=== PATIENT | female | born 1945 | race Caucasian/White ===

== ENCOUNTER → 2019-12-26 08:27 | Outpatient (BNVA) | payer MEDICARE, MEDICAID, SELFPAY | PROVIDERS: PCP Internal Medicine; Visit Provider Internal Medicine | DX: I48.20 Chronic atrial fibrillation, unspecified (principal); Z51.81 Encounter for therapeutic drug level monitoring; Z79.01 Long term (current) use of anticoagulants | CPT/HCPCS: 85610; 99211 ==

== ENCOUNTER → 2020-01-30 09:22 | Outpatient (BNVA) | payer MEDICARE, OTHER, SELFPAY | PROVIDERS: PCP Internal Medicine; Referring Provider Internal Medicine; Visit Provider Internal Medicine | DX: I48.20 Chronic atrial fibrillation, unspecified (principal); Z51.81 Encounter for therapeutic drug level monitoring; Z79.01 Long term (current) use of anticoagulants | CPT/HCPCS: 85610; 99211 ==

== ENCOUNTER → 2020-02-27 08:19 | Outpatient (BNVA) | payer MEDICARE, OTHER, SELFPAY | PROVIDERS: PCP Internal Medicine; Visit Provider Internal Medicine | DX: I48.20 Chronic atrial fibrillation, unspecified (principal); Z51.81 Encounter for therapeutic drug level monitoring; Z79.01 Long term (current) use of anticoagulants | CPT/HCPCS: 85610; 99211 ==

== ENCOUNTER → 2020-03-26 08:56 | Outpatient (BNVA) | payer MEDICARE, OTHER, SELFPAY | PROVIDERS: PCP Internal Medicine; Visit Provider Internal Medicine | DX: I48.20 Chronic atrial fibrillation, unspecified (principal); Z51.81 Encounter for therapeutic drug level monitoring; Z79.01 Long term (current) use of anticoagulants | CPT/HCPCS: 85610; 99211 ==

== ENCOUNTER → 2020-04-09 08:23 | Outpatient (BNVA) | payer MEDICARE, MEDICAID, OTHER, SELFPAY | PROVIDERS: PCP Internal Medicine; Visit Provider Internal Medicine | DX: I48.20 Chronic atrial fibrillation, unspecified (principal); Z51.81 Encounter for therapeutic drug level monitoring; Z79.01 Long term (current) use of anticoagulants | CPT/HCPCS: 85610; 99211 ==

== ENCOUNTER 2020-05-07 08:21 | Outpatient (REF) | payer MEDICARE, MEDICAID, SELFPAY ==
--- NOTE | ~2020-05-07 | XR_ITS ---
EXAMINATION: XR FOOT, RIGHT CLINICAL INFORMATION: Pain COMPARISON: None TECHNIQUE: AP, lateral, and oblique views of the right foot. FINDINGS: Bone alignment is normal. No fracture or dislocation is seen. The bones are osteopenic. There are contractures of the toes. Joint spaces are otherwise normal. There is soft tissue arterial calcification. XR/XR foot RT min 3V IMPRESSION: Osteopenia and soft tissue arterial calcification.
[2020-05-07 13:54] LABS: MANUAL DIFF FLAG NO
[2020-05-07 14:02] LABS: Basophils Percent Auto 0.3 % (0-2); Eosinophils Absolute Auto 0.5 X10*3/uL (0.0-0.4); Eosinophils Percent Auto 5.2 % (0-4); Hematocrit 37.3 % (37-47); Imm Gran Abs Auto 0.03 X10*3/uL (0.00-0.03); Imm Gran Pct Auto 0.3 % (0.0-0.4); Lymphocytes Absolute Auto 2.1 X10*3/uL (1.2-4.9); Lymphocytes Percent Auto 23.5 % (20-40); Mean Corpuscular HGB Conc 32.2 g/dl (31.0-35.0); Mean Corpuscular Hemoglobin 30.5 pg (27.0-33.0); Mean Corpuscular Volume 94.7 fL (80-98); Mean Platelet Volume 10.1 fL (9.4-12.3); Monocytes Absolute Auto 0.8 X10*3/uL (0.1-1.2); Neutrophils Absolute Auto 5.6 X10*3/uL (2.0-8.3); Neutrophils Percent Auto 61.7 % (45-73); Platelet Count 310 X10*3/uL (160-400); Red Blood Count 3.94 X10*6/uL (4.20-5.50); Red Cell Distribution Width 13.6 % (11.0-16.0)
[2020-05-07 14:28] LABS: Alanine Aminotransferase 9 U/L (0-31); Alkaline Phosphatase 96 U/L (39-117); Anion Gap 11 (12-20); Aspartate Amino Transferase 12 U/L (5-31); Bilirubin Total 0.6 mg/dL (0.0-1.0); Blood Urea Nitrogen 16 mg/dL (9-16); Calcium 9.2 mg/dL (8.4-10.2); Carbon Dioxide 29 mmol/L (22-29); Chloride 102 mmol/L (96-108); Cholesterol 144 mg/dL; Estimated Glomerular Filt Rate > 60; Glucose Random 89 mg/dL (60-115); HDL Cholesterol 55 mg/dL; LDL Cholesterol Calculated 71 mg/dl; Potassium 4.2 mmol/L (3.3-5.1); Sodium 138 mmol/L (135-145); Total Protein 6.5 g/dL (6.5-8.0); Triglycerides 93 mg/dL
[2020-05-07 14:53] LABS: Thyroid Stimulating Hormone 1.57 uIU/mL (0.32-4.0); Vitamin D 25-OH Total 8.8 ng/mL (>30)
== END 2020-05-07 08:22 | disposition home or self-care (01) ==
LOC: HO.LAB 08:21
PROVIDERS: Absent Provider Internal Medicine; PCP Internal Medicine; Visit Provider Internal Medicine
DX: E78.00 Pure hypercholesterolemia, unspecified (principal); I43 Cardiomyopathy in diseases classified elsewhere; J43.9 Emphysema, unspecified; I48.20 Chronic atrial fibrillation, unspecified; Z51.81 Encounter for therapeutic drug level monitoring; Z79.01 Long term (current) use of anticoagulants
CPT/HCPCS: 36415; 73630; 80053; 80061; 82306; 84443; 85025; 85610; 99211

== ENCOUNTER → 2020-05-19 08:23 | Outpatient (BNVA) | payer MEDICARE, MEDICAID, SELFPAY | PROVIDERS: PCP Internal Medicine; Visit Provider Internal Medicine | DX: I48.20 Chronic atrial fibrillation, unspecified (principal); Z51.81 Encounter for therapeutic drug level monitoring; Z79.01 Long term (current) use of anticoagulants | CPT/HCPCS: 85610; 99211 ==

== ENCOUNTER → 2020-06-11 08:28 | Outpatient (BNVA) | payer MEDICARE, MEDICAID, SELFPAY | PROVIDERS: PCP Internal Medicine; Visit Provider Internal Medicine | DX: I48.20 Chronic atrial fibrillation, unspecified (principal); Z51.81 Encounter for therapeutic drug level monitoring; Z79.01 Long term (current) use of anticoagulants | CPT/HCPCS: 85610; 99211 ==

== ENCOUNTER → 2020-07-16 08:22 | Outpatient (BNVA) | payer MEDICARE, OTHER, SELFPAY | PROVIDERS: PCP Internal Medicine; Visit Provider Internal Medicine | DX: I48.20 Chronic atrial fibrillation, unspecified (principal); Z51.81 Encounter for therapeutic drug level monitoring; Z79.01 Long term (current) use of anticoagulants | CPT/HCPCS: 85610; 99211 ==

== ENCOUNTER → 2020-08-13 08:11 | Outpatient (BNVA) | payer MEDICARE, OTHER, SELFPAY | PROVIDERS: PCP Internal Medicine; Visit Provider Internal Medicine | DX: I48.20 Chronic atrial fibrillation, unspecified (principal); Z51.81 Encounter for therapeutic drug level monitoring; Z79.01 Long term (current) use of anticoagulants | CPT/HCPCS: 85610; 99211 ==

== ENCOUNTER → 2020-09-10 08:23 | Outpatient (BNVA) | payer MEDICARE, OTHER, SELFPAY | PROVIDERS: PCP Internal Medicine; Visit Provider Internal Medicine | DX: I48.20 Chronic atrial fibrillation, unspecified (principal); Z51.81 Encounter for therapeutic drug level monitoring; Z79.01 Long term (current) use of anticoagulants | CPT/HCPCS: 85610; 99211 ==

== ENCOUNTER → 2020-10-08 08:21 | Outpatient (BNVA) | payer MEDICARE, OTHER, SELFPAY | PROVIDERS: PCP Internal Medicine; Visit Provider Internal Medicine | DX: I48.20 Chronic atrial fibrillation, unspecified (principal); Z51.81 Encounter for therapeutic drug level monitoring; Z79.01 Long term (current) use of anticoagulants | CPT/HCPCS: 85610; 99211 ==

== ENCOUNTER → 2020-10-10 08:28 | Outpatient (BNVA) | payer MEDICARE, OTHER, SELFPAY | PROVIDERS: PCP Internal Medicine; Visit Provider Internal Medicine | DX: I48.20 Chronic atrial fibrillation, unspecified (principal); Z51.81 Encounter for therapeutic drug level monitoring; Z79.01 Long term (current) use of anticoagulants | CPT/HCPCS: 85610; 99211 ==

== ENCOUNTER → 2020-10-22 08:42 | Outpatient (BNVA) | payer MEDICARE, OTHER, SELFPAY | PROVIDERS: PCP Internal Medicine; Visit Provider Internal Medicine | DX: I48.20 Chronic atrial fibrillation, unspecified (principal); Z51.81 Encounter for therapeutic drug level monitoring; Z79.01 Long term (current) use of anticoagulants | CPT/HCPCS: 85610; 99211 ==

== ENCOUNTER → 2020-11-05 08:55 | Outpatient (BNVA) | payer MEDICARE, OTHER, SELFPAY | PROVIDERS: PCP Internal Medicine; Visit Provider Internal Medicine | DX: I48.20 Chronic atrial fibrillation, unspecified (principal); Z51.81 Encounter for therapeutic drug level monitoring; Z79.01 Long term (current) use of anticoagulants | CPT/HCPCS: 85610; 99211 ==

== ENCOUNTER → 2020-11-19 08:28 | Outpatient (BNVA) | payer MEDICARE, OTHER, SELFPAY | PROVIDERS: PCP Internal Medicine; Visit Provider Internal Medicine | DX: I48.20 Chronic atrial fibrillation, unspecified (principal); Z51.81 Encounter for therapeutic drug level monitoring; Z79.01 Long term (current) use of anticoagulants | CPT/HCPCS: 85610; 99211 ==

== ENCOUNTER → 2020-12-03 08:36 | Outpatient (BNVA) | payer MEDICARE, OTHER, SELFPAY | PROVIDERS: PCP Internal Medicine; Visit Provider Internal Medicine | DX: I48.20 Chronic atrial fibrillation, unspecified (principal); Z51.81 Encounter for therapeutic drug level monitoring; Z79.01 Long term (current) use of anticoagulants | CPT/HCPCS: 85610; 99211 ==

== ENCOUNTER → 2020-12-24 08:40 | Outpatient (BNVA) | payer MEDICARE, OTHER, SELFPAY | PROVIDERS: PCP Internal Medicine; Visit Provider Internal Medicine | DX: I48.20 Chronic atrial fibrillation, unspecified (principal); Z51.81 Encounter for therapeutic drug level monitoring; Z79.01 Long term (current) use of anticoagulants | CPT/HCPCS: 85610; 99211 ==

== ENCOUNTER 2021-01-14 08:29 | Outpatient (REF) | payer MEDICARE, OTHER, SELFPAY ==
[2021-01-14 09:20] LABS: MANUAL DIFF FLAG NO
[2021-01-14 09:36] LABS: Basophils Percent Auto 0.2 % (0-2); Eosinophils Absolute Auto 0.1 X10*3/uL (0.0-0.4); Eosinophils Percent Auto 1.1 % (0-4); Hematocrit 36.7 % (37.0-47.0); Hemoglobin 11.7 g/dl (12.0-16.0); Imm Gran Abs Auto 0.02 X10*3/uL (0.00-0.03); Imm Gran Pct Auto 0.3 % (0.0-0.4); Lymphocytes Absolute Auto 1.8 X10*3/uL (1.2-4.9); Lymphocytes Percent Auto 29.1 % (20-40); Mean Corpuscular HGB Conc 31.9 g/dl (31.0-35.0); Mean Corpuscular Hemoglobin 30.2 pg (27.0-33.0); Mean Corpuscular Volume 94.8 fL (80.0-98.0); Mean Platelet Volume 9.6 fL (9.4-12.3); Monocytes Absolute Auto 0.5 X10*3/uL (0.1-1.2); Monocytes Percent Auto 7.1 % (2-11); Neutrophils Absolute Auto 3.9 x10*3/uL (2.0-8.3); Neutrophils Percent Auto 62.2 % (45-73); Platelet Count 321 X10*3/uL (160-400); Red Blood Count 3.87 X10*6/uL (4.20-5.50); Red Cell Distribution Width 13.5 % (11.0-16.0); White Blood Count 6.3 X10*3/uL (4.8-10.8)
[2021-01-14 10:00] LABS: Alanine Aminotransferase 9 U/L (0-31); Alkaline Phosphatase 88 U/L (39-117); Anion Gap 12 (12-20); Aspartate Amino Transferase 12 U/L (5-31); Bilirubin Total 0.5 mg/dL (0.0-1.0); Blood Urea Nitrogen 19 mg/dL (9-16); Calcium 9.3 mg/dL (8.4-10.2); Carbon Dioxide 28 mmol/L (22-29); Chloride 103 mmol/L (96-108); Estimated Glomerular Filt Rate > 60; Glucose Random 104 mg/dL (60-115); Potassium 3.7 mmol/L (3.3-5.1); Sodium 139 mmol/L (135-145); Total Protein 6.7 g/dL (6.5-8.0)
== END 2021-01-14 08:30 | disposition home or self-care (01) ==
LOC: HO.LAB 08:29
PROVIDERS: Visit Provider Internal Medicine
DX: I12.9 Hypertensive chronic kidney disease with stage 1 through stage 4 chronic kidney disease, or unspecified chronic kidney disease (principal); N18.9 Chronic kidney disease, unspecified; I48.20 Chronic atrial fibrillation, unspecified; Z51.81 Encounter for therapeutic drug level monitoring; Z79.01 Long term (current) use of anticoagulants
CPT/HCPCS: 36415; 80053; 85025; 85610; 99211

== ENCOUNTER → 2021-02-19 11:07 | Outpatient (BNVA) | payer MEDICARE, OTHER, SELFPAY | PROVIDERS: PCP Internal Medicine; Visit Provider Internal Medicine | DX: I48.20 Chronic atrial fibrillation, unspecified (principal); Z51.81 Encounter for therapeutic drug level monitoring; Z79.01 Long term (current) use of anticoagulants | CPT/HCPCS: 85610; 99211 ==

== ENCOUNTER → 2021-03-19 13:37 | Outpatient (BNVA) | payer MEDICARE, OTHER, SELFPAY | PROVIDERS: PCP Internal Medicine; Visit Provider Internal Medicine | DX: I48.20 Chronic atrial fibrillation, unspecified (principal); Z51.81 Encounter for therapeutic drug level monitoring; Z79.01 Long term (current) use of anticoagulants | CPT/HCPCS: 85610; 99211 ==

== ENCOUNTER → 2021-04-17 08:39 | Outpatient (BNVA) | payer MEDICARE, OTHER, SELFPAY | PROVIDERS: PCP Internal Medicine; Visit Provider Internal Medicine | DX: I48.20 Chronic atrial fibrillation, unspecified (principal); Z51.81 Encounter for therapeutic drug level monitoring; Z79.01 Long term (current) use of anticoagulants | CPT/HCPCS: 85610; 99211 ==

== ENCOUNTER → 2021-05-20 08:37 | Outpatient (BNVA) | payer MEDICARE, OTHER, SELFPAY | PROVIDERS: PCP Internal Medicine; Visit Provider Internal Medicine | DX: I48.20 Chronic atrial fibrillation, unspecified (principal); Z79.01 Long term (current) use of anticoagulants; Z51.81 Encounter for therapeutic drug level monitoring | CPT/HCPCS: 85610; 99211 ==

== ENCOUNTER → 2021-06-24 08:24 | Outpatient (BNVA) | payer MEDICARE, OTHER, SELFPAY | PROVIDERS: PCP Internal Medicine; Visit Provider Internal Medicine | DX: I48.20 Chronic atrial fibrillation, unspecified (principal); Z79.01 Long term (current) use of anticoagulants; Z51.81 Encounter for therapeutic drug level monitoring | CPT/HCPCS: 85610; 99211 ==

== ENCOUNTER → 2021-07-08 08:26 | Outpatient (BNVA) | payer MEDICARE, OTHER, SELFPAY | PROVIDERS: PCP Internal Medicine; Visit Provider Internal Medicine | DX: I48.20 Chronic atrial fibrillation, unspecified (principal); Z79.01 Long term (current) use of anticoagulants; Z51.81 Encounter for therapeutic drug level monitoring | CPT/HCPCS: 85610; 99211 ==

== ENCOUNTER → 2021-08-12 08:17 | Outpatient (BNVA) | payer MEDICARE, OTHER, SELFPAY | PROVIDERS: PCP Internal Medicine; Visit Provider Internal Medicine | DX: I48.20 Chronic atrial fibrillation, unspecified (principal); Z79.01 Long term (current) use of anticoagulants; Z51.81 Encounter for therapeutic drug level monitoring | CPT/HCPCS: 85610; 99211 ==

== ENCOUNTER → 2021-09-16 13:48 | Outpatient (BNVA) | payer MEDICARE, OTHER, SELFPAY | PROVIDERS: PCP Internal Medicine; Visit Provider Internal Medicine | DX: I48.20 Chronic atrial fibrillation, unspecified (principal); Z79.01 Long term (current) use of anticoagulants; Z51.81 Encounter for therapeutic drug level monitoring | CPT/HCPCS: 85610; 99211 ==

== ENCOUNTER → 2021-10-21 11:22 | Outpatient (BNVA) | payer MEDICARE, OTHER, SELFPAY | PROVIDERS: PCP Internal Medicine; Visit Provider Internal Medicine | DX: I48.20 Chronic atrial fibrillation, unspecified (principal); Z79.01 Long term (current) use of anticoagulants; Z51.81 Encounter for therapeutic drug level monitoring | CPT/HCPCS: 85610; 99211 ==

== ENCOUNTER → 2021-10-26 10:33 | Outpatient (BNVA) | payer MEDICARE, OTHER, SELFPAY | PROVIDERS: PCP Internal Medicine; Visit Provider Internal Medicine | DX: I48.20 Chronic atrial fibrillation, unspecified (principal); Z51.81 Encounter for therapeutic drug level monitoring; Z79.01 Long term (current) use of anticoagulants | CPT/HCPCS: 85610; 99211 ==

== ENCOUNTER → 2021-11-11 10:29 | Outpatient (BNVA) | payer MEDICARE, OTHER, SELFPAY | PROVIDERS: PCP Internal Medicine; Visit Provider Internal Medicine | DX: I48.20 Chronic atrial fibrillation, unspecified (principal); Z79.01 Long term (current) use of anticoagulants; Z51.81 Encounter for therapeutic drug level monitoring | CPT/HCPCS: 85610; 99211 ==

== ENCOUNTER → 2021-11-25 10:45 | Outpatient (BNVA) | payer MEDICARE, MEDICAID, OTHER, SELFPAY | PROVIDERS: PCP Internal Medicine; Visit Provider Internal Medicine | DX: I48.20 Chronic atrial fibrillation, unspecified (principal); Z79.01 Long term (current) use of anticoagulants; Z51.81 Encounter for therapeutic drug level monitoring | CPT/HCPCS: 85610; 99211 ==

== ENCOUNTER → 2021-12-09 10:07 | Outpatient (BNVA) | payer MEDICARE, OTHER, SELFPAY | PROVIDERS: PCP Internal Medicine; Visit Provider Internal Medicine | DX: I48.20 Chronic atrial fibrillation, unspecified (principal); Z79.01 Long term (current) use of anticoagulants; Z51.81 Encounter for therapeutic drug level monitoring | CPT/HCPCS: 85610; 99211 ==

== ENCOUNTER → 2022-01-11 10:16 | Outpatient (BNVA) | payer MEDICARE, OTHER, SELFPAY | PROVIDERS: PCP Internal Medicine; Visit Provider Internal Medicine | DX: I48.20 Chronic atrial fibrillation, unspecified (principal); Z79.01 Long term (current) use of anticoagulants; Z51.81 Encounter for therapeutic drug level monitoring | CPT/HCPCS: 85610; 99211 ==

== ENCOUNTER → 2022-02-17 13:58 | Outpatient (BNVA) | payer MEDICARE, OTHER, SELFPAY | PROVIDERS: PCP Internal Medicine; Visit Provider Internal Medicine | DX: I48.20 Chronic atrial fibrillation, unspecified (principal); Z79.01 Long term (current) use of anticoagulants; Z51.81 Encounter for therapeutic drug level monitoring | CPT/HCPCS: 85610; 99211 ==

== ENCOUNTER → 2022-03-17 10:15 | Outpatient (BNVA) | payer MEDICARE, OTHER, SELFPAY | PROVIDERS: PCP Internal Medicine; Visit Provider Internal Medicine | DX: I48.20 Chronic atrial fibrillation, unspecified (principal); Z79.01 Long term (current) use of anticoagulants; Z51.81 Encounter for therapeutic drug level monitoring | CPT/HCPCS: 85610; 99211 ==

== ENCOUNTER → 2022-03-31 10:26 | Outpatient (BNVA) | payer MEDICARE, OTHER, SELFPAY | PROVIDERS: PCP Internal Medicine; Visit Provider Internal Medicine | DX: I48.20 Chronic atrial fibrillation, unspecified (principal); Z79.01 Long term (current) use of anticoagulants; Z51.81 Encounter for therapeutic drug level monitoring | CPT/HCPCS: 85610; 99211 ==

== ENCOUNTER → 2022-04-14 10:15 | Outpatient (BNVA) | payer MEDICARE, OTHER, SELFPAY | PROVIDERS: PCP Internal Medicine; Visit Provider Internal Medicine | DX: I48.20 Chronic atrial fibrillation, unspecified (principal); Z79.01 Long term (current) use of anticoagulants; Z51.81 Encounter for therapeutic drug level monitoring | CPT/HCPCS: 85610; 99211 ==

== ENCOUNTER → 2022-04-28 10:08 | Outpatient (BNVA) | payer MEDICARE, OTHER, SELFPAY | PROVIDERS: PCP Internal Medicine; Visit Provider Internal Medicine | DX: I48.20 Chronic atrial fibrillation, unspecified (principal); Z79.01 Long term (current) use of anticoagulants; Z51.81 Encounter for therapeutic drug level monitoring | CPT/HCPCS: 85610; 99211 ==

== ENCOUNTER → 2022-05-25 10:55 | Outpatient (BNVA) | payer MEDICARE, OTHER, SELFPAY | PROVIDERS: PCP Internal Medicine; Visit Provider Internal Medicine | DX: I48.20 Chronic atrial fibrillation, unspecified (principal); Z79.01 Long term (current) use of anticoagulants; Z51.81 Encounter for therapeutic drug level monitoring | CPT/HCPCS: 85610; 99211 ==

== ENCOUNTER → 2022-06-22 10:37 | Outpatient (BNVA) | payer MEDICARE, OTHER, SELFPAY | PROVIDERS: PCP Internal Medicine; Visit Provider Internal Medicine | DX: I48.20 Chronic atrial fibrillation, unspecified (principal); Z79.01 Long term (current) use of anticoagulants; Z51.81 Encounter for therapeutic drug level monitoring | CPT/HCPCS: 85610; 99211 ==

== ENCOUNTER → 2022-07-20 10:32 | Outpatient (BNVA) | payer MEDICARE, OTHER, SELFPAY | PROVIDERS: PCP Internal Medicine; Visit Provider Internal Medicine | DX: I48.20 Chronic atrial fibrillation, unspecified (principal); Z79.01 Long term (current) use of anticoagulants; Z51.81 Encounter for therapeutic drug level monitoring | CPT/HCPCS: 85610; 99211 ==

== ENCOUNTER → 2022-08-18 11:19 | Outpatient (BNVA) | payer MEDICARE, OTHER, SELFPAY | PROVIDERS: PCP Internal Medicine; Visit Provider Internal Medicine ==

== ENCOUNTER → 2022-08-26 09:28 | Outpatient (BNVA) | payer MEDICARE, OTHER, SELFPAY | PROVIDERS: PCP Internal Medicine; Visit Provider Internal Medicine | DX: I48.20 Chronic atrial fibrillation, unspecified (principal); Z79.01 Long term (current) use of anticoagulants; Z51.81 Encounter for therapeutic drug level monitoring | CPT/HCPCS: 85610; 99211 ==

== ENCOUNTER → 2022-09-06 09:57 | Outpatient (BNVA) | payer MEDICARE, OTHER, SELFPAY | PROVIDERS: PCP Internal Medicine; Visit Provider Internal Medicine | DX: I48.0 Paroxysmal atrial fibrillation (principal); Z51.81 Encounter for therapeutic drug level monitoring; Z79.01 Long term (current) use of anticoagulants | CPT/HCPCS: 85610; 99211 ==

== ENCOUNTER 2022-09-14 10:09 | Outpatient (AMB) | payer MEDICARE, OTHER, SELFPAY ==
--- NOTE | 2022-09-14 10:17 | MHC.OFFVISCO ---
Intake Intake Visit Reasons: Anticoagulation Allergies lisinopril Adverse Reaction (Intermediate, Verified 09/14/22 10:13) [facility] Medication List - Last Reconciled 09/14/22 by Sejal Nelson RN acetaminophen 500 mg PO Q6H amiodarone 100 mg PO DAILY atorvastatin 20 mg PO DAILY carvedilol 25 mg PO BID sacubitril-valsartan 49-51 mg (Entresto) 0.5 tabs PO BID warfarin 2.5 mg See Protocol PO DAILY Nursing Note INR 3.2?? out of therapeutic range Medications and supplements reviewed Patient status: pt with increased stress Medications or supplements: no changes Diet: appetite same Denies any signs and symptoms of bleeding or clotting or unusual bruising Bleeding, bruising, clotting discussed Nutritional guidance given: eat greens today Dose: 1.25mg x 3,, 2.5mg x 4 F/U INR Date : 2 weeks? Patient verbalizing understanding of instructions given. 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
[2022-09-14 15:40] LABS: Prothrombin Time Whole Bld POC 38.3 sec (11.1-13.5); ~PT, ~INR - Anti Coag Clinic 3.2 (0.9-1.1)
== END 2022-09-14 10:28 | disposition home or self-care (01) ==
LOC: HO.ACS 10:09
PROVIDERS: PCP Internal Medicine; Visit Provider Internal Medicine
DX: Z79.01 Long term (current) use of anticoagulants (principal)

== ENCOUNTER → 2022-09-14 10:09 | Outpatient (BNVA) | payer MEDICARE, OTHER, SELFPAY | PROVIDERS: PCP Internal Medicine; Visit Provider Internal Medicine | DX: I48.20 Chronic atrial fibrillation, unspecified (principal); Z79.01 Long term (current) use of anticoagulants; Z51.81 Encounter for therapeutic drug level monitoring | CPT/HCPCS: 85610; 99211 ==

== ENCOUNTER 2022-09-28 10:27 | Outpatient (AMB) | payer MEDICARE, OTHER, SELFPAY ==
--- NOTE | 2022-09-28 10:35 | MHC.OFFVISCO ---
Intake Intake Visit Reasons: Anticoagulation Allergies lisinopril Adverse Reaction (Intermediate, Verified 09/28/22 10:31) [facility] Medication List - Last Reconciled 09/28/22 by Sejal Nelson RN acetaminophen 500 mg PO Q6H amiodarone 100 mg PO DAILY atorvastatin 20 mg PO DAILY carvedilol 25 mg PO BID sacubitril-valsartan 49-51 mg (Entresto) 0.5 tabs PO BID warfarin 2.5 mg See Protocol PO DAILY Nursing Note INR 3.8-?? out of therapeutic range Medications and supplements reviewed Patient status: pt with increased stress Medications or supplements: no changes Diet: appetite is good Denies any signs and symptoms of bleeding or clotting or unusual bruising Bleeding, bruising, clotting discussed - aware at risk for bleeding/bruising Nutritional guidance given: eat greens for 2 days, no reds for 2 days Dose: hold dose today, reduce weekly dosing 1.25mg x 4, 2.5mg x 3 F/U INR Date : 2 weeks? Patient verbalizing understanding of instructions given. Coding Level of Care Code Est Patient Level 1 Diagnoses Current use of anticoagulant therapy Z79.01 Assessment & Plan Assessment & Plan (1) Current use of anticoagulant therapy: Code(s): Z79.01 - [facility] (current) use of anticoagulants Category: Medical
[2022-09-28 10:36] LABS: Prothrombin Time Whole Bld POC 45.7 sec (11.1-13.5); ~PT, ~INR - Anti Coag Clinic 3.8 (0.9-1.1)
== END 2022-09-28 10:44 | disposition home or self-care (01) ==
LOC: HO.ACS 10:27
PROVIDERS: PCP Internal Medicine; Visit Provider Internal Medicine
DX: Z79.01 Long term (current) use of anticoagulants (principal)

== ENCOUNTER → 2022-09-28 10:27 | Outpatient (BNVA) | payer MEDICARE, OTHER, SELFPAY | PROVIDERS: PCP Internal Medicine; Visit Provider Internal Medicine | DX: I48.20 Chronic atrial fibrillation, unspecified (principal); Z51.81 Encounter for therapeutic drug level monitoring; Z79.01 Long term (current) use of anticoagulants | CPT/HCPCS: 85610; 99211 ==

== ENCOUNTER 2022-10-12 09:53 | Outpatient (AMB) | payer MEDICARE, OTHER, SELFPAY ==
[2022-10-12 10:05] LABS: Prothrombin Time Whole Bld POC 35.8 sec (11.1-13.5)
--- NOTE | 2022-10-12 10:05 | MHC.OFFVISCO ---
Intake Intake Visit Reasons: Anticoagulation Allergies lisinopril Adverse Reaction (Intermediate, Verified 10/12/22 09:59) [facility] Medication List - Last Reconciled 10/12/22 by Sejal Nelson RN acetaminophen 500 mg PO Q6H amiodarone 100 mg PO DAILY atorvastatin 20 mg PO DAILY carvedilol 25 mg PO BID sacubitril-valsartan 49-51 mg (Entresto) 0.5 tabs PO BID warfarin 2.5 mg See Protocol PO DAILY Nursing Note INR: 3.0- in therapeutic range Medications and supplements reviewed- no changes No changes in health, diet, medications, or supplements, Denies any signs and symptoms of bleeding or bruising or clotting. Bleeding, bruising, clotting discussed Nutritional guidance given - eat greens 3 times a week Dose: 2.5mg x 3, 1.25mg x 4 F/U INR: pt req 3 weeks Patient verbalizes understanding of instructions given Coding Level of Care Code Est Patient Level 1 Diagnoses Current use of anticoagulant therapy Z79.01 Assessment & Plan Assessment & Plan (1) Current use of anticoagulant therapy: Code(s): Z79.01 - alf (current) use of anticoagulants Category: Medical
== END 2022-10-12 10:10 | disposition home or self-care (01) ==
LOC: HO.ACS 09:53
PROVIDERS: PCP Internal Medicine; Visit Provider Internal Medicine
DX: Z79.01 Long term (current) use of anticoagulants (principal)

== ENCOUNTER → 2022-10-12 09:53 | Outpatient (BNVA) | payer MEDICARE, OTHER, SELFPAY | PROVIDERS: PCP Internal Medicine; Visit Provider Internal Medicine | DX: I48.20 Chronic atrial fibrillation, unspecified (principal); Z79.01 Long term (current) use of anticoagulants; Z51.81 Encounter for therapeutic drug level monitoring | CPT/HCPCS: 85610; 99211 ==

== ENCOUNTER → 2022-10-29 11:37 | Outpatient (BNVA) | payer MEDICARE, OTHER, SELFPAY | PROVIDERS: PCP Internal Medicine; Visit Provider Internal Medicine ==

== ENCOUNTER 2022-11-02 09:46 | Outpatient (AMB) | payer MEDICARE, OTHER, SELFPAY ==
--- NOTE | 2022-11-02 09:59 | MHC.OFFVISCO ---
Intake Intake Visit Reasons: Anticoagulation Allergies lisinopril Adverse Reaction (Intermediate, Verified 11/02/22 09:55) [facility] Medication List - Last Reconciled 11/02/22 by Sejal Nelson RN acetaminophen 500 mg PO Q6H amiodarone 100 mg PO DAILY atorvastatin 20 mg PO DAILY benzonatate 100 mg PO TID carvedilol 25 mg PO BID sacubitril-valsartan 49-51 mg (Entresto) 0.5 tabs PO BID warfarin 2.5 mg See Protocol PO DAILY Nursing Note INR 3.1-? out of therapeutic range Medications and supplements reviewed Patient status: pt with productive cough- she states clear sputum, she states improved she states neg for covid x 2 Medications or supplements: benzonatate for cough tid Diet: decreased Denies any signs and symptoms of bleeding or clotting or unusual bruising Bleeding, bruising, clotting discussed Nutritional guidance given: eat greens today and 3 times a week, no reds for 2 days Dose: 2.5mg x 3,1.25mg x 4 F/U INR Date : pt req 3 weeks?? Patient verbalizing understanding of instructions given. 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
[2022-11-02 10:01] LABS: Prothrombin Time Whole Bld POC 37.4 sec (11.1-13.5); ~PT, ~INR - Anti Coag Clinic 3.1 (0.9-1.1)
== END 2022-11-02 10:05 | disposition home or self-care (01) ==
LOC: HO.ACS 09:46
PROVIDERS: PCP Internal Medicine; Visit Provider Internal Medicine
DX: Z79.01 Long term (current) use of anticoagulants (principal)

== ENCOUNTER → 2022-11-02 09:46 | Outpatient (BNVA) | payer MEDICARE, OTHER, SELFPAY | PROVIDERS: PCP Internal Medicine; Visit Provider Internal Medicine | DX: I48.20 Chronic atrial fibrillation, unspecified (principal); Z79.01 Long term (current) use of anticoagulants; Z51.81 Encounter for therapeutic drug level monitoring | CPT/HCPCS: 85610; 99211 ==

== ENCOUNTER 2022-11-23 09:52 | Outpatient (AMB) | payer MEDICARE, OTHER, SELFPAY ==
--- NOTE | 2022-11-23 10:34 | MHC.OFFVISCO ---
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 Bleeding, bruising, clotting discussed Nutritional guidance given - no greens for 2 days, will have a red today pt taking boost/protein shakes occ, enc to be consistent greens 2 times a week Dose: 2.5mg x 3, 1.25mg x 4 F/U INR: pt req 4 weeks Patient verbalizes understanding of instructions given pt sister passed recently Coding Level of Care Code Est Patient Level 1 Diagnoses Current use of anticoagulant therapy Z79.01 Results AMB INR Fingerstick AMB INR Fingerstick 2.0 Last Edit by Sejal Nelson RN on 11/23/22 10:36 Assessment & Plan Assessment & Plan (1) Current use of anticoagulant therapy: Code(s): Z79.01 - [facility] (current) use of anticoagulants Category: Medical
[2022-11-24 08:06] LABS: Prothrombin Time Whole Bld POC 24.1 sec (11.1-13.5)
== END 2022-11-23 10:41 | disposition home or self-care (01) ==
LOC: HO.ACS 09:52
PROVIDERS: PCP Internal Medicine; Visit Provider Internal Medicine
DX: Z79.01 Long term (current) use of anticoagulants (principal)

== ENCOUNTER → 2022-11-23 09:52 | Outpatient (BNVA) | payer MEDICARE, OTHER, SELFPAY | PROVIDERS: PCP Internal Medicine; Visit Provider Internal Medicine | DX: I48.20 Chronic atrial fibrillation, unspecified (principal); Z79.01 Long term (current) use of anticoagulants; Z51.81 Encounter for therapeutic drug level monitoring | CPT/HCPCS: 85610; 99211 ==

== ENCOUNTER 2022-12-21 09:22 | Outpatient (AMB) | payer MEDICARE, OTHER, SELFPAY ==
--- NOTE | 2022-12-21 09:35 | MHC.OFFVISCO ---
Intake Intake Visit Reasons: Anticoagulation Allergies lisinopril Adverse Reaction (Intermediate, Verified 12/21/22 09:31) [facility] Medication List - Last Reconciled 12/21/22 by Sejal Nelson RN acetaminophen 500 mg PO Q6H amiodarone 100 mg PO DAILY atorvastatin 20 mg PO DAILY carvedilol 25 mg PO BID sacubitril-valsartan 49-51 mg (Entresto) 1 tab PO BID warfarin 2.5 mg See Protocol PO DAILY Nursing Note INR: 2.7- in therapeutic range Medications and supplements reviewed- no changes No changes in health, diet, medications, or supplements, Denies any signs and symptoms of bleeding or bruising or clotting. Bleeding, bruising, clotting discussed Nutritional guidance given Dose: 2.5mg x 3, 1.25mg x 4 F/U INR: 4 weeks Patient verbalizes understanding of instructions given Coding Level of Care Code Est Patient Level 1 Diagnoses Current use of anticoagulant therapy Z79.01 Results AMB INR Fingerstick AMB INR Fingerstick 2.7 Last Edit by Sejal Nelson RN on 12/21/22 09:36 Assessment & Plan Assessment & Plan (1) Current use of anticoagulant therapy: Code(s): Z79.01 - senior care (current) use of anticoagulants Category: Medical
[2022-12-21 09:36] LABS: Prothrombin Time Whole Bld POC 32.4 sec (11.1-13.5); ~PT, ~INR - Anti Coag Clinic 2.7 (0.9-1.1)
== END 2022-12-21 09:39 | disposition home or self-care (01) ==
LOC: HO.ACS 09:22
PROVIDERS: PCP Internal Medicine; Visit Provider Internal Medicine
DX: Z79.01 Long term (current) use of anticoagulants (principal)

== ENCOUNTER → 2022-12-21 09:22 | Outpatient (BNVA) | payer MEDICARE, OTHER, SELFPAY | PROVIDERS: PCP Internal Medicine; Visit Provider Internal Medicine | DX: I48.20 Chronic atrial fibrillation, unspecified (principal); Z79.01 Long term (current) use of anticoagulants; Z51.81 Encounter for therapeutic drug level monitoring | CPT/HCPCS: 85610; 99211 ==

== ENCOUNTER 2023-01-17 09:28 | Outpatient (AMB) | payer MEDICARE, OTHER, SELFPAY ==
--- NOTE | 2023-01-17 09:40 | MHC.OFFVISCO ---
Intake Intake Visit Reasons: Anticoagulation Allergies lisinopril Adverse Reaction (Intermediate, Verified 01/17/23 09:35) [facility] Medication List - Last Reconciled 01/17/23 by Sejal Nelson RN acetaminophen 500 mg PO Q6H amiodarone 100 mg PO DAILY atorvastatin 20 mg PO DAILY carvedilol 25 mg PO BID sacubitril-valsartan 49-51 mg (Entresto) 1 tab PO BID warfarin 2.5 mg See Protocol PO DAILY Nursing Note INR: 2.0- in therapeutic range of 2-3 Medications and supplements reviewed- no changes No changes in health, diet, medications, or supplements, Denies any signs and symptoms of bleeding or bruising or clotting. Bleeding, bruising, clotting discussed Nutritional guidance given - no greens for 2 days, will eat a red today pt states had more spinach Dose: 2.5mg x 3, 1.25mg x 4 F/U INR: 4 weeks Patient verbalizes understanding of instructions given Coding Level of Care Code Est Patient Level 1 Diagnoses Current use of anticoagulant therapy Z79.01 Assessment & Plan Assessment & Plan (1) Current use of anticoagulant therapy: Code(s): Z79.01 - senior care (current) use of anticoagulants Category: Medical
[2023-01-17 09:41] LABS: Prothrombin Time Whole Bld POC 23.9 sec (11.1-13.5)
== END 2023-01-17 09:46 | disposition home or self-care (01) ==
LOC: HO.ACS 09:28
PROVIDERS: PCP Internal Medicine; Visit Provider Internal Medicine
DX: Z79.01 Long term (current) use of anticoagulants (principal)

== ENCOUNTER → 2023-01-17 09:28 | Outpatient (BNVA) | payer MEDICARE, OTHER, SELFPAY | PROVIDERS: PCP Internal Medicine; Visit Provider Internal Medicine | DX: I48.20 Chronic atrial fibrillation, unspecified (principal); Z79.01 Long term (current) use of anticoagulants; Z51.81 Encounter for therapeutic drug level monitoring | CPT/HCPCS: 85610; 99211 ==

== ENCOUNTER 2023-02-09 08:37 | Outpatient (AMB) | payer MEDICARE, OTHER, SELFPAY ==
[2023-02-09 08:54] LABS: Prothrombin Time Whole Bld POC 29.9 sec (11.1-13.5); ~PT, ~INR - Anti Coag Clinic 2.5 (0.9-1.1)
--- NOTE | 2023-02-09 09:00 | MHC.OFFVISCO ---
Intake Intake Visit Reasons: Anticoagulation Allergies lisinopril Adverse Reaction (Intermediate, Verified 02/09/23 08:48) [facility] Medication List - Last Reconciled 02/09/23 by Delia Honeycutt RN acetaminophen 500 mg PO Q6H amiodarone 100 mg PO DAILY atorvastatin 20 mg PO DAILY carvedilol 25 mg PO BID sacubitril-valsartan 49-51 mg (Entresto) 1 tab PO BID warfarin 2.5 mg See Protocol PO DAILY Nursing Note NO CP,SOB,DIET/MED CHANGES,FALLS OR SX OF BLEEDING. CONTINUE PRESENT DOSE AND FOLOW-UP IN 4 WEEKS. GOOD UNDERSTANDING OF DOSING INSTR. 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
== END 2023-02-09 09:03 | disposition home or self-care (01) ==
LOC: HO.ACS 08:37
PROVIDERS: PCP Internal Medicine; Visit Provider Internal Medicine
DX: Z79.01 Long term (current) use of anticoagulants (principal)

== ENCOUNTER → 2023-02-09 08:37 | Outpatient (BNVA) | payer MEDICARE, OTHER, SELFPAY | PROVIDERS: PCP Internal Medicine; Visit Provider Internal Medicine | DX: I48.20 Chronic atrial fibrillation, unspecified (principal); Z79.01 Long term (current) use of anticoagulants; Z51.81 Encounter for therapeutic drug level monitoring | CPT/HCPCS: 85610; 99211 ==

== ENCOUNTER 2023-03-15 08:53 | Outpatient (AMB) | payer MEDICARE, OTHER, SELFPAY ==
[2023-03-15 09:00] LABS: Prothrombin Time Whole Bld POC 21.3 sec (11.1-13.5); ~PT, ~INR - Anti Coag Clinic 1.8 (0.9-1.1)
--- NOTE | 2023-03-15 09:00 | MHC.OFFVISCO ---
Intake Intake Visit Reasons: Anticoagulation Allergies lisinopril Adverse Reaction (Intermediate, Verified 03/15/23 08:58) [facility] Medication List - Last Reconciled 03/15/23 by Sejal Nelson RN acetaminophen 500 mg PO Q6H amiodarone 100 mg PO DAILY atorvastatin 20 mg PO DAILY carvedilol 25 mg PO BID sacubitril-valsartan 49-51 mg (Entresto) 1 tab PO BID warfarin 2.5 mg See Protocol PO DAILY Nursing Note INR 1.9-? out of therapeutic range of 2-3 denies missed dose Medications and supplements reviewed Patient status: pt with resp congestion- has not seen md Medications or supplements: no changes, taking robitussin dm prn Diet: same Denies any signs and symptoms of bleeding or clotting or unusual bruising Bleeding, bruising, clotting discussed Nutritional guidance given: no greens for 2 days, eat a resd today Dose: 2.5mg today, 1.25mg x 4, 2.5mg x 3 F/U INR Date : 2 weeks? Patient verbalizing understanding of instructions given. Coding Level of Care Code Est Patient Level 1 Diagnoses Current use of anticoagulant therapy Z79.01 Assessment & Plan Assessment & Plan (1) Current use of anticoagulant therapy: Code(s): Z79.01 - nursing home (current) use of anticoagulants Category: Medical
== END 2023-03-15 09:10 | disposition home or self-care (01) ==
LOC: HO.ACS 08:53
PROVIDERS: PCP Internal Medicine; Visit Provider Internal Medicine
DX: Z79.01 Long term (current) use of anticoagulants (principal)

== ENCOUNTER → 2023-03-15 08:53 | Outpatient (BNVA) | payer MEDICARE, OTHER, SELFPAY | PROVIDERS: PCP Internal Medicine; Visit Provider Internal Medicine | DX: I48.20 Chronic atrial fibrillation, unspecified (principal); Z79.01 Long term (current) use of anticoagulants; Z51.81 Encounter for therapeutic drug level monitoring | CPT/HCPCS: 85610; 99211 ==

== ENCOUNTER 2023-04-06 10:28 | Outpatient (REF) | payer MEDICARE, OTHER, SELFPAY ==
[2023-04-06 11:17] LABS: MANUAL DIFF FLAG NO
[2023-04-06 12:02] LABS: Basophils Percent Auto 0.3 % (0-2); Eosinophils Absolute Auto 0.1 X10*3/uL (0.0-0.4); Eosinophils Percent Auto 1.8 % (0-4); Hematocrit 38.7 % (37.0-47.0); Hemoglobin 12.8 g/dl (12.0-16.0); Imm Gran Abs Auto 0.01 X10*3/uL (0.00-0.03); Imm Gran Pct Auto 0.2 % (0.0-0.4); Lymphocytes Absolute Auto 2.5 X10*3/uL (1.2-4.9); Mean Corpuscular HGB Conc 33.1 g/dl (31.0-35.0); Mean Corpuscular Hemoglobin 30.5 pg (27.0-33.0); Mean Corpuscular Volume 92.4 fL (80.0-98.0); Mean Platelet Volume 10.8 fL (9.4-12.3); Monocytes Absolute Auto 0.5 X10*3/uL (0.1-1.2); Monocytes Percent Auto 7.5 % (2-11); Neutrophils Absolute Auto 2.9 x10*3/uL (2.0-8.3); Neutrophils Percent Auto 48.2 % (45-73); Platelet Count 240 X10*3/uL (160-400); Red Blood Count 4.19 X10*6/uL (4.20-5.50); Red Cell Distribution Width 14.3 % (11.0-16.0)
[2023-04-06 12:29] LABS: Alanine Aminotransferase 12 U/L (0-31); Albumin Level 3.9 g/dL (3.5-5.0); Alkaline Phosphatase 88 U/L (39-117); Anion Gap 14 (12-20); Aspartate Amino Transferase 14 U/L (5-31); Bilirubin Total 0.7 mg/dL (0.0-1.0); Blood Urea Nitrogen 17 mg/dL (9-16); Calcium 9.3 mg/dL (8.4-10.2); Carbon Dioxide 25 mmol/L (22-29); Chloride 106 mmol/L (96-108); Cholesterol 139 mg/dL (<200); Estimated Glomerular Filt Rate > 60; Glucose Random 91 mg/dL (60-115); HDL Cholesterol 60 mg/dL (>40); LDL Cholesterol Calculated 66 mg/dL (<100); Sodium 141 mmol/L (135-145); Total Protein 6.8 g/dL (6.5-8.0); Triglycerides 69 mg/dL (<150)
[2023-04-06 12:35] LABS: Thyroid Stimulating Hormone 1.43 uIU/mL (0.32-4.0)
== END 2023-04-06 10:29 | disposition home or self-care (01) ==
LOC: HO.LAB 10:28
PROVIDERS: PCP Internal Medicine; Visit Provider Internal Medicine
DX: E78.00 Pure hypercholesterolemia, unspecified (principal); I43 Cardiomyopathy in diseases classified elsewhere; I48.91 Unspecified atrial fibrillation; I11.0 Hypertensive heart disease with heart failure; I50.9 Heart failure, unspecified; R63.4 Abnormal weight loss
CPT/HCPCS: 36415; 80053; 80061; 84443; 85025; 85610; 99211

== ENCOUNTER 2023-04-06 10:28 | Outpatient (AMB) | payer MEDICARE, OTHER, SELFPAY ==
--- NOTE | 2023-04-06 10:46 | MHC.OFFVISCO ---
Intake Intake Visit Reasons: Anticoagulation Allergies lisinopril Adverse Reaction (Intermediate, Verified 04/06/23 10:42) [facility] Medication List - Last Reconciled 04/06/23 by Sejal Nelson RN acetaminophen 500 mg PO Q6H amiodarone 100 mg PO DAILY atorvastatin 20 mg PO DAILY carvedilol 25 mg PO BID sacubitril-valsartan 49-51 mg (Entresto) 1 tab PO BID warfarin 2.5 mg See Protocol PO DAILY Nursing Note INR: 2.0- in therapeutic range of 2-3 Medications and supplements reviewed- no changes No changes in health, diet, medications, or supplements, Denies any signs and symptoms of bleeding or bruising or clotting. Bleeding, bruising, clotting discussed Nutritional guidance given - no greens today, eat more reds Dose: 2.5mg x 3, 1.25mg x 4 F/U INR: 3 weeks Patient verbalizes understanding of instructions given Coding Level of Care Code Est Patient Level 1 Diagnoses Current use of anticoagulant therapy Z79.01 Assessment & Plan Assessment & Plan (1) Current use of anticoagulant therapy: Code(s): Z79.01 - longterm (current) use of anticoagulants Category: Medical
[2023-04-06 10:48] LABS: Prothrombin Time Whole Bld POC 24.1 sec (11.1-13.5)
== END 2023-04-06 10:52 | disposition home or self-care (01) ==
LOC: HO.ACS 10:28
PROVIDERS: PCP Internal Medicine; Visit Provider Internal Medicine
DX: Z79.01 Long term (current) use of anticoagulants (principal)

== ENCOUNTER 2023-04-27 10:30 | Outpatient (AMB) | payer MEDICARE, OTHER, SELFPAY ==
[2023-04-27 10:48] LABS: Prothrombin Time Whole Bld POC 23.3 sec (11.1-13.5); ~PT, ~INR - Anti Coag Clinic 1.9 (0.9-1.1)
--- NOTE | 2023-04-27 11:00 | MHC.OFFVISCO ---
Intake Intake Visit Reasons: Anticoagulation Allergies lisinopril Adverse Reaction (Intermediate, Verified 04/27/23 10:43) [facility] Medication List - Last Reconciled 04/27/23 by Delia Honeycutt RN acetaminophen 500 mg PO Q6H amiodarone 100 mg PO DAILY atorvastatin 20 mg PO DAILY carvedilol 25 mg PO BID sacubitril-valsartan 49-51 mg (Entresto) 1 tab PO BID warfarin 2.5 mg See Protocol PO DAILY Nursing Note NO MISSED DOSES,CP,SOB,DIET/MED CHANGES,FALLS OR SX OF BLEEDING. INCREASE WEEKLY DOSE SLIGHTLY AND FOLLOW-UP IN 2 WEEKS. GOOD UNDERSTANDING OF DOSING INSTR. 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
== END 2023-04-27 11:01 | disposition home or self-care (01) ==
LOC: HO.ACS 10:30
PROVIDERS: PCP Internal Medicine; Visit Provider Internal Medicine
DX: Z79.01 Long term (current) use of anticoagulants (principal)

== ENCOUNTER → 2023-04-27 10:30 | Outpatient (BNVA) | payer MEDICARE, OTHER, SELFPAY | PROVIDERS: PCP Internal Medicine; Visit Provider Internal Medicine | DX: I48.20 Chronic atrial fibrillation, unspecified (principal); Z79.01 Long term (current) use of anticoagulants; Z51.81 Encounter for therapeutic drug level monitoring | CPT/HCPCS: 85610; 99211 ==

== ENCOUNTER 2023-05-11 10:49 | Outpatient (AMB) | payer MEDICARE, OTHER, SELFPAY ==
--- NOTE | 2023-05-11 11:15 | MHC.OFFVISCO ---
Intake Intake Visit Reasons: Anticoagulation Allergies lisinopril Adverse Reaction (Intermediate, Verified 05/11/23 11:12) [facility] Medication List - Last Reconciled 05/11/23 by Sejal Nelson RN acetaminophen 500 mg PO Q6H amiodarone 100 mg PO DAILY atorvastatin 20 mg PO DAILY carvedilol 25 mg PO BID sacubitril-valsartan 49-51 mg (Entresto) 1 tab PO BID warfarin 2.5 mg See Protocol PO DAILY Nursing Note INR: 2.5- in therapeutic range of 2-3 Medications and supplements reviewed- no changes No changes in health, diet, medications, or supplements, Denies any signs and symptoms of bleeding or bruising or clotting. Bleeding, bruising, clotting discussed Nutritional guidance given Dose: 2.5mg x 4, 1.25mg x 3 F/U INR: 3 weeks Patient verbalizes understanding of instructions given Coding Level of Care Code Est Patient Level 1 Diagnoses Current use of anticoagulant therapy Z79.01 Results AMB INR Fingerstick AMB INR Fingerstick 2.5 Last Edit by Sejal Nelson RN on 05/11/23 11:16 Assessment & Plan Assessment & Plan (1) Current use of anticoagulant therapy: Code(s): Z79.01 - shelter (current) use of anticoagulants Category: Medical
[2023-05-11 11:17] LABS: Prothrombin Time Whole Bld POC 29.9 sec (11.1-13.5); ~PT, ~INR - Anti Coag Clinic 2.5 (0.9-1.1)
== END 2023-05-11 11:22 | disposition home or self-care (01) ==
LOC: HO.ACS 10:49
PROVIDERS: PCP Internal Medicine; Visit Provider Internal Medicine
DX: Z79.01 Long term (current) use of anticoagulants (principal)

== ENCOUNTER → 2023-05-11 10:49 | Outpatient (BNVA) | payer MEDICARE, OTHER, SELFPAY | PROVIDERS: PCP Internal Medicine; Visit Provider Internal Medicine | DX: I48.20 Chronic atrial fibrillation, unspecified (principal); Z79.01 Long term (current) use of anticoagulants; Z51.81 Encounter for therapeutic drug level monitoring | CPT/HCPCS: 85610; 99211 ==

== ENCOUNTER 2023-06-01 10:17 | Outpatient (AMB) | payer MEDICARE, OTHER, SELFPAY ==
[2023-06-01 10:32] LABS: ~PT, ~INR - Anti Coag Clinic 2.4 (0.9-1.1)
--- NOTE | 2023-06-01 10:35 | MHC.OFFVISCO ---
Intake Intake Visit Reasons: Anticoagulation Allergies lisinopril Adverse Reaction (Intermediate, Verified 06/01/23 10:27) [facility] Medication List - Last Reconciled 06/01/23 by Delia Honeycutt RN acetaminophen 500 mg PO Q6H amiodarone 100 mg PO DAILY atorvastatin 20 mg PO DAILY carvedilol 25 mg PO BID sacubitril-valsartan 49-51 mg (Entresto) 1 tab PO BID warfarin 2.5 mg See Protocol PO DAILY Nursing Note NO CP,SOB,DIET/MED CHANGES,FALLS OR SX OF BLEEDING. CONTINUE PRESENT DOSE AND FOLLOW-UP IN 4 WEEKS GOOD UNDERSTANDING OF DOSING INSTR. 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
== END 2023-06-01 10:38 | disposition home or self-care (01) ==
LOC: HO.ACS 10:17
PROVIDERS: PCP Internal Medicine; Visit Provider Internal Medicine
DX: Z79.01 Long term (current) use of anticoagulants (principal)

== ENCOUNTER → 2023-06-01 10:17 | Outpatient (BNVA) | payer MEDICARE, OTHER, SELFPAY | PROVIDERS: PCP Internal Medicine; Visit Provider Internal Medicine | DX: I48.20 Chronic atrial fibrillation, unspecified (principal); Z79.01 Long term (current) use of anticoagulants; Z51.81 Encounter for therapeutic drug level monitoring | CPT/HCPCS: 85610; 99211 ==

== ENCOUNTER 2023-06-29 10:20 | Outpatient (AMB) | payer MEDICARE, OTHER, SELFPAY ==
--- NOTE | 2023-06-29 10:49 | MHC.OFFVISCO ---
Intake Intake Visit Reasons: Anticoagulation Allergies lisinopril Adverse Reaction (Intermediate, Verified 06/29/23 10:39) [facility] Medication List - Last Reconciled 06/29/23 by Delia Honeycutt RN acetaminophen 500 mg PO Q6H amiodarone 100 mg PO DAILY atorvastatin 20 mg PO DAILY carvedilol 25 mg PO BID sacubitril-valsartan 49-51 mg (Entresto) 1 tab PO BID warfarin 2.5 mg See Protocol PO DAILY Nursing Note NO CP,SOB,DIET/MED CHANGES,FALLS OR SX OF BLEEDING. HOLD WARFARIN TODAY THEN RESUME USUAL DOSE AND FOLLOW-UP IN 2 WEEKS. GOOD UNDSERSTANDING OF DOSING INSTR. 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
[2023-06-29 13:19] LABS: Prothrombin Time Whole Bld POC 42.8 sec (11.1-13.5); ~PT, ~INR - Anti Coag Clinic 3.6 (0.9-1.1)
== END 2023-06-29 10:55 | disposition home or self-care (01) ==
LOC: HO.ACS 10:20
PROVIDERS: PCP Internal Medicine; Visit Provider Internal Medicine
DX: Z79.01 Long term (current) use of anticoagulants (principal)

== ENCOUNTER → 2023-06-29 10:20 | Outpatient (BNVA) | payer MEDICARE, OTHER, SELFPAY | PROVIDERS: PCP Internal Medicine; Visit Provider Internal Medicine | DX: I48.20 Chronic atrial fibrillation, unspecified (principal); Z51.81 Encounter for therapeutic drug level monitoring; Z79.01 Long term (current) use of anticoagulants | CPT/HCPCS: 85610; 99211 ==

== ENCOUNTER 2023-07-13 09:33 | Outpatient (AMB) | payer MEDICARE, SELFPAY ==
--- NOTE | 2023-07-13 09:43 | MHC.OFFVISCO ---
Intake Intake Visit Reasons: Anticoagulation Allergies lisinopril Adverse Reaction (Intermediate, Verified 07/13/23 09:36) [facility] Medication List - Last Reconciled 07/13/23 by Sejal Nelson RN acetaminophen 500 mg PO Q6H amiodarone 100 mg PO DAILY atorvastatin 20 mg PO DAILY carvedilol 25 mg PO BID warfarin 2.5 mg See Protocol PO DAILY Nursing Note INR 3.8-?? out of therapeutic range- 2-3 Medications and supplements reviewed Patient status: recent hosp visit [facility] for tachycardia- pt states received digoxin IV, entresto d/c- no interaction per micromedex pt states INR yesterday prior to d/c at [facility] was 4.0- pt held warfarin yesterday per d/c instructions, pt states no edema Medications or supplements: entresto d/c Diet: appetite less in hosp Denies any signs and symptoms of bleeding or clotting or unusual bruising Bleeding, bruising, clotting discussed Nutritional guidance given: eat greens to lower, no reds for 2-3 days Dose: hold today dose of 1.25mg then 2.5mg x 4, 1.25mg x 3 F/U INR Date : 1 week?? Patient verbalizing understanding of instructions given. 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
[2023-07-14 09:06] LABS: Prothrombin Time Whole Bld POC 46.1 sec (11.1-13.5); ~PT, ~INR - Anti Coag Clinic 3.8 (0.9-1.1)
== END 2023-07-13 10:10 | disposition home or self-care (01) ==
PROVIDERS: PCP Internal Medicine; Visit Provider Internal Medicine
DX: Z79.01 Long term (current) use of anticoagulants (principal)

== ENCOUNTER → 2023-07-13 09:33 | Outpatient (BNVA) | payer MEDICARE, OTHER, SELFPAY | PROVIDERS: PCP Internal Medicine; Visit Provider Internal Medicine | DX: I48.20 Chronic atrial fibrillation, unspecified (principal); Z51.81 Encounter for therapeutic drug level monitoring; Z79.01 Long term (current) use of anticoagulants | CPT/HCPCS: 85610; 99211 ==

== ENCOUNTER 2023-07-20 08:47 | Outpatient (AMB) | payer MEDICARE, MEDICAID, SELFPAY ==
[2023-07-20 08:53] LABS: Prothrombin Time Whole Bld POC 43.2 sec (11.1-13.5); ~PT, ~INR - Anti Coag Clinic 3.6 (0.9-1.1)
--- NOTE | 2023-07-20 09:03 | MHC.OFFVISCO ---
Intake Intake Visit Reasons: Anticoagulation Allergies lisinopril Adverse Reaction (Intermediate, Verified 07/20/23 08:49) [facility] Medication List - Last Reconciled 07/20/23 by Delia Honeycutt RN acetaminophen 500 mg PO Q6H PRN amiodarone 100 mg PO DAILY atorvastatin 20 mg PO DAILY carvedilol 25 mg PO BID warfarin 2.5 mg See Protocol PO DAILY Nursing Note PT.DENIES ANY CP,SOB OR FURTHER TACHYCARDIA. NO DIET/MED CHANGES,FALLS OR SX OF BLEEDING,. HOLD WARFARIN TODAY THEN REDUCE WEEKLY DOSE SLIGHTLY AND FOLLOW-UP IN 2 WEEKS. GOOD UNDERSTANDING OF DOSING INSTR. Coding Level of Care Code Est Patient Level 1 Diagnoses Current use of anticoagulant therapy Z79.01 Assessment & Plan Assessment & Plan (1) Current use of anticoagulant therapy: Code(s): Z79.01 - penitentiary (current) use of anticoagulants Category: Medical
== END 2023-07-20 09:05 | disposition home or self-care (01) ==
LOC: HO.ACS 08:47
PROVIDERS: PCP Internal Medicine; Visit Provider Internal Medicine
DX: Z79.01 Long term (current) use of anticoagulants (principal)

== ENCOUNTER → 2023-07-20 08:47 | Outpatient (BNVA) | payer MEDICARE, SELFPAY | PROVIDERS: PCP Internal Medicine; Visit Provider Internal Medicine | DX: I48.20 Chronic atrial fibrillation, unspecified (principal); Z51.81 Encounter for therapeutic drug level monitoring; Z79.01 Long term (current) use of anticoagulants | CPT/HCPCS: 85610; 99211 ==

== ENCOUNTER 2023-08-03 08:41 | Outpatient (AMB) | payer MEDICARE, MEDICAID, SELFPAY ==
[2023-08-03 09:04] LABS: Prothrombin Time Whole Bld POC 28.7 sec (11.1-13.5); ~PT, ~INR - Anti Coag Clinic 2.4 (0.9-1.1)
--- NOTE | 2023-08-03 09:11 | MHC.OFFVISCO ---
Intake Intake Visit Reasons: Anticoagulation Allergies lisinopril Adverse Reaction (Intermediate, Verified 08/03/23 08:55) [facility] Medication List - Last Reconciled 08/03/23 by Katie Patiño RN acetaminophen 500 mg PO Q6H PRN amiodarone 100 mg PO DAILY atorvastatin 20 mg PO DAILY carvedilol 25 mg PO BID furosemide 20 mg PO DAILY sacubitril-valsartan 24-26 mg (Entresto) 1 tab PO BID warfarin 2.5 mg See Protocol PO DAILY Nursing Note INR: 2.4 in therapeutic range- S/P DOSE DECREASE 2 WEEKS AGO Medications and supplements reviewed No changes in health, diet, medications, or supplements, Denies any signs and symptoms of bleeding or bruising or clotting. 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
== END 2023-08-03 09:13 | disposition home or self-care (01) ==
LOC: HO.ACS 08:41
PROVIDERS: PCP Internal Medicine; Visit Provider Internal Medicine
DX: Z79.01 Long term (current) use of anticoagulants (principal)

== ENCOUNTER → 2023-08-03 08:41 | Outpatient (BNVA) | payer MEDICARE, MEDICAID, SELFPAY | PROVIDERS: PCP Internal Medicine; Visit Provider Internal Medicine | DX: I48.20 Chronic atrial fibrillation, unspecified (principal); Z79.01 Long term (current) use of anticoagulants; Z51.81 Encounter for therapeutic drug level monitoring | CPT/HCPCS: 85610; 99211 ==

== ENCOUNTER 2023-08-22 09:21 | Outpatient (AMB) | payer MEDICARE, MEDICAID, SELFPAY ==
[2023-08-22 09:34] LABS: Prothrombin Time Whole Bld POC 44.5 sec (11.1-13.5); ~PT, ~INR - Anti Coag Clinic 3.7 (0.9-1.1)
--- NOTE | 2023-08-22 09:44 | MHC.OFFVISCO ---
Intake Intake Visit Reasons: Anticoagulation Allergies lisinopril Adverse Reaction (Intermediate, Verified 08/22/23 09:27) [facility] Medication List - Last Reconciled 08/22/23 by Lela Strickland, CIRA acetaminophen 500 mg PO Q6H PRN amiodarone 100 mg PO DAILY atorvastatin 20 mg PO DAILY carvedilol 25 mg PO BID furosemide 20 mg PO DAILY sacubitril-valsartan 24-26 mg (Entresto) 1 tab PO BID warfarin 2.5 mg See Protocol PO DAILY Nursing Note INR 3.7?out of therapeutic range of 2-3 Medications and supplements reviewed Patient status: feels ok . No changes after bout of CHF in July. Had been admitted to [facility] for CHF at that time. States takes lasix 20 mg prn but has not needed it since hospitalization. Medications or supplements: no changes Diet: usual for pt Denies any signs and symptoms of bleeding or clotting or unusual bruising Bleeding, bruising, clotting discussed Nutritional guidance given: to have greens today. Dose: hold today's dose of 2.5mg, then 1.25mg X 4 days and 2.5mg X 2 days Decrease next weeks dose to 2.5mg X 2 days and 1.25mg X 5 days since INR has been consistently over 3. F/U INR Date : 10 days?? Patient verbalizing understanding of instructions given. Coding Level of Care Code Est Patient Level 1 Diagnoses Current use of anticoagulant therapy Z79.01 Assessment & Plan Assessment & Plan (1) Current use of anticoagulant therapy: Code(s): Z79.01 - [facility] (current) use of anticoagulants Category: Medical
== END 2023-08-22 13:43 | disposition home or self-care (01) ==
LOC: HO.ACS 09:21
PROVIDERS: PCP Internal Medicine; Visit Provider Internal Medicine
DX: Z79.01 Long term (current) use of anticoagulants (principal)

== ENCOUNTER → 2023-08-22 09:21 | Outpatient (BNVA) | payer MEDICARE, MEDICAID, SELFPAY | PROVIDERS: PCP Internal Medicine; Visit Provider Internal Medicine | DX: I48.20 Chronic atrial fibrillation, unspecified (principal); Z79.01 Long term (current) use of anticoagulants; Z51.81 Encounter for therapeutic drug level monitoring | CPT/HCPCS: 85610; 99211 ==

== ENCOUNTER 2023-08-31 09:29 | Outpatient (AMB) | payer MEDICARE, MEDICAID, SELFPAY ==
--- NOTE | 2023-08-31 09:38 | MHC.OFFVISCO ---
Intake Intake Visit Reasons: Anticoagulation Allergies lisinopril Adverse Reaction (Intermediate, Verified 08/31/23 09:34) [facility] Medication List - Last Reconciled 08/31/23 by Sejal Nelson RN acetaminophen 500 mg PO Q6H PRN amiodarone 100 mg PO DAILY atorvastatin 20 mg PO DAILY carvedilol 25 mg PO BID furosemide 20 mg PO DAILY sacubitril-valsartan 24-26 mg (Entresto) 1 tab PO BID warfarin 2.5 mg See Protocol PO DAILY Nursing Note INR 3.4-? out of therapeutic range of 2-3 Medications and supplements reviewed Patient status: no c.o, pt with some stress Medications or supplements: no changes Diet: same, states eating greens Denies any signs and symptoms of bleeding or clotting or unusual bruising Bleeding, bruising, clotting discussed Nutritional guidance given: eat greens to lower Dose: hold dose of 1.25mg today then cont lower dosing 2.5mg x 2, 1.25mg x 5 F/U INR Date : 2 weeks?? Patient verbalizing understanding of instructions given. Coding Level of Care Code Est Patient Level 1 Diagnoses Current use of anticoagulant therapy Z79.01 Assessment & Plan Assessment & Plan (1) Current use of anticoagulant therapy: Code(s): Z79.01 - sn[facility] (current) use of anticoagulants Category: Medical
[2023-08-31 09:39] LABS: Prothrombin Time Whole Bld POC 41.4 sec (11.1-13.5); ~PT, ~INR - Anti Coag Clinic 3.4 (0.9-1.1)
== END 2023-08-31 09:51 | disposition home or self-care (01) ==
LOC: HO.ACS 09:29
PROVIDERS: PCP Internal Medicine; Visit Provider Internal Medicine
DX: Z79.01 Long term (current) use of anticoagulants (principal)

== ENCOUNTER → 2023-08-31 09:29 | Outpatient (BNVA) | payer MEDICARE, MEDICAID, SELFPAY | PROVIDERS: PCP Internal Medicine; Visit Provider Internal Medicine | DX: I48.20 Chronic atrial fibrillation, unspecified (principal); Z79.01 Long term (current) use of anticoagulants; Z51.81 Encounter for therapeutic drug level monitoring | CPT/HCPCS: 85610; 99211 ==

== ENCOUNTER 2023-09-14 09:11 | Outpatient (AMB) | payer MEDICARE, MEDICAID, SELFPAY ==
[2023-09-14 09:26] LABS: Prothrombin Time Whole Bld POC 30.1 sec (11.1-13.5); ~PT, ~INR - Anti Coag Clinic 2.5 (0.9-1.1)
--- NOTE | 2023-09-14 09:34 | MHC.OFFVISCO ---
Intake Intake Visit Reasons: Anticoagulation Allergies lisinopril Adverse Reaction (Intermediate, Verified 09/14/23 09:21) [facility] Medication List - Last Reconciled 09/14/23 by Delia Honeycutt RN acetaminophen 500 mg PO Q6H PRN amiodarone 100 mg PO DAILY atorvastatin 20 mg PO DAILY carvedilol 25 mg PO BID furosemide 20 mg PO DAILY sacubitril-valsartan 24-26 mg (Entresto) 1 tab PO BID warfarin 2.5 mg See Protocol PO DAILY Nursing Note NO CP,SOB,DIET/MED CHANGES,FALLS OR SX OF BLEEDING. CONTINUE PRESENT DOSE ANDF FOLLOW-UP IN 3 WEEKS. GOOD UNDERSTANDING OF DOSING INSTR. 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
== END 2023-09-14 09:35 | disposition home or self-care (01) ==
LOC: HO.ACS 09:11
PROVIDERS: PCP Internal Medicine; Visit Provider Internal Medicine
DX: Z79.01 Long term (current) use of anticoagulants (principal)

== ENCOUNTER → 2023-09-14 09:11 | Outpatient (BNVA) | payer MEDICARE, MEDICAID, SELFPAY | PROVIDERS: PCP Internal Medicine; Visit Provider Internal Medicine | DX: I48.20 Chronic atrial fibrillation, unspecified (principal); Z79.01 Long term (current) use of anticoagulants; Z51.81 Encounter for therapeutic drug level monitoring | CPT/HCPCS: 85610; 99211 ==

== ENCOUNTER 2023-10-05 09:12 | Outpatient (AMB) | payer MEDICARE, MEDICAID, SELFPAY ==
[2023-10-05 09:30] LABS: Prothrombin Time Whole Bld POC 30.4 sec (11.1-13.5); ~PT, ~INR - Anti Coag Clinic 2.5 (0.9-1.1)
--- NOTE | 2023-10-05 09:31 | MHC.OFFVISCO ---
Intake Intake Visit Reasons: Anticoagulation Allergies lisinopril Adverse Reaction (Intermediate, Verified 10/05/23 09:25) [facility] Medication List - Last Reconciled 10/05/23 by Katie Patiño RN acetaminophen 500 mg PO Q6H PRN amiodarone 100 mg PO DAILY atorvastatin 20 mg PO DAILY carvedilol 25 mg PO BID furosemide 20 mg PO DAILY sacubitril-valsartan 24-26 mg (Entresto) 1 tab PO BID warfarin 2.5 mg See Protocol PO DAILY Nursing Note INR: 2.5 in therapeutic range Medications and supplements reviewed No changes in health, diet, medications, or supplements, Denies any signs and symptoms of bleeding or bruising or clotting. Bleeding, bruising, clotting discussed Nutritional guidance given Dose: keep same dose 2.5mg x 2 days/ 1.25mg x 5 days F/U INR: 1 month Patient verbalizes understanding of instructions given Questionnaires HAS-BLED Does the patient had uncontrolled Hypertension?: No Does the patient have renal disease?: No Does the patient have liver disease?: No Does the patient have a history of stroke?: No Has the patient had major bleeding or predisposition to bleeding?: Yes Does the patient have labile INRs?: No Is the patient over 65 years of age?: Yes Is the patient on medications that gives them a predisposition to bleeding?: Yes Does the patient use alcohol?: No HAS-BLED Score: 3 CHADSVASC Age: 75 or over Gender: Female Does the patient have a history of CHF?: Yes Does the patient have a history of Hypertension?: Yes Does the patient have a history of Stroke/TIA/Thromboembolism?: Yes ([place] 2007) Does the patient have a history of Vascular Disease (prior AR, PAD or aortic plaque)?: Yes Does the patient have a history of Diabetes?: No CHADS VACS Score: 8 Jennifer Prediction Score Rsk VTE Active Cancer: No Previous VTE, excluding superficial vein thrombosis: No Reduced mobility: No Already known Thrombophilic Condition: No With-in last month Trauma and/or Surgery: No Elderly 70 year or older: Yes Heart and/or Respiratory Failure: Yes Acute Myocardial infarction and/or Ischemic Stroke: Yes Acute Infection and/or Rheumatologic Disorder: No Obesity (BMI 30 or greater): No Ongoing Hormonal Treatment: No Score: 3 Jennifer Score less than 4; Low Risk of VTE Jennifer Score 4 or greater; High Risk of VTE Coding Level of Care Code Est Patient Level 1 Diagnoses Current use of anticoagulant therapy Z79.01 Assessment & Plan Assessment & Plan (1) Current use of anticoagulant therapy: 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
== END 2023-10-05 09:42 | disposition home or self-care (01) ==
LOC: HO.ACS 09:12
PROVIDERS: PCP Internal Medicine; Visit Provider Internal Medicine
DX: Z79.01 Long term (current) use of anticoagulants (principal)

== ENCOUNTER → 2023-10-05 09:12 | Outpatient (BNVA) | payer MEDICARE, MEDICAID, SELFPAY | PROVIDERS: PCP Internal Medicine; Visit Provider Internal Medicine | DX: I48.20 Chronic atrial fibrillation, unspecified (principal); Z79.01 Long term (current) use of anticoagulants; Z51.81 Encounter for therapeutic drug level monitoring | CPT/HCPCS: 85610; 99211 ==

== ENCOUNTER 2023-10-18 09:05 | Outpatient (REF) | payer MEDICARE, OTHER, SELFPAY ==
[2023-10-18 09:24] LABS: MANUAL DIFF FLAG NO
[2023-10-18 10:50] LABS: Basophils Percent Auto 0.3 % (0-2); Eosinophils Absolute Auto 0.1 X10*3/uL (0.0-0.4); Eosinophils Percent Auto 1.4 % (0-4); Hematocrit 39.7 % (37.0-47.0); Imm Gran Abs Auto 0.02 X10*3/uL (0.00-0.03); Imm Gran Pct Auto 0.3 % (0.0-0.4); Lymphocytes Absolute Auto 2.1 X10*3/uL (1.2-4.9); Lymphocytes Percent Auto 29.3 % (20-40); Mean Corpuscular HGB Conc 32.7 g/dl (31.0-35.0); Mean Corpuscular Hemoglobin 30.7 pg (27.0-33.0); Mean Corpuscular Volume 93.6 fL (80.0-98.0); Mean Platelet Volume 10.3 fL (9.4-12.3); Monocytes Absolute Auto 0.5 X10*3/uL (0.1-1.2); Monocytes Percent Auto 7.4 % (2-11); Neutrophils Absolute Auto 4.5 x10*3/uL (2.0-8.3); Neutrophils Percent Auto 61.3 % (45-73); Platelet Count 261 X10*3/uL (160-400); Red Blood Count 4.24 X10*6/uL (4.20-5.50); Red Cell Distribution Width 15.4 % (11.0-16.0); White Blood Count 7.3 X10*3/uL (4.8-10.8)
[2023-10-18 11:17] LABS: Alanine Aminotransferase 11 U/L (0-31); Albumin Level 3.8 g/dL (3.5-5.0); Alkaline Phosphatase 80 U/L (39-117); Anion Gap 10 (12-20); Aspartate Amino Transferase 16 U/L (5-31); Bilirubin Total 0.7 mg/dL (0.0-1.0); Blood Urea Nitrogen 16 mg/dL (9-16); Calcium 8.9 mg/dL (8.4-10.2); Carbon Dioxide 27 mmol/L (22-29); Chloride 107 mmol/L (96-108); Estimated Glomerular Filt Rate > 60; Glucose Random 91 mg/dL (60-115); Potassium 4.1 mmol/L (3.3-5.1); Sodium 140 mmol/L (135-145); Total Protein 6.6 g/dL (6.5-8.0)
== END 2023-10-18 09:06 | disposition home or self-care (01) ==
LOC: HO.LAB 09:05
PROVIDERS: PCP Internal Medicine; Visit Provider Internal Medicine
DX: I25.5 Ischemic cardiomyopathy (principal); I48.91 Unspecified atrial fibrillation; Z79.01 Long term (current) use of anticoagulants; E78.00 Pure hypercholesterolemia, unspecified
CPT/HCPCS: 36415; 80053; 85025

== ENCOUNTER 2023-11-03 09:55 | Outpatient (AMB) | payer MEDICARE, OTHER, SELFPAY ==
[2023-11-03 10:06] LABS: Prothrombin Time Whole Bld POC 29.6 sec (11.1-13.5); ~PT, ~INR - Anti Coag Clinic 2.5 (0.9-1.1)
--- NOTE | 2023-11-03 10:09 | MHC.OFFVISCO ---
Intake Intake Visit Reasons: Anticoagulation Allergies lisinopril Adverse Reaction (Intermediate, Verified 11/03/23 10:01) [facility] Medication List - Last Reconciled 11/03/23 by Lela Strickland, RN acetaminophen 500 mg PO Q6H PRN amiodarone 100 mg PO DAILY atorvastatin 20 mg PO DAILY carvedilol 25 mg PO BID furosemide 20 mg PO DAILY sacubitril-valsartan 24-26 mg (Entresto) 1 tab PO BID warfarin 2.5 mg See Protocol PO DAILY Nursing Note INR: 2.5 in therapeutic range of 2-3 Medications and supplements reviewed No changes in health, diet, medications, or supplements, Denies any signs and symptoms of bleeding or bruising or clotting. 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
== END 2023-11-03 10:12 | disposition home or self-care (01) ==
LOC: HO.ACS 09:55
PROVIDERS: PCP Internal Medicine; Visit Provider Internal Medicine
DX: Z79.01 Long term (current) use of anticoagulants (principal)

== ENCOUNTER → 2023-11-03 09:55 | Outpatient (BNVA) | payer MEDICARE, OTHER, SELFPAY | PROVIDERS: PCP Internal Medicine; Visit Provider Internal Medicine | DX: I48.20 Chronic atrial fibrillation, unspecified (principal); Z79.01 Long term (current) use of anticoagulants; Z51.81 Encounter for therapeutic drug level monitoring | CPT/HCPCS: 85610; 99211 ==

== ENCOUNTER 2023-11-30 09:46 | Outpatient (AMB) | payer MEDICARE, OTHER, SELFPAY ==
--- NOTE | 2023-11-30 10:00 | MHC.OFFVISCO ---
Intake Intake Visit Reasons: Anticoagulation Allergies lisinopril Adverse Reaction (Intermediate, Verified 11/30/23 09:55) [facility] Medication List - Last Reconciled 11/30/23 by Sejal Nelson RN acetaminophen 500 mg PO Q6H PRN amiodarone 100 mg PO DAILY atorvastatin 20 mg PO DAILY carvedilol 25 mg PO BID furosemide 20 mg PO DAILY sacubitril-valsartan 24-26 mg (Entresto) 1 tab PO BID warfarin 2.5 mg See Protocol PO DAILY Nursing Note INR 3.1-?? out of therapeutic range of 2-3 Medications and supplements reviewed Patient status: no c.o, states may have had less greens Medications or supplements: no changes Diet: same Denies any signs and symptoms of bleeding or clotting or unusual bruising Bleeding, bruising, clotting discussed Nutritional guidance given: eat greens today Dose: cont same dosing 2.5mg x 2, 1.25mg x 5 F/U INR Date : 3 weeks?? Patient verbalizing understanding of instructions given. Coding Level of Care Code Est Patient Level 1 Diagnoses Current use of anticoagulant therapy Z79.01 Assessment & Plan Assessment & Plan (1) Current use of anticoagulant therapy: Code(s): Z79.01 - penitentiary (current) use of anticoagulants Category: Medical
[2023-11-30 10:02] LABS: Prothrombin Time Whole Bld POC 37.7 sec (11.1-13.5); ~PT, ~INR - Anti Coag Clinic 3.1 (0.9-1.1)
== END 2023-11-30 10:09 | disposition home or self-care (01) ==
LOC: HO.ACS 09:46
PROVIDERS: PCP Internal Medicine; Visit Provider Internal Medicine
DX: Z79.01 Long term (current) use of anticoagulants (principal)

== ENCOUNTER → 2023-11-30 09:46 | Outpatient (BNVA) | payer MEDICARE, OTHER, SELFPAY | PROVIDERS: PCP Internal Medicine; Visit Provider Internal Medicine | DX: I48.20 Chronic atrial fibrillation, unspecified (principal); Z79.01 Long term (current) use of anticoagulants; Z51.81 Encounter for therapeutic drug level monitoring | CPT/HCPCS: 85610; 99211 ==

== ENCOUNTER 2023-12-21 09:33 | Outpatient (AMB) | payer MEDICARE, OTHER, SELFPAY ==
[2023-12-21 09:38] LABS: Prothrombin Time Whole Bld POC 29.1 sec (11.1-13.5); ~PT, ~INR - Anti Coag Clinic 2.4 (0.9-1.1)
--- NOTE | 2023-12-21 09:41 | MHC.OFFVISCO ---
Intake Intake Visit Reasons: Anticoagulation Allergies lisinopril Adverse Reaction (Intermediate, Verified 12/21/23 09:33) [facility] Medication List - Last Reconciled 12/21/23 by Delia Honeycutt RN acetaminophen 500 mg PO Q6H PRN amiodarone 100 mg PO DAILY atorvastatin 20 mg PO DAILY carvedilol 25 mg PO BID furosemide 20 mg PO DAILY sacubitril-valsartan 24-26 mg (Entresto) 1 tab PO BID warfarin 2.5 mg See Protocol PO DAILY Nursing Note NO CP,SOB,DIET/MED CHANGES,FALLS OPR SX OF BLEEDING. CONTINUE PRESENT DOSING AND [id number] IN 4 WEEKS. GOOD UNDERSTANDING OF DOSING INSTR. Coding Level of Care Code Est Patient Level 1 Diagnoses Current use of anticoagulant therapy Z79.01 Assessment & Plan Assessment & Plan (1) Current use of anticoagulant therapy: Code(s): Z79.01 - jail (current) use of anticoagulants Category: Medical
== END 2023-12-21 09:42 | disposition home or self-care (01) ==
LOC: HO.ACS 09:33
PROVIDERS: PCP Internal Medicine; Visit Provider Internal Medicine
DX: Z79.01 Long term (current) use of anticoagulants (principal)

== ENCOUNTER → 2023-12-21 09:33 | Outpatient (BNVA) | payer MEDICARE, OTHER, SELFPAY | PROVIDERS: PCP Internal Medicine; Visit Provider Internal Medicine | DX: I48.20 Chronic atrial fibrillation, unspecified (principal); Z79.01 Long term (current) use of anticoagulants; Z51.81 Encounter for therapeutic drug level monitoring | CPT/HCPCS: 85610; 99211 ==

== ENCOUNTER 2024-01-18 08:59 | Outpatient (AMB) | payer MEDICARE, OTHER, SELFPAY ==
[2024-01-18 09:15] LABS: Prothrombin Time Whole Bld POC 33.4 sec (11.1-13.5); ~PT, ~INR - Anti Coag Clinic 2.8 (0.9-1.1)
--- NOTE | 2024-01-18 09:18 | MHC.OFFVISCO ---
Intake Intake Visit Reasons: Anticoagulation Allergies lisinopril Adverse Reaction (Intermediate, Verified 01/18/24 09:10) [facility] Medication List - Last Reconciled 01/18/24 by Delia Honeycutt RN acetaminophen 500 mg PO Q6H PRN amiodarone 100 mg PO DAILY atorvastatin 20 mg PO DAILY carvedilol 25 mg PO BID furosemide 20 mg PO DAILY sacubitril-valsartan 24-26 mg (Entresto) 1 tab PO BID warfarin 2.5 mg See Protocol PO DAILY Nursing Note NO CP,SOB,DIET/MED CHANGES,FALLS OR SX OF BLEEDING. CONTINUE PRESENT DOSE AND FOLLOW-UP IN 4 WEEKS,. GOOD UNDERSTANDING OF DOSING INSTR. 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
== END 2024-01-18 09:24 | disposition home or self-care (01) ==
LOC: HO.ACS 08:59
PROVIDERS: PCP Internal Medicine; Visit Provider Internal Medicine
DX: Z79.01 Long term (current) use of anticoagulants (principal)

== ENCOUNTER → 2024-01-18 08:59 | Outpatient (BNVA) | payer MEDICARE, OTHER, SELFPAY | PROVIDERS: PCP Internal Medicine; Visit Provider Internal Medicine | DX: I48.20 Chronic atrial fibrillation, unspecified (principal); Z79.01 Long term (current) use of anticoagulants; Z51.81 Encounter for therapeutic drug level monitoring | CPT/HCPCS: 85610; 99211 ==

== ENCOUNTER 2024-02-22 10:52 | Outpatient (AMB) | payer MEDICARE, OTHER, SELFPAY ==
--- NOTE | 2024-02-22 11:12 | MHC.OFFVISCO ---
Intake Intake Visit Reasons: Anticoagulation Allergies lisinopril Adverse Reaction (Intermediate, Verified 02/22/24 11:07) [facility] Medication List - Last Reconciled 02/22/24 by Sejal Nelson RN acetaminophen 500 mg PO Q6H PRN amiodarone 100 mg PO DAILY atorvastatin 20 mg PO DAILY carvedilol 25 mg PO BID furosemide 20 mg PO DAILY sacubitril-valsartan 24-26 mg (Entresto) 1 tab PO BID warfarin 2.5 mg See Protocol PO DAILY Nursing Note INR: 2.8- in therapeutic range 2-3 Medications and supplements reviewed- no changes No changes in health, diet, medications, or supplements, Denies any signs and symptoms of bleeding or bruising or clotting. Bleeding, bruising, clotting discussed Nutritional guidance given Dose: 2.5mg x 2, 1.25mg x 5 F/U INR: 4 weeks Patient verbalizes understanding of instructions given pt states getting over cold symptoms- not taking anything for it Coding Level of Care Code Est Patient Level 1 Diagnoses Current use of anticoagulant therapy Z79.01 Assessment & Plan Assessment & Plan (1) Current use of anticoagulant therapy: Code(s): Z79.01 - [facility] (current) use of anticoagulants Category: Medical
[2024-02-22 11:13] LABS: Prothrombin Time Whole Bld POC 33.2 sec (11.1-13.5); ~PT, ~INR - Anti Coag Clinic 2.8 (0.9-1.1)
== END 2024-02-22 11:24 | disposition home or self-care (01) ==
LOC: HO.ACS 10:52
PROVIDERS: PCP Internal Medicine; Visit Provider Internal Medicine
DX: Z79.01 Long term (current) use of anticoagulants (principal)

== ENCOUNTER → 2024-02-22 10:52 | Outpatient (BNVA) | payer MEDICARE, OTHER, SELFPAY | PROVIDERS: PCP Internal Medicine; Visit Provider Internal Medicine | DX: I48.20 Chronic atrial fibrillation, unspecified (principal); Z79.01 Long term (current) use of anticoagulants; Z51.81 Encounter for therapeutic drug level monitoring | CPT/HCPCS: 85610; 99211 ==

== ENCOUNTER 2024-03-28 10:33 | Outpatient (AMB) | payer MEDICARE, OTHER, SELFPAY ==
[2024-03-28 10:44] LABS: Prothrombin Time Whole Bld POC 28.7 sec (11.1-13.5); ~PT, ~INR - Anti Coag Clinic 2.4 (0.9-1.1)
--- NOTE | 2024-03-28 10:51 | MHC.OFFVISCO ---
Intake Intake Visit Reasons: Anticoagulation Allergies lisinopril Adverse Reaction (Intermediate, Verified 03/28/24 10:39) [facility] Medication List - Last Reconciled 03/28/24 by Delia Honeycutt RN acetaminophen 500 mg PO Q6H PRN amiodarone 100 mg PO DAILY atorvastatin 20 mg PO DAILY carvedilol 25 mg PO BID furosemide 20 mg PO DAILY sacubitril-valsartan 24-26 mg (Entresto) 1 tab PO BID warfarin 2.5 mg See Protocol PO DAILY Nursing Note NO CP,SOB,DIET/MED CHANGES,FALLS OR SX OF BLEEDING. CONTINUE PRESENT DOSING AND FOLLOW-UP IN 4 WEEKS. GOOD UNDERSTANDING OF DOSING INSTR. Coding Level of Care Code Est Patient Level 1 Diagnoses Current use of anticoagulant therapy Z79.01 Assessment & Plan Assessment & Plan (1) Current use of anticoagulant therapy: Code(s): Z79.01 - halfway (current) use of anticoagulants Category: Medical
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
== END 2024-03-28 10:53 | disposition home or self-care (01) ==
LOC: HO.ACS 10:33
PROVIDERS: PCP Internal Medicine; Visit Provider Internal Medicine
DX: Z79.01 Long term (current) use of anticoagulants (principal)

== ENCOUNTER → 2024-03-28 10:33 | Outpatient (BNVA) | payer MEDICARE, OTHER, SELFPAY | PROVIDERS: PCP Internal Medicine; Visit Provider Internal Medicine | DX: I48.20 Chronic atrial fibrillation, unspecified (principal); Z79.01 Long term (current) use of anticoagulants; Z51.81 Encounter for therapeutic drug level monitoring | CPT/HCPCS: 85610; 99211 ==

== ENCOUNTER 2024-04-11 08:45 | Outpatient (REF) | payer MEDICARE, OTHER, SELFPAY ==
[2024-04-11 09:17] LABS: MANUAL DIFF FLAG NO
[2024-04-11 09:30] LABS: Basophils Percent Auto 0.2 % (0-2); Eosinophils Absolute Auto 0.1 X10*3/uL (0.0-0.4); Eosinophils Percent Auto 1.6 % (0-4); Hematocrit 37.7 % (37.0-47.0); Hemoglobin 12.3 g/dl (12.0-16.0); Imm Gran Abs Auto 0.02 X10*3/uL (0.00-0.03); Imm Gran Pct Auto 0.3 % (0.0-0.4); Lymphocytes Absolute Auto 2.4 X10*3/uL (1.2-4.9); Lymphocytes Percent Auto 38.1 % (20-40); Mean Corpuscular HGB Conc 32.6 g/dl (31.0-35.0); Mean Corpuscular Hemoglobin 30.8 pg (27.0-33.0); Mean Corpuscular Volume 94.3 fL (80.0-98.0); Monocytes Absolute Auto 0.5 X10*3/uL (0.1-1.2); Monocytes Percent Auto 8.2 % (2-11); Neutrophils Absolute Auto 3.3 x10*3/uL (2.0-8.3); Neutrophils Percent Auto 51.6 % (45-73); Platelet Count 254 X10*3/uL (160-400); Red Cell Distribution Width 14.5 % (11.0-16.0); White Blood Count 6.3 X10*3/uL (4.8-10.8)
[2024-04-11 10:00] LABS: Alanine Aminotransferase 10 U/L (0-31); Albumin Level 3.8 g/dL (3.5-5.0); Alkaline Phosphatase 95 U/L (39-117); Anion Gap 13 (12-20); Aspartate Amino Transferase 25 U/L (5-31); Bilirubin Total 0.7 mg/dL (0.0-1.0); Blood Urea Nitrogen 17 mg/dL (9-16); Calcium 9.1 mg/dL (8.4-10.2); Carbon Dioxide 24 mmol/L (22-29); Chloride 107 mmol/L (96-108); Cholesterol 152 mg/dL (<200); Estimated Glomerular Filt Rate > 60; Glucose Random 91 mg/dL (60-115); HDL Cholesterol 59 mg/dL (>40); LDL Cholesterol Calculated 79 mg/dL (<100); Potassium 4.6 mmol/L (3.3-5.1); Sodium 139 mmol/L (135-145); Total Protein 6.9 g/dL (6.5-8.0); Triglycerides 72 mg/dL (<150)
== END 2024-04-11 08:46 | disposition home or self-care (01) ==
LOC: HO.LAB 08:45
PROVIDERS: PCP Internal Medicine; Visit Provider Internal Medicine
DX: E78.00 Pure hypercholesterolemia, unspecified (principal); I25.5 Ischemic cardiomyopathy; I48.0 Paroxysmal atrial fibrillation; Z79.01 Long term (current) use of anticoagulants
CPT/HCPCS: 36415; 80053; 80061; 85025

== ENCOUNTER 2024-04-20 08:04 | Inpatient (IN) | payer MEDICARE, OTHER, SELFPAY ==
[2024-04-20] VITALS (13 sets, daily range): BP systolic 93–116; BP diastolic 45–62; PULSE 58–75; RESP 17–25; TEMP 36.4–36.7; O2SAT 90–96; BMI 15.0
--- NOTE | ~2024-04-20 | CT_ITS ---
EXAMINATION: CT HEAD WITHOUT IV CONTRAST HISTORY: fall on coumadin. TECHNIQUE: Unenhanced helical CT of the head was performed per standard departmental protocol. Coronal and sagittal reformats of the head were also evaluated. One or more of the following techniques was used for dose reduction: Automated exposure control, adjustment of the mA and/or kV according to patient size, use of iterative reconstruction technique. DLP: 577.88 mGy-cm COMPARISON: There are no prior studies for comparison. FINDINGS: BRAIN: There is mild prominence of the ventricular system and cortical sulci, consistent with atrophy. Scattered periventricular and subcortical white matter hypodensities are noted which are nonspecific, but often seen in the setting of small vessel ischemic disease. There is no mass effect or midline shift. No intra- or extra-axial fluid collections are identified. SINUSES: The visualized paranasal sinuses are clear. The mastoid air cells and middle ear cavities are well pneumatized. ORBITS: The visualized orbits are unremarkable. BONES/SOFT TISSUES: The extracranial soft tissues are unremarkable. The calvarium is intact. No suspicious lytic or sclerotic lesions. CT/CT head/brain wo IV con IMPRESSION: No acute intracranial abnormality. No evidence of intracranial hemorrhage. Electronically signed by: Tae Tavarez MD 04/20/2024 10:12 AM [facility]
--- NOTE | ~2024-04-20 | XR_ITS ---
EXAMINATION: XR CHEST 1 VIEW HISTORY: cough, fever COMPARISON: There are no prior studies for comparison. FINDINGS: A single AP portable view of the chest performed at 9:24 AM is submitted. A left sided AICD is seen in place. The lungs are hyperinflated, consistent with COPD. There is minimal subsegmental atelectasis versus scarring at the right lung base. The lungs are otherwise clear. There is no pleural effusion, pneumothorax, or pulmonary vascular congestion. The heart is enlarged. There is mild degenerative disc disease of the spine. XR/XR chest 1V IMPRESSION: Cardiomegaly. COPD. Right basilar subsegmental atelectasis versus scarring. Electronically signed by: Tae Tavarez MD 04/20/2024 09:33 AM [facility]
--- NOTE | ~2024-04-20 | CT_ITS ---
EXAMINATION: CT CERVICAL SPINE WITHOUT IV CONTRAST HISTORY: fall. TECHNIQUE: Helical CT of the cervical spine was performed per standard departmental protocol. Coronal and sagittal reformatted images were also evaluated. One or more of the following techniques was used for dose reduction: Automated exposure control, adjustment of the mA and/or kV according to patient size, use of iterative reconstruction technique. DLP: 179.15 mGy-cm COMPARISON: There are no prior studies for comparison. FINDINGS: CERVICAL SPINE: The bones are osteopenic. The vertebral bodies maintain normal height and alignment without evidence of fracture or subluxation. There is diffuse mild to moderate degenerative disc disease with disc space narrowing and osteophyte formation. There is diffuse facet osteoarthritis and uncovertebral joint hypertrophy. Evaluation for disc pathology is limited by lack of intrathecal contrast material. BRAIN: The visualized portion of the brain is unremarkable. SINUSES: The visualized paranasal sinuses, mastoid air cells and middle ear cavities are unremarkable. LUNG APICES: There are emphysematous changes at the lung apices. SOFT TISSUES: There is nodularity of the thyroid gland. There is calcification of the internal carotid arteries. CT/CT cervical spine wo IV con IMPRESSION: No evidence of fracture or malalignment of the cervical spine. Degenerative changes as described. Electronically signed by: Tae Tavarez MD 04/20/2024 10:16 AM [facility]
--- NOTE | ~2024-04-20 | CT_ITS ---
CLINICAL HISTORY: hypoxia, r o PE + pna CTA angiography chest using bolus contrast injection. 3-D postprocessing Comparison: None Findings: Normal thoracic aorta and branch vessels Heart size is enlarged. No pericardial effusion . RV/LV ratio normal. ICD electrode is present in the right ventricle. The trachea and esophagus are normal. No large airway obstruction. There are posterior bilateral lower lobe consolidations. Emphysematous changes are present mostly in the upper lobes Below the diaphragm No acute fractures Impression: Normal CTA angiography of the aorta. Negative for pulmonary embolus. Posterior bilateral lower lobe pneumonia. Emphysema This document has been electronically signed by: Gelacio Paul MD on 04/21/2024 13:05:58
--- NOTE | 2024-04-20 08:20 | ECG_ITS ---
Test Reason : weakness Blood Pressure : */* mmHG Vent. Rate : 60 BPM Atrial Rate : 60 BPM P-R Int : 172 ms QRS Dur : 184 ms QT Int : 534 ms P-R-T Axes : 69 -2 16 degrees QTcB Int : 534 ms Normal sinus rhythm Non-specific intra-ventricular conduction block Minimal voltage criteria for LVH, may be normal variant ( Dingle product ) Abnormal ECG When compared with ECG of 13-Jul-2007 15:34, Vent. rate has decreased by 55 bpm QRS duration has increased Nonspecific T wave abnormality now evident in Inferior leads T wave amplitude has decreased in Anterior leads T wave inversion no longer evident in Lateral leads Referred By: Sumaya Best Electronically Signed By: MARIO PICKARD MD
--- NOTE | 2024-04-20 08:27 | ED_ITS ---
HPI - SOB/Dyspnea General Chief Complaint: Dyspnea Stated Complaint: SOB, nausea, diarrhea, feeling sick per EMS Time Seen by Provider: 04/20/24 08:05 Source: patient, EMS and old records reviewed Mode of arrival: EMS Limitations: no limitations History of Present Illness ED Provider: JILL AYOUB Narrative: 79 yo female with PMH of HTN, HLD, Afib on coumadin/amiodarone, GA in 2007 states she had PPM placed then, denies any hx of COPD/asthma and her PCP monitors her regularly has never use inhaler. She notes for the past week she has increased shortness of breath, sputum, subjective fevers and chills taking tylenol and delsym without relief. She denies travel or sick contacts. She states she also has loose stools. She did fall on tuesday after diarrhea did not hit her head but hit L upper chest. She denies any other trauma. She couldn't take it today and called 911 due to her breathing. EMS found her 90% on RA she doesn't normally use O2. She is not eating or drinking and feels very weak MD elicited complaint: shortness of breath and cough Pertinent past history: congestive heart failure Onset (ago): week(s) (1) Context: recent illness Timing: progressively worsening Severity: moderate Exacerbating factors: exertion, movement and coughing Relieving factors: oxygen and rest Associated symptoms: cough, sputum production, nausea/vomiting and other (weakness, diarrhea) Treatment prior to arrival: oxygen Related Data Home Medications ?Medication ?Instructions ?Recorded ?Confirmed warfarin 2.5 mg tablet 2.5 mg PO DAILY 04/09/20 03/28/24 carvedilol 25 mg tablet 25 mg PO BID 05/07/20 11/03/23 amiodarone 200 mg tablet 100 mg PO DAILY 07/08/21 11/03/23 acetaminophen 500 mg tablet 500 mg PO Q6H PRN 07/13/23 11/03/23 furosemide 20 mg tablet 20 mg PO DAILY 08/03/23 11/03/23 sacubitril 24 mg-valsartan 26 mg 1 tab PO BID 08/03/23 11/03/23 tablet (Entresto) atorvastatin 20 mg tablet 20 mg PO DAILY 10/05/23 11/03/23 Allergies Allergy/AdvReac Type Severity Reaction Status Date / Time lisinopril AdvReac Intermediate COUHG Verified 04/20/24 08:21 Review of Systems 2 Review of Systems: Constitutional : pos Fever, pos Chills ENT/Mouth : No Hoarseness, No sore throat, pos Rhinorrhea Eyes: No Redness, No Discharge, No Vision Changes Cardiovascular : No Chest Pain, positive SOB, positive Dyspnea on Exertion, No Edema Respiratory : positive Cough, pos Sputum, positive Wheezing, Gastrointestinal : No Nausea, No Vomiting, pos Diarrhea, No abdominal Pain Genitourinary : No Dysuria, No Hematuria Musculoskeletal : No joint pain, No Myalgias Skin : No rash Neuro : pos Weakness, No Numbness, No Headache All other systems reviewed and are negative [facility] Past Medical History Attestation statement: The following information was validated with the patient. Source: old records reviewed Medical History CAD (coronary artery disease) Hyperlipidemia Afib HTN (hypertension) Social History Social History (Updated 04/20/24 @ 08:30 by Sumaya Best DO) Household Members: None Alcohol intake: never Patient Tobacco Use Status: Never used Tobacco Smoked in Last 30 Days: No Use of substances other than those prescribed or required for medical reasons: No Advance Directives: No Advance Directives Information Provided: Yes Physical Exam 2 Vital Signs: Vital Signs: Last Vital Signs Temp 98.1 F 04/20/24 12:02 Pulse 61 04/20/24 12:02 Resp 18 04/20/24 12:02 BP 105/54 L 04/20/24 12:02 Pulse Ox 95 04/20/24 12:02 O2 Del Method Nasal Cannula 04/20/24 12:02 O2 Flow Rate 2 04/20/24 12:02 Oxygen Flow Rate 2 04/20/24 08:18 BMI result Body Mass Index 15.0 Appearance: Alert. Oriented X3. Mild acute distress. Eyes: Pupils equal, round and reactive to light. ENT: Pharynx normal. Neck: Normal inspection. Neck supple. CVS: Normal heart rate and rhythm. Pulses normal. Respiratory: Mild respiratory distress - tachypnea and short phrases. Breath sounds very diminished R >> L in bases Abdomen: Soft and nontender. Skin: Skin warm and dry. pale skin color. Normal skin turgor. Extremities: No lower extremity edema. No calf ttp Neuro: Oriented X 3. No motor deficit. No sensory deficit. CN2-12 intact Course Course Course Narrative: BP soft - gentle fluids/albumin and hold IV lasix Medications Administered Discontinued Medications Generic Name Dose Route Start Last Admin Trade Name Luiz PRN Reason Stop Dose Admin Albuterol/Ipratropium 3 ml 04/20/24 08:55 04/20/24 09:00 Albuterol/Iprat 2.5/0.5mg 3 Ml Ampul.Neb INHALE 04/20/24 08:56 3 ml ONCE ONE Administration Ceftriaxone Sodium 1 gm 04/20/24 08:21 04/20/24 09:08 Ceftriaxone Sodium 1 Gm Vial IVPUSH 04/20/24 08:22 1 gm ONCE ONE Administration Furosemide 20 mg 04/20/24 09:43 04/20/24 10:05 Furosemide 20 Mg/2 Ml Vial IVPUSH 04/20/24 09:44 Not Given ONCE ONE Protocol Sodium Chloride 250 mls @ 250 mls/hr 04/20/24 09:55 04/20/24 11:21 Ns IV 04/20/24 10:54 Infused .Q1H ONE Infusion Albumin Human 100 mls @ 133.333 mls/hr 04/20/24 10:00 04/20/24 12:05 Kedbumin 25 % IV 04/20/24 11:44 Infused Q1H RENETTA Infusion Methylprednisolone Sodium Succinate 60 mg 04/20/24 09:40 04/20/24 09:53 Methylprednisolone Sod Succ 125 Mg/2 Ml Vial IVPUSH 04/20/24 09:41 60 mg ONCE ONE Administration Medical Decision Making Medical Decision Making [facility] Narrative: 79 yo female with PMH of HTN, HLD, Afib on coumadin, GA in 2007 states she had PPM placed then she comes in with 1 week of URI symptoms and associated nausea poor PO intake and diarrhea - no recent travel/sick contacts/abx use. At this time given her complaint will obtain labs, CXR, UA, CT head/cspine for fall and on coumadin. Will start on ceftriaxone given fevers. She has no abdominal ttp on exam. She is newly requiring O2. Given her possible CHF history - will be judicious with fluids and she likely will need lasix. I will order solumedrol low dose as I do suspect a component of reactive airway disease - neb ordered. Differential Diagnosis Differential Diagnoses: The differential diagnosis associated with the presentation includes viral syndrome, pneumonia, bronchitis, CHF, COPD Admission/Observation Consideration of admission/observation: Escalation of care including admission/observation considered given O2 demands and BNP will admit for further workup and management Consult Healthcare Provider Management of the patient was discussed with: Hospitalist (will admit) Lab Data MDM Lab Attestation statement: I reviewed the patient's lab results. will trend troponin IV lasix given her BNP and cardiomegaly on CXR 04/20/24 09:03 04/20/24 09:03 Labs: Lab Results 04/20/24 04/20/24 04/20/24 Range/Units 08:55 09:03 09:14 WBC 4.6 L (4.8-10.8) X10*3/uL RBC 3.77 L (4.20-5.50) X10*6/uL Hgb 11.6 L (12.0-16.0) g/dl Hct 34.9 L (37.0-47.0) % MCV 92.6 (80.0-98.0) fL MCH 30.8 (27.0-33.0) pg MCHC 33.2 (31.0-35.0) g/dl RDW 14.6 (11.0-16.0) % Plt Count 158 L D (160-400) X10*3/uL MPV 10.2 (9.4-12.3) fL Immature Gran % (Auto) 0.2 (0.0-0.4) % Neut % (Auto) 78.6 H (45-73) % Lymph % (Auto) 12.7 L (20-40) % Whiteside % (Auto) 8.1 (2-11) % Eos % (Auto) 0.2 (0-4) % Baso % (Auto) 0.2 (0-2) % Lymph # (Auto) 0.6 L (1.2-4.9) X10*3/uL Whiteside # (Auto) 0.4 (0.1-1.2) X10*3/uL Eos # (Auto) 0.0 (0.0-0.4) X10*3/uL Baso # (Auto) 0.0 (0.0-0.2) X10*3/uL Abs Immat Gran (auto) 0.01 (0.00-0.03) X10*3/uL Absolute Neuts (auto) 3.6 (2.0-8.3) x10*3/uL Absolute Nucleated RBC 0.000 (0.0-0.012) X10*3/uL Nucleated RBC % (auto) 0.0 (0.0-0.2) /100WBC PT 21.2 H (10.9-12.4) SEC INR 1.8 H (0.9-1.1) VBG pH 7.38 (7.32-7.43) VBG pCO2 41 mmHg VBG pO2 62 mmHg VBG HCO3 24 (22-26) mmol/L VBG O2 Saturation 90.0 % VBG Base Excess -0.2 mmol/L Sodium 138 (135-145) mmol/L Potassium 3.7 (3.3-5.1) mmol/L Chloride 108 (96-108) mmol/L Carbon Dioxide 22 (22-29) mmol/L Anion Gap 12 (12-20) BUN 25 H (9-16) mg/dL Creatinine 0.72 (0.5-1.4) mg/dL Estim Creat Clear Calc 38.3 Estimated GFR > 60 Random Glucose 95 (60-115) mg/dL Lactic Acid 1.2 (0.5-2.0) mmol/L Calcium 8.4 D (8.4-10.2) mg/dL Magnesium 1.9 (1.6-2.6) mg/dL Total Bilirubin 0.4 (0.0-1.0) mg/dL Direct Bilirubin 0.2 (0.0-0.5) mg/dL AST 38 H (5-31) U/L ALT 22 (0-31) U/L Alkaline Phosphatase 81 (39-117) U/L Troponin I High Sens 175.7 H* (<3.5-17.0) ng/L C-Reactive Protein 5.83 H (< or = 0.50) mg/dL B-Natriuretic Peptide 1775 H (<100) pg/mL Total Protein 6.4 L (6.5-8.0) g/dL Albumin 3.5 (3.5-5.0) g/dL Lipase 16 (8-78) U/L Procalcitonin 0.08 ng/mL Influenza Type A (PCR) POSITIVE A (Negative) Influenza Type B (PCR) NEGATIVE (Negative) RSV RNA Qual (PCR) NEGATIVE (Negative) SARS-CoV-2 RNA (RT-PCR) NEGATIVE (Negative) 04/20/24 Range/Units 11:42 WBC (4.8-10.8) X10*3/uL RBC (4.20-5.50) X10*6/uL Hgb (12.0-16.0) g/dl Hct (37.0-47.0) % MCV (80.0-98.0) fL MCH (27.0-33.0) pg MCHC (31.0-35.0) g/dl RDW (11.0-16.0) % Plt Count (160-400) X10*3/uL MPV (9.4-12.3) fL Immature Gran % (Auto) (0.0-0.4) % Neut % (Auto) (45-73) % Lymph % (Auto) (20-40) % Whiteside % (Auto) (2-11) % Eos % (Auto) (0-4) % Baso % (Auto) (0-2) % Lymph # (Auto) (1.2-4.9) X10*3/uL Whiteside # (Auto) (0.1-1.2) X10*3/uL Eos # (Auto) (0.0-0.4) X10*3/uL Baso # (Auto) (0.0-0.2) X10*3/uL Abs Immat Gran (auto) (0.00-0.03) X10*3/uL Absolute Neuts (auto) (2.0-8.3) x10*3/uL Absolute Nucleated RBC (0.0-0.012) X10*3/uL Nucleated RBC % (auto) (0.0-0.2) /100WBC PT (10.9-12.4) SEC INR (0.9-1.1) VBG pH (7.32-7.43) VBG pCO2 mmHg VBG pO2 mmHg VBG HCO3 (22-26) mmol/L VBG O2 Saturation % VBG Base Excess mmol/L Sodium (135-145) mmol/L Potassium (3.3-5.1) mmol/L Chloride (96-108) mmol/L Carbon Dioxide (22-29) mmol/L Anion Gap (12-20) BUN (9-16) mg/dL Creatinine (0.5-1.4) mg/dL Estim Creat Clear Calc Estimated GFR Random Glucose (60-115) mg/dL Lactic Acid (0.5-2.0) mmol/L Calcium (8.4-10.2) mg/dL Magnesium (1.6-2.6) mg/dL Total Bilirubin (0.0-1.0) mg/dL Direct Bilirubin (0.0-0.5) mg/dL AST (5-31) U/L ALT (0-31) U/L Alkaline Phosphatase (39-117) U/L Troponin I High Sens 151.5 H* (<3.5-17.0) ng/L C-Reactive Protein (< or = 0.50) mg/dL B-Natriuretic Peptide (<100) pg/mL Total Protein (6.5-8.0) g/dL Albumin (3.5-5.0) g/dL Lipase (8-78) U/L Procalcitonin ng/mL Influenza Type A (PCR) (Negative) Influenza Type B (PCR) (Negative) RSV RNA Qual (PCR) (Negative) SARS-CoV-2 RNA (RT-PCR) (Negative) Independent Interpretation I performed an independent interpretation of an: EKG, Plain X-Ray (no pneumonia) and CT Scan (no trauma) Interpretation: Rate: 60 Rhythm: NSR Redfield: normal Normal P waves. Normal SONU. RBBB ST T wave : no TIM, flat t waves inf and lateral leads qTC:534 prior studies: no recent last EKG sinus tach in 2007 The study has been interpreted contemporaneously by me. . Radiology Impression Discussion of test interpretation with radiology: I have reviewed the radiologist's reading. Independent Historian Clinical information obtained from an independent historian. History obtained from or confirmed by: EMS External Record Review External record reviewed: Outpatient record Discharge Plan Discharge Clinical Impression: Hypoxia, Elevated troponin, Influenza A Patient Disposition: Admitted As Inpatient Prescriptions: No Action warfarin 2.5 mg tablet 2.5 mg PO DAILY Protocol: Dose Management Condition: Tuesday (Week One) Dose/Route: 1.25 mg Instruction: 0.5 x 2.5 mg tablets Condition: Tuesday Dose/Route: 1.25 mg Instruction: 0.5 x 2.5 mg tablets Condition: Tuesday Dose/Route: 2.5 mg Instruction: 1 x 2.5 mg tablet Condition: Tuesday Dose/Route: 1.25 mg Instruction: 0.5 x 2.5 mg tablets Condition: Dose/Route: 1.25 mg Instruction: 0.5 x 2.5 mg tablets Condition: Tuesday Dose/Route: 2.5 mg Instruction: 1 x 2.5 mg tablet Condition: Tuesday Dose/Route: 1.25 mg Instruction: 0.5 x 2.5 mg tablets Condition: Tuesday (Week Two) Dose/Route: 1.25 mg Instruction: 0.5 x 2.5 mg tablets Condition: Tuesday Dose/Route: 1.25 mg Instruction: 0.5 x 2.5 mg tablets Condition: Tuesday Dose/Route: 2.5 mg Instruction: 1 x 2.5 mg tablet Condition: Tuesday Dose/Route: 1.25 mg Instruction: 0.5 x 2.5 mg tablets Condition: Dose/Route: 1.25 mg Instruction: 0.5 x 2.5 mg tablets Condition: Tuesday Dose/Route: 2.5 mg Instruction: 1 x 2.5 mg tablet Condition: Tuesday Dose/Route: 1.25 mg Instruction: 0.5 x 2.5 mg tablets Protocol Text: Adjustment Start Date: Tuesday03/28/24 INR Value: 2.4 INR Date: 03/28/24 Recheck Date: 04/25/24 Rx Instructions: 1.25MG X 3 DAYS/ 2.5MG X4DAYS carvedilol 25 mg tablet 25 mg PO BID amiodarone 200 mg tablet 100 mg PO DAILY acetaminophen 500 mg tablet 500 mg PO Q6H PRN Entresto 24-26 mg tablet 1 tab PO BID furosemide 20 mg tablet 20 mg PO DAILY Patient Comments: PT STATES SHE IS TO TAKE IT SHE GAINS 2 LBS OR MORE OVER NIGHT PER MD ORDERS atorvastatin 20 mg tablet 20 mg PO DAILY Print Language: Japanese Sepsis Bolus Exclusion Sepsis Bolus Exclusion CHF/Renal Failure This patient met severe sepsis criteria due to the following condition(s):: H ypotension In my clinical judgement the administration of 30 ml/kg of crystalloid would be detrimental to this patient due to the patient's following conditions:: NYHA class III or IV Heart Failure(symptoms with low exertion or rest) and Concern for fluid overload Replace the 30 mls/kg with (Zero amount not acceptable and all fluids for severe sepsis must be given at GREATER than 125 mls/hr) Crystalloids amount given in mls: (rate must be at least 150cc/hr): 250 Colloids amount given in mls:: 133
--- OUTSIDE RECORDS SUMMARY | 2024-04-20 08:45 | XMS_ITS | Data Portability ---
Author Organization [place] - [facility] Address [address] [place] [id number] Care Team Providers Care Dog Trainer Name Role Phone SONAL ABREU Primary Care Provider [phone] Assessment Encounter Date Assessment Date Assessment LastModified [...] Pt thanks us for our visit today. [email or web address] Not available 10/11/2021 17:26:07 Plan of Treatment Reminders Order Date Submit Date Provider Last Modified By Organization Details Last Modified Time Details Appointments None recorded. Lab None recorded. Referral None recorded. Procedures None recorded. Surgeries None recorded. Imaging unlisted imaging order - hip uni W or w/o pelvis 2-3 [facility]lt [facility] ([facility] [address] [place], [address], 13:06:50 unlisted imaging order - hip uni W or w/o pelvis 2-3 V-RT 2021 [facility] Corporate Office ([facility]), [address] [facility], [place], [address], 13:06:50 Medication Orders None recorded. Patient TargetsNo [...] JOHNSON M.D. 10/14/19 12:58: 02 PM EDT. [email or web address] [address] [place] [address] [address], [place], [address], 10/13/2021 17:01:04 10/14/19 22 10/13/2021 hip uni [...] JOHNSON M.D. 10/14/19 12:58: 02 PM EDT. [email or web address] [facility] [address] [facility] [address], [place], [address], 10/13/2021 17:01:09 Result Notes None recorded. Procedures Surgical History Date Name Laterality Status Provider Name and Address Organization Details Recorded Time cardiac pacemaker procedure completed PAULO Gonzalez [address], [place], [address], [place] [facility] 10/11/2021 15:05:34 Appendectomy completed PAULO Gonzalez [address], [place], [address], [place] [facility] 10/11/2021 15:05:42 Imaging Results Imaging Date Name Status LastModified by Organiz ation Details LastModified Time 10/13/2021 hip uni W or w/o pelvis 2-3 V completed [employer] [facility] [address] [facility] [address], [place], [address], 10/13/2021 17:01:04 10/13/2021 hip uni W or w/o pelvis 2-3 V completed [employer] [facility] [address] [facility] [address], [place], [address], 10/13/2021 17:01:09 Procedure Notes None recorded. Medical Equipment None Reported. Allergies Allergen ID Allergen Name Allergen Category Reaction Reaction Severity Criticality Documentation Date Start Date Code Code System Note Provider Name and Address Organization Details Recorded Time [id number] lisinopri l medicatio n Not available Not available Not available 10/11/2021 51417 RxNorm PAULO Myers [address], [place], [address], [place] [facility] 15:01:18 Medications Name Sig Start [...] [degF] 114 mm[Hg] 54 mm[Hg] Not Available [facility] 14:40:45 Social History Question Answer Notes LastModified by Organizat ion Details LastModified Time Tobacco Smoking Status Never Smoker PAULO Gonzalez [facility] [address] [place], [address], [place] [facility] 10/11/2021 15:02:27 What Is [...] CHF Y Parkinson's Disease N Cancer N Dementia N Stroke N Asthma N COPD N Depression N Hypothyroidism N High Cholesterol Y Rheumatoid Arthritis N Pulmonary Embolism N Hypertension N Osteoporosis N A-fib Y Kidney Disease N Gynecological HistoryNo gynecological history recorded. Obstetrics History GPAL:G 0 P 0 0 0 0 Past Encounters Encounter ID Performer Location Encounter Start Date Encounter Closed Date Diagnosis/Indication Diagnosis SNOMED-CT Code Diagnosis ICD10 Code Diagnosis Note [id number] PAULO Smith [facility] [address] [place] [address] 10/11/2021 14:02:15 10/12/2021 07:14:08 Hip pain 48213041 M25.559 Fall on sa me level from slipping, tripping or stumbling 166894680 W01.0XXA Health Concerns Section Related Observation LastModified by Organization Detai ls LastModified Time None Recorded Concern Status LastModified by Organization Details LastModified Time None Recorded Advance Directives Directive None Recorded Payers Encounter Date Sequence Insurance Name Policy Number Policy Hirsch Covered Member ID Hirsch Member ID Guarantor Name 10/11/2021 1 MEDICARE B-[place]: [employer] Lala Bateman Arsen [id number] Lala Leger Notes Date Note Type [...] lightheadedness, further falls. PAULO Gonzalez [address] [place], [address], [place] [facility] 10/11/2021 17:26:17 OBGyn Episode No OBEpisode recorded.
[2024-04-20] MEDS: Albuterol/Iprat 2.5/0.5MG 3 ML AMPUL.NEB INHALE ×3 (09:00→19:22)
[2024-04-20] MEDS: cefTRIAXone sodium 1 GM VIAL IVPUSH (09:08)
--- NOTE | 2024-04-20 09:08 | PC.NURSE ---
Per provider d/t patient weight only x 1 set of blood cultures needed
[2024-04-20 09:14] LABS: MANUAL DIFF FLAG NO
[2024-04-20 09:15] LABS: Basophils Percent Auto 0.2 % (0-2); Eosinophils Percent Auto 0.2 % (0-4); Hematocrit 34.9 % (37.0-47.0); Hemoglobin 11.6 g/dl (12.0-16.0); Imm Gran Abs Auto 0.01 X10*3/uL (0.00-0.03); Imm Gran Pct Auto 0.2 % (0.0-0.4); Lymphocytes Absolute Auto 0.6 X10*3/uL (1.2-4.9); Lymphocytes Percent Auto 12.7 % (20-40); Mean Corpuscular HGB Conc 33.2 g/dl (31.0-35.0); Mean Corpuscular Hemoglobin 30.8 pg (27.0-33.0); Mean Corpuscular Volume 92.6 fL (80.0-98.0); Mean Platelet Volume 10.2 fL (9.4-12.3); Monocytes Absolute Auto 0.4 X10*3/uL (0.1-1.2); Monocytes Percent Auto 8.1 % (2-11); Neutrophils Absolute Auto 3.6 x10*3/uL (2.0-8.3); Neutrophils Percent Auto 78.6 % (45-73); Platelet Count 158 X10*3/uL (160-400); Red Blood Count 3.77 X10*6/uL (4.20-5.50); Red Cell Distribution Width 14.6 % (11.0-16.0); White Blood Count 4.6 X10*3/uL (4.8-10.8)
[2024-04-20 09:19] LABS: INTERNATIONAL NORM RATIO 1.8 (0.9-1.1); Prothrombin Time 21.2 SEC (10.9-12.4)
[2024-04-20 09:19] LABS: VBG Base Excess -0.2 mmol/L; VBG HCO3 24 mmol/L (22-26); VBG pCO2 41 mmHg; VBG pH 7.38 (7.32-7.43); VBG pO2 62 mmHg
[2024-04-20 09:20] LABS: Venous Blood Gas Refer to POC result
[2024-04-20 09:29] LABS: Lactic Acid 1.2 mmol/L (0.5-2.0)
[2024-04-20 09:40] LABS: B Type Natriuretic Peptide 1775 pg/mL (<100)
[2024-04-20 09:41] LABS: Alanine Aminotransferase 22 U/L (0-31); Albumin Level 3.5 g/dL (3.5-5.0); Alkaline Phosphatase 81 U/L (39-117); Anion Gap 12 (12-20); Aspartate Amino Transferase 38 U/L (5-31); Bilirubin Direct 0.2 mg/dL (0.0-0.5); Bilirubin Total 0.4 mg/dL (0.0-1.0); Blood Urea Nitrogen 25 mg/dL (9-16); C Reactive Protein 5.83 mg/dL (< or = 0.50); Calcium 8.4 mg/dL (8.4-10.2); Carbon Dioxide 22 mmol/L (22-29); Chloride 108 mmol/L (96-108); Creatinine Clr Calc Pharmacy 38.3; Estimated Glomerular Filt Rate > 60; Glucose Random 95 mg/dL (60-115); Lipase 16 U/L (8-78); Magnesium 1.9 mg/dL (1.6-2.6); Potassium 3.7 mmol/L (3.3-5.1); Sodium 138 mmol/L (135-145); Total Protein 6.4 g/dL (6.5-8.0)
[2024-04-20 09:43] LABS: Troponin-I High Sensitivity 175.7 ng/L (<3.5-17.0)
[2024-04-20] MEDS: methylPREDNISolone Sod Succ 125 MG/2 ML VIAL 60 MG IVPUSH (09:53)
[2024-04-20 09:55] LABS: Procalcitonin 0.08 ng/mL
[2024-04-20] MEDS: Albumin Human 25 % 100 ML 133.33 ML IV ×2 (10:02→11:05)
[2024-04-20] MEDS: 0.9 % Sodium Chloride 250 ML IV (10:02)
--- NOTE | 2024-04-20 10:04 | PC.NURSE ---
Provider aware of BP- hold lasiks at this time
[2024-04-20 10:05] LABS: Influenza A PCR POSITIVE (Negative); Influenza B PCR NEGATIVE (Negative); Resp Syncy Virus RNA Qual PCR NEGATIVE (Negative); SARS COV2 PCR INHOUSE NEGATIVE (Negative)
[2024-04-20 12:10] LABS: Troponin-I High Sensitivity 151.5 ng/L (<3.5-17.0)
[2024-04-20] MEDS: Oseltamivir Phosphate 75 MG CAPSULE PO (13:00)
--- NOTE | 2024-04-20 13:07 | PM.IMHP ---
History of Present Illness Date of Service: 04/20/24 Attending physician on admission: Leslie Patiño Chief Complaint: SOB, weakness Pt is a 79-year-old female with a PMH significant for?paroxysmal AFib on warfarin, [place] in 2007 s/p pacemaker in place, TIA in 2009, HTN, and HLD who presents to the ED with?cough, weakness, and SOB x3 days. Reports symptoms again Tuesday morning when she developed a ?heavy? cough occasionally productive of whitish sputum. On Tuesday when pt attempted to go to the bathroom felt lightheaded and dizzy and fell, striking the left side of her chest on the floor. Denies head strike. Was able to get up on her own and had no significant pain or difficulty ambulating. Has not fallen since. Pt has also experienced generalized weakness, reduced p.o. intake, subjective fever and chills, as well as SOB and MCGRATH. Some nausea, vomiting, and diarrhea on Tuesday and Tuesday, though since resolved. Denies chest pain or pressure. No myalgias. Pt presents to the ED today his symptoms have persisted and she felt weaker and could not stop coughing this morning. In the ED pt was tachypneic up to 22, soft BP as low as 93/45, and desatting as low as 89% on RA. Labs were significant for testing positive for flu, thrombocytopenia of 158, initial troponin 175.7 with repeat flat at 01:50 1.5, CRP 5.83, and BNP 1775. No leukocytosis. Stable H&H of 11.6/34.9. No significant electrolyte abnormalities. Renal and hepatic function WNL. CXR showed cardiomegaly, COPD, and right basilar subsegmental atelectasis vs scarring. CT?of head and cervical spine negative for acute abnormality. EKG demonstrated normal sinus rhythm with nonspecific intraventricular conduction blockc and prolonged QTc of 534. Pt was treated with DuoNeb, Solu-Medrol, IVF, albumin, ceftriaxone, and Tamiflu. Pt will be admitted to the hospital treatment and further evaluation of acute hypoxic respiratory failure in the setting of influenza infection. Review of Systems Review of Systems: Negative except for that which is stated in the [facility] Medical History CAD (coronary artery disease) Hyperlipidemia Afib HTN (hypertension) Social History (Updated 04/20/24 @ 08:30 by Sumaya Best DO) Household Members: None Alcohol intake: never Patient Tobacco Use Status: Never used Tobacco Smoked in Last 30 Days: No Use of substances other than those prescribed or required for medical reasons: No Advance Directives: No Advance Directives Information Provided: Yes Meds Allergies Allergy/AdvReac Type Severity Reaction Status Date / Time lisinopril AdvReac Intermediate COUHG Verified 04/20/24 08:21 Home Medications ?Medication ?Instructions ?Recorded ?Confirmed ?Last Taken ?Type carvedilol 25 mg tablet 25 mg PO BID 05/07/20 04/20/24 04/19/24 History amiodarone 200 mg tablet 100 mg PO DAILY 07/08/21 04/20/24 04/19/24 History acetaminophen 500 mg tablet 500 mg PO Q6H PRN Pain 07/13/23 04/20/24 Unknown History sacubitril 24 mg-valsartan 26 mg 1 tab PO BID 08/03/23 04/20/24 04/19/24 History tablet (Entresto) atorvastatin 20 mg tablet 20 mg PO DAILY 10/05/23 04/20/24 04/19/24 History warfarin 2.5 mg tablet 1.25 mg PO SUMOWETHSA@1800 04/20/24 04/20/24 04/19/24 History warfarin 2.5 mg tablet 2.5 mg PO TUFR@1800 04/20/24 04/20/24 04/17/24 History Physical Exam Vital Signs and Narrative: Vital Signs: Last Vital Signs Temp 98.1 F 04/20/24 12:02 Pulse 72 04/20/24 13:01 Resp 18 04/20/24 13:01 BP 104/60 04/20/24 13:01 Pulse Ox 95 04/20/24 12:02 O2 Del Method Nasal Cannula 04/20/24 12:02 O2 Flow Rate 2 04/20/24 12:02 Oxygen Flow Rate 2 04/20/24 08:18 BMI result Body Mass Index 15.0 General: AOx3, no acute distress Resp: Diminished with coarse inspiratory breath sounds. Pt with wet-sounding cough during exam. CVS: S1, S2, RRR GI: +BS, NT, no distention Skin: Warm, dry Neuro: Cranial nerves II-XII grossly intact bilaterally. Motor grossly intact bilaterally Extremities: No edema Psych: Appropriate affect Results Labs 04/20/24 09:03 04/20/24 09:03 Labs: Laboratory Results - last 24 hr 04/20/24 04/20/24 04/20/24 08:55 09:03 09:14 MCV 92.6 MCH 30.8 MCHC 33.2 RDW 14.6 Plt Count 158 L D MPV 10.2 Immature Gran % (Auto) 0.2 Neut % (Auto) 78.6 H Lymph % (Auto) 12.7 L Stanton % (Auto) 8.1 Eos % (Auto) 0.2 Baso % (Auto) 0.2 Lymph # (Auto) 0.6 L Stanton # (Auto) 0.4 Eos # (Auto) 0.0 Baso # (Auto) 0.0 Abs Immat Gran (auto) 0.01 Absolute Neuts (auto) 3.6 Absolute Nucleated RBC 0.000 Nucleated RBC % (auto) 0.0 PT 21.2 H INR 1.8 H VBG pH 7.38 VBG pCO2 41 VBG pO2 62 VBG HCO3 24 VBG O2 Saturation 90.0 VBG Base Excess -0.2 Anion Gap 12 Estim Creat Clear Calc 38.3 Estimated GFR > 60 Random Glucose 95 Lactic Acid 1.2 Calcium 8.4 D Magnesium 1.9 Total Bilirubin 0.4 Direct Bilirubin 0.2 AST 38 H ALT 22 Alkaline Phosphatase 81 C-Reactive Protein 5.83 H B-Natriuretic Peptide 1775 H Total Protein 6.4 L Albumin 3.5 Lipase 16 Procalcitonin 0.08 Influenza Type A (PCR) POSITIVE A Influenza Type B (PCR) NEGATIVE RSV RNA Qual (PCR) NEGATIVE SARS-CoV-2 RNA (RT-PCR) NEGATIVE Imaging Radiologist's Impressions: Impressions Chest X-Ray 04/20/24 08:21 IMPRESSION: Cardiomegaly. COPD. Right basilar subsegmental atelectasis versus scarring. Electronically signed by: Tae Tavarez MD 04/20/2024 09:33 AM EST RP Head CT 04/20/24 08:32 IMPRESSION: No acute intracranial abnormality. No evidence of intracranial hemorrhage. Electronically signed by: Tae Tavarez MD 04/20/2024 10:12 AM EST RP Cervical Spine CT 04/20/24 09:19 IMPRESSION: No evidence of fracture or malalignment of the cervical spine. Degenerative changes as described. Electronically signed by: Tae Tavarez MD 04/20/2024 10:16 AM [facility] Assessment and Plan (1) Influenza A: Status: Acute (2) Hypoxia: Status: Acute Plan Pt is a 79-year-old female with a PMH significant for?paroxysmal AFib on warfarin, [place] in 2007 s/p pacemaker in place, TIA in 2009, HTN, and HLD who presents to the ED with?cough, weakness, and SOB x3 days. Pt will be admitted to the hospital treatment and further evaluation of acute hypoxic respiratory failure in the setting of influenza infection. Acute hypoxic respiratory failure in the setting of influenza type a infection Pt hypoxic into 80s on RA, not on home O2 or home inhalers Will treat with DuoNebs, Solu-Medrol, Tamiflu Titrate supplemental O2>92, wean as tolerated Monitor respiratory status PT consult for generalized weakness and fall at home Prolonged QTc EKG with QTC of 534, similar to prior EKG showing nonspecific intraventricular conduction block We will give potassium 20 mEq p.o. Repeat EKG morning Monitor on telemetry Elevated troponins Initial troponin 175.7 with repeat flat at 151.5 Pt asymptomatic, EKG without significant ischemic changes from prior Likely type 2 in the setting of increased demand Monitor on telemetry Elevated BNP BP 1775, baseline unknown Pt appears euvolemic, denies orthopnea, no pulmonary edema or pleural effusions on CXR Only previous BNP on file 3449 on 07/12 2007; EF 10-15% at that time Pt no longer on home Lasix Monitor volume status Paroxysmal AFib INR subtherapeutic at 1.8 Continue warfarin, amiodarone Monitor INR Hold carvedilol for now due to soft BP HTN Hold sacubitril-valsartan and carvedilol due to soft BP Resume as warranted Hx of TIA/HLD Continue statin Full Code Attending:?Dr. Patiño DVT Prophylaxis: OnwWarfarin Pt will require a hospitalization of at least two nights for treatment of?acute hypoxic respiratory failure in the setting of acute influenza a infection that requires administration of IV steroids, breathing treatments, and supplemental oxygen, as well as close respiratory status. Quality Stroke Does the patient have a stroke diagnosis?: No VTE Prior VTE?: No VTE Risk Level:: Medical - moderate - high VTE Device Contraindication: Treatment Not Indicated VTE Drug Contraindication: N/A - Med Ordered
[2024-04-20 13:30] LABS: Appearance Urine Cloudy; Color Urine Yellow; Glucose Urine UA Negative (Negative); Leukocyte Esterase Urine Moderate (2+) (Negative); Nitrite Urine Negative (Negative); Specific Gravity - Urine 1.015 (1.005-1.025); UMIC TRIGGER UACC YES; Urine Blood Small (1+) (Negative); Urine Ketones Trace mg/dL (Negative); Urine Protein 300 (3+) mg/dL (Neg-Trace)
[2024-04-20 13:41] LABS: Bacteria Urine 4+ (None Seen); Hyaline Casts Urine 0-2 /LPF (0-2); Other Crystals Urine Present; RBC Urine >20 /HPF (0-2); Squamous Epithelial Cell Urine >20 /HPF (0-2); UACC Culture Trigger YES; WBC Urine 21-50 /HPF (0-5)
--- NOTE | 2024-04-20 14:23 | PHA.MEDREC ---
Addendum entered by Audrey Marrero RPh 04/20/24 14:40: Med rec was reviewed by [facility]. Original Note: Pharmacy Consult ? Medication Reconciliation Pharmacy has completed the medication reconciliation. Spoke to patient to confirm med list. Patient states she is no longer taking Furosemide 20 mg. Patient confirmed she takes Warfarin 2.5 mg (1 tablet) Tuesday and Fridays and Warfarin 1.25 ( 1/2 tablet) all other days, claims states 1 tablet 5 days a week and 1/2 tablet 2 days a week. Went to speak to patient a second time just to confirm dose. Patient insists she takes 1 tablet 2 days and 1/2 tablet all other days.
[2024-04-20] MEDS: Potassium Chloride Packet 20 MEQ PACKET PO (14:38)
[2024-04-20] MEDS: 0.9 % Sodium Chloride Flush 3 ML SYRINGE IVFLUSH (14:38)
--- NOTE | 2024-04-20 19:15 | PC.NURSE ---
This RN assumed pt care @ 1900. Pt a&ox4, no signs of distress. Pt requesting and given bed das, clean gown, and sheets. Plan of care ongoing.
--- NOTE | 2024-04-20 19:22 | PC.NURSE ---
Pts B/P Dr. Rico notified and aware. Plan of care ongoing.
[2024-04-20] MEDS: Albumin Human 25 % 100 ML IV (19:33)
--- NOTE | 2024-04-20 19:37 | PC.NURSE ---
Pt talking on cell phone Pt medicated per may RT in wt pt. Plan of care ongoing.
--- NOTE | 2024-04-20 19:42 | PC.NURSE ---
Pt taken off the bed das Plan of care ongoing.
[2024-04-20] MEDS: Oseltamivir Phosphate 30 MG CAPSULE PO (20:20)
[2024-04-20] MEDS: methylPREDNISolone Sod Succ 40 MG/ML VIAL IVPUSH (20:21)
--- NOTE | 2024-04-20 20:30 | PC.NURSE ---
Pt medicated per may. Plan of care ongoing.
[2024-04-21] VITALS (23 sets, daily range): BP systolic 94–125; BP diastolic 59–69; PULSE 59–99; RESP 16–26; TEMP 36.2–37.3; O2SAT 83–98; BMI 15.0
[2024-04-21] MEDS: 0.9 % Sodium Chloride Flush 3 ML SYRINGE IVFLUSH ×3 (00:01→15:47)
[2024-04-21] MEDS: guaiFEN/Codeine SF 200/20/10ML 10 ML LIQUID 5 ML PO ×2 (00:56→07:28)
[2024-04-21] MEDS: Albumin Human 25 % 100 ML IV (03:17)
[2024-04-21] MEDS: methylPREDNISolone Sod Succ 40 MG/ML VIAL IVPUSH (07:20)
[2024-04-21] MEDS: Albuterol/Iprat 2.5/0.5MG 3 ML AMPUL.NEB INHALE ×4 (07:24→20:24)
[2024-04-21] MEDS: Oseltamivir Phosphate 30 MG CAPSULE PO ×2 (07:28→20:38)
[2024-04-21] MEDS: Atorvastatin Calcium 20 MG TABLET PO (08:09)
[2024-04-21] MEDS: Amiodarone HCL 200 MG TABLET 100 MG PO (08:09)
[2024-04-21] MEDS: carvediloL 25 MG TABLET PO (08:09)
[2024-04-21 08:34] LABS: Hematocrit 34.4 % (37.0-47.0); Hemoglobin 11.2 g/dl (12.0-16.0); Mean Corpuscular HGB Conc 32.6 g/dl (31.0-35.0); Mean Corpuscular Hemoglobin 30.9 pg (27.0-33.0); Mean Platelet Volume 10.8 fL (9.4-12.3); Platelet Count 186 X10*3/uL (160-400); Red Blood Count 3.62 X10*6/uL (4.20-5.50); Red Cell Distribution Width 14.6 % (11.0-16.0); White Blood Count 6.2 X10*3/uL (4.8-10.8)
[2024-04-21 08:39] LABS: INTERNATIONAL NORM RATIO 2.1 (0.9-1.1)
[2024-04-21 08:53] LABS: B Type Natriuretic Peptide 4384 pg/mL (<100)
[2024-04-21 09:01] LABS: Anion Gap 15 (12-20); Blood Urea Nitrogen 32 mg/dL (9-16); Calcium 9.3 mg/dL (8.4-10.2); Carbon Dioxide 22 mmol/L (22-29); Chloride 111 mmol/L (96-108); Estimated Glomerular Filt Rate > 60; Glucose Random 182 mg/dL (60-115); Potassium 4.2 mmol/L (3.3-5.1); Sodium 144 mmol/L (135-145)
[2024-04-21 09:11] LABS: Procalcitonin 0.07 ng/mL
[2024-04-21] MEDS: Furosemide 20 MG/2 ML VIAL IVPUSH (09:22)
--- NOTE | 2024-04-21 10:01 | MHC.CLN ---
NUTRITION DIET=REGULAR. PATIENT IS UNDERWEIGHT WITH BMI=15. ADDING ENSURE TID TO PROVIDE 1050 KCALS, 60 G PROTEIN. ALEKSANDAR=19 WITH NO NOTED SKIN ISSUES. FOLLOW FOR PO INTAKE AND WEIGHT. COMPLETE NUTRITION ASSESSMENT TO FOLLOW.
[2024-04-21] MEDS: iohexoL 350 MG/ML 100 ML INFUS..BTL IV ×2 (10:55→11:23)
--- NOTE | 2024-04-21 11:49 | PC.RT ---
Pt placed on HFNC by RT. Pt has had increased O2 requirements this am. SATs 86% on 6L NC. Pt on 50L/100% HFNC SATs increased to 93%. Will continue to monitor and wean as tolerated.
[2024-04-21] MEDS: Furosemide 40 MG/4 ML VIAL IVPUSH (12:41)
[2024-04-21] MEDS: Linezolid/D5W 600 MG/300 ML PIGGYBACK 300 MG IV (12:41)
[2024-04-21] MEDS: Piperacillin Sodium/Tazobactam 3.375 GM in 0.9 % Sodium Chloride 50 ML IV ×3 (12:41→23:59)
--- NOTE | 2024-04-21 13:23 | P.PNIM_ITS ---
Subjective Subjective Date of Service: 04/21/24 Interval History: more dyspneic + hypoxic, now on HFNC no chest pain no leg edema Review of Systems Review of Systems: Yes all other systems are reviewed and are negative Physical Exam 2 Vital Signs: Vital Signs: Last Vital Signs Temp 97.1 F 04/21/24 11:15 Pulse 73 04/21/24 11:20 Resp 16 04/21/24 11:47 BP 114/59 L 04/21/24 11:15 Pulse Ox 86 L 04/21/24 11:15 O2 Del Method Nasal Cannula 04/21/24 11:15 O2 Flow Rate 6 04/21/24 11:15 Oxygen Flow Rate 2 04/20/24 08:18 BMI result Body Mass Index 15.0 Gen: tachypneic, malnourished HEENT: sclera anicteric, moist mucus membranes Neck: supple Lungs: bilateral inspiratory crackles Heart: regular rate and rhythm, no murmurs Abd: soft, non-tender, non-distended Ext: no edema Skin: warm/well-perfused Neuro: alert and oriented x3, no focal findings Psych: appropriate affect Objective Data Active Medications Acetaminophen (Acetaminophen 325 Mg Tablet) 650 mg PO Q6H PRN PRN Reason: Pain, Mild 1-3,fever,headache Albuterol/Ipratropium (Albuterol/Iprat 2.5/0.5mg 3 Ml Ampul.Neb) 3 ml INHALE RQ4H WHILE AWAKE [facility] Last Admin: 04/21/24 11:19 Dose: 3 ml Documented By: SHOAIB Amiodarone HCl (Amiodarone Hcl 200 Mg Tablet) 100 mg PO DAILY [facility] Last Admin: 04/21/24 08:09 Dose: 100 mg Documented By: REINA Atorvastatin Calcium (Atorvastatin Calcium 20 Mg Tablet) 20 mg PO DAILY [facility] Last Admin: 04/21/24 08:09 Dose: 20 mg Documented By: REINA Calcium Carbonate (Calcium Carbonate 750 Mg Tab.Chew) 750 mg PO Q4H PRN PRN Reason: Heartburn Carvedilol (Carvedilol 25 Mg Tablet) 25 mg PO BID [facility]; Protocol Last Admin: 04/21/24 08:09 Dose: 25 mg Documented By: REINA Guaifenesin/Codeine Phosphate (Guaifen/Codeine Sf 200/20/10ml 10 Ml Liquid) 5 ml PO Q6H PRN PRN Reason: Cough Last Admin: 04/21/24 07:28 Dose: 5 ml Documented By: REINA Piperacillin Sod/Tazobactam (Sod 3.375 gm/ Sodium Chloride) 50 mls @ 100 mls/hr IV Q6H [facility] Last Admin: 04/21/24 12:41 Dose: 100 mls/hr Documented By: REINA Linezolid (Zyvox/D5w) 600 mg in 300 mls @ 300 mls/hr IV Q12H [facility] Last Admin: 04/21/24 12:41 Dose: 300 mls/hr Documented By: REINA Magnesium Hydroxide (Milk Of Magnesia 30 Ml Oral.Susp) 30 ml PO DAILY PRN PRN Reason: Constipation Melatonin (Melatonin 3 Mg Tablet) 6 mg PO BEDTIME PRN PRN Reason: Insomnia Methylprednisolone Sodium Succinate (Methylprednisolone Sod Succ 40 Mg/Ml Vial) 60 mg IVPUSH Q8H [facility] Oseltamivir Phosphate (Oseltamivir Phosphate 30 Mg Capsule) 30 mg PO Q12H [facility] Stop: 04/24/24 21:01 Last Admin: 04/21/24 07:28 Dose: 30 mg Documented By: REINA Sodium Chloride (0.9 % Sodium Chloride Flush 3 Ml Syringe) 3 ml IVFLUSH QSHIFT [facility] Last Admin: 04/21/24 07:21 Dose: 3 ml Documented By: REINA Warfarin Sodium (Warfarin Sodium 2.5 Mg Tablet) 2.5 mg PO TUFR@1800 [facility] Warfarin Sodium (Warfarin Sodium 1.25 Mg Halftab) 1.25 mg PO SUMOWETHSA@1800 [facility] Labs 04/21/24 07:52 04/21/24 07:52 Labs: Laboratory Results - last 24 hr 04/20/24 04/21/24 13:22 07:52 MCV 95.0 MCH 30.9 MCHC 32.6 RDW 14.6 Plt Count 186 MPV 10.8 Absolute Nucleated RBC 0.000 Nucleated RBC % (auto) 0.0 PT 25.0 H INR 2.1 H Anion Gap 15 Estim Creat Clear Calc 34.0 Estimated GFR > 60 Random Glucose 182 H Calcium 9.3 D Total Creatine Kinase 72 B-Natriuretic Peptide 4384 H Procalcitonin 0.07 Urine Color Yellow Urine Appearance Cloudy Urine pH 7.0 Ur Specific [place] 1.015 Urine Protein 300 (3+) H Urine Glucose (UA) Negative Urine Ketones Trace Urine Blood Small (1+) H Urine Nitrite Negative Ur Leukocyte Esterase Moderate (2+) H Urine RBC >20 H Urine WBC 21-50 H Ur Squamous Epith Cells >20 Other Crystals Present Urine Bacteria 4+ Hyaline Casts 0-2 Microbiology Microbiology Results: Microbiology 04/20/24 09:03 Blood Culture - Preliminary Blood - Venous No growth after 24 hours. 04/20/24 Unknown Urine Culture - Final Urine clean catch - Clean Catch Midstream Strep agalactiae (Grp B) 04/20/24 08:43 Blood Culture - Final Blood - Venous Assessment and Plan (1) Influenza A: Status: Acute Plan d2 for 79yo F with paroxysmal AF on warfarin, [place] in 2007, PPM, hx TIA in 2009, HTN, and HLD presenting with cough, weakness, and dyspnea for 3 days; became lightheaded and fell and struck her chest on the floor; no LOC. Found to have influenza, admitted for hypoxia. acute hypoxic respiratory failure to influenza A and post-influenza pneumonia with new COPD - start linezolid and piperacillin-tazobactam, follow BCx, check MRSA swab, check urinary antigens for Legionella and pneumococcus, trend PCT; oselamivir 04/20-04/25 - increase methylprednisolone to 60 mg IV q8h and give nebs; consult Pulm; ?amiodarone-induced lung injury - on HFNC, wean as tolerated CH exacerbation - will give furosemide 40 mg IV daily, check TTE, monitor BNP/lytes/I+O - prior LVEF 10-15% in 2007 troponin elevation - flat; likely demand from hypoxia/pneumonia prolongted QTc - corrects to normal by Bazette formula when accounting for LBBB pAF - continue warfarin, INR 2.1 today - hold amiodarone given question of lung injury - continue carvedilol HTN - continue carvedilol; held Entresto due to soft BP hx TIA - continue statin VTE ppx - on warfarin dispo - TBD In my clinical judgment, the patient requires continued inpatient hospitalization for the following reasons: hypoxia Total time managing care of this patient today: 55 minutes. Quality Stroke Does the patient have a stroke diagnosis?: No VTE Prior VTE?: No VTE Risk Level:: Medical - moderate - high VTE Device Contraindication: Treatment Not Indicated VTE Drug Contraindication: N/A - Med Ordered
[2024-04-21] MEDS: methylPREDNISolone Sod Succ 40 MG/ML VIAL 60 MG IVPUSH ×2 (15:46→23:58)
--- NOTE | 2024-04-21 16:20 | MHC.CM.PN ---
PT REPORTS SHE LIVES ALONE AND IS INDEPENDENT WITH CARE SHE HAS NO DME AND NO SERVICES SHE REPORTS HER DAUGHTER IS HER HCP, COPY REQUESTED PCP: SONAL ABREU IMM DELIVERED DCP: HOME ? [facility]SP[facility]
[2024-04-21] MEDS: Warfarin Sodium 1.25 MG HALFTAB PO (18:14)
[2024-04-22] VITALS (13 sets, daily range): BP systolic 90–108; BP diastolic 50–61; PULSE 54–66; RESP 16–20; TEMP 36.3–37.1; O2SAT 94–100
[2024-04-22] MEDS: 0.9 % Sodium Chloride Flush 3 ML SYRINGE IVFLUSH ×3 (00:02→14:56)
[2024-04-22] MEDS: Linezolid/D5W 600 MG/300 ML PIGGYBACK 300 MG IV ×2 (01:07→12:20)
[2024-04-22] MEDS: Piperacillin Sodium/Tazobactam 3.375 GM in 0.9 % Sodium Chloride 50 ML IV ×3 (06:21→17:01)
[2024-04-22] MEDS: methylPREDNISolone Sod Succ 40 MG/ML VIAL 60 MG IVPUSH ×2 (06:21→14:56)
[2024-04-22 06:32] LABS: INTERNATIONAL NORM RATIO 2.9 (0.9-1.1); Prothrombin Time 34.4 SEC (10.9-12.4)
[2024-04-22] MEDS: Albuterol/Iprat 2.5/0.5MG 3 ML AMPUL.NEB INHALE ×3 (07:45→15:17)
[2024-04-22] MEDS: guaiFEN/Codeine SF 200/20/10ML 10 ML LIQUID 5 ML PO ×2 (08:42→17:01)
[2024-04-22] MEDS: Oseltamivir Phosphate 30 MG CAPSULE PO ×2 (08:42→20:31)
[2024-04-22] MEDS: Furosemide 40 MG/4 ML VIAL IVPUSH (08:42)
[2024-04-22] MEDS: Atorvastatin Calcium 20 MG TABLET PO (08:42)
--- NOTE | 2024-04-22 15:05 | P.PNIM_ITS ---
Subjective Subjective Date of Service: 04/22/24 Interval History: Being followed for multifocal pneumonia/CHF/flu Feeling significantly better currently on high-flow 35%, oxygenation stable 97% Complaining of dry cough, no fevers, no chills, no chest pain tolerating diet with no nausea, no vomiting or abdominal pain. No acute events overnight. Review of Systems All other system reviewed and are negative. Physical Exam 2 Vital Signs: Vital Signs: Last Vital Signs Temp 98.0 F 04/22/24 11:27 Pulse 66 04/22/24 11:29 Resp 16 04/22/24 13:42 BP 99/55 L 04/22/24 11:27 Pulse Ox 96 04/22/24 11:27 O2 Del Method High Flow Nasal C annula 04/22/24 11:27 O2 Flow Rate 35 04/22/24 11:27 FiO2 57 04/22/24 11:27 Oxygen Flow Rate 37 04/21/24 15:59 BMI result Body Mass Index 15.0 Const: Other: Gen: Awake alert in no acute distress, malnourished HEENT: sclera anicteric, moist mucus membranes Neck: supple, no JVD Lungs: bilateral basilar inspiratory crackles Heart: regular rate and rhythm, no murmurs Abd: soft, non-tender, non-distended, bowel sounds audible Ext: no edema Skin: warm/well-perfused Neuro: no focal findings Psych: appropriate affect Objective Data Active Medications Acetaminophen (Acetaminophen 325 Mg Tablet) 650 mg PO Q6H PRN PRN Reason: Pain, Mild 1-3,fever,headache Albuterol/Ipratropium (Albuterol/Iprat 2.5/0.5mg 3 Ml Ampul.Neb) 3 ml INHALE RQ4H WHILE AWAKE [facility] Last Admin: 04/22/24 11:29 Dose: 3 ml Documented By: SHOAIB Amiodarone HCl (Amiodarone Hcl 200 Mg Tablet) 100 mg PO DAILY [facility] Last Admin: 04/21/24 08:09 Dose: 100 mg Documented By: REINA Atorvastatin Calcium (Atorvastatin Calcium 20 Mg Tablet) 20 mg PO DAILY [facility] Last Admin: 04/22/24 08:42 Dose: 20 mg Documented By: REINA Calcium Carbonate (Calcium Carbonate 750 Mg Tab.Chew) 750 mg PO Q4H PRN PRN Reason: Heartburn Carvedilol (Carvedilol 25 Mg Tablet) 25 mg PO BID [facility]; Protocol Last Admin: 04/22/24 08:42 Dose: Not Given Documented By: REINA Non-Admin Reason: Decreased Heart Rate Furosemide (Furosemide 40 Mg/4 Ml Vial) 40 mg IVPUSH DAILY [facility]; Protocol Last Admin: 04/22/24 08:42 Dose: 40 mg Documented By: REINA Guaifenesin/Codeine Phosphate (Guaifen/Codeine Sf 200/20/10ml 10 Ml Liquid) 5 ml PO Q6H PRN PRN Reason: Cough Last Admin: 04/22/24 08:42 Dose: 5 ml Documented By: REINA Piperacillin Sod/Tazobactam (Sod 3.375 gm/ Sodium Chloride) 50 mls @ 100 mls/hr IV Q6H [facility] Last Infusion: 04/22/24 11:42 Dose: Infused Documented By: REINA Linezolid (Zyvox/D5w) 600 mg in 300 mls @ 300 mls/hr IV Q12H [facility] Last Infusion: 04/22/24 13:20 Dose: Infused Documented By: REINA Magnesium Hydroxide (Milk Of Magnesia 30 Ml Oral.Susp) 30 ml PO DAILY PRN PRN Reason: Constipation Melatonin (Melatonin 3 Mg Tablet) 6 mg PO BEDTIME PRN PRN Reason: Insomnia Methylprednisolone Sodium Succinate (Methylprednisolone Sod Succ 40 Mg/Ml Vial) 60 mg IVPUSH Q8H [facility] Last Admin: 04/22/24 14:56 Dose: 60 mg Documented By: REINA Oseltamivir Phosphate (Oseltamivir Phosphate 30 Mg Capsule) 30 mg PO Q12H [facility] Stop: 04/24/24 21:01 Last Admin: 04/22/24 08:42 Dose: 30 mg Documented By: REINA Sodium Chloride (0.9 % Sodium Chloride Flush 3 Ml Syringe) 3 ml IVFLUSH QSHIFT [facility] Last Admin: 04/22/24 14:56 Dose: 3 ml Documented By: REINA Warfarin Sodium (Warfarin Sodium 2.5 Mg Tablet) 2.5 mg PO TUFR@1800 [facility] Warfarin Sodium (Warfarin Sodium 1.25 Mg Halftab) 1.25 mg PO SUMOWETHSA@1800 [facility] Last Admin: 04/21/24 18:14 Dose: 1.25 mg Documented By: REINA Labs 04/21/24 07:52 04/21/24 07:52 Labs: Laboratory Results - last 24 hr 04/22/24 05:57 Hold Purple Top SEE NOTE PT 34.4 H D INR 2.9 H Microbiology Microbiology Results: Microbiology 04/20/24 09:03 Blood Culture - Preliminary Blood - Venous No growth after 48 hours. 04/20/24 Unknown Urine Culture - Final Urine clean catch - Clean Catch Midstream Strep agalactiae (Grp B) Assessment and Plan (1) Influenza A: Status: Acute (2) Elevated troponin: Status: Acute (3) Hypoxia: Status: Acute (4) Current use of anticoagulant therapy: Status: Acute Plan 79yo F with paroxysmal AF on warfarin, [place] in 2007, PPM, hx TIA in 2009, HTN, and HLD presenting with cough, weakness, and dyspnea for 3 days; became lightheaded and fell and struck her chest on the floor; no LOC. Found to have influenza, admitted for hypoxia. acute hypoxic respiratory failure due to influenza A and post-influenza pneumonia with new COPD -improving, with less high-flow requirement - on iv linezolid and piperacillin-tazobactam, follow BCx, MRSA swab un collected, PCT 0.07, oselamivir 04/20-04/25 - on methylprednisolone 60 mg IV q8h will wean to 40 mg q.8 hours, change duonebs to q6hWA, Pulm consult pending, ?amiodarone-induced lung injury - on HFNC, wean as tolerated Acute CHF exacerbation - on furosemide 40 mg IV daily, TTE pend, positive fluid balance, continue current dose of IV Lasix due to soft BP. BNP bumped from 1775 to 4384 , stable potassium and renal function monitor BNP/lytes/I+O - prior LVEF 10-15% in 2007 troponin elevation - flat; likely demand from hypoxia/pneumonia prolongted QTc - corrects to normal by Bazette formula when accounting for LBBB pAF - continue warfarin, INR 2.9 today,monitor inr daily,hold coumadin today - hold amiodarone given question of lung injury - continue carvedilol decrease dose of 12.5 b.i.d. HTN - continue carvedilol; BP remains soft continue to hold Entresto hx TIA - continue statin VTE ppx - on warfarin dispo - TBD In my clinical judgment, the patient requires continued inpatient hospitalization for the following reasons: hypoxia Quality Stroke Does the patient have a stroke diagnosis?: No VTE Prior VTE?: No VTE Risk Level:: Medical - moderate - high VTE Device Contraindication: Treatment Not Indicated VTE Drug Contraindication: N/A - Med Ordered
--- NOTE | 2024-04-22 17:11 | P.CONPL_ITS ---
History of Present Illness History of Present Illness Consult date: 04/22/24 Chief complaint: Hypoxia, flu + Narrative: This is an inpatient pulmonary consultation. The patient is a 79-year-old female with a PMH significant for?paroxysmal AFib on warfarin, [place] in 2007 s/p pacemaker in place, TIA in 2009, HTN, and HLD who presents to the ED with?cough, weakness, and SOB and dizziness. The patient fell, striking the left side of her chest on the floor. Denies head strike. Was able to get up on her own and had no significant pain or difficulty ambulating. In the ED pt was tachypneic up to 22, soft BP as low as 93/45, and desatting as low as 89% on RA. Labs were significant for testing positive for flu, thrombocytopenia of 158, initial troponin 175.7 with repeat flat at 01:50 1.5, CRP 5.83, and BNP 1775. No leukocytosis. Stable H&H of 11.6/34.9. No significant electrolyte abnormalities. Renal and hepatic function WNL. CXR showed cardiomegaly, COPD, and right basilar subsegmental atelectasis vs scarring. EKG demonstrated normal sinus rhythm with nonspecific intraventricular conduction blockc and prolonged QTc of 534. Pt was treated with DuoNeb, Solu-Medrol, IVF, albumin, ceftriaxone, and Tamiflu. Pt will be admitted to the hospital treatment and further evaluation of acute hypoxic respiratory failure in the setting of influenza infection. In the meantime the patient did have a CT scan of the chest PE protocol. I did personally review. Appears to have bilateral consolidation at the bases as well as extensive emphysema. The findings are consistent with a postviral bacterial process. Review of Systems 2 Review of Systems: Constitutional : pos Fever, pos Chills ENT/Mouth : No Hoarseness, No sore throat, pos Rhinorrhea Eyes: No Redness, No Discharge, No Vision Changes Cardiovascular : No Chest Pain, positive SOB, positive Dyspnea on Exertion, No Edema Respiratory : positive Cough, pos Sputum, positive Wheezing, Gastrointestinal : No Nausea, No Vomiting, pos Diarrhea, No abdominal Pain Genitourinary : No Dysuria, No Hematuria Musculoskeletal : No joint pain, No Myalgias Skin : No rash Neuro : pos Weakness, No Numbness, No Headache All other systems reviewed and are negative [facility] Past Medical History Medical History CAD (coronary artery disease) Hyperlipidemia Afib HTN (hypertension) Social History Social History (Updated 04/20/24 @ 08:30 by Sumaya Best DO) Household Members: Family [facility]: [facility] Do you presently have visiting nurse or other home services: No Alcohol intake: never Patient Tobacco Use Status: Never used Tobacco Smoked in Last 30 Days: No Use of substances other than those prescribed or required for medical reasons: No Currently Displaying Signs/Symptoms of Drug Intoxication Withdrawal: No Advance Directives: No Advance Directives Information Provided: Yes Recently lost weight without trying: No Patient : No service: No Meds Allergies Allergy/AdvReac Type Severity Reaction Status Date / Time lisinopril AdvReac Intermediate COUHG Verified 04/20/24 08:21 Active Medications: Current Medications Acetaminophen (Acetaminophen 325 Mg Tablet) 650 mg PO Q6H PRN PRN Reason: Pain, Mild 1-3,fever,headache Albuterol/Ipratropium (Albuterol/Iprat 2.5/0.5mg 3 Ml Ampul.Neb) 3 ml INHALE RQ6H WHILE AWAKE [facility] Amiodarone HCl (Amiodarone Hcl 200 Mg Tablet) 100 mg PO DAILY [facility] Last Admin: 04/21/24 08:09 Dose: 100 mg Atorvastatin Calcium (Atorvastatin Calcium 20 Mg Tablet) 20 mg PO DAILY [facility] Last Admin: 04/22/24 08:42 Dose: 20 mg Calcium Carbonate (Calcium Carbonate 750 Mg Tab.Chew) 750 mg PO Q4H PRN PRN Reason: Heartburn Carvedilol (Carvedilol 12.5 Mg Tablet) 12.5 mg PO BID [facility]; Protocol Furosemide (Furosemide 40 Mg/4 Ml Vial) 40 mg IVPUSH DAILY [facility]; Protocol Last Admin: 04/22/24 08:42 Dose: 40 mg Guaifenesin/Codeine Phosphate (Guaifen/Codeine Sf 200/20/10ml 10 Ml Liquid) 5 ml PO Q6H PRN PRN Reason: Cough Last Admin: 04/22/24 17:01 Dose: 5 ml Piperacillin Sod/Tazobactam (Sod 3.375 gm/ Sodium Chloride) 50 mls @ 100 mls/hr IV Q6H [facility] Last Admin: 04/22/24 17:01 Dose: 100 mls/hr Linezolid (Zyvox/D5w) 600 mg in 300 mls @ 300 mls/hr IV Q12H [facility] Last Infusion: 04/22/24 13:20 Dose: Infused Magnesium Hydroxide (Milk Of Magnesia 30 Ml Oral.Susp) 30 ml PO DAILY PRN PRN Reason: Constipation Melatonin (Melatonin 3 Mg Tablet) 6 mg PO BEDTIME PRN PRN Reason: Insomnia Methylprednisolone Sodium Succinate (Methylprednisolone Sod Succ 40 Mg/Ml Vial) 40 mg IVPUSH Q8H [facility] Oseltamivir Phosphate (Oseltamivir Phosphate 30 Mg Capsule) 30 mg PO Q12H [facility] Stop: 04/24/24 21:01 Last Admin: 04/22/24 08:42 Dose: 30 mg Sodium Chloride (0.9 % Sodium Chloride Flush 3 Ml Syringe) 3 ml IVFLUSH QSHIFT [facility] Last Admin: 04/22/24 14:56 Dose: 3 ml Warfarin Sodium (Warfarin Sodium 2.5 Mg Tablet) 2.5 mg PO TUFR@1800 [facility] Warfarin Sodium (Warfarin Sodium 1.25 Mg Halftab) 1.25 mg PO SUMOWETHSA@1800 [facility] Last Admin: 04/21/24 18:14 Dose: 1.25 mg Home Medications ?Medication ?Instructions ?Recorded ?Confirmed ?Last Taken ?Type carvedilol 25 mg tablet 25 mg PO BID 05/07/20 04/20/24 04/19/24 History amiodarone 200 mg tablet 100 mg PO DAILY 07/08/21 04/20/24 04/19/24 History acetaminophen 500 mg tablet 500 mg PO Q6H PRN Pain 07/13/23 04/20/24 Unknown History sacubitril 24 mg-valsartan 26 mg 1 tab PO BID 08/03/23 04/20/24 04/19/24 History tablet (Entresto) atorvastatin 20 mg tablet 20 mg PO DAILY 10/05/23 04/20/24 04/19/24 History warfarin 2.5 mg tablet 1.25 mg PO SUMOWETHSA@1800 04/20/24 04/20/24 04/19/24 History warfarin 2.5 mg tablet 2.5 mg PO TUFR@1800 04/20/24 04/20/24 04/17/24 History Physical Exam 2 Vital Signs: Vital Signs: Last Vital Signs Temp 97.9 F 04/22/24 15:35 Pulse 60 04/22/24 15:35 Resp 20 04/22/24 15:35 BP 90/54 L 04/22/24 15:35 Pulse Ox 96 04/22/24 15:35 O2 Del Method Nasal Cannula 04/22/24 15:35 O2 Flow Rate 4 04/22/24 15:35 FiO2 57 04/22/24 11:27 Oxygen Flow Rate 37 04/21/24 15:59 BMI result Body Mass Index 15.0 Const: Other: Gen: Awake alert in no acute distress, malnourished HEENT: sclera anicteric, moist mucus membranes Neck: supple, no JVD Lungs: bilateral basilar inspiratory crackles Heart: regular rate and rhythm, no murmurs Abd: soft, non-tender, non-distended, bowel sounds audible Ext: no edema Skin: warm/well-perfused Neuro: no focal findings Psych: appropriate affect Results Laboratory Findings 04/21/24 07:52 04/21/24 07:52 ABG, PT/INR, D-dimer: PT/INR, D-dimer PT 34.4 SEC (10.9-12.4) H D 04/22/24 05:57 INR 2.9 (0.9-1.1) H 04/22/24 05:57 Abnormal lab findings: Abnormal Labs 04/20/24 04/20/24 04/20/24 08:55 09:03 11:42 WBC 4.6 L RBC 3.77 L Hgb 11.6 L Hct 34.9 L Plt Count 158 L D Neut % (Auto) 78.6 H Lymph % (Auto) 12.7 L Lymph # (Auto) 0.6 L PT 21.2 H INR 1.8 H Chloride BUN 25 H Random Glucose AST 38 H Troponin I High Sens 175.7 H* 151.5 H* C-Reactive Protein 5.83 H B-Natriuretic Peptide 1775 H Total Protein 6.4 L Urine Protein Urine Blood Ur Leukocyte Esterase Urine RBC Urine WBC Influenza Type A (PCR) POSITIVE A 04/20/24 04/21/24 04/22/24 13:22 07:52 05:57 WBC RBC 3.62 L Hgb 11.2 L Hct 34.4 L Plt Count Neut % (Auto) Lymph % (Auto) Lymph # (Auto) PT 25.0 H 34.4 H D INR 2.1 H 2.9 H Chloride 111 H BUN 32 H Random Glucose 182 H AST Troponin I High Sens C-Reactive Protein B-Natriuretic Peptide 4384 H Total Protein Urine Protein 300 (3+) H Urine Blood Small (1+) H Ur Leukocyte Esterase Moderate (2+) H Urine RBC >20 H Urine WBC 21-50 H Influenza Type A (PCR) Microbiology: Microbiology 04/20/24 09:03 Blood - Venous Blood Culture - Preliminary No growth after 48 hours. 04/20/24 Unknown Urine clean catch - Clean Catch Midstream Urine Culture - Final Strep agalactiae (Grp B) 04/20/24 08:43 Blood - Venous Blood Culture - Final Assessment and Plan (1) Acute hypoxic respiratory failure: Status: Acute (2) Influenza A: Status: Acute (3) Pneumonia: Qualifiers: Laterality: bilateral Lung location: lower lobe of lung Pneumonia type: due to unspecified organism Qualified Code(s): J18.9 - Pneumonia, unspecified organism Status: Acute Plan continue current abx regimen I do not suspect Amiodarone imvolvement. Is taking a very small dose and there is a clear explination for the current presentation continue with solumedrol Sputum cx if able continue Tamiflu Procedures Date of Service Date of Service: 04/22/24
[2024-04-22] MEDS: methylPREDNISolone Sod Succ 40 MG/ML VIAL IVPUSH (22:18)
[2024-04-23] VITALS (8 sets, daily range): BP systolic 101–111; BP diastolic 57–61; PULSE 55–60; RESP 16–20; TEMP 36.4–37.1; O2SAT 92–99
[2024-04-23] MEDS: Piperacillin Sodium/Tazobactam 3.375 GM in 0.9 % Sodium Chloride 50 ML IV ×3 (00:52→11:40)
[2024-04-23] MEDS: Linezolid/D5W 600 MG/300 ML PIGGYBACK 300 MG IV ×2 (01:55→11:43)
[2024-04-23] MEDS: methylPREDNISolone Sod Succ 40 MG/ML VIAL IVPUSH (06:41)
[2024-04-23] MEDS: 0.9 % Sodium Chloride Flush 3 ML SYRINGE IVFLUSH ×4 (06:48→20:48)
--- NOTE | 2024-04-23 07:00 | CA_ITS ---
Transthoracic Echocardiogram Patient (Last, First, Middle): Lala Leger, Gender: Female Date of : 1945 Age: 79 Procedure Date: 04/23/2024 Procedure Type: Transthoracic [place] [facility] [place]: 157.48 cm Weight: 36.74 kg BSA: 1.30 m2 Heart Rate: bpm BP: 105 / 58 mmHg Low Vision Therapist: TO Referring MD: Leslie Patiño MD Symptoms: HFRef Study Quality: Adequate ECG Rhythm: Sinus Conclusions: - The left ventricular systolic function is severely decreased. The visually estimated ejection fraction is between 10-15%. - The basal inferior and mid inferior segments are dyskinetic. 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 - No obvious valvular pathology seen on this study. Findings Left Ventricle Severely increased left ventricular cavity size. The left ventricular systolic function is severely decreased. The visually estimated ejection fraction is between 10-15%. There is evidence of regional wall motion abnormalities. Evidence suggests grade I (mild) diastolic dysfunction. Wall Motion Rest Echo Findings The basal inferior and mid inferior segments are dyskinetic. 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 Right Ventricle Normal right ventricular cavity size. There is mildly decreased right ventricular systolic function. Atria The left atrium is severely dilated. The right atrium is normal in size. Aortic Valve There is a normal trileaflet aortic valve. There is no aortic valve stenosis. There is no aortic valve regurgitation. Mitral Valve The posterior mitral leaflet has restricted mobility. There is mild mitral valve regurgitation. There is no mitral valve stenosis. Pulmonic Valve The pulmonic valve is likely normal. Tricuspid Valve There is trace tricuspid valve regurgitation. There is no evidence of pulmonary hypertension. Great Vessels The asc aorta is normal in size. Venous The inferior vena cava is normal in size and collapses greater than 50% with inspiration. Pericardium/Pleural There is no evidence of pericardial effusion. Prior Study Comparison No significant change compared to prior study dated: 07/13/2007. (study similar to more recent echo from [facility], 2022). Recommendations, Care & Conclusions No obvious valvular pathology seen on this study. Measurements 2D Linear Measurements IVSd: 0.70 0.6-0.9/0.6-1.0 cm LVIDd: 7.40 3.9-5.3/4.2-5.9 cm LVIDd Index: 5.69 2.4-3.2/2.2-3.1 cm/m2 LVIDs: 6.81 2.0-3.6 cm LVPWd: 0.94 0.7-1.1 cm LA Diam: 3.10 2.7-3.8/3.0-4.0 cm LAIDs Index: 2.38 1.5-2.3 cm/m2 LV Mass: 346.37 67-162/88-224 g LV Mass Index: 266.44 43-95/49-115 g/m2 LVOT Diam: 2.00 3.0+(-)1.3 cm 2D Systolic Function EF 4C: 20.10 >55% EF 2C: 17.80 >55% EF BiP: 17.80 >55% Mitral Valve MV Pk E: 0.60 MV PK A: 1.34 MV Decel Time: 309.00 E/A: 0.40 E'Lateral: 2.83 E'Medial: 2.61 E/E' Med: 23.10 E/E' Lat: 21.30 PHT: 91.00 MVA PHT: 2.42 Decel [place]: 2.15 Aortic Valve AoV Pk [place]: 1.59 AoV Mn [place]: 1.00 AoV VTI: 0.27 AoV Pk Grad: 10.00 Aov Mn Grad: 5.00 DIEGO Cont.VTI: 1.11 LVOT LVOT Pk [place]: 0.58 LVOT Mn [place]: 0.37 LVOT VTI: 0.10 LVOT Pk Grad: 1.00 LVOT Mn Grad: 1.00 LVOT Diam: 2.00 LVOT Area: 3.14 Diastolic Function MV Pk E: 0.60 MV Pk A: 1.34 E/A: 0.40 E'Medial: 2.61 E/E' Med: 23.10 E' Laterial: 2.83 E/E' Lat: 21.30 Right Ventricle TAPSE (mm): 16.10 TVS' [place]: 9.14 Tricuspid Valve TR Pk [place]: 2.42 TR Pk Grad: 23.00 RA Press: 3.00 RVSP: 26.00 Great Vessels Aorta Sinus of Valsalva: 3.44 2.0-3.5 cm Ao Asc: 3.10 2.1-3.4 cm Updated in Other Vendor System with Status of Final Iban Cole MD electronically signed on 04/24/2024 10:23:32 AM with status of Final
[2024-04-23] MEDS: Albuterol/Iprat 2.5/0.5MG 3 ML AMPUL.NEB INHALE (07:33)
[2024-04-23 07:44] LABS: INTERNATIONAL NORM RATIO 3.5 (0.9-1.1); Prothrombin Time 40.4 SEC (10.9-12.4)
[2024-04-23 07:59] LABS: B Type Natriuretic Peptide 3685 pg/mL (<100)
[2024-04-23 08:02] LABS: Blood Urea Nitrogen 44 mg/dL (9-16); Calcium 8.8 mg/dL (8.4-10.2); Creatinine Clr Calc Pharmacy 31.3; Estimated Glomerular Filt Rate > 60; Glucose Random 116 mg/dL (60-115)
[2024-04-23 08:09] LABS: Anion Gap 16 (12-20); Carbon Dioxide 27 mmol/L (22-29); Chloride 103 mmol/L (96-108); Potassium 3.3 mmol/L (3.3-5.1); Sodium 143 mmol/L (135-145)
[2024-04-23] MEDS: Furosemide 40 MG/4 ML VIAL IVPUSH (09:20)
[2024-04-23] MEDS: carvediloL 12.5 MG TABLET PO ×2 (09:20→20:46)
[2024-04-23] MEDS: Oseltamivir Phosphate 30 MG CAPSULE PO ×2 (09:20→20:46)
[2024-04-23] MEDS: Atorvastatin Calcium 20 MG TABLET PO (09:20)
--- NOTE | 2024-04-23 09:52 | P.CONCA_ITS ---
History of Present Illness History of Present Illness Date of Service: 04/23/24 Chief complaint: Hypoxia, flu + Narrative: This is a cardiology consultation regarding question of congestive heart failure. Patient has history of paroxysmal atrial fibrillation, coronary disease, pacemaker, presenting for cough, weakness, shortness of breath. In this context, she is treated for acute hypoxic respiratory failure from influenza/pneumonia. There is also question of heart failure exacerbation. Patient states that she is being seen by Dr. Vieira at [facility] for congestive heart failure. Unknown LVEF. Today, she states she feels fine. Shortness of breath is at baseline. No other clear-cut cardiac complaints. Review of Systems 2 Review of Systems: Yes all other systems are reviewed and are negative Constitutional: Constitutional: Reports as per HPI and Reports no additional constitutional complaints Eyes: Eyes: Reports as per HPI and Denies no additional eye complaints ENT: Denies system reviewed and no additional complaints, except as documented and Reports as per HPI Cardiovascular: Cardiovascular: Reports as per HPI, Reports no additional cardiovascular complaints, Denies acrocyanosis, Denies cool extremities, Denies chest pain, Denies leg edema, Denies lightheadedness, Denies palpitations and Denies dyspnea Respiratory: Respiratory: Reports as per HPI, Denies no additional respiratory complaints and Denies dyspnea Gastrointestinal: Gastrointestinal: Reports as per HPI and Denies no additional gastrointestinal complaints Genitourinary: Genitourinary: Reports as per HPI Musculoskeletal: Musculoskeletal: Reports no additional musculoskeletal complaints and Reports as per HPI Integumentary/Breasts: Skin/Breast: Reports system reviewed and no additional complaints, except as docu Neurologic: Reports system reviewed and no additional complaints, except as documented and Reports as per HPI Psychiatric: Psychiatric: Reports no additional psychiatric complaints and Reports as per HPI Endocrine: Endocrine: Reports no additional endocrine complaints, Reports as per HPI and Denies palpitations Hematologic/Lymphatic: Hematologic/Lymphatic: Reports no additional hematologic/lymphatic complaints and Reports as per HPI Allergic/Immunologic: Allergic/Immunologic: Reports no additional allergic/immunologic complaints and Reports as per HPI [facility] Past Medical History Medical History CAD (coronary artery disease) Hyperlipidemia Afib HTN (hypertension) Family History Pertinent family history: No pertinent family history Social History Social History (Updated 04/20/24 @ 08:30 by Sumaya Holland, DO) Household Members: Family Housing: Condominium Do you presently have visiting nurse or other home services: No Alcohol intake: never Patient Tobacco Use Status: Never used Tobacco service: No Meds Allergies Allergy/AdvReac Type Severity Reaction Status Date / Time lisinopril AdvReac Intermediate COUHG Verified 04/20/24 08:21 Active Medications: Current Medications Acetaminophen (Acetaminophen 325 Mg Tablet) 650 mg PO Q6H PRN PRN Reason: Pain, Mild 1-3,fever,headache Albuterol/Ipratropium (Albuterol/Iprat 2.5/0.5mg 3 Ml Ampul.Neb) 3 ml INHALE RQ6H WHILE AWAKE [facility] Last Admin: 04/23/24 07:33 Dose: 3 ml Amiodarone HCl (Amiodarone Hcl 200 Mg Tablet) 100 mg PO DAILY [facility] Last Admin: 04/21/24 08:09 Dose: 100 mg Atorvastatin Calcium (Atorvastatin Calcium 20 Mg Tablet) 20 mg PO DAILY [facility] Last Admin: 04/23/24 09:20 Dose: 20 mg Calcium Carbonate (Calcium Carbonate 750 Mg Tab.Chew) 750 mg PO Q4H PRN PRN Reason: Heartburn Carvedilol (Carvedilol 12.5 Mg Tablet) 12.5 mg PO BID [facility]; Protocol Last Admin: 04/23/24 09:20 Dose: 12.5 mg Furosemide (Furosemide 40 Mg/4 Ml Vial) 40 mg IVPUSH DAILY [facility]; Protocol Last Admin: 04/23/24 09:20 Dose: 40 mg Guaifenesin/Codeine Phosphate (Guaifen/Codeine Sf 200/20/10ml 10 Ml Liquid) 5 ml PO Q6H PRN PRN Reason: Cough Last Admin: 04/22/24 17:01 Dose: 5 ml Piperacillin Sod/Tazobactam (Sod 3.375 gm/ Sodium Chloride) 50 mls @ 100 mls/hr IV Q6H [facility] Last Infusion: 04/23/24 09:16 Dose: Infused Linezolid (Zyvox/D5w) 600 mg in 300 mls @ 300 mls/hr IV Q12H [facility] Last Infusion: 04/23/24 02:51 Dose: Infused Magnesium Hydroxide (Milk Of Magnesia 30 Ml Oral.Susp) 30 ml PO DAILY PRN PRN Reason: Constipation Melatonin (Melatonin 3 Mg Tablet) 6 mg PO BEDTIME PRN PRN Reason: Insomnia Methylprednisolone Sodium Succinate (Methylprednisolone Sod Succ 40 Mg/Ml Vial) 40 mg IVPUSH Q8H [facility] Last Admin: 04/23/24 06:41 Dose: 40 mg Oseltamivir Phosphate (Oseltamivir Phosphate 30 Mg Capsule) 30 mg PO Q12H [facility] Stop: 04/24/24 21:01 Last Admin: 04/23/24 09:20 Dose: 30 mg Sodium Chloride (0.9 % Sodium Chloride Flush 3 Ml Syringe) 3 ml IVFLUSH QSHIFT [facility] Last Admin: 04/23/24 09:21 Dose: 3 ml Warfarin Sodium (Warfarin Sodium 2.5 Mg Tablet) 2.5 mg PO TUFR@1800 [facility] Warfarin Sodium (Warfarin Sodium 1.25 Mg Halftab) 1.25 mg PO SUMOWETHSA@1800 [facility] Last Admin: 04/21/24 18:14 Dose: 1.25 mg Home Medications ?Medication ?Instructions ?Recorded ?Confirmed ?Last Taken ?Type carvedilol 25 mg tablet 25 mg PO BID 05/07/20 04/20/24 04/19/24 History amiodarone 200 mg tablet 100 mg PO DAILY 07/08/21 04/20/24 04/19/24 History acetaminophen 500 mg tablet 500 mg PO Q6H PRN Pain 07/13/23 04/20/24 Unknown History sacubitril 24 mg-valsartan 26 mg 1 tab PO BID 08/03/23 04/20/24 04/19/24 History tablet (Entresto) atorvastatin 20 mg tablet 20 mg PO DAILY 10/05/23 04/20/24 04/19/24 History warfarin 2.5 mg tablet 1.25 mg PO SUMOWETHSA@1800 04/20/24 04/20/24 04/19/24 History warfarin 2.5 mg tablet 2.5 mg PO TUFR@1800 04/20/24 04/20/24 04/17/24 History Physical Exam 2 Vital Signs: Vital Signs: Last Vital Signs Temp 98.8 F 04/23/24 07:59 Pulse 55 04/23/24 09:20 Resp 20 04/23/24 07:59 BP 111/60 04/23/24 09:20 Pulse Ox 99 04/23/24 07:59 O2 Del Method Nasal Cannula 04/23/24 07:59 O2 Flow Rate 4 04/23/24 07:59 FiO2 57 04/22/24 11:27 Oxygen Flow Rate 37 04/21/24 15:59 BMI result Body Mass Index 15.0 Const: General: comfortable and no acute distress O rientation/consciousness: patient oriented x3 HEENT: Other: Unremarkable Head: Yes normal to inspection Neck: Neck: Yes normal visual inspection Chest: Chest palpation & inspection: normal inspection of the chest Resp: Auscultation: diminished lung sounds Cardio: Palpation: normal PMI Heart sounds: S1 normal heart sound present, S2 normal heart sound present, no gallops, no murmurs and no rubs GI: Palpation (GI): Soft to palpation Back/Spine/Pelvis: Other: unremarkable Skin: General skin exam: no rashes or lesions noted Neuro: General: patient oriented x3 Extrem: General: Yes normal to inspection Psych: Mental Status: mental status grossly normal Objective Labs and Meds 04/21/24 07:52 04/23/24 07:21 Lab results: Laboratory Results - last 24 hr 04/23/24 07:21 PT 40.4 H INR 3.5 H Sodium 143 Potassium 3.3 D Chloride 103 Carbon Dioxide 27 Anion Gap 16 BUN 44 H Creatinine 0.88 Estim Creat Clear Calc 31.3 Estimated GFR > 60 Random Glucose 116 H Calcium 8.8 B-Natriuretic Peptide 3685 H ECG Interpretation: EKG with sinus rhythm; either ventricular pacing versus left bundle-branch block; rates 60/Min. Assessment and Plan (1) Acute hypoxic respiratory failure: Status: Acute Plan Cardiac BNP levels are 1775, 4384 and 3685. High sensitivity troponins are 175 and 151. CRP is elevated at 5.8. CTA chest reported to have bilateral lower lobe pneumonia and emphysema. Influenza A positive. Clinically, no overt volume overload. Suspect symptoms and radiology findings are mostly related to influenza. Cardiac BNP is elevated but that could be related to her underlying cardiomyopathy and possible components of right heart strain. Less likely acute on chronic left heart failure. With regard to medications, she is on carvedilol, Entresto at home and she can continue that. No need for aggressive diuretics. Discussed with . Procedures Date of Service Date of Service: 04/23/24
--- NOTE | 2024-04-23 13:56 | HO.PM.IMPN ---
Subjective Subjective Date of Service: 04/23/24 Interval History: Feels better denies shortness of breath, coughing up clear phlegm currently on nasal cannula 3 L with finger oximetry 99%, BNP trending down, no acute events overnight. Review of Systems All other system reviewed and are negative. Physical Exam Vital Signs: Vital Signs: Last Vital Signs Temp 98 F 04/23/24 11:04 Pulse 59 04/23/24 11:04 Resp 16 04/23/24 11:04 BP 111/58 L 04/23/24 11:04 Pulse Ox 92 04/23/24 11:04 O2 Del Method Nasal Cannula 04/23/24 11:04 O2 Flow Rate 3 04/23/24 11:04 FiO2 57 04/22/24 11:27 Oxygen Flow Rate 37 04/21/24 15:59 BMI result Body Mass Index 15.0 Const: Other: Gen: Awake alert in no acute distress, malnourished HEENT: sclera anicteric, moist mucus membranes Neck: supple, no JVD Lungs: Clear to auscultation Heart: regular rate and rhythm, no murmurs Abd: soft, non-tender, non-distended, bowel sounds audible Ext: no edema Skin: warm/well-perfused Neuro: no focal findings Psych: appropriate affect Objective Data Active Medications Acetaminophen (Acetaminophen 325 Mg Tablet) 650 mg PO Q6H PRN PRN Reason: Pain, Mild 1-3,fever,headache Albuterol/Ipratropium (Albuterol/Iprat 2.5/0.5mg 3 Ml Ampul.Neb) 3 ml INHALE RQ6H WHILE AWAKE [facility] Last Admin: 04/23/24 13:49 Dose: Not Given Documented By: SHOAIB Non-Admin Reason: pt having procedure Amiodarone HCl (Amiodarone Hcl 200 Mg Tablet) 100 mg PO DAILY [facility] Last Admin: 04/21/24 08:09 Dose: 100 mg Documented By: REINA Atorvastatin Calcium (Atorvastatin Calcium 20 Mg Tablet) 20 mg PO DAILY [facility] Last Admin: 04/23/24 09:20 Dose: 20 mg Documented By: JACLYN Calcium Carbonate (Calcium Carbonate 750 Mg Tab.Chew) 750 mg PO Q4H PRN PRN Reason: Heartburn Carvedilol (Carvedilol 12.5 Mg Tablet) 12.5 mg PO BID [facility]; Protocol Last Admin: 04/23/24 09:20 Dose: 12.5 mg Documented By: JACLYN Furosemide (Furosemide 40 Mg/4 Ml Vial) 40 mg IVPUSH DAILY [facility]; Protocol Last Admin: 04/23/24 09:20 Dose: 40 mg Documented By: JACLYN Guaifenesin/Codeine Phosphate (Guaifen/Codeine Sf 200/20/10ml 10 Ml Liquid) 5 ml PO Q6H PRN PRN Reason: Cough Last Admin: 04/22/24 17:01 Dose: 5 ml Documented By: REINA Piperacillin Sod/Tazobactam (Sod 3.375 gm/ Sodium Chloride) 50 mls @ 100 mls/hr IV Q6H [facility] Last Infusion: 04/23/24 12:15 Dose: Infused Documented By: JACLYN Linezolid (Zyvox/D5w) 600 mg in 300 mls @ 300 mls/hr IV Q12H [facility] Last Infusion: 04/23/24 12:16 Dose: 300 mls/hr Documented By: JACLYN Magnesium Hydroxide (Milk Of Magnesia 30 Ml Oral.Susp) 30 ml PO DAILY PRN PRN Reason: Constipation Melatonin (Melatonin 3 Mg Tablet) 6 mg PO BEDTIME PRN PRN Reason: Insomnia Methylprednisolone Sodium Succinate (Methylprednisolone Sod Succ 40 Mg/Ml Vial) 40 mg IVPUSH Q8H [facility] Last Admin: 04/23/24 06:41 Dose: 40 mg Documented By: JOSE Oseltamivir Phosphate (Oseltamivir Phosphate 30 Mg Capsule) 30 mg PO Q12H [facility] Stop: 04/24/24 21:01 Last Admin: 04/23/24 09:20 Dose: 30 mg Documented By: JACLYN Sodium Chloride (0.9 % Sodium Chloride Flush 3 Ml Syringe) 3 ml IVFLUSH QSHIFT [facility] Last Admin: 04/23/24 09:21 Dose: 3 ml Documented By: JACLYN Warfarin Sodium (Warfarin Sodium 2.5 Mg Tablet) 2.5 mg PO TUFR@1800 [facility] Warfarin Sodium (Warfarin Sodium 1.25 Mg Halftab) 1.25 mg PO SUMOWETHSA@1800 [facility] Last Admin: 04/21/24 18:14 Dose: 1.25 mg Documented By: REINA Labs 04/21/24 07:52 04/23/24 07:21 Labs: Laboratory Results - last 24 hr 04/23/24 07:21 PT 40.4 H INR 3.5 H Anion Gap 16 Estim Creat Clear Calc 31.3 Estimated GFR > 60 Random Glucose 116 H Calcium 8.8 B-Natriuretic Peptide 3685 H Microbiology Microbiology Results: Microbiology 04/20/24 09:03 Blood Culture - Preliminary Blood - Venous No growth after 48 hours. Assessment and Plan (1) Acute hypoxic respiratory failure: Status: Acute (2) Pneumonia: Status: Acute (3) Influenza A: Status: Acute (4) Elevated troponin: Status: Acute (5) Current use of anticoagulant therapy: Status: Acute (6) Hypoxia: Status: Acute Plan 79yo F with paroxysmal AF on warfarin, [place] in 2007, PPM, hx TIA in 2009, HTN, and HLD presenting with cough, weakness, and dyspnea for 3 days; became lightheaded and fell and struck her chest on the floor; no LOC. Found to have influenza, admitted for hypoxia. acute hypoxic respiratory failure due to influenza A and post-influenza pneumonia with new COPD - improving, high-flow oxygen discontinued currently on 3 L of nasal cannula - on iv linezolid and piperacillin-tazobactam, blood cultures negative, MRSA swab un collected, PCT 0.07, oselamivir 04/20-04/25, urine culture grew strep agalactiae, patient asymptomatic - on methylprednisolone 40 mg q.8 hours, will transition to by mouth prednisone, continue duonebs q6hWA, seen by pulmonology less likely amiodarone toxicity Acute CHF exacerbation - appears euvolemic will DC IV Lasix, TTE pend, -400 mL BNP trending down but remains elevated likely due to chronic cardiomyopathy and right heart strain . - prior LVEF 10-15% in 2007 - seen by cardiology they recommend to avoid excessive diuretics. -follow echo troponin elevation - flat; likely demand from hypoxia/pneumonia prolongted QTc - corrects to normal by Bazette formula when accounting for LBBB pAF - continue warfarin, INR bumped from 2.9 to 3.5 today,monitor inr daily,hold coumadin today - continue carvedilol decrease dose of 12.5 b.i.d due to soft BP., resume amiodarone HTN - continue carvedilol low-dose; BP trending up will resume Entresto hx TIA - continue statin VTE ppx - on warfarin, elevated INR In my clinical judgment, the patient requires continued inpatient hospitalization for the following reasons: hypoxia Quality Stroke Does the patient have a stroke diagnosis?: No VTE Prior VTE?: No VTE Risk Level:: Medical - moderate - high VTE Device Contraindication: Treatment Not Indicated VTE Drug Contraindication: N/A - Med Ordered
--- NOTE | 2024-04-23 15:14 | MHC.CLN ---
F/U DIET=REGULAR. ENSURE TID PROVIDES 1050 KCALS, 60 G PROTEIN. PATIENT IS UNDERWEIGHT. INTAKE MOST MEALS 50%. FOLLOW FOR PO INTAKE AND WEIGHT.
[2024-04-23] MEDS: Potassium Chloride ER 20 MEQ TAB.ER.PRT PO (15:18)
[2024-04-23] MEDS: Loperamide HCl 2 MG CAPSULE PO (20:46)
[2024-04-23] MEDS: Sacubitril/Valsartan 24/26 1 TAB TABLET PO (20:46)
[2024-04-24] VITALS (10 sets, daily range): BP systolic 96–117; BP diastolic 55–63; PULSE 55–79; RESP 16–20; TEMP 36.3–37.1; O2SAT 92–95
[2024-04-24] MEDS: Linezolid 600 MG TABLET PO ×2 (00:22→11:52)
[2024-04-24 07:57] LABS: INTERNATIONAL NORM RATIO 2.8 (0.9-1.1); Prothrombin Time 32.4 SEC (10.9-12.4)
[2024-04-24 08:11] LABS: Anion Gap 16 (12-20); Blood Urea Nitrogen 47 mg/dL (9-16); Calcium 8.7 mg/dL (8.4-10.2); Carbon Dioxide 28 mmol/L (22-29); Chloride 101 mmol/L (96-108); Creatinine Clr Calc Pharmacy 37.7; Estimated Glomerular Filt Rate > 60; Glucose Random 102 mg/dL (60-115); Potassium 3.1 mmol/L (3.3-5.1); Sodium 142 mmol/L (135-145)
[2024-04-24] MEDS: Oseltamivir Phosphate 30 MG CAPSULE PO ×2 (09:09→20:46)
[2024-04-24] MEDS: Sacubitril/Valsartan 24/26 1 TAB TABLET PO ×2 (09:09→20:46)
[2024-04-24] MEDS: Amiodarone HCL 200 MG TABLET 100 MG PO (09:09)
[2024-04-24] MEDS: Atorvastatin Calcium 20 MG TABLET PO (09:10)
[2024-04-24] MEDS: carvediloL 12.5 MG TABLET PO ×2 (09:10→20:46)
[2024-04-24] MEDS: predniSONE 20 MG TABLET PO (09:10)
[2024-04-24] MEDS: 0.9 % Sodium Chloride Flush 3 ML SYRINGE IVFLUSH ×3 (09:10→20:46)
--- NOTE | 2024-04-24 10:11 | PM.PNCARD ---
Subjective Subjective Date of Service: 04/24/24 Interval history: She states that she feels fine. Denies any cardiac symptoms. Review of Systems Review of Systems Yes all other systems are reviewed and are negative Constitutional: Reports as per HPI and Reports no additional constitutional complaints Eyes: Reports as per HPI and Denies no additional eye complaints Denies system reviewed and no additional complaints, except as documented and Reports as per HPI Cardiovascular: Reports as per HPI, Reports no additional cardiovascular complaints, Denies acrocyanosis, Denies cool extremities, Denies chest pain, Denies leg edema, Denies lightheadedness, Denies palpitations and Denies dyspnea Respiratory: Reports as per HPI, Denies no additional respiratory complaints and Denies dyspnea Gastrointestinal: Reports as per HPI and Denies no additional gastrointestinal complaints Genitourinary: Reports as per HPI Musculoskeletal: Reports no additional musculoskeletal complaints and Reports as per HPI Skin/Breast: Reports system reviewed and no additional complaints, except as docu Reports system reviewed and no additional complaints, except as documented and Reports as per HPI Psychiatric: Reports no additional psychiatric complaints and Reports as per HPI Endocrine: Reports no additional endocrine complaints, Reports as per HPI and Denies palpitations Hematologic/Lymphatic: Reports no additional hematologic/lymphatic complaints and Reports as per HPI Allergic/Immunologic: Reports no additional allergic/immunologic complaints and Reports as per HPI Physical Exam Vital Signs: Last Vital Signs Temp 98.0 F 04/24/24 07:43 Pulse 57 04/24/24 07:43 Resp 20 04/24/24 07:43 BP 109/63 04/24/24 09:09 Pulse Ox 92 04/24/24 07:43 O2 Del Method Nasal Cannula 04/24/24 07:43 O2 Flow Rate 1 04/24/24 07:43 FiO2 57 04/22/24 11:27 Oxygen Flow Rate 37 04/21/24 15:59 BMI result Body Mass Index 15.0 Const General: comfortable and no acute distress Orientation/consciousness: patient oriented x3 HEENT Other: Unremarkable Head: Yes normal to inspection Neck Neck: Yes normal visual inspection Chest Chest palpation & inspection: normal inspection of the chest Resp Auscultation: clear to auscultation bilaterally Cardio Palpation: normal PMI Heart sounds: S1 normal heart sound present, S2 normal heart sound present, no gallops, no murmurs and no rubs GI Palpation (GI): Soft to palpation Back/Spine/Pelvis Other: unremarkable Skin General skin exam: no rashes or lesions noted Neuro General: patient oriented x3 Extrem General: Yes normal to inspection Psych Mental Status: mental status grossly normal Objective Labs and Meds 04/21/24 07:52 04/24/24 07:30 Lab results: Laboratory Results - last 24 hr 04/24/24 07:30 PT 32.4 H INR 2.8 H Sodium 142 Potassium 3.1 L Chloride 101 Carbon Dioxide 28 Anion Gap 16 BUN 47 H Creatinine 0.73 Estim Creat Clear Calc 37.7 Estimated GFR > 60 Random Glucose 102 Calcium 8.7 Progress Note: A&P Assessment and plan (1) Acute hypoxic respiratory failure: Status: Acute (2) Cardiomyopathy: Status: Acute Plan Cardiac BNP levels are 1775, 4384 and 3685. High sensitivity troponins are 175 and 151. CRP is elevated at 5.8. CTA chest reported to have bilateral lower lobe pneumonia and emphysema. Influenza A positive. Echocardiogram from yesterday reviewed. Also reviewed prior echocardiogram from [facility]. Additionally, also reviewed an older study from 2007. Essentially, she has had longstanding cardiomyopathy with ejection fraction of 10-15% with aneurysmal anteroseptal wall. She has an ICD in place per last [facility] cardiology note. Per last notes, diagnosed to have dilated nonischemic cardiomyopathy, NYHA class 2 and elevated BNP levels for many years. Overall, symptoms are more likely from respiratory infection less likely from cardiac etiology. Continue current regimen. Diuretics as required, prn. She states that she just takes some as needed at home and do the same. Discussed with . 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 Time Spent With Patient Time: Total time managing care of this patient today ____ minutes. Progress Note: Quality Stroke Does the patient have a stroke diagnosis?: No Procedures Date of Service Date of Service: 04/24/24
--- NOTE | 2024-04-24 12:21 | HO.PM.IMPN ---
Subjective Subjective Date of Service: 04/24/24 Interval History: Being followed for flu and hypoxia Feeling better this morning down to 2 L of oxygen complaining of weakness, denies shortness of breath, no chest pain, no fever no chills. Tolerating diet no nausea no vomiting or abdominal pain. Review of Systems All other system reviewed and are negative Physical Exam Vital Signs: Vital Signs: Last Vital Signs Temp 98.8 F 04/24/24 10:53 Pulse 55 04/24/24 10:58 Resp 18 04/24/24 10:53 BP 96/59 L 04/24/24 10:58 Pulse Ox 95 04/24/24 10:58 O2 Del Method Room Air 04/24/24 10:53 O2 Flow Rate 1 04/24/24 07:43 FiO2 57 04/22/24 11:27 Oxygen Flow Rate 37 04/21/24 15:59 BMI result Body Mass Index 15.0 Const: Other: Gen: Awake alert in no acute distress, malnourished HEENT: sclera anicteric, moist mucus membranes Neck: supple, no JVD Lungs: Clear to auscultation, no crackles Heart: regular rate and rhythm, no murmurs Abd: soft, non-tender, non-distended, bowel sounds audible Ext: no edema Skin: warm/well-perfused Neuro: no focal findings Psych: appropriate affect Objective Data Active Medications Acetaminophen (Acetaminophen 325 Mg Tablet) 650 mg PO Q6H PRN PRN Reason: Pain, Mild 1-3,fever,headache Albuterol/Ipratropium (Albuterol/Iprat 2.5/0.5mg 3 Ml Ampul.Neb) 3 ml INHALE RQ6H WHILE AWAKE [facility] Last Admin: 04/24/24 09:26 Dose: Not Given Documented By: GARTH Non-Admin Reason: Patient Refused Amiodarone HCl (Amiodarone Hcl 200 Mg Tablet) 100 mg PO DAILY [facility] Last Admin: 04/24/24 09:09 Dose: 100 mg Documented By: JOE Atorvastatin Calcium (Atorvastatin Calcium 20 Mg Tablet) 20 mg PO DAILY [facility] Last Admin: 04/24/24 09:10 Dose: 20 mg Documented By: JOE Calcium Carbonate (Calcium Carbonate 750 Mg Tab.Chew) 750 mg PO Q4H PRN PRN Reason: Heartburn Carvedilol (Carvedilol 12.5 Mg Tablet) 12.5 mg PO BID [facility]; Protocol Last Admin: 04/24/24 09:10 Dose: 12.5 mg Documented By: JOE Guaifenesin/Codeine Phosphate (Guaifen/Codeine Sf 200/20/10ml 10 Ml Liquid) 5 ml PO Q6H PRN PRN Reason: Cough Last Admin: 04/22/24 17:01 Dose: 5 ml Documented By: REINA Linezolid (Linezolid 600 Mg Tablet) 600 mg PO Q12H [facility] Last Admin: 04/24/24 11:52 Dose: 600 mg Documented By: JOE Magnesium Hydroxide (Milk Of Magnesia 30 Ml Oral.Susp) 30 ml PO DAILY PRN PRN Reason: Constipation Melatonin (Melatonin 3 Mg Tablet) 6 mg PO BEDTIME PRN PRN Reason: Insomnia Oseltamivir Phosphate (Oseltamivir Phosphate 30 Mg Capsule) 30 mg PO Q12H [facility] Stop: 04/24/24 21:01 Last Admin: 04/24/24 09:09 Dose: 30 mg Documented By: JOE Prednisone (Prednisone 20 Mg Tablet) 20 mg PO DAILY [facility] Last Admin: 04/24/24 09:10 Dose: 20 mg Documented By: JOE Sacubitril/Valsartan (Sacubitril/Valsartan 1 Tab Tablet) 1 tab PO BID [facility]; Protocol Last Admin: 04/24/24 09:09 Dose: 1 tab Documented By: JOE Sodium Chloride (0.9 % Sodium Chloride Flush 3 Ml Syringe) 3 ml IVFLUSH QSHIFT [facility] Last Admin: 04/24/24 09:10 Dose: 3 ml Documented By: JOE Warfarin Sodium (Warfarin Sodium 2.5 Mg Tablet) 2.5 mg PO TUFR@1800 [facility] Warfarin Sodium (Warfarin Sodium 1.25 Mg Halftab) 1.25 mg PO SUMOWETHSA@1800 [facility] Last Admin: 04/21/24 18:14 Dose: 1.25 mg Documented By: REINA Labs 04/21/24 07:52 04/24/24 07:30 Labs: Laboratory Results - last 24 hr 04/24/24 07:30 PT 32.4 H INR 2.8 H Anion Gap 16 Estim Creat Clear Calc 37.7 Estimated GFR > 60 Random Glucose 102 Calcium 8.7 Assessment and Plan (1) Cardiomyopathy: Status: Acute (2) Acute hypoxic respiratory failure: Status: Acute (3) Pneumonia: Status: Acute (4) Influenza A: Status: Acute (5) Elevated troponin: Status: Acute (6) Hypoxia: Status: Acute (7) Current use of anticoagulant therapy: Status: Acute Plan 79yo F with paroxysmal AF on warfarin, [place] in 2007, PPM, hx TIA in 2009, HTN, and HLD presenting with cough, weakness, and dyspnea for 3 days; became lightheaded and fell and struck her chest on the floor; no LOC. Found to have influenza, admitted for hypoxia. acute hypoxic respiratory failure due to influenza A and post-influenza pneumonia with new COPD - improving, high-flow oxygen discontinued currently on 3 L of nasal cannula - s/p iv linezolid and piperacillin-tazobactam, blood cultures negative, MRSA swab un collected, PCT 0.07, oselamivir 04/20-04/25, urine culture grew strep agalactiae, patient asymptomatic - s/p methylprednisolone 40 mg q.8 hours, on by mouth prednisone, continue duonebs q6hWA, seen by pulmonology less likely amiodarone toxicity - on by mouth linezolid, wean O2 not on home oxygen Acute CHF exacerbation with reduced EF, with previous diagnosis of dilated nonischemic cardiomyopathy NYHA class 2 - appears euvolemic Lasix discontinued. TTE pend BNP trending down but remains elevated likely due to chronic cardiomyopathy and right heart strain . - prior LVEF 10-15% in 2007, repeat echo showed EF remained stent to 15%, noted to have basal inferior and mid inferior segment dyskinesia, inferior septal wall is aneurysmal no obvious valvular pathology noted, there was evidence of grade 1 mild diastolic dysfunction - at home on diuretics as needed - case discussed with Cardiology they recommend to continue diuretics as previously planned. troponin elevation - flat; likely demand from hypoxia/pneumonia prolongted QTc - corrects to normal by Bazette formula when accounting for LBBB pAF - continue warfarin, INR bumped from 2.9 to 3.5 to 2.8 today - continue carvedilol decrease dose of 12.5 b.i.d due to soft BP., cont. amiodarone HTN - continue carvedilol low-dose and Entresto hx TIA - continue statin VTE ppx - on warfarin, PT recommend home physical therapy. In my clinical judgment, the patient requires continued inpatient hospitalization for the following reasons: hypoxia Quality Stroke Does the patient have a stroke diagnosis?: No VTE Prior VTE?: No VTE Risk Level:: Medical - moderate - high VTE Device Contraindication: Treatment Not Indicated VTE Drug Contraindication: N/A - Med Ordered
--- NOTE | 2024-04-24 12:24 | P.CDIM_ITS ---
PROVIDER RESPONSE TEXT: To clarify, the appropriate diagnosis supported by the clinical indicators: Underweight QUERY TEXT: PHYSICIAN'S DOCUMENTATION REQUEST Date of Query: 04/24/2024 09:13 AM EST Patient Name: Lala Leger Admit Date: 04/20/2024 Dear Krishna Norris MD, A review of the medical record indicates additional documentation may be needed. Please review below and update the documentation accordingly. Clinical Indicators: Height: 5ft 2in Weight: 37.1 kg BMI: 15.0 Other Clinical Notes Supporting Significance of the BMI: Clinical nutrition notes 04/21 - Patient is U nderweight with BMI 15.0 Adding Ensure TID Progress note dated 04/21 - Gen: Tachypneic, malnourished. If possible, please provide an associated diagnosis related to the abnormal BMI, such as: Underweight Malnutrition mild, moderate, severe Cachexia Anorexia BMI is not significant Other (explain) Clinically unable to determine (explain) Thank you, Breanna Hu, CCS, CDIS Use of terms such as suspected, likely, concern for, or probable (associated with a specific diagnosi s that is being evaluated, monitored, or treated as if it exists) are acceptable and can be coded in the inpatient se tting, when documented at the time of discharge. Please use your independent medical judgment in providing your response. THIS QUERY IS PART OF THE PERMANENT MEDICAL RECORD
--- NOTE | 2024-04-24 13:15 | MHC.CLN ---
F/U DIET=REGULAR. ENSURE TID PROVIDES 1050 KCALS, 60 G PROTEIN. LIKES SUPPLEMENT. INTAKE MOST MEALS 50% AND STATES THAT EATING WELL. REPORTS THAT USUAL WEIGHT IS BETWEEN 85-90#. CURRENT WEIGHT 81.6#. PATIENT ASSESSED UNDERWEIGHT BUT NOT MALNOURISHED. FOLLOW FOR PO INTAKE AND WEIGHT.
--- NOTE | 2024-04-24 16:22 | MHC.CM.PN ---
Per rounds and EMR review, pt is not ready for DC. DCP: home with services, ref in to [facility]. CM to follow for DC needs.
[2024-04-24] MEDS: Albuterol/Iprat 2.5/0.5MG 3 ML AMPUL.NEB INHALE ×2 (16:27→20:14)
[2024-04-24] MEDS: Warfarin Sodium 2 MG TABLET PO (18:23)
[2024-04-25] VITALS (9 sets, daily range): BP systolic 95–126; BP diastolic 56–68; PULSE 61–85; RESP 14–20; TEMP 36.4–37; O2SAT 91–95
[2024-04-25] MEDS: Linezolid 600 MG TABLET PO ×2 (00:15→13:00)
[2024-04-25] MEDS: Amiodarone HCL 200 MG TABLET 100 MG PO (08:23)
[2024-04-25] MEDS: carvediloL 12.5 MG TABLET PO ×2 (08:23→19:49)
[2024-04-25] MEDS: Sacubitril/Valsartan 24/26 1 TAB TABLET PO ×2 (08:23→19:49)
[2024-04-25] MEDS: predniSONE 20 MG TABLET PO (08:23)
[2024-04-25] MEDS: Atorvastatin Calcium 20 MG TABLET PO (08:23)
[2024-04-25] MEDS: 0.9 % Sodium Chloride Flush 3 ML SYRINGE IVFLUSH ×2 (08:26→18:19)
[2024-04-25] MEDS: Albuterol/Iprat 2.5/0.5MG 3 ML AMPUL.NEB INHALE ×2 (08:33→15:43)
[2024-04-25 08:39] LABS: INTERNATIONAL NORM RATIO 2.7 (0.9-1.1); Prothrombin Time 31.6 SEC (10.9-12.4)
--- NOTE | 2024-04-25 15:20 | P.PNIM_ITS ---
Subjective Subjective Date of Service: 04/25/24 Interval History: Feeling better, no acute events overnight. Review of Systems All other system reviewed and are negative. Physical Exam 2 Vital Signs: Vital Signs: Last Vital Signs Temp 98.0 F 04/25/24 12:00 Pulse 67 04/25/24 12:00 Resp 14 04/25/24 12:00 BP 95/56 L 04/25/24 12:00 Pulse Ox 92 04/25/24 12:00 O2 Del Method Room Air 04/25/24 12:00 O2 Flow Rate 2 04/25/24 07:44 FiO2 57 04/22/24 11:27 Oxygen Flow Rate 37 04/21/24 15:59 BMI result Body Mass Index 15.0 Const: Other: Gen: Awake alert in no acute distress, malnourished HEENT: sclera anicteric, moist mucus membranes Neck: supple, no JVD Lungs: Clear to auscultation, no crackles Heart: regular rate and rhythm, no murmurs Abd: soft, non-tender, non-distended, bowel sounds audible Ext: no edema Skin: warm/well-perfused Neuro: no focal findings Psych: appropriate affect Objective Data Active Medications Acetaminophen (Acetaminophen 325 Mg Tablet) 650 mg PO Q6H PRN PRN Reason: Pain, Mild 1-3,fever,headache Albuterol/Ipratropium (Albuterol/Iprat 2.5/0.5mg 3 Ml Ampul.Neb) 3 ml INHALE RQ6H WHILE AWAKE [facility] Last Admin: 04/25/24 08:33 Dose: 3 ml Documented By: EV Amiodarone HCl (Amiodarone Hcl 200 Mg Tablet) 100 mg PO DAILY [facility] Last Admin: 04/25/24 08:23 Dose: 100 mg Documented By: DANIELLE Atorvastatin Calcium (Atorvastatin Calcium 20 Mg Tablet) 20 mg PO DAILY [facility] Last Admin: 04/25/24 08:23 Dose: 20 mg Documented By: DANIELLE Calcium Carbonate (Calcium Carbonate 750 Mg Tab.Chew) 750 mg PO Q4H PRN PRN Reason: Heartburn Carvedilol (Carvedilol 12.5 Mg Tablet) 12.5 mg PO BID [facility]; Protocol Last Admin: 04/25/24 08:23 Dose: 12.5 mg Documented By: DANIELLE Guaifenesin/Codeine Phosphate (Guaifen/Codeine Sf 200/20/10ml 10 Ml Liquid) 5 ml PO Q6H PRN PRN Reason: Cough Last Admin: 04/22/24 17:01 Dose: 5 ml Documented By: REINA Linezolid (Linezolid 600 Mg Tablet) 600 mg PO Q12H [facility] Last Admin: 04/25/24 13:00 Dose: 600 mg Documented By: DANIELLE Magnesium Hydroxide (Milk Of Magnesia 30 Ml Oral.Susp) 30 ml PO DAILY PRN PRN Reason: Constipation Melatonin (Melatonin 3 Mg Tablet) 6 mg PO BEDTIME PRN PRN Reason: Insomnia Prednisone (Prednisone 20 Mg Tablet) 20 mg PO DAILY [facility] Last Admin: 04/25/24 08:23 Dose: 20 mg Documented By: DANIELLE Sacubitril/Valsartan (Sacubitril/Valsartan 1 Tab Tablet) 1 tab PO BID [facility]; Protocol Last Admin: 04/25/24 08:23 Dose: 1 tab Documented By: DANIELLE Sodium Chloride (0.9 % Sodium Chloride Flush 3 Ml Syringe) 3 ml IVFLUSH QSHIFT [facility] Last Admin: 04/25/24 08:26 Dose: 3 ml Documented By: DANIELLE Warfarin Sodium (Warfarin Sodium 1.25 Mg Halftab) 1.25 mg PO SUMOWETHSA@1800 [facility] Last Admin: 04/21/24 18:14 Dose: 1.25 mg Documented By: REINA Labs 04/21/24 07:52 04/24/24 07:30 Labs: Laboratory Results - last 24 hr 04/25/24 07:51 PT 31.6 H INR 2.7 H Microbiology Microbiology Results: Microbiology 04/20/24 09:03 Blood Culture - Final Blood - Venous No growth after 5 days. Assessment and Plan (1) Cardiomyopathy: Status: Acute (2) Acute hypoxic respiratory failure: Status: Acute (3) Pneumonia: Status: Acute Plan 79yo F with paroxysmal AF on warfarin, [place] in 2007, PPM, hx TIA in 2009, HTN, and HLD presenting with cough, weakness, and dyspnea for 3 days; became lightheaded and fell and struck her chest on the floor; no LOC. Found to have influenza, admitted for hypoxia. acute hypoxic respiratory failure due to influenza A and post-influenza pneumonia with new COPD - improving, high-flow oxygen discontinued currently on 2 L of nasal cannula - s/p iv linezolid and piperacillin-tazobactam,started on 04/21, blood cultures negative, MRSA swab un collected, PCT 0.07, oselamivir 04/20-04/25, urine culture grew strep agalactiae, patient asymptomatic - s/p methylprednisolone 40 mg q.8 hours, on by mouth prednisone, continue duonebs q6hWA, seen by pulmonology less likely amiodarone toxicity - on by mouth linezolid end date 04/26, wean O2 not on home oxygen. -obtain home O2 eval Acute CHF exacerbation with reduced EF, with previous diagnosis of dilated nonischemic cardiomyopathy NYHA class 2 - appears euvolemic Lasix discontinued. TTE pend BNP trending down but remains elevated likely due to chronic cardiomyopathy and right heart strain . - prior LVEF 10-15% in 2007, repeat echo showed EF remained stent to 15%, noted to have basal inferior and mid inferior segment dyskinesia, inferior septal wall is aneurysmal no obvious valvular pathology noted, there was evidence of grade 1 mild diastolic dysfunction - at home on diuretics as needed - case discussed with Cardiology they recommend to continue diuretics as previously planned. troponin elevation - flat; likely demand from hypoxia/pneumonia prolongted QTc - corrects to normal by Bazette formula when accounting for LBBB pAF - continue warfarin, INR bumped from 2.9 to 3.5 to 2.8 to 2.7 today - continue carvedilol decrease dose of 12.5 b.i.d due to soft BP., cont. amiodarone HTN - continue carvedilol low-dose and Entresto hx TIA - continue statin VTE ppx - on warfarin, PT recommend home physical therapy. In my clinical judgment, the patient requires continued inpatient hospitalization for the following reasons: hypoxia Quality Stroke Does the patient have a stroke diagnosis?: No VTE Prior VTE?: No VTE Risk Level:: Medical - moderate - high VTE Device Contraindication: Treatment Not Indicated VTE Drug Contraindication: N/A - Med Ordered
[2024-04-25] MEDS: Warfarin Sodium 1.25 MG HALFTAB PO (18:18)
[2024-04-26] MEDS: Linezolid 600 MG TABLET PO ×2 (00:14→11:34)
[2024-04-26 03:38] VITALS: BP 102/62; PULSE 68; RESP 16; TEMP 36.7; O2SAT 93
[2024-04-26 07:05] LABS: INTERNATIONAL NORM RATIO 3.5 (0.9-1.1); Prothrombin Time 41.3 SEC (10.9-12.4)
[2024-04-26 07:51] VITALS: BP 111/66; PULSE 78; RESP 20; TEMP 37; O2SAT 92
[2024-04-26 08:14] VITALS: BP 111/66; PULSE 78; O2SAT 92
[2024-04-26] MEDS: carvediloL 12.5 MG TABLET PO (08:25)
[2024-04-26] MEDS: Sacubitril/Valsartan 24/26 1 TAB TABLET PO (08:25)
[2024-04-26] MEDS: Atorvastatin Calcium 20 MG TABLET PO (08:25)
[2024-04-26] MEDS: predniSONE 20 MG TABLET PO (08:25)
[2024-04-26] MEDS: Amiodarone HCL 200 MG TABLET 100 MG PO (08:25)
[2024-04-26] MEDS: 0.9 % Sodium Chloride Flush 3 ML SYRINGE IVFLUSH (08:26)
--- NOTE | 2024-04-26 09:49 | P.DS_ITS ---
DS: Providers Provider Date of Service: 04/26/24 Date of admission: 04/20/24 14:23 Date of discharge: 04/26/24 Primary care physician: Dorothy Salas MD Consults: 04/21/24 13:22 Consult to Pulmonology Routine Consulting Provider: [facility] [place] Pul[facility]ology Services Reason for consultation: new-COPD ?amio lung injury 04/23/24 08:31 Consult to Cardiology Routine Consulting Provider: [facility] [place] [facility] Reason for consultation: chf Has provider been notified: No DS: Diagnosis Discharge Diagnosis (1) Cardiomyopathy: Status: Acute (2) Acute hypoxic respiratory failure: Status: Acute (3) Pneumonia: Status: Acute DS: Summary Hospital Course Hospital Course: History of presenting illness: Date of Service: 04/20/24 Attending physician on admission: Leslie Patiño Chief Complaint: SOB, weakness Pt is a 79-year-old female with a PMH significant for?paroxysmal AFib on warfarin, [place] in 2007 s/p pacemaker in place, TIA in 2009, HTN, and HLD who presents to the ED with?cough, weakness, and SOB x3 days. Reports symptoms again Tuesday morning when she developed a ?heavy? cough occasionally productive of whitish sputum. On Tuesday when pt attempted to go to the bathroom felt lightheaded and dizzy and fell, striking the left side of her chest on the floor. Denies head strike. Was able to get up on her own and had no significant pain or difficulty ambulating. Has not fallen since. Pt has also experienced generalized weakness, reduced p.o. intake, subjective fever and chil ls, as well as SOB and MCGRATH. Some nausea, vomiting, and diarrhea on Tuesday and Tuesday, though since resolved. Denies chest pain or pressure. No myalgias. Pt presents to the ED today his symptoms have persisted and she felt weaker and could not stop coughing this morning. In the ED pt was tachypneic up to 22, soft BP as low as 93/45, and desatting as low as 89% on RA. Labs were significant for testing positive for flu, thrombocytopenia of 158, initial troponin 175.7 with repeat flat at 01:50 1.5, CRP 5.83, and BNP 1775. No leukocytosis. Stable H&H of 11.6/34.9. No significant electrolyte abnormalities. Renal and hepatic function WNL. CXR showed cardiomegaly, COPD, and right basilar subsegmental atelectasis vs scarring. CT?of head and cervical spine negative for acute abnormality. EKG demonstrated normal sinus rhythm with nonspecific intraventricular conduction blockc and prolonged QTc of 534. Pt was treated with DuoNeb, Solu-Medrol, IVF, albumin, ceftriaxone, and Tamiflu. Pt will be admitted to the hospital treatment and further evaluation of acute hypoxic respiratory failure in the setting of influenza infection. Hospital course: 79yo F with paroxysmal AF on warfarin, [place] in 2007, PPM, hx TIA in 2009, HTN, and HLD presented with cough, weakness, and dyspnea for 3 days; became lightheaded and fell and struck her chest on the floor; no LOC. Found to have influenza A, admitted for hypoxia. acute hypoxic respiratory failure due to influenza A and post-influenza pneumonia with new COPD, admitted to telemetry unit treated with high-flow o xygen, Tamiflu, IV linezolid and IV Zosyn, and IV Solu Medrol, blood cultures returned negative, PCT 0.07, patient responded well to above treatment, subsequently antibiotics were transitioned to by mouth linezolid patient finished course of Tamiflu and antibiotics, oxygenation improved to 92% on room air patient is hemodynamically stable therefore being discharged home with recommendation to rest, and continue symptomatic care with cough medications and Tylenol. 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 amiodarone HTN - continue carvedilol low-dose and Entresto hx TIA - continue statin Underweight recommend ensure t.i.d. Time Attestation Discharge Coordination Time (in mins): 40 Quality: Safe Use of Opioids Does Pt have an Active Cancer Diagnosis on the Problem List?: No Quality: Stroke Does the patient have a stroke diagnosis?: No Physical Exam Vital Signs: Vital Signs: Last Vital Signs Temp 98.6 F 04/26/24 07:51 Pulse 78 04/26/24 08:14 Resp 20 04/26/24 07:51 BP 111/66 04/26/24 08:14 Pulse Ox 92 04/26/24 08:14 O2 Del Method Room Air 04/26/24 07:51 O2 Flow Rate 2 04/25/24 07:44 FiO2 57 04/22/24 11:27 Oxygen Flow Rate 37 04/21/24 15:59 BMI result Body Mass Index 15.0 Const: Other: Gen: Awake alert in no acute distress, malnourished HEENT: sclera anicteric, moist mucus membranes Neck: supple, no JVD Lungs: Clear to auscultation, no crackles Heart: regular, rate and rhythm, no murmurs Abd: soft, non-tender, non-distended, bowel sounds audible Ext: no edema Skin: warm/well-perfused Neuro: no focal findings Psych: appropriate affect DS: Data Data Completed and Pending Labs on day of discharge: Laboratory Results - last 24 hr 04/26/24 06:18 Hold Purple Top SEE NOTE PT 41.3 H D INR 3.5 H Discharge Plan Discharge Anticipated Discharge Date/Time: 04/26/24 09:45 Patient Disposition: Home Health Service Discharge Diagnosis: Acute hypoxic respiratory failure due to influenza A and post influenza pneumonia Acute CHF exacerbation with reduced EF Paroxysmal atrial fibrillation Referrals: Dorothy Salas MD [Primary Care Provider] - 1 Week Discharge Medications: Continued warfarin 2.5 mg tablet 2.5 mg PO TUFR@1800 warfarin 2.5 mg tablet 1.25 mg PO SUMOWETHSA@1800 amiodarone 200 mg tablet 100 mg PO DAILY acetaminophen 500 mg tablet 500 mg PO Q6H PRN (Reason: Pain) Entresto 24-26 mg tablet 1 tab PO BID atorvastatin 20 mg tablet 20 mg PO DAILY Changed carvedilol 25 mg tablet 12.5 mg PO BID Qty: 30 0RF Discharge Orders: Discharge Order (Routine); Ordered 04/26/24 Ordered By: Krishna Norris Diet: Low fat, low cholesterol Activity on Discharge: As tolerated Stand Alone Forms: Patient Portal Discharge page Print Language: [place]i Care Plan Goals: Influenza a finished course of Tamiflu Post influenza pneumonia finished course of antibiotic Acute CHF resolved follow diuretic instructions as per Cardiology from before Underweight take ensure 240 t.i.d. Decrease dose of Coreg to 12.5 b.i.d. due to soft blood pressure monitor BP at home and follow-up with Cardiology Health Concerns: Continue all home medications Plan of Treatment: Outpatient follow-up with primary care physician Outpatient follow-up with Cardiology as previously planned Assessment: As above
--- NOTE | 2024-04-26 13:10 | W.MHC.F2F ---
Service Date Service Date: 04/26/24 Encounter Date of encounter: 04/26/24 Reasons for Services Signs and symptoms assessed: Hypoxia/weakness/cardiomyopathy Reason for assisted: CV/CP assess and/or care Reason for physical therapy: home safety and mobility Homebound: Leaving the home is medically contraindicated at this time without the asist of a device and/or another person due th the listed conditions above and below. Reason homebound: weakness related to hospital stay Certification: Based on the above findings, I certify that this patient is confined to the home and needs intermittent assisted care, physical therapy and/or speech therapy, or continues to need occupational therapy. The patient is under my care, and I have initiated the establishment of the plan of care. The patient will be followed by a physician who will periodically review the plan of care. Time Spent With Patient Time: Total time managing care of this patient today ____ minutes.
== END 2024-04-26 12:51 | disposition home health service (06) | DRG 193 ==
LOC: HO.ED 12:16 → HO.EDOVER 14:24 → HO.IMC 23:14
PROVIDERS: Family Medicine; Admitting Provider Student in an Organized Health Care Education/Training Program; Emergency Provider Emergency Medicine; PCP Internal Medicine; Visit Provider Hospitalist
DX: J10.00 Influenza due to other identified influenza virus with unspecified type of pneumonia (principal); I50.23 Acute on chronic systolic (congestive) heart failure; J96.01 Acute respiratory failure with hypoxia; J98.11 Atelectasis; Z68.1 Body mass index [BMI] 19.9 or less, adult; I42.0 Dilated cardiomyopathy; I25.10 Atherosclerotic heart disease of native coronary artery without angina pectoris; I48.0 Paroxysmal atrial fibrillation; D69.6 Thrombocytopenia, unspecified; R63.6 Underweight; R94.31 Abnormal electrocardiogram [ECG] [EKG]; R79.1 Abnormal coagulation profile; Z86.73 Personal history of transient ischemic attack (TIA), and cerebral infarction without residual deficits; I11.0 Hypertensive heart disease with heart failure; Z95.0 Presence of cardiac pacemaker; J43.9 Emphysema, unspecified; Z79.01 Long term (current) use of anticoagulants; Z79.899 Other long term (current) drug therapy
CPT/HCPCS: 0241U; 36415; 70450; 71045; 71275; 72125; 80048; 80076; 81001; 82550; 82803; 83605; 83690; 83735; 83880; 84145; 84484; 85025; 85027; 85610; 86140; 87040; 87086; 87147; 93005; 93306; 94640; 97116; 97161; 99285; J0696; J1940; J2020; J2543; J2919; P9047; Q9957; Q9967

== ENCOUNTER → 2024-04-20 08:20 | Outpatient (BNV) | payer MEDICARE, MEDICAID, SELFPAY | PROVIDERS: Emergency Provider Emergency Medicine; PCP Internal Medicine; Visit Provider Internal Medicine Cardiovascular Disease | DX: I45.9 Conduction disorder, unspecified (principal) | CPT/HCPCS: 93010 ==

== ENCOUNTER → 2024-04-20 08:21 | Outpatient (BNV) | payer MEDICARE, MEDICAID, SELFPAY | PROVIDERS: Emergency Provider Emergency Medicine; PCP Internal Medicine; Visit Provider Radiology Diagnostic Radiology | DX: R05.9 Cough, unspecified (principal); R06.02 Shortness of breath; W19.XXXA Unspecified fall, initial encounter; R11.2 Nausea with vomiting, unspecified | CPT/HCPCS: 70450; 71045; 72125 ==

== ENCOUNTER 2024-04-20 14:23 | Outpatient (BNV) | payer MEDICARE, MEDICAID, SELFPAY | END 2024-04-21 10:45 | PROVIDERS: Admitting Provider Student in an Organized Health Care Education/Training Program; Emergency Provider Emergency Medicine; PCP Internal Medicine; Visit Provider Radiology Diagnostic Radiology | DX: R09.02 Hypoxemia (principal) | CPT/HCPCS: 71275 ==

== ENCOUNTER 2024-04-20 14:23 | Outpatient (BNV) | payer MEDICARE, MEDICAID, SELFPAY | END 2024-04-23 07:00 | PROVIDERS: Admitting Provider Student in an Organized Health Care Education/Training Program; Emergency Provider Emergency Medicine; PCP Internal Medicine; Visit Provider Internal Medicine | DX: R94.31 Abnormal electrocardiogram [ECG] [EKG] (principal) | CPT/HCPCS: 93306 ==

== ENCOUNTER → 2024-04-20 14:23 | Outpatient (BNV) | payer MEDICARE, MEDICAID, SELFPAY | PROVIDERS: Admitting Provider Student in an Organized Health Care Education/Training Program; Emergency Provider Emergency Medicine; PCP Internal Medicine; Visit Provider Internal Medicine | DX: J96.01 Acute respiratory failure with hypoxia (principal) | CPT/HCPCS: 99223 ==

== ENCOUNTER → 2024-04-20 14:23 | Outpatient (BNV) | payer MEDICARE, MEDICAID, SELFPAY | PROVIDERS: Admitting Provider Student in an Organized Health Care Education/Training Program; Emergency Provider Emergency Medicine; PCP Internal Medicine; Visit Provider Student in an Organized Health Care Education/Training Program | DX: J10.1 Influenza due to other identified influenza virus with other respiratory manifestations (principal); R79.89 Other specified abnormal findings of blood chemistry; R09.02 Hypoxemia; I48.0 Paroxysmal atrial fibrillation | CPT/HCPCS: 99223; 99232; 99233; 99239; G0180 ==

== ENCOUNTER → 2024-04-20 14:23 | Outpatient (BNV) | payer MEDICARE, MEDICAID, SELFPAY | PROVIDERS: Admitting Provider Student in an Organized Health Care Education/Training Program; Emergency Provider Emergency Medicine; PCP Internal Medicine; Visit Provider Hospitalist | DX: J96.01 Acute respiratory failure with hypoxia (principal); J10.1 Influenza due to other identified influenza virus with other respiratory manifestations; J18.9 Pneumonia, unspecified organism | CPT/HCPCS: 99223 ==

== ENCOUNTER 2024-05-01 10:48 | Outpatient (AMB) | payer MEDICARE, MEDICAID, SELFPAY ==
--- NOTE | 2024-05-01 10:50 | MHC.OFFVISCO ---
Intake Intake Visit Reasons: Anticoagulation Allergies lisinopril Adverse Reaction (Intermediate, Verified 05/01/24 10:49) [facility] Medication List - Last Reconciled 05/01/24 by Katie Patiño RN acetaminophen 500 mg PO Q6H PRN amiodarone 100 mg PO DAILY atorvastatin 20 mg PO DAILY carvedilol 12.5 mg (1/2 x 25 mg) PO BID sacubitril-valsartan 24-26 mg (Entresto) 1 tab PO BID warfarin 2.5mg x 2 days/ 1.25mg x 5 day orally every tuesday, tuesday, tuesday, and tuesday at 6:00 pm; Nursing Note INR received from [facility] nurse AMRIT, INR today is 3.1 RANGE 2.0-3.0, T/c to nurse STATES NO NEW MEDS, PT IS IMRPOVING T/c to patient States she was d/c to home last week recovering from flu A - has decreased appetite Patient status: improving has PT /OT Denies any signs and symptoms of any unusual bruising, bleeding or clotting Medication or supplements: no changes Diet: not good today - she states she will have an ensure - it was explained that would count as a high green and will help lower the INR Activity: as tolerated Dose: keep same dose for now 2.5mg tue and fridau/ 1.25mg x 5 days Dosing and diet instructions given with next retest date of 1 week 05/08/2024 , Nurse and patient verbalizes understanding of instructions given with accurate read back Anti-Coag Initial Assessment Social Hx Patient Tobacco Use Status: Never used Tobacco alcohol intake: never Coding Level of Care Code Est Patient Level 1 Diagnoses Current use of anticoagulant therapy Z79.01 Results AMB INR Fingerstick AMB INR Fingerstick 3.1 Last Edit by Katie Patiño RN on 05/01/24 11:00 VNA Assessment & Plan Assessment & Plan (1) Current use of anticoagulant therapy: Code(s): Z79.01 - [facility] (current) use of anticoagulants Category: Medical Medications: Changed From warfarin 2.5mg x 2 days/ 1.25mg x 5 day orally every tuesday, tuesday, tuesday, and tuesday at 6:00 pm; To warfarin See Protocol 2.5mg x 2 days/ 1.25mg x 5 day orally;
== END 2024-05-01 11:09 | disposition home or self-care (01) ==
LOC: HO.ACS 10:48
PROVIDERS: PCP Internal Medicine; Visit Provider Internal Medicine
DX: Z79.01 Long term (current) use of anticoagulants (principal)

== ENCOUNTER → 2024-05-01 10:48 | Outpatient (BNVA) | payer MEDICARE, MEDICAID, SELFPAY | PROVIDERS: PCP Internal Medicine; Visit Provider Internal Medicine | DX: I48.20 Chronic atrial fibrillation, unspecified (principal); Z79.01 Long term (current) use of anticoagulants; Z51.81 Encounter for therapeutic drug level monitoring | CPT/HCPCS: 99211 ==

== ENCOUNTER 2024-05-15 16:23 | Outpatient (AMB) | payer MEDICARE, MEDICAID, SELFPAY ==
--- NOTE | 2024-05-15 16:19 | MHC.OFFVISCO ---
Intake Intake Visit Reasons: Anticoagulation Allergies lisinopril Adverse Reaction (Intermediate, Verified 05/15/24 16:16) [facility] Medication List - Last Reconciled 05/15/24 by Lela Alfaro, RN acetaminophen 500 mg PO Q6H PRN amiodarone 100 mg PO DAILY atorvastatin 20 mg PO DAILY carvedilol 12.5 mg (1/2 x 25 mg) PO BID furosemide 20 mg PO DAILY PRN sacubitril-valsartan 24-26 mg (Entresto) 1 tab PO BID warfarin See Protocol 2.5mg x 2 days/ 1.25mg x 5 day orally; Nursing Note INR received from Fritz Khan, INR today is 2.1 now in therapeutic range after elevations, T/c to nurse Khan Patient status: improving, completed antibiotics and feeling well, having greens Denies any signs and symptoms of any unusual bruising, bleeding or clotting Medication or supplements: no changes TC to pt sts she is feeling better and I will stop the greens for today and tomorrow has been eating spinach and brocolli Dose :usual dosing 2.5mg x 2 days and 1.25mg x 5 days Dosing and diet instructions given with next retest date of Tuesday 05/23 (1 week), Nurse and patient verbalizes understanding of instructions given with accurate read back Anti-Coag Initial Assessment Social Hx Patient Tobacco Use Status: Never used Tobacco alcohol intake: never Coding Level of Care Code Est Patient Level 1 Diagnoses Current use of anticoagulant therapy Z79.01 Time Spent (min) 15 Assessment & Plan Assessment & Plan (1) Current use of anticoagulant therapy: Code(s): Z79.01 - [facility] care (current) use of anticoagulants Category: Medical
--- OUTSIDE RECORDS SUMMARY | 2024-05-15 19:24 | XMS_ITS | Data Portability ---
Author Organization [place] - [facility] Address [address] [place] [phone] Care Team Providers Care Rail Filler Name Role Phone SONAL ABREU Primary Care Provider Assessment Encounter Date Assessment Date Assessment LastModified [...] W or w/o pelvis 2-3 V-lt [facility] ([facility] [address] [place], [address], 13:06:50 unlisted imaging order - hip uni W or w/o pelvis 2-3 V-RT 2021 Replaced by [facility] Corporate Office ([facility]), [address] [facility], [place], [address], 13:06:50 Medication Orders None recorded. Patient TargetsNo [...] JOHNSON M.D. 10/14/19 12:58: 02 PM EDT. [id number] [place] [address] [place] [address] 4, [place], [address], 10/13/2021 17:01:04 10/14/19 22 10/13/2021 hip uni [...] JOHNSON M.D. 10/14/19 12:58: [id number] [facility] [address] [facility] 4, [place], [address], 10/13/2021 17:01:09 Result Notes None recorded. Procedures Surgical History Date Name Laterality Status Provider Name and Address Organization Details Recorded Time cardiac pacemaker procedure completed PAULO Gonzalez [address], [place], [address], [place] [facility] 10/11/2021 15:05:34 Appendectomy completed PAULO Gonzalez [address], [place], [address], [place] [facility] 10/11/2021 15:05:42 Imaging Results Imaging Date Name Status LastModified by Organiz ation Details LastModified Time 10/13/2021 hip uni W or w/o pelvis 2-3 V completed [employer] [facility] [address] [facility] [address], [place], [address], 10/13/2021 17:01:04 10/13/2021 hip uni W or w/o pelvis 2-3 V completed [employer] [facility] [address] [facility] [address], [place], [address], 10/13/2021 17:01:09 Procedure Notes None recorded. Medical Equipment None Reported. Allergies Allergen ID Allergen Name Allergen Category Reaction Reaction Severity Criticality Documentation Date Start Date Code Code System Note Provider Name and Address Organization Details Recorded Time 856414 lisinopri l medicatio n Not available Not available Not available 10/11/2021 37861 RxNorm PAULO Myers [address], [place], [address], [place] [facility] 15:01:18 Medications Name Sig Start [...] [degF] 114 mm[Hg] 54 mm[Hg] Not Available [facility] 2 14:40:45 Social History Question Answer Notes LastModified by Organizat ion Details LastModified Time Tobacco Smoking Status Never Smoker PAULO Gonzalez [facility] [address], [place], [address], [place] [facility] 10/11/2021 15:02:27 What Is [...] N Cancer N Dementia N Stroke N COPD N Depression N Hypothyroidism N Asthma N High Cholesterol Y Rheumatoid Arthritis N Pulmonary Embolism N Hypertension N A-fib Y Osteoporosis N Kidney Disease N Gynecological HistoryNo gynecological history recorded. Obstetrics History GPAL:G 0 P 0 0 0 0 Past Encounters Encounter ID Performer Location Encounter Start Date Encounter Closed Date Diagnosis/Indication Diagnosis SNOMED-CT Code Diagnosis ICD10 Code Diagnosis Note [id number] PAULO Smith [facility] [address] [place] [address] 10/11/2021 14:02:15 10/12/2021 07:14:08 Hip pain 62840867 M25.559 Fall on sa me level from slipping, tripping or stumbling 629662731 W01.0XXA Health Concerns Section Related Observation LastModified by Organization Detai ls LastModified Time None Recorded Concern Status LastModified by Organization Details LastModified Time None Recorded Advance Directives Directive None Recorded Payers Encounter Date Sequence Insurance Name Policy Number Policy Hirsch Covered Member ID Hirsch Member ID Guarantor Name 10/11/2021 1 MEDICARE [place]: [employer] Lala Bateman Arsen [id number] Lala Leger Notes Date Note Type [...] further falls. PAULO Gonzalez [address] [place], [address], [place] [facility] 10/11/2021 17:26:17 OBGyn Episode No OBEpisode recorded.
== END 2024-05-15 16:26 | disposition home or self-care (01) ==
LOC: HO.ACS 16:23
PROVIDERS: PCP Internal Medicine; Visit Provider Internal Medicine
DX: Z79.01 Long term (current) use of anticoagulants (principal)

== ENCOUNTER → 2024-05-15 16:23 | Outpatient (BNVA) | payer MEDICARE, MEDICAID, SELFPAY | PROVIDERS: PCP Internal Medicine; Visit Provider Internal Medicine | DX: I48.20 Chronic atrial fibrillation, unspecified (principal); Z79.01 Long term (current) use of anticoagulants; Z51.81 Encounter for therapeutic drug level monitoring | CPT/HCPCS: 99211 ==

== ENCOUNTER → 2024-05-29 13:49 | Outpatient (BNVA) | payer MEDICARE, MEDICAID, SELFPAY | PROVIDERS: PCP Internal Medicine; Visit Provider Internal Medicine Medical Oncology ==

== ENCOUNTER → 2024-06-13 14:31 | Outpatient (BNVA) | payer MEDICARE, MEDICAID, SELFPAY | PROVIDERS: PCP Internal Medicine; Visit Provider Internal Medicine Medical Oncology | DX: Z13.89 Encounter for screening for other disorder (principal) ==

== ENCOUNTER 2024-06-19 15:59 | Outpatient (AMB) | payer MEDICARE, MEDICAID, SELFPAY ==
--- NOTE | 2024-06-19 16:15 | MHC.OFFVISCO ---
Intake Intake Visit Reasons: Anticoagulation Allergies lisinopril Adverse Reaction (Intermediate, Verified 06/13/24 14:35) [facility] Medication List - Last Reconciled 06/19/24 by Katie Patiño RN acetaminophen 500 mg PO Q6H PRN amiodarone 100 mg PO DAILY atorvastatin 20 mg PO DAILY carvedilol 12.5 mg (1/2 x 25 mg) PO BID furosemide 20 mg PO DAILY PRN sacubitril-valsartan 24-26 mg (Entresto) 1 tab PO BID warfarin See Protocol 2.5mg x 2 days/ 1.25mg x 5 day orally; Nursing Note INR: 2.8 in therapeutic range Medications and supplements reviewed No changes in health, diet, medications, or supplements, Denies any signs and symptoms of bleeding or bruising or clotting. Bleeding, bruising, clotting discussed Nutritional guidance given - make sure to eat weekly greens Dose: keep same dose 2.5mg x 2 days/ 1.25mg x 5 days F/U INR: 2 weeks Patient verbalizes understanding of instructions given Anti-Coag Initial Assessment Social Hx Patient Tobacco Use Status: Never used Tobacco alcohol intake: never Coding Level of Care Code Est Patient Level 1 Diagnoses Current use of anticoagulant therapy Z79.01 Results AMB INR Fingerstick AMB INR Fingerstick 2.8 Last Edit by Katie Patiño RN on 06/19/24 16:10 manual entry Assessment & Plan Assessment & Plan (1) Current use of anticoagulant therapy: Code(s): Z79.01 - [facility] (current) use of anticoagulants Category: Medical
== END 2024-06-19 16:17 | disposition home or self-care (01) ==
LOC: HO.ACS 15:59
PROVIDERS: PCP Internal Medicine; Visit Provider Internal Medicine Medical Oncology
DX: Z79.01 Long term (current) use of anticoagulants (principal)

== ENCOUNTER → 2024-06-19 15:59 | Outpatient (BNVA) | payer MEDICARE, MEDICAID, SELFPAY | PROVIDERS: PCP Internal Medicine; Visit Provider Internal Medicine Medical Oncology | DX: I48.20 Chronic atrial fibrillation, unspecified (principal); Z79.01 Long term (current) use of anticoagulants; Z51.81 Encounter for therapeutic drug level monitoring | CPT/HCPCS: 99211 ==

== ENCOUNTER 2024-07-03 10:03 | Outpatient (AMB) | payer MEDICARE, MEDICAID, SELFPAY ==
[2024-07-03 10:09] LABS: Prothrombin Time Whole Bld POC 29.7 sec (11.1-13.5); ~PT, ~INR - Anti Coag Clinic 2.5 (0.9-1.1)
--- NOTE | 2024-07-03 10:12 | MHC.OFFVISCO ---
Intake Intake Visit Reasons: Anticoagulation Allergies lisinopril Adverse Reaction (Intermediate, Verified 07/03/24 10:04) [facility] Medication List - Last Reconciled 07/03/24 by Lela Strickland RN acetaminophen 500 mg PO Q6H PRN amiodarone 100 mg PO DAILY atorvastatin 20 mg PO DAILY carvedilol 12.5 mg (1/2 x 25 mg) PO BID furosemide 20 mg PO DAILY PRN sacubitril-valsartan 24-26 mg (Entresto) 1 tab PO BID warfarin See Protocol 2.5mg x 2 days/ 1.25mg x 5 day orally; Nursing Note INR: 2.5 in therapeutic range of 2-3 Medications and supplements reviewed No changes in health, diet, medications, or supplements, Denies any signs and symptoms of bleeding or bruising or clotting. Bleeding, bruising, clotting discussed Nutritional guidance given Dose: 1.25mg X5 days and 2.5mg X2 days F/U INR: 3 weeks Patient verbalizes understanding of instructions given Anti-Coag Initial Assessment Social Hx Patient Tobacco Use Status: Never used Tobacco alcohol intake: never Coding Level of Care Code Est Patient Level 1 Diagnoses Current use of anticoagulant therapy Z79.01 Results AMB INR Fingerstick AMB INR Fingerstick 2.5 Last Edit by Lela Strickland RN on 07/03/24 10:09 interface delay Assessment & Plan Assessment & Plan (1) Current use of anticoagulant therapy: Code(s): Z79.01 - assisted (current) use of anticoagulants Category: Medical
--- OUTSIDE RECORDS SUMMARY | 2024-07-03 11:23 | XMS_ITS | Data Portability ---
Author Organization [place] - [facility] Address [address] [place] [phone] Care Team Providers Care Hand Almond Blancher Name Role Phone SONAL ABREU Primary Care [...] W or w/o pelvis 2-3 V-lt 2021 [facility] Corporate Office ([facility] [address] [place], [address], 13:06:50 unlisted imaging order - hip uni W or w/o pelvis 2-3 V-RT [facility] [email or web address]), [address] [facility], [place], [address], 13:06:50 Medication Orders None recorded. Patient TargetsNo [...] JOHNSON M.D. 10/14/19 12:58: 02 PM EDT. [email or web address] [employer] [address] [facility] 4, [place], [address], 10/13/2021 17:01:04 10/14/19 22 10/13/2021 hip uni [...] JOHNSON M.D. 10/14/19 12:58: 02 PM EDT. [id number] [facility] [address] [facility] 4, [place], [address], 10/13/2021 17:01:09 Result Notes None recorded. Procedures Surgical History Date Name Laterality Status Provider Name and Address Organization Details Recorded Time cardiac pacemaker procedure completed PAULO Gonzalez [address] [place], [address], [place] [facility] 10/11/2021 15:05:34 Appendectomy completed PAULO Gonzalez [address], [place], [address], [place] [facility] 10/11/2021 15:05:42 Imaging Results Imaging Date Name Status LastModified by Organiz ation Details LastModified Time 10/13/2021 hip uni W or w/o pelvis 2-3 V completed [employer] [address], [place], [address], 10/13/2021 17:01:04 10/13/2021 hip uni W or w/o pelvis 2-3 V completed [employer] [facility] [address] [facility] [address], [place], [address], 10/13/2021 17:01:09 Procedure Notes None recorded. Medical Equipment None Reported. Allergies Allergen ID Allergen Name Allergen Category Reaction Reaction Severity Criticality Documentation Date Start Date Code Code System Note Provider Name and Address Organization Details Recorded Time 232628 lisinopri l medicatio n Not available Not available Not available 10/11/2021 70074 RxNorm PAULO Myers [address] [place], [address], [place] [facility] 15:01:18 Medications Name Sig [...] [degF] 114 mm[Hg] 54 mm[Hg] Not Available [facility] 2 14:40:45 Social History Question Answer Notes LastModified by Organizat ion Details LastModified Time Tobacco Smoking Status Never Smoker PAULO Gonzalez [address] [place] [address], [address], [place] [facility] 10/11/2021 15:02:27 What Is [...] N Cancer N Dementia N Stroke N Depression N Asthma N COPD N Hypothyroidism N High Cholesterol Y Rheumatoid Arthritis N Pulmonary Embolism N Hypertension N A-fib Y Osteoporosis N Kidney Disease N Gynecological HistoryNo gynecological history recorded. Obstetrics History GPAL:G 0 P 0 0 0 0 Past Encounters Encounter ID Performer Location Encounter Start Date Encounter Closed Date Diagnosis/Indication Diagnosis SNOMED-CT Code Diagnosis ICD10 Code Diagnosis Note [id number] PAULO Smith [facility] [address] [place] [address] 10/11/2021 14:02:15 10/12/2021 07:14:08 Pain of hip region [id number] M25.559 Fall on sa me level from slipping, tripping or stumbling 483804453 W01.0XXA Health Concerns Section Related Observation LastModified by Organization Detai ls LastModified Time None Recorded Concern Status LastModified by Organization Details LastModified Time None Recorded Advance Directives Directive None Recorded Payers Encounter Date Sequence Insurance Name Policy Number Policy Hirsch Covered Member ID Hirsch Member ID Guarantor Name 10/11/2021 1 [place]ICARE B-[place]: [employer] Lala Bateman Arsen [id number] Lala Leger Notes Date Note Type [...] further falls. PAULO Gonzalez [address], [place], [address], [place] [facility] 10/11/2021 17:26:17 OBGyn Episode No OBEpisode recorded.
== END 2024-07-03 10:19 | disposition home or self-care (01) ==
LOC: HO.ACS 10:03
PROVIDERS: PCP Internal Medicine; Visit Provider Internal Medicine Medical Oncology
DX: Z79.01 Long term (current) use of anticoagulants (principal)

== ENCOUNTER → 2024-07-03 10:03 | Outpatient (BNVA) | payer MEDICARE, MEDICAID, SELFPAY | PROVIDERS: PCP Internal Medicine; Visit Provider Internal Medicine Medical Oncology | DX: I48.20 Chronic atrial fibrillation, unspecified (principal); Z79.01 Long term (current) use of anticoagulants; Z51.81 Encounter for therapeutic drug level monitoring | CPT/HCPCS: 85610; 99211 ==

== ENCOUNTER 2024-07-24 10:25 | Outpatient (AMB) | payer MEDICARE, MEDICAID, SELFPAY ==
[2024-07-24 10:36] LABS: Prothrombin Time Whole Bld POC 37.9 sec (11.1-13.5); ~PT, ~INR - Anti Coag Clinic 3.2 (0.9-1.1)
--- NOTE | 2024-07-24 10:42 | MHC.OFFVISCO ---
Intake Intake Visit Reasons: Anticoagulation Allergies lisinopril Adverse Reaction (Intermediate, Verified 07/24/24 10:29) [facility] Medication List - Last Reconciled 07/24/24 by Katie Patiño RN acetaminophen 500 mg PO Q6H PRN amiodarone 100 mg PO DAILY atorvastatin 20 mg PO DAILY carvedilol 12.5 mg (1/2 x 25 mg) PO BID furosemide 20 mg PO DAILY PRN sacubitril-valsartan 24-26 mg (Entresto) 1 tab PO BID warfarin See Protocol 2.5mg x 2 days/ 1.25mg x 5 day orally; Nursing Note INR: 3.2 almost therapeutic range Medications and supplements reviewed No changes in health, diet, medications, or supplements, Denies any signs and symptoms of bleeding or bruising or clotting. Bleeding, bruising, clotting discussed Nutritional guidance given Dose: 2.5mg x 2 days/ 1.25mg x 5 days F/U INR: 3 weeks Patient verbalizes understanding of instructions given Anti-Coag Initial Assessment Social Hx Patient Tobacco Use Status: Never used Tobacco alcohol intake: never Coding Level of Care Code Est Patient Level 1 Diagnoses Current use of anticoagulant therapy Z79.01 Assessment & Plan Assessment & Plan (1) Current use of anticoagulant therapy: Code(s): Z79.01 - [facility] (current) use of anticoagulants Category: Medical
--- OUTSIDE RECORDS SUMMARY | 2024-07-24 11:36 | XMS_ITS | Data Portability ---
Author Organization [place] - [facility] Address [address] [place] [phone] Care Team Providers Care Panel Fitter Name Role Phone SONAL ABREU Primary Care [...] W or w/o pelvis 2-3 V-lt 2021 [facility] Corporate Office ([facility] [address] [place], [address], 13:06:50 unlisted imaging order - hip uni W or w/o pelvis 2-3 V-RT [facility] [employer] [address] [facility], [place], [address], 13:06:50 Medication Orders None recorded. Patient TargetsNo [...] JOHNSON M.D. 10/14/19 12:58: 02 PM EDT. [employer] [address] [facility] [place] [facility] 4, [place], [address], 10/13/2021 17:01:04 10/14/19 22 10/13/2021 hip uni [...] JOHNSON M.D. 10/14/19 12:58: [address] [facility] [address] [facility] [place] [facility] [address], [place], [address], 10/13/2021 17:01:09 Result Notes None recorded. Procedures Surgical History Date Name Laterality Status Provider Name and Address Organization Details Recorded Time cardiac pacemaker procedure completed PAULO Gonzalez [address] [place], [address], [place] [facility] 10/11/2021 15:05:34 Appendectomy completed PAULO Gonzalez [address], [place], [address], [place] [facility] 10/11/2021 15:05:42 Imaging Results Imaging Date Name Status LastModified by Organiz ation Details LastModified Time 10/13/2021 hip uni W or w/o pelvis 2-3 V completed Last 2 [employer] [address], [place], [address], 10/13/2021 17:01:04 10/13/2021 hip uni W or w/o pelvis 2-3 V completed Last 2 [employer] [address] [facility] [address], [place], [address], 10/13/2021 17:01:09 Procedure Notes None recorded. Medical Equipment None Reported. Allergies Allergen ID Allergen Name Allergen Category Reaction Reaction Severity Criticality Documentation Date Start Date Code Code System Note Provider Name and Address Organization Details Recorded Time 461659 lisinopri l medicatio n Not available Not available Not available 10/11/2021 55697 RxNorm PAULO Myers [address] [place], [address], [place] [facility] 15:01:18 Medications Name Sig Start [...] [degF] 114 mm[Hg] 54 mm[Hg] Not Available [facility] 2 14:40:45 Social History Question Answer Notes LastModified by FTB[employer] Details LastModified Time Tobacco Smoking Status Never Smoker PAULO Gonzalez [facility] [place], [address], [place] [facility] 10/11/2021 15:02:27 Excessive Alcohol Or Drug Use No Information not available 10/11/2021 Does This Patient Have A PCP? Yes Information not available 10/11/2021 Has The Patient Seen Their PCP In The Past 6 Months? Yes Information not available 10/11/2021 Is This Patient In Hospice? No Information not available 10/11/2021 Sex: Unknown Functional Status Question Answer Note LastModified by FTBpro Details LastModified Time Do you use any illicit or recreational drugs? No Information not available 10/11/2021 What is your level of alcohol consumption? None Information not available 10/11/2021 Mental Status None recorded. Family History Relationship Description Onset Age of this Age Resolved Age Notes LastModified by Organization Details LastModified Time Sister Heart disease crumplik Not available 2021 15:04:57 Sister Lupus erythematosu s [employer] Not available 2021 15:05:07 Medical History Condition Response Diabetes N Coronary Artery Disease Y CHF Y Parkinson's Disease N Cancer N Stroke N Dementia N Hypothyroidism N COPD N Asthma N Depression N High Cholesterol Y Rheumatoid Arthritis N Pulmonary Embolism N Hypertension N A-fib Y Osteoporosis N Kidney Disease N Gynecological HistoryNo gynecological history recorded. Obstetrics History GPAL:G 0 P 0 0 0 0 Past Encounters Encounter ID Performer Location Encounter Start Date Encounter Closed Date Diagnosis/Indication Diagnosis SNOMED-CT Code Diagnosis ICD10 Code Diagnosis Note [id number] PAULO Smith [facility] [address] [place] [address] 10/11/2021 14:02:15 10/12/2021 07:14:08 Pain of hip region 38444779 M25.559 Fall on sa me level from slipping, tripping or stumbling [id number] W01.0XXA Health Concerns Section Related Observation LastModified by Organization Detai ls LastModified Time None Recorded Concern Status LastModified by Organization Details LastModified Time None Recorded Advance Directives Directive None Recorded Payers Insurance Date Sequence Insurance Name Policy Number Policy Hirsch Covered Member ID Hirsch Member ID Guarantor Name 10/11/2021 1 [place] [facility] Lala Wilsonzgerald [id number] Lala Leger 10/11/2021 1 *SELF PAY* Lala Arsen [id number] Lala Leger 10/16/2021 1 [place] [facility] Lala Bateman Leger [id number] Lala Wilsonzgerald 10/11/2021 1 [place] [facility] Lala Wilsonzgerald [id number] Lala Barriosgerald 11/05/2021 2 [place] [facility] Lala Wilsonzgerald [id number] Lala Wilsonzgerald 01/21/2022 2 [place] [facility] Lala Wilsonzgerald [id number] Lala Leger Notes Date Note Type Note [...] further falls. PAULO Gonzalez [address], [place], [address], [place] [facility] 10/11/2021 17:26:17 OBGyn Episode No OBEpisode recorded.
--- OUTSIDE RECORDS SUMMARY | 2024-07-24 11:36 | XMS_ITS | Continuity of Care Document ---
Author Organization [facility] Address [address] [place] [address]- Care Team Providers Care Hspt Tutor Name Role Phone Maritza JAMES, Dorothy Montenegro Primary Care Physician [id number] Date(s): 06/18/24 - 07/18/24 [facility] [address] [place] [address]- Encounter Type: Triage Allergies, Adverse Reactions, Alerts Substance Criticality Severity Reaction Reaction Severity Status lisinopril cough Active Immunizations Given and Recorded Vaccine Date Status Refusal Reason influenza virus vaccine, inactivated 12/05/12 Finesse rded FluLaval (oldterm) 1 12/17/09 Given FluLaval (oldterm) 2 12/26/08 Given 1Admin Note: CDC info given to pt 2Admin Note: CDC info given to pt Medications amiodarone 200 mg oral tablet 0.5, tablet, By Mouth, Daily, # 45 tablet, Refills 1, Maintenance, 06/06/24 11:09:00 AM EDT, Route toPharmacy Electronically, [facility], 165, cm, 11/29/23 14:44:00 EDT, Height, 42.5, kg, 07/10/23 5:26:00 EDT, Dry Weight Start Date: 06/06/24 Status: Ordered Quantity: 45.0 Unit: tablet Repeat number: 1 atorvastatin 20 mg oral tablet 1 tablet = 20 mg, By Mouth, Daily, # 90 tablet, 3 Refills, Maintenance, 05/12/22 2:37:00 PM EST, Tablet, [facility], Partial fill upon patient request if the prescription is for a schedule II opioid drug., 162.54, cm, 05/12/22 14:04:00 EST, Height Start Date: 05/12/22 Stop Date: 05/07/23 Status: Ordered Quantity: 90.0 Unit: tablet Repeat number: 4 carvedilol 25 mg oral tablet 12.5 mg, 0.5, tablet, 2 times a day, TAKE ONE TABLET BY MOUTH TWICE DAILY Start Date: 06/21/24 Status: Ordered Repeat number: 1 carvedilol 25 mg oral tablet 1 tablet = 25 mg, By Mouth, 2 times a day, # 60 tablet, 5 Refills, Soft Stop, 07/31/08 12:55:45 PM EDT Start Date: 07/31/08 Stop Date: 08/30/08 Status: Ordered Quantity: 60.0 Unit: tablet Repeat number: 6 Coumadin Tablet = 5 mg, By Mouth, Daily, as instructed; 5 mg t//s/s; 2.5 mg M//, # 30, Maintenance, 07/23/07 11:53:44 AM EDT Start Date: 07/23/07 Status: Ordered Quantity: 30.0 Unit: Repeat number: 1 Entresto 24 mg-26 mg oral tablet 1 tablet, By Mouth, 2 times a day, # 60 tablet, 11 Refills, Maintenance, 07/29/23 9:08:00 AM EDT, Tablet, [facility], Partial fill upon patient request if the prescription is for a schedule II opioid drug., 1 tablet By Mouth 2 times a day, 165, cm, 07/29/23 8:44:00 EDT, Height, 42.5, kg, 07/10/23 5:26:00 EDT, Dry Weight Start Date: 07/29/23 Status: Ordered Quantity: 60.0 Unit: tablet Repeat number: 12 furosemide 20 mg oral tablet See Instructions, 1 tablet By Mouth Daily as needed for weight gain of 2 or more lbs or foot swelling, # 30 tablet, Refills 11, Tot. 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 H/O: TIA Confirmed Active Heart failure with reduced ejection fraction Confirmed Active Implantation of automatic cardioverter/defibril lator, total system (AICD) 1 Confirmed 2008 Active Implantation of automatic cardioverter/defibril lator, total system (AICD) Confirmed Active 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 Paroxysmal atrial fibrillation Confirmed Active PAT (paroxysmal atrial tachycardia) Confirmed Active SVT (supraventricular tachycardia) Confirmed Active Underweight Confirmed Active 1Single chamber AICD for primary prophylaxis Social History Social History Type Response Smoking Status Former smoker; Tobac co user in household: Yes; Other: quit smoking 2007; entered on: 10/19/16 Sex Sex Representation Female (finding) Patient Care team information Care Team Personnel Name: Dorothy Salas MD Position: [facility] Outreach Member Role: PCP Address: [address] [place] [address] [address] Dorothy Salas MD [place], [place] [address] Telecom: Name: Светлана JAMES, Ness Torres Position: [facility] Cardiology Member Role: Lifetime Consulting Physician Name: Yomaira Lange RN Position: [facility] RN Member Role: Primary Care Nurse Care Team Related Persons Name: WYATT GARCES Name: BOZENA CABAN Insurance Providers Guarantor name: TELLY ACOSTA Health Plan Information #: 1 Payer: HELLEN ANDREA Member Number: NA Policy Number: NA Group Number: NA Health Plan Information #: 2 Payer: [place] Member Number: NA Policy Number: NA Group Number: NA
== END 2024-07-24 10:45 | disposition home or self-care (01) ==
LOC: HO.ACS 10:25
PROVIDERS: PCP Internal Medicine; Visit Provider Internal Medicine Medical Oncology
DX: Z79.01 Long term (current) use of anticoagulants (principal)

== ENCOUNTER → 2024-07-24 10:25 | Outpatient (BNVA) | payer MEDICARE, MEDICAID, SELFPAY | PROVIDERS: PCP Internal Medicine; Visit Provider Internal Medicine Medical Oncology | DX: I48.20 Chronic atrial fibrillation, unspecified (principal); Z79.01 Long term (current) use of anticoagulants; Z51.81 Encounter for therapeutic drug level monitoring | CPT/HCPCS: 85610; 99211 ==

== ENCOUNTER 2024-08-14 10:28 | Outpatient (AMB) | payer MEDICARE, MEDICAID, SELFPAY ==
[2024-08-14 10:54] LABS: Prothrombin Time Whole Bld POC 50.1 sec (11.1-13.5); ~PT, ~INR - Anti Coag Clinic 4.2 (0.9-1.1)
--- NOTE | 2024-08-14 11:01 | MHC.OFFVISCO ---
Intake Intake Visit Reasons: Anticoagulation Allergies lisinopril Adverse Reaction (Intermediate, Verified 08/14/24 10:46) [facility] Medication List - Last Reconciled 08/14/24 by Lela Strickland RN acetaminophen 500 mg PO Q6H PRN amiodarone 100 mg PO DAILY atorvastatin 20 mg PO DAILY carvedilol 12.5 mg (1/2 x 25 mg) PO BID furosemide 20 mg PO DAILY PRN sacubitril-valsartan 24-26 mg (Entresto) 1 tab PO BID warfarin See Protocol 2.5mg x 2 days/ 1.25mg x 5 day orally; Nursing Note INR: 4.2?out of therapeutic range of 2-3 Unsure why. Went through all the reasons for a high INR with pt such as too much tylenol, increased stress or ETOH and pt denied all. Medications and supplements reviewed Patient status: feels well Medications or supplements: no changes Diet: no changes Denies any signs and symptoms of bleeding or clotting or unusual bruising Bleeding, bruising, clotting discussed Nutritional guidance given: to have a serving of greens today. Pt states she will have cooked spinach. Dose: hold today's dose and then decrease weekly dose by 1.25mg. Pt will take 1.25mg X 6 days and 2.5mg X 1 day (Tue) F/U INR Date: 1 week?? Patient verbalizing understanding of instructions given. Anti-Coag Initial Assessment Social Hx Patient Tobacco Use Status: Never used Tobacco alcohol intake: never Coding Level of Care Code Est Patient Level 1 Diagnoses Current use of anticoagulant therapy Z79.01 Results AMB INR Fingerstick AMB INR Fingerstick 4.2 Last Edit by Lela Strickland RN on 08/14/24 10:54 interface delay Assessment & Plan Assessment & Plan (1) Current use of anticoagulant therapy: Code(s): Z79.01 - [facility] (current) use of anticoagulants Category: Medical
== END 2024-08-14 11:06 | disposition home or self-care (01) ==
LOC: HO.ACS 10:28
PROVIDERS: PCP Internal Medicine; Visit Provider Internal Medicine Medical Oncology
DX: Z79.01 Long term (current) use of anticoagulants (principal)

== ENCOUNTER → 2024-08-14 10:28 | Outpatient (BNVA) | payer MEDICARE, MEDICAID, SELFPAY | PROVIDERS: PCP Internal Medicine; Visit Provider Internal Medicine Medical Oncology | DX: I48.20 Chronic atrial fibrillation, unspecified (principal); Z79.01 Long term (current) use of anticoagulants; Z51.81 Encounter for therapeutic drug level monitoring | CPT/HCPCS: 85610; 99211 ==

== ENCOUNTER 2024-08-21 11:10 | Outpatient (AMB) | payer MEDICARE, MEDICAID, SELFPAY ==
[2024-08-21 11:30] LABS: Prothrombin Time Whole Bld POC 25.6 sec (11.1-13.5); ~PT, ~INR - Anti Coag Clinic 2.1 (0.9-1.1)
--- NOTE | 2024-08-21 11:36 | MHC.OFFVISCO ---
Intake Intake Visit Reasons: Anticoagulation Allergies lisinopril Adverse Reaction (Intermediate, Verified 08/21/24 11:24) [facility] Medication List - Last Reconciled 08/21/24 by Katie Patiño RN acetaminophen 500 mg PO Q6H PRN amiodarone 100 mg PO DAILY atorvastatin 20 mg PO DAILY carvedilol 12.5 mg (1/2 x 25 mg) PO BID furosemide 20 mg PO DAILY PRN sacubitril-valsartan 24-26 mg (Entresto) 1 tab PO BID warfarin See Protocol 2.5mg x 2 days/ 1.25mg x 5 day orally; Nursing Note INR: 2.1 in therapeutic range Medications and supplements reviewed No changes in health, diet, medications, or supplements, Denies any signs and symptoms of bleeding or bruising or clotting. Bleeding, bruising, clotting discussed Nutritional guidance given Dose: 2.5MG wed/ 1.25mg x 5 days F/U INR: 2 week f/u due to recent dose change Patient verbalizes understanding of instructions given Anti-Coag Initial Assessment Social Hx Patient Tobacco Use Status: Never used Tobacco alcohol intake: never Questionnaires HAS-BLED Does the patient had uncontrolled Hypertension?: No Does the patient have renal disease?: No Does the patient have liver disease?: No Does the patient have a history of stroke?: No Has the patient had major bleeding or predisposition to bleeding?: Yes Does the patient have labile INRs?: No Is the patient over 65 years of age?: Yes Is the patient on medications that gives them a predisposition to bleeding?: Yes Does the patient use alcohol?: No HAS-BLED Score: 3 CHADSVASC Age: 75 or over Gender: Female Does the patient have a history of CHF?: Yes Does the patient have a history of Hypertension?: Yes Does the patient have a history of Stroke/TIA/Thromboembolism?: Yes (PA 2007) Does the patient have a history of Vascular Disease (prior PA, PAD or aortic plaque)?: Yes Does the patient have a history of Diabetes?: No CHADS VACS Score: 8 Jennifer Prediction Score Rsk VTE Active Cancer: No Previous VTE, excluding superficial vein thrombosis: No Reduced mobility: No Already known Thrombophilic Condition: No With-in last month Trauma and/or Surgery: No Elderly 70 year or older: Yes Heart and/or Respiratory Failure: Yes Acute Myocardial infarction and/or Ischemic Stroke: Yes Acute Infection and/or Rheumatologic Disorder: No Obesity (BMI 30 or greater): No Ongoing Hormonal Treatment: No Score: 3 Jennifer Score less than 4; Low Risk of VTE Jennifer Score 4 or greater; High Risk of VTE Coding Level of Care Code Est Patient Level 1 Diagnoses Current use of anticoagulant therapy Z79.01 Results AMB INR Fingerstick AMB INR Fingerstick 2.1 Last Edit by Katie Patiño RN on 08/21/24 11:33 MANUAL ENTRY Assessment & Plan Assessment & Plan (1) Current use of anticoagulant therapy: Code(s): Z79.01 - residential (current) use of anticoagulants Category: Medical
--- OUTSIDE RECORDS SUMMARY | 2024-08-21 12:46 | XMS_ITS | Data Portability ---
Author Organization [place] [facility] Address [address] [place] [phone] Care Team Providers Care Area Coordinator Name Role Phone SONAL ABREU Primary Care [...] W or w/o pelvis 2-3 V-lt [facility] ([facility] [address] [place], [address], 13:06:50 unlisted imaging order - hip uni W or w/o pelvis 2-3 V-RT 2021 [facility] Corporate Office ([facility]), [address] [facility], [place], [address], 13:06:50 Medication Orders None recorded. Patient TargetsNo [...] JOHNSON M.D. 10/14/19 12:58: 02 PM EDT. [id number] [employer] [address] [place] [address] 4, [place], [address], 10/13/2021 17:01:04 10/14/19 22 10/13/2021 hip uni [...] JOHNSON M.D. 10/14/19 12:58: 02 PM EDT. [id number] [facility] [address] [facility] [address], [place], [address], 10/13/2021 17:01:09 Result Notes None recorded. Procedures Surgical History Date Name Laterality Status Provider Name and Address Organization Details Recorded Time cardiac pacemaker procedure completed PAULO Gonzalez [address], [place], [address], [place] [facility] 10/11/2021 15:05:34 Appendectomy completed PAULO Gonzalez [address], [place], [address], [place] [facility] 10/11/2021 15:05:42 Imaging Results None recorded. Procedure Notes None recorded. Medical Equipment None Reported. Allergies Allergen ID Allergen Name Allergen Category Reaction Reaction Severity Criticality Documentation Date Start Date Code Code System Note Provider Name and Address Organization Details Recorded Time 447022 lisinopri l medicatio n Not available Not available Not available 10/11/2021 97496 RxNorm PAULO Myers [address], [place], [address], [place] [facility] 15:01:18 Medications Name Sig Start Date Stop [...] [degF] 114 mm[Hg] 54 mm[Hg] Not Available [facility] 14:40:45 Social History Question Answer Notes LastModified by Organizat ion Details LastModified Time Tobacco Smoking Status Never Smoker PAULO Gonzalez [address] [place], [address], [place] [facility] 10/11/2021 15:02:27 Excessive Alcohol Or Drug Use No Information not available 10/11/2021 Does This Patient Have A PCP? Yes Information not available 10/11/2021 Has The Patient Seen Their PCP In The Past 6 Months? Yes Information not available 10/11/2021 Is This Patient In Hospice? No Information not available 10/11/2021 Sex: Unknown Functional Status Question Answer Note LastModified by Organizat ion Details LastModified Time Do you use any [...] available 2021 15:05:07 Medical History Condition Response Coronary Artery Disease Y COPD N Depression N Hypothyroidism N A-fib Y Cancer N Stroke N High Cholesterol Y Rheumatoid Arthritis N Kidney Disease N Parkinson's Disease N Diabetes N CHF Y Dementia N Asthma N Pulmonary Embolism N Hypertension N Osteoporosis N Gynecological HistoryNo gynecological history recorded. Obstetrics History GPAL:G 0 P 0 0 0 0 Past Encounters Encounter ID Performer Location Encounter Start Date Encounter Closed Date Diagnosis/Indication Diagnosis SNOMED-CT Code Diagnosis ICD10 Code Diagnosis Note [id number] PAULO Smith [facility] [address] [place] [address] 10/11/2021 14:02:15 10/12/2021 07:14:08 Pain of hip region 70909728 M25.559 Fall on sa me level from slipping, tripping or stumbling 066299400 W01.0XXA Health Concerns Section Related Observation LastModified by Organization Detai ls LastModified Time None Recorded Concern Status LastModified by Organization Details LastModified Time None Recorded Advance Directives Directive None Recorded Payers Insurance Date Sequence Insurance Name Policy Number Policy Hirsch Covered Member ID Hirsch Member ID Guarantor Name 10/11/2021 1 [place] B-[place]: [facility] Lala Leger [id number] Lala Leger 10/11/2021 1 *SELF PAY* Lala Leger [id number] Lala Leger 10/16/2021 1 [place] [facility] Lala Leger [id number] Lala Leger 10/11/2021 1 [place] [facility] Lala Leger [id number] Lala Leger 11/05/2021 2 [place] [facility] Lala Leger [id number] Lala Leger 01/21/2022 2 [place] [facility] Lala Leger [id number] Lala Leger Notes Date Note Type Note [...] further falls. PAULO Gonzalez [address], [place], [address], [place] [facility] 10/11/2021 17:26:17 OBGyn Episode No OBEpisode recorded.
== END 2024-08-21 11:41 | disposition home or self-care (01) ==
LOC: HO.ACS 11:10
PROVIDERS: PCP Internal Medicine; Visit Provider Internal Medicine Medical Oncology
DX: Z79.01 Long term (current) use of anticoagulants (principal)

== ENCOUNTER → 2024-08-21 11:10 | Outpatient (BNVA) | payer MEDICARE, MEDICAID, SELFPAY | PROVIDERS: PCP Internal Medicine; Visit Provider Internal Medicine Medical Oncology | DX: I48.20 Chronic atrial fibrillation, unspecified (principal); Z79.01 Long term (current) use of anticoagulants; Z51.81 Encounter for therapeutic drug level monitoring | CPT/HCPCS: 85610; 99211 ==

== ENCOUNTER 2024-09-04 10:00 | Outpatient (AMB) | payer MEDICARE, MEDICAID, SELFPAY ==
--- OUTSIDE RECORDS SUMMARY | 2024-08-30 23:59 | XMS_ITS | Continuity of Care Document ---
Author Organization [facility] Address [address] [place] [address]- Care Team Providers Care Machine Pecan Gatherer Name Role Phone Maritza JAMES, Dorothy Montenegro Primary [id number] Date(s): 07/31/24 - 08/30/24 [facility] [address] [place] [address]- Encounter Type: Triage Allergies, Adverse Reactions, Alerts Substance Criticality Severity Reaction Reaction Severity Status lisinopril cough Active Immunizations Given and Recorded Vaccine Date Status Refusal Reason influenza virus vaccine, inactivated 12/05/12 Finesse rded FluLaval (oldterm) 1 12/17/09 Given FluLaval (oldterm) 2 12/26/08 Given 1Admin Note: [facility] info given to pt 2Admin Note: CDC info given to pt Medications amiodarone 200 mg oral tablet 0.5, tablet, By Mouth, Daily, # 45 tablet, Refills 1, Maintenance, 06/06/24 11:09:00 AM EDT, Route toPharmacy Electronically, [facility], 165, cm, 11/29/23 14:44:00 EDT, Height, 42.5, kg, 07/10/23 5:26:00 EDT, Dry Weight Start Date: 06/06/24 Status: Ordered Quantity: 45.0 Unit: tablet Repeat number: 1 atorvastatin 20 mg oral tablet 1 tablet = 20 mg, By Mouth, Daily, # 90 tablet, 3 Refills, Maintenance, 05/12/22 2:37:00 PM EST, Tablet, [facility], Partial fill upon patient request if [...] as instructed; 5 mg t//s/s; 2.5 mg //, # 30, Maintenance, 07/23/07 11:53:44 AM EDT Start Date: 07/23/07 Status: Ordered Quantity: 30.0 Unit: Repeat number: 1 Entresto 24 mg-26 mg oral tablet 1 tablet, By Mouth, 2 times a day, # 60 tablet, 5 Refills, Maintenance, 07/31/24 8:23:00 AM EDT, [facility], 30, 1 tablet By Mouth 2 times a day, 165, cm, 06/21/24 14:30:00 EDT, Height, 42.5, kg, 07/10/23 5:26:00 EDT, Dry Weight Start Date: 07/31/24 Status: Ordered Quantity: 60.0 Unit: tablet Repeat number: 6 furosemide 20 mg oral tablet See Instructions, 1 tablet By Mouth Daily as needed for weight gain of 2 or more lbs or foot swelling, # 30 tablet, Refills 11, Tot. Refills 11, Maintenance, 07/29/23 9:10:00 AM EDT, Instructions Replace Required Details, Route to Pharmacy Electronically, [facility], Partial fill upon patient request if [...] Team Personnel Name: Dorothy Salas MD Position: [facility] Outreach Member Role: PCP Address: [address] [place] [address] [address] Dorothy Salas MD [address] Telecom: Name: Светлана JAMES, Nses Torres Position: [facility] Cardiology Member Role: Lifetime Consulting Physician Name: Yomaira Lange RN Position: [facility] RN Member Role: Primary Care Nurse Care Team Related Persons Name: WYATT GARCES Name: BOZENA CABAN Insurance Providers Guarantor name: TELLY KEARNSZGERALD [facility] Information #: 1 Payer: HELLEN ANDREA Payer Identifier: NA Member Number: [id number] Group Number: [id number] Subscriber Identifier: [id number] Relationship to Subscriber: self Coverage Type: NA Coverage Verification Date: NA Telecom: NA Address: Health Plan Information #: 2 Payer: [employer] Payer Identifier: NA Member Number: [id number] Group Number: Subscriber Identifier: [id number] Relationship to Subscriber: self Coverage Type: MEDICAID Coverage Verification Date: Telecom: Address:
[2024-09-04 10:22] LABS: Prothrombin Time Whole Bld POC 36.9 sec (11.1-13.5); ~PT, ~INR - Anti Coag Clinic 3.1 (0.9-1.1)
--- NOTE | 2024-09-04 10:29 | MHC.OFFVISCO ---
Intake Intake Visit Reasons: Anticoagulation Allergies lisinopril Adverse Reaction (Intermediate, Verified 09/04/24 10:16) [facility] Medication List - Last Reconciled 09/04/24 by Lela Strickland, CIRA acetaminophen 500 mg PO Q6H PRN amiodarone 100 mg PO DAILY atorvastatin 20 mg PO DAILY carvedilol 12.5 mg (1/2 x 25 mg) PO BID furosemide 20 mg PO DAILY PRN sacubitril-valsartan 24-26 mg (Entresto) 1 tab PO BID warfarin See Protocol 2.5mg x 2 days/ 1.25mg x 5 day orally; Nursing Note INR: 3.1 out of therapeutic range of 2-3 Medications and supplements reviewed No changes in health, diet, medications, or supplements, Denies any signs and symptoms of bleeding or bruising or clotting. Bleeding, bruising, clotting discussed Nutritional guidance given to have a serving of greens today Dose: 1.25mg X 6 days and 2.5mg X 1 day (Tue) F/U INR: 2 weeks Patient verbalizes understanding of instructions given Anti-Coag Initial Assessment Social Hx Patient Tobacco Use Status: Never used Tobacco alcohol intake: never Coding Level of Care Code Est Patient Level 1 Diagnoses Current use of anticoagulant therapy Z79.01 Assessment & Plan Assessment & Plan (1) Current use of anticoagulant therapy: Code(s): Z79.01 - halfway (current) use of anticoagulants Category: Medical
--- OUTSIDE RECORDS SUMMARY | 2024-09-04 11:00 | XMS_ITS | Data Portability ---
Author Organization [place] [facility] Address [address] [place] [phone] Care Team Providers Care Shade Maker Name Role Phone GISELLESONAL DICKINSON Primary Care Provider Assessment Encounter Date Assessment [...] effusions, Neuro: No focal deficits, A&O x4, CN s II-XII grossly normal, gait is not [...] w/o pelvis 2-3 V-lt 2021 [facility] Corporate Office (Counts [facility]), [address] [place], [address], 13:06:50 unlisted imaging order - hip uni W or w/o pelvis 2-3 V-RT [facility]), [address] [facility], [place], [address], 13:06:50 Medication Orders None recorded. Patient TargetsNo [...] JOHNSON M.D. 10/14/19 12:58: 02 PM EDT. [id number] [employer] [address] [place] [address] 4, [place], [address], 10/13/2021 17:01:04 10/14/19 22 10/13/2021 hip uni [...] JOHNSON M.D. 10/14/19 12:58: 02 PM EDT. [id number] [facility] [address] [facility] [address], [place], [address], 10/13/2021 17:01:09 Result Notes None recorded. Procedures Surgical History Date Name Laterality Status Provider Name and Address Organization Details Recorded Time cardiac pacemaker procedure completed PAULO Gonzalez [address], [place], [address], [place] [facility] 10/11/2021 15:05:34 Appendectomy completed PAULO Gonzalez [address], [place], [address], [place] [facility] 10/11/2021 15:05:42 Imaging Results None recorded. Procedure Notes None recorded. Medical Equipment None Reported. Allergies Allergen ID Allergen Name Allergen Category Reaction Reaction Severity Criticality Documentation Date Start Date Code Code System Note Provider Name and Address Organization Details Recorded Time 800583 lisinopri l medicatio n Not available Not available Not available 10/11/2021 23560 RxNorm PAULO Myers [address] [place], [address], [place] [facility] 15:01:18 Medications Name [...] Status Never Smoker PAULO Gonzalez [address] [place], [address], [place] [facility] 10/11/2021 15:02:27 Excessive Alcohol Or Drug Use [...] N Cancer N Stroke N Dementia N Asthma N COPD N Depression N Hypothyroidism N High Cholesterol Y Rheumatoid Arthritis N Pulmonary Embolism N Hypertension N A-fib Y Osteoporosis N Kidney Disease N Gynecological HistoryNo gynecological history recorded. Obstetrics History GPAL:G 0 P 0 0 0 0 Past Encounters Encounter ID Performer Location Encounter Start Date Encounter Closed Date Diagnosis/Indication Diagnosis SNOMED-CT Code Diagnosis ICD10 Code Diagnosis Note [id number] PAULO [facility] [address] [place] [address] 10/11/2021 14:02:15 10/12/2021 07:14:08 Pain of hip region 09304567 M25.559 Fall on sa me level from slipping, tripping or stumbling 990713661 W01.0XXA Health Concerns Section Related Observation LastModified by Organization Detai ls LastModified Time None Recorded Concern Status LastModified by Organization Details LastModified Time None Recorded Advance Directives Directive None Recorded Payers Insurance Date Sequence Insurance Name Policy Number Policy Hirsch Covered Member ID Hirsch Member ID Guarantor Name 10/11/2021 1 [place] [facility] Lala Leger [id number] Lala Leger 10/11/2021 1 *SELF PAY* Lala Leger [id number] Lala Leger 10/16/2021 1 [place] [facility] Lala Leger [id number] Lala Leger 10/11/2021 1 [place] [facility] Lala Leger [id number] Lala Leger 11/05/2021 2 [place] [facility] Lala Leger [id number] Lala Leger 01/21/2022 2 [place] [facility] Lala Leger [id number] Lala Leger Notes Date Note Type Note [...] further falls. PAULO Gonzalez [address], [place], [address], [place] [facility] 10/11/2021 17:26:17 OBGyn Episode No OBEpisode recorded.
--- OUTSIDE RECORDS SUMMARY | 2024-09-04 11:01 | XMS_ITS | Patient Health Record ---
Author Organization [facility] Address [address] [place] [address] Care Team Providers Care Cadastral Engineer Name Role Phone Dorothy Salas Primary Care Provider Unavailab Ryley Carroll Unavailable [phone] Allergies Allergen (clinical drug ingredient) Drug/Non Drug Allergy documented on EMR Reaction Allergy Type Onset Date Status Lisinopril Unknown Drug Allergy Active Reason For Referral No Information Medications Medication SIG (Take, Route, Frequency, Duration) Notes Start Date End Date Status Carvedilol 25 MG 1 tablet with food O rally Twice a day; Duration: 30 day(s) Active Atorvastatin Calcium 20 MG 1 tablet Oral ly Once a day; Duration: 30 day(s) Active Spironolactone-HCTZ 25-25 MG 1 tablet Orally Once a day; Duration: 30 day(s) Active Amiodarone HCl 100 MG 1 tablet Orally On ce a day; Duration: 30 day(s) Active Entresto 49-51 MG 1 tablet Orally Twic e a day; Duration: 30 day(s) Active Warfarin Sodium 2.5 MG 1 tablet Orally O nce a day; Duration: 30 day(s) Active Social History Tobacco Use: Social History Observation Description Date Details (start date - stop date) Current Smoker 02/04/2003 - NA Tobacco Use/Smoking Question Answer Notes Are you a: current smoker When did you start smoking? 02/04/2003 Alcohol Screen Question Answer Notes Did you have a drink containing alcohol in the p ast year? No Points 0 Interpretation Negative Tobacco use other than smoking: Question Answer Notes Are you an other tobacco user? No Problems Problem Type SNOMED Code ICD Code Onset Dates Problem Status W/U Status Risk Notes Problem Plantar wart (B07.0) Active confirmed Plan Of Treatment Pending Test Test Name Order Date [id number] Destruction, 1-14 12/14/2019 Insurance Providers Payer Name Payer Address Payer Phone Subscriber Number Group Number Insured Name Patient Relationship to Insured Coverage Start Date Coverage End Date [employer] [address] [place] [address] [id number] Lala Tucker Self - patient is the insured Medical (General) History Medical History History ICD Code CAD CHF [place] - 2007 Surgical History Surgery Date(Month/Year)
== END 2024-09-04 10:30 | disposition home or self-care (01) ==
LOC: HO.ACS 10:00
PROVIDERS: PCP Internal Medicine; Visit Provider Internal Medicine Medical Oncology
DX: Z79.01 Long term (current) use of anticoagulants (principal)

== ENCOUNTER → 2024-09-04 10:00 | Outpatient (BNVA) | payer MEDICARE, MEDICAID, SELFPAY | PROVIDERS: PCP Internal Medicine; Visit Provider Internal Medicine Medical Oncology | DX: I48.20 Chronic atrial fibrillation, unspecified (principal); Z79.01 Long term (current) use of anticoagulants; Z51.81 Encounter for therapeutic drug level monitoring | CPT/HCPCS: 85610; 99211 ==

== ENCOUNTER 2024-09-08 08:33 | Inpatient (IN) | payer MEDICARE, MEDICAID, SELFPAY ==
[2024-09-08] VITALS (11 sets, daily range): BP systolic 87–118; BP diastolic 58–76; PULSE 65–76; RESP 16–26; TEMP 36.4–37.2; O2SAT 87–97; BMI 16.8
--- NOTE | ~2024-09-08 | XR_ITS ---
CLINICAL HISTORY: SOB 1 view chest x-ray Comparison: CT/SR - CT ANGIO CHEST PE PROTOCOL - 04/21/24 10:45 EST CR/SR - XR CHEST 1V - 04/20/24 09:24 EST Findings: New mdiks-ow-uwghners left effusion with overlying consolidation. Chronic coarse interstitial markings diffusely. Cardiac and mediastinal contours are prominent but stable. No acute fracture. IMPRESSION: [id number] left effusion with overlying consolidation. Possible pneumonia. This document has been electronically signed by: Fernando Rangel MD on 09/08/2024 09:14:38
--- NOTE | ~2024-09-08 | XR_ITS ---
EXAMINATION: XR CHEST 1 VIEW HISTORY: Hypoxia, F U effusion and pulm edema COMPARISON: Comparison is made with the prior examination dated 09/08/2024. FINDINGS: A single AP portable view of the chest performed at 12:50 PM is submitted. Again seen is a small to moderate left pleural effusion and trace right pleural effusion. Underlying atelectasis or pneumonia at the left lung base is not excluded. There is subsegmental atelectasis at the right lung base. There is no pneumothorax or pulmonary vascular congestion. The heart remains enlarged. The aorta is calcified. There is degenerative disc disease of the spine. XR/XR chest 1V IMPRESSION: Cardiomegaly. Small to moderate left pleural effusion. Underlying atelectasis or pneumonia is not excluded. Electronically signed by: Tae Tavarez MD 09/10/2024 01:05 PM EDT
--- NOTE | 2024-09-08 08:51 | ECG_ITS ---
Test Reason : sob Blood Pressure : */* mmHG Vent. Rate : 63 BPM Atrial Rate : 63 BPM P-R Int : 182 ms QRS Dur : 184 ms QT Int : 518 ms P-R-T Axes : 38 -34 48 degrees QTcB Int : 530 ms Normal sinus rhythm Possible Left atrial enlargement Left axis deviation Left bundle branch block Abnormal ECG When compared with ECG of 20-Apr-2024 08:49, Nonspecific T wave abnormality no longer evident in Inferior leads Referred By: Gay Bennett Electronically Signed By: MARIO PICKARD MD
--- NOTE | 2024-09-08 08:55 | ED.SOB ---
HPI - SOB/Dyspnea General Chief Complaint: Dyspnea Stated Complaint: shortness of breath x1 week Time Seen by Provider: 09/08/24 08:41 Source: patient, EMS and old records reviewed Mode of arrival: EMS Limitations: no limitations History of Present Illness ED Provider: DR. Bennett HPI Narrative: 79-year-old female with PMH paroxysmal AFib on warfarin, [place] in 2007, pacemaker, TIA, HTN, HLD, COPD. cardiomyopathy with ejection fraction of 10-15% with aneurysmal anteroseptal wall. Patient presented for evaluation of shortness of breath, persistent cough for the past week and a half. Patient also noticed bilateral ankle swelling, patient's symptoms get worse with exertion. Patient lives home by herself, use no supplemental oxygen at home, Patient is a former smoker quit since 2007. No sick contacts, no recent travel, no recent use of antibiotic, no lower extremity swelling or tenderness. Related Data Home Medications ?Medication ?Instructions ?Recorded ?Confirmed amiodarone 200 mg tablet 100 mg PO DAILY 07/08/21 09/04/24 acetaminophen 500 mg tablet 500 mg PO Q6H PRN Pain 07/13/23 09/04/24 sacubitril 24 mg-valsartan 26 mg 1 tab PO BID 08/03/23 09/04/24 tablet (Entresto) atorvastatin 20 mg tablet 20 mg PO DAILY 10/05/23 09/04/24 warfarin 2.5 mg tablet See Rx Instructions PO .COMPLEX 05/01/24 09/04/24 furosemide 20 mg tablet 20 mg PO DAILY PRN 05/08/24 09/04/24 Previous Rx's ?Medication ?Instructions ?Recorded carvedilol 25 mg tablet 12.5 mg (1/2 x 25 mg) PO BID #30 04/26/24 tabs Allergies Allergy/AdvReac Type Severity Reaction Status Date / Time lisinopril AdvReac Intermediate COUHG Verified 09/08/24 08:46 Review of Systems Review of Systems: All other systems are reviewed and are negative Constitutional: Reports as per HPI and Reports no additional constitutional complaints Eyes: Reports as per HPI and Reports no additional eye complaints Reports system reviewed and no additional complaints, except as documented Cardiovascular: Reports as per HPI and Reports no additional cardiovascular complaints Respiratory: Reports as per HPI and Reports no additional respiratory complaints Gastrointestinal: Reports as per HPI and Reports no additional gastrointestinal complaints Genitourinary: Reports no additional female genitourinary complaints Musculoskeletal: Reports no additional musculoskeletal complaints Skin/Breast: Reports system reviewed and no additional complaints, except as docu Psychiatric: Reports no additional psychiatric complaints Endocrine: Reports no additional endocrine complaints Hematologic/Lymphatic: Reports no additional hematologic/lymphatic complaints Allergic/Immunologic: Reports no additional allergic/immunologic complaints Reports system reviewed and no additional complaints, except as documented and Reports Abnormal speech present [facility] Past Medical History Medical History CAD (coronary artery disease) Hyperlipidemia Afib HTN (hypertension) Social History Social History Household Members: Family [facility]: [facility] Do you presently have visiting nurse or other home services: No Alcohol intake: never Patient Tobacco Use Status: Never used Tobacco Smoked in Last 30 Days: No Use of substances other than those prescribed or required for medical reasons: No Advance Directives: Yes Advance Directives Information Provided: No Advance Directives on File: No service: No Physical Exam Vital Signs: Vital Signs: Last Vital Signs Temp 97.5 F 09/08/24 12:16 Pulse 69 09/08/24 12:16 Resp 20 09/08/24 12:16 BP 108/66 09/08/24 12:16 Pulse Ox 92 09/08/24 12:16 O2 Del Method Nasal Cannula 09/08/24 12:16 O2 Flow Rate 2 09/08/24 12:16 BMI result Body Mass Index 16.8 Vital signs have been reviewed and appear to be correct. Blood pressure elevated. Heart rate normal. Respiratory rate normal. Temperature normal. Oxygen saturation normal. Appearance: Alert. Oriented X3. No acute distress. Head: Normal external exam. Normocephalic. Atraumatic. No Fine signs noted. No raccoon eyes noted Eyes: PERRLA. EOMI. Conjunctiva and sclera normal. Eyelids normal. ENT: TM's Normal. Pharynx normal. Uvula midline. Moist mucous membranes. No trismus noted. No drooling noted. No muffled voice noted. Neck: Normal inspection. Neck supple. FROM. No adenopathy. Thyroid Normal. No meningeal signs. No neck mass noted. CVS: Normal heart rate and rhythm. Heart sound normal. No murmurs noted. Pulses normal throughout. Respiratory: No respiratory distress. Painless inspiration. Breath sounds normal. Bilateral basilar rales, diffuse expiratory wheezing with prolonged expiration. Chest nontender. No accessory muscle usage noted or decreased air movement noted. Abdomen: Soft and nontender. Bowel sounds normal in all 4 quadrants. No distention noted. No organomegaly noted. No visible injury noted. Back: No CVA tenderness. Full range of motion noted. Skin: Skin warm and dry. Normal skin color. Normal skin turgor. No rashes/lesions/lacerations noted. Extremities: No lower extremity edema. Extremities exhibit normal range of motion. Extremities nontender. Neuro: Oriented X 3. Cranial nerve exam: II-XII are grossly intact No motor deficit. No sensory deficit. Reflexes normal. Course Reevaluation(s) Reevaluation #1: shortness of breath is likely multifactorial due to pneumonia, no sepsis patient received ceftriaxone, doxycycline, and 400 cc of normal saline. Patient also with mild CHF and elevated BNP, no camille pulmonary edema on the chest x-ray. Will stop IV fluids and diurese with 20 mg of Lasix. Will admit to medical floor for further cardiac monitoring. Time: 12:28 Medications Administered Generic Name Dose Route Start Last Admin Trade Name Freq PRN Reason Stop Dose Admin Lactated Ringer's 1,000 mls @ 250 mls/hr 09/08/24 09:51 09/08/24 10:26 Lr IVCONT 09/08/24 13:50 250 mls/hr .Q4H ONE Administration Discontinued Medications Generic Name Dose Route Start Last Admin Trade Name Freq PRN Reason Stop Dose Admin Albuterol/Ipratropium 3 ml 09/08/24 09:08 09/08/24 09:13 Albuterol/Iprat 2.5/0.5mg 3 Ml Ampul.Neb INHALE 09/08/24 09:09 3 ml ONCE ONE Administration Ceftriaxone Sodium 1 gm 09/08/24 09:50 09/08/24 10:27 Ceftriaxone Sodium 1 Gm Vial IVPUSH 09/08/24 09:51 1 gm ONCE ONE Administration Furosemide 20 mg 09/08/24 12:08 09/08/24 12:13 Furosemide 20 Mg/2 Ml Vial IVPUSH 09/08/24 12:09 20 mg ONCE ONE Administration Protocol Guaifenesin/Codeine Phosphate 10 ml 09/08/24 08:54 09/08/24 09:19 Guaifen/Codeine Sf 200/20/10ml 10 Ml Liquid PO 09/08/24 08:55 10 ml Q6H ONE Administration Magnesium Sulfate 2 gm in 50 mls @ 25 mls/hr 09/08/24 08:51 09/08/24 11:03 Magnesium Sulfate/H2o IV 09/08/24 10:50 Infused ONCE ONE Infusion Doxycycline Hyclate 100 mg/ 250 mls @ 166.67 mls/hr 09/08/24 09:50 09/08/24 12:04 Sodium Chloride IV 09/08/24 11:19 Infused ONCE ONE Infusion Methylprednisolone Sodium Succinate 125 mg 09/08/24 08:51 09/08/24 09:19 Methylprednisolone Sod Succ 125 Mg/2 Ml Vial IVPUSH 09/08/24 08:52 125 mg ONCE ONE Administration Medical Decision Making Differential Diagnosis Differential Diagnoses: The differential diagnosis associated with the presentation includes ( Pneumonia, pneumothorax, pleural effusion, congestive heart failure, ACS, COPD exacerbation , electrolyte derangement, severe anemia.) Admission/Observation Consideration of admission/observation: Escalation of care including admission/observation considered Consult Healthcare Provider Management of the patient was discussed with: Hospitalist ( Dr. Wilson) Lab Data MDM Lab Attestation statement: I reviewed the patient's lab results. 09/08/24 09:03 09/08/24 09:03 Labs: Lab Results 09/08/24 09/08/24 Range/Units 09:03 10:26 WBC 6.0 (4.8-10.8) X10*3/uL RBC 3.92 L (4.20-5.50) X10*6/uL Hgb 11.7 L (12.0-16.0) g/dl Hct 35.8 L (37.0-47.0) % MCV 91.3 (80.0-98.0) fL MCH 29.8 (27.0-33.0) pg MCHC 32.7 (31.0-35.0) g/dl RDW 14.8 (11.0-16.0) % Plt Count 234 D (160-400) X10*3/uL MPV 10.4 (9.4-12.3) fL Immature Gran % (Auto) 0.3 (0.0-0.4) % Neut % (Auto) 63.4 (45-73) % Lymph % (Auto) 27.6 (20-40) % [place] % (Auto) 8.0 (2-11) % Eos % (Auto) 0.7 (0-4) % Baso % (Auto) 0.0 (0-2) % Lymph # (Auto) 1.7 (1.2-4.9) X10*3/uL [place] # (Auto) 0.5 (0.1-1.2) X10*3/uL Eos # (Auto) 0.0 (0.0-0.4) X10*3/uL Baso # (Auto) 0.0 (0.0-0.2) X10*3/uL Abs Immat Gran (auto) 0.02 (0.00-0.03) X10*3/uL Absolute Neuts (auto) 3.8 (2.0-8.3) x10*3/uL Absolute Nucleated RBC 0.000 (0.0-0.012) X10*3/uL Nucleated RBC % (auto) 0.0 (0.0-0.2) /100WBC Sodium 144 (135-145) mmol/L Potassium 4.8 D (3.3-5.1) mmol/L Chloride 112 H (96-108) mmol/L Carbon Dioxide 23 (22-29) mmol/L Anion Gap 14 (12-20) BUN 22 H (9-16) mg/dL Creatinine 0.90 (0.5-1.4) mg/dL Estim Creat Clear Calc 36.6 Estimated GFR > 60 Random Glucose 118 H (60-115) mg/dL Lactic Acid 1.4 (0.5-2.0) mmol/L Calcium 8.7 (8.4-10.2) mg/dL Total Bilirubin 1.2 H (0.0-1.0) mg/dL AST 25 (5-31) U/L ALT 21 (0-31) U/L Alkaline Phosphatase 132 H (39-117) U/L Troponin I High Sens 27.3 H D (<3.5-17.0) ng/L B-Natriuretic Peptide 64089 H (<100) pg/mL Total Protein 6.2 L (6.5-8.0) g/dL Albumin 3.8 (3.5-5.0) g/dL Independent Interpretation I performed an independent interpretation of an: Plain X-Ray ( chest:Rdfim-[id number]-[id number] left effusion with overlying consolidation. Possible pneumonia.) Radiology Impression Discussion of test interpretation with radiology: I have reviewed the radiologist's reading. External Record Review External record reviewed: Inpatient record Chronic Conditions Patient?s care impacted by: Other ( COPD, CHF.) Critical Care Time Critical Care Time Critical Care Time: Yes Total Critical Care Time: 60 Attestation: The patient was critically ill with a high probability of imminent or life-threatening deterioration. I spent greater than 30 minutes of discontinuous time evaluating the patient, delivering critical care at the bedside, discussing evaluating data with consultants. Critical care time does not include time spent performing separately billable procedures or teaching. Time spent performing critical care was 60 minutes. Discharge Plan Discharge Clinical Impression: Pneumonia, Acute exacerbation of chronic obstructive airways disease, Congestive heart failure, Hypoxia Patient Disposition: Admitted As Inpatient Print Language: Unable To Collect
[2024-09-08 09:07] LABS: MANUAL DIFF FLAG NO
[2024-09-08] MEDS: Albuterol/Iprat 2.5/0.5MG 3 ML AMPUL.NEB INHALE (09:13)
[2024-09-08 09:17] LABS: Hematocrit 35.8 % (37.0-47.0); Hemoglobin 11.7 g/dl (12.0-16.0); Imm Gran Abs Auto 0.02 X10*3/uL (0.00-0.03); Imm Gran Pct Auto 0.3 % (0.0-0.4); Lymphocytes Absolute Auto 1.7 X10*3/uL (1.2-4.9); Mean Corpuscular HGB Conc 32.7 g/dl (31.0-35.0); Mean Corpuscular Hemoglobin 29.8 pg (27.0-33.0); Mean Corpuscular Volume 91.3 fL (80.0-98.0); NRBC Abs Auto 0.000 X10*3/uL (0.0-0.012); NRBC Pct Auto 0.0 /100WBC (0.0-0.2); Platelet Count 234 X10*3/uL (160-400); Red Blood Count 3.92 X10*6/uL (4.20-5.50); White Blood Count 6.0 X10*3/uL (4.8-10.8)
[2024-09-08] MEDS: Magnesium Sulfate/H2O 2 GM/50 ML PIGGYBACK IV (09:19)
[2024-09-08] MEDS: guaiFEN/Codeine SF 200/20/10ML 10 ML LIQUID PO (09:19)
[2024-09-08 09:21] LABS: Alanine Aminotransferase 21 U/L (0-31); Albumin Level 3.8 g/dL (3.5-5.0); Alkaline Phosphatase 132 U/L (39-117); Anion Gap 14 (12-20); Aspartate Amino Transferase 25 U/L (5-31); Blood Urea Nitrogen 22 mg/dL (9-16); Calcium 8.7 mg/dL (8.4-10.2); Carbon Dioxide 23 mmol/L (22-29); Chloride 112 mmol/L (96-108); Creatinine Clr Calc Pharmacy 36.6; Estimated Glomerular Filt Rate > 60; Potassium 4.8 mmol/L (3.3-5.1); Sodium 144 mmol/L (135-145); Total Protein 6.2 g/dL (6.5-8.0)
[2024-09-08 09:28] LABS: Troponin-I High Sensitivity 27.3 ng/L (<3.5-17.0)
[2024-09-08 10:10] LABS: B Type Natriuretic Peptide 10211 pg/mL (<100)
[2024-09-08] MEDS: Lactated Ringers 1,000 ML 250 ML IVCONT (10:26)
--- NOTE | 2024-09-08 10:35 | PC.NURSE ---
patient sat noted to be 87% on room air, placed on 2l NC with good recovery
[2024-09-08] MEDS: Furosemide 20 MG/2 ML VIAL IVPUSH ×2 (12:13→12:33)
--- NOTE | 2024-09-08 12:38 | PC.NURSE ---
500ml of LR infused, IVF stopped per MD Wilson
--- NOTE | 2024-09-08 12:48 | PHA.MEDREC ---
Pharmacy Consult ? Medication Reconciliation Pharmacy has completed the medication reconciliation, spoke to patient at bedside who confirmed all medications.
--- NOTE | 2024-09-08 13:28 | PM.IMHP ---
History of Present Illness Date of Service: 09/08/24 Chief Complaint: Shortness of breath 79-year-old female with a history of paroxysmal atrial fibrillation, CAD with DE 2008 status post pacemaker, TIA, hypertension and hyperlipidemia presents with dry cough and worsening shortness of breath over the last 2 weeks. She states she knew she was in heart failure yet hoped it would resolve. Had similar presentation earlier this year. Last known echo 04/23/2024 demonstrated an LVEF of 10-15%. She states this episode did not accompany chest pain. Otherwise she has no focal complaints Review of Systems Review of Systems: Denies chest pain Admits shortness of breath that has worsened over the last 2 weeks Denies nausea vomiting diarrhea Denies fever chills [facility], [facility] Medical History (Updated 09/08/24 @ 13:34 by Tae Wilson DO) CAD (coronary artery disease) Hyperlipidemia Afib HTN (hypertension) Social History Household Members: Family Housing: [facility] Do you presently have visiting nurse or other home services: No Alcohol intake: never Patient Tobacco Use Status: Never used Tobacco Smoked in Last 30 Days: No Use of substances other than those prescribed or required for medical reasons: No Advance Directives: Yes Advance Directives Information Provided: No Advance Directives on File: No service: No Meds Allergies Allergy/AdvReac Type Severity Reaction Status Date / Time lisinopril AdvReac Intermediate COUHG Verified 09/08/24 08:46 Active Medications: Current Medications Acetaminophen (Acetaminophen 325 Mg Tablet) 650 mg PO Q6H PRN PRN Reason: Pain, Mild 1-3,fever,headache Amiodarone HCl (Amiodarone Hcl 200 Mg Tablet) 100 mg PO DAILY [facility] Atorvastatin Calcium (Atorvastatin Calcium 20 Mg Tablet) 20 mg PO BEDTIME RENETTA Calcium Carbonate (Calcium Carbonate 750 Mg Tab.Chew) 750 mg PO Q4H PRN PRN Reason: Heartburn Carvedilol (Carvedilol 12.5 Mg Tablet) 12.5 mg PO BID RENETTA; Protocol Lactated Ringer's (Lr) 1,000 mls @ 250 mls/hr IVCONT .Q4H ONE Stop: 09/08/24 13:50 Last Infusion: 09/08/24 12:37 Dose: 0 mls/hr Magnesium Hydroxide (Milk Of Magnesia 30 Ml Oral.Susp) 30 ml PO DAILY PRN PRN Reason: Constipation Melatonin (Melatonin 3 Mg Tablet) 6 mg PO BEDTIME PRN PRN Reason: Insomnia Ondansetron HCl (Ondansetron Hcl 4 Mg/2 Ml Vial) 4 mg IVPUSH Q8H PRN PRN Reason: Nausea and Vomiting Sacubitril/Valsartan (Sacubitril/Valsartan 1 Tab Tablet) 1 tab PO BID [facility]; Protocol Sodium Chloride (0.9 % Sodium Chloride Flush 3 Ml Syringe) 3 ml IVFLUSH QSHIFT [facility] Warfarin Sodium (Warfarin Sodium 2.5 Mg Tablet) 2.5 mg PO WE@1800 [facility] Warfarin Sodium (Warfarin Sodium 2.5 Mg Tablet) mg PO SUMOTUTHFRSA@1800 [facility] Home Medications ?Medication ?Instructions ?Recorded ?Confirmed ?Last Taken ?Type amiodarone 200 mg tablet 100 mg PO DAILY 07/08/21 09/08/24 09/07/24 History acetaminophen 500 mg tablet 500 mg PO Q6H PRN Pain 07/13/23 09/08/24 Unknown History sacubitril 24 mg-valsartan 26 mg 1 tab PO BID 08/03/23 09/08/24 09/07/24 History tablet (Entresto) atorvastatin 20 mg tablet 20 mg PO BEDTIME 10/05/23 09/08/24 09/07/24 History warfarin 2.5 mg tablet 2.5 mg PO SUMOTUTHFRSA@1800 05/01/24 09/08/24 09/07/24 History furosemide 20 mg tablet 20 mg PO DAILY PRN Edema 05/08/24 09/08/24 09/07/24 History warfarin 2.5 mg tablet 2.5 mg PO WE@1800 09/08/24 09/08/24 09/05/24 History Physical Exam Vital Signs and Narrative: Vital Signs: Last Vital Signs Temp 97.5 F 09/08/24 12:16 Pulse 69 09/08/24 12:16 Resp 20 09/08/24 12:16 BP 116/76 09/08/24 12:33 Pulse Ox 92 09/08/24 12:16 O2 Del Method Nasal Cannula 09/08/24 12:16 O2 Flow Rate 2 09/08/24 12:16 BMI result Body Mass Index 16.8 Const: Other: Awake alert oriented x3 speaking in short sentences but no respiratory distress Resp: Other: Bilateral crackles from inferior scapular border to bases Cardio: Other: No S4; positive S1-S2; no S3 murmurs rubs or gallops GI: Other: Soft nontender nondistended normoactive bowel sounds Neuro: Other: Cranial nerves 2-12 grossly intact as tested. Motor is 5/5 all extremities. Sensation is intact. Cognition appropriate. Gait not observed Extrem: Other: No edema bilaterally Results Labs 09/08/24 09:03 09/08/24 09:03 Labs: Laboratory Results - last 24 hr 09/08/24 09/08/24 09:03 10:26 MCV 91.3 MCH 29.8 MCHC 32.7 RDW 14.8 Plt Count 234 D MPV 10.4 Immature Gran % (Auto) 0.3 Neut % (Auto) 63.4 Lymph % (Auto) 27.6 [place] % (Auto) 8.0 Eos % (Auto) 0.7 Baso % (Auto) 0.0 Lymph # (Auto) 1.7 [place] # (Auto) 0.5 Eos # (Auto) 0.0 Baso # (Auto) 0.0 Abs Immat Gran (auto) 0.02 Absolute Neuts (auto) 3.8 Absolute Nucleated RBC 0.000 Nucleated RBC % (auto) 0.0 Anion Gap 14 Estim Creat Clear Calc 36.6 Estimated GFR > 60 Random Glucose 118 H Lactic Acid 1.4 Calcium 8.7 Total Bilirubin 1.2 H AST 25 ALT 21 Alkaline Phosphatase 132 H Troponin I High Sens 27.3 H D B-Natriuretic Peptide 39495 H Total Protein 6.2 L Albumin 3.8 Assessment and Plan (1) Congestive heart failure: Qualifiers: Heart failure type: systolic Heart failure chronicity: acute Qualified Code(s): I50.21 - Acute systolic (congestive) heart failure Status: Acute (2) HTN (hypertension): Qualifiers: Hypertension type: primary hypertension Qualified Code(s): I10 - Essential (primary) hypertension Status: Acute (3) Afib: Qualifiers: Atrial fibrillation type: paroxysmal Qualified Code(s): I48.0 - Paroxysmal atrial fibrillation Status: Acute (4) CAD (coronary artery disease): Qualifiers: Coronary Disease-Associated Artery/Lesion type: unspecified vessel or lesion type [place] vs. transplanted heart: [place] heart Associated angina: without angina Qualified Code(s): I25.10 - Atherosclerotic heart disease of [place] coronary artery without angina pectoris Status: Acute Plan 79-year-old female with PMH paroxysmal AFib on warfarin, [place] in 2007, pacemaker, TIA, HTN, HLD, COPD. cardiomyopathy with ejection fraction of 10-15% presents for evaluation of shortness of breath for the past 1-2 weeks. Workup in the emergency room consistent with the acute systolic CHF 1. Acute systolic CHF (04/2024 LVEF 10-15%) -aggressive diuresis with Lasix 40 mg q.12 hours. .. Adjust based on shoulder dose -continue Coreg/Entresto as per outpatient dosing -cardiology consult in a.m. -2D echo (if appropriate after seen by Cardiology) -afterload reduction with goal 100-110 mmHg 2. Hypertension -as above; goal SBP 100-110 -continue Entresto and Coreg -adjust as indicated 3. Paroxysmal atrial fibrillation -examines in NSR today -PT/INR pending -continue Coumadin/amiodarone as per outpatient dosing -adjust as indicated 4. Left lower lobe infiltrate -ceftriaxone/azithromycin (1) -no O2 requirement at this time -likely inciting agent to this exacerbation Full code Warfarin Patient requires at least 2 midnights going forward of inpatient stay to treat acute exacerbation of congestive heart failure. This can not be done in a lesser acute setting Quality Stroke Does the patient have a stroke diagnosis?: No VTE Prior VTE?: No VTE Risk Level:: Medical - moderate - high VTE Device Contraindication: Treatment Not Indicated VTE Drug Contraindication: N/A - Med Ordered
[2024-09-08 14:18] LABS: INTERNATIONAL NORM RATIO 4.2 (0.9-1.1); Prothrombin Time 47.8 SEC (10.9-12.4)
[2024-09-08] MEDS: Sacubitril/Valsartan 24/26 1 TAB TABLET PO (21:42)
[2024-09-08] MEDS: 0.9 % Sodium Chloride Flush 3 ML SYRINGE IVFLUSH (21:42)
[2024-09-09] VITALS (8 sets, daily range): BP systolic 78–96; BP diastolic 55–61; PULSE 59–86; RESP 17–20; TEMP 36.4–36.6; O2SAT 86–94
[2024-09-09 07:21] LABS: MANUAL DIFF FLAG NO
[2024-09-09 07:26] LABS: Hematocrit 36.5 % (37.0-47.0); Hemoglobin 12.0 g/dl (12.0-16.0); Imm Gran Abs Auto 0.02 X10*3/uL (0.00-0.03); Imm Gran Pct Auto 0.3 % (0.0-0.4); Lymphocytes Absolute Auto 0.7 X10*3/uL (1.2-4.9); Mean Corpuscular HGB Conc 32.9 g/dl (31.0-35.0); Mean Corpuscular Hemoglobin 30.2 pg (27.0-33.0); Mean Corpuscular Volume 91.7 fL (80.0-98.0); NRBC Abs Auto 0.000 X10*3/uL (0.0-0.012); NRBC Pct Auto 0.0 /100WBC (0.0-0.2); Platelet Count 214 X10*3/uL (160-400); Red Blood Count 3.98 X10*6/uL (4.20-5.50); White Blood Count 5.8 X10*3/uL (4.8-10.8)
[2024-09-09 07:55] LABS: Prothrombin Time 63.0 SEC (10.9-12.4)
[2024-09-09 08:10] LABS: INTERNATIONAL NORM RATIO 5.5 (0.9-1.1)
[2024-09-09 08:29] LABS: B Type Natriuretic Peptide 8363 pg/mL (<100)
[2024-09-09 09:18] LABS: Alanine Aminotransferase 13 U/L (0-31); Albumin Level 3.5 g/dL (3.5-5.0); Alkaline Phosphatase 114 U/L (39-117); Anion Gap 15 (12-20); Aspartate Amino Transferase 16 U/L (5-31); Blood Urea Nitrogen 25 mg/dL (9-16); Calcium 8.2 mg/dL (8.4-10.2); Carbon Dioxide 22 mmol/L (22-29); Chloride 111 mmol/L (96-108); Creatinine Clr Calc Pharmacy 40.6; Estimated Glomerular Filt Rate > 60; Potassium 3.7 mmol/L (3.3-5.1); Sodium 144 mmol/L (135-145); Total Protein 5.7 g/dL (6.5-8.0)
[2024-09-09] MEDS: 0.9 % Sodium Chloride Flush 3 ML SYRINGE IVFLUSH ×3 (09:25→20:21)
--- NOTE | 2024-09-09 09:44 | P.CONCA_ITS ---
History of Present Illness History of Present Illness Date of Service: 09/09/24 Requesting physician: Tae Wilson Consult reason: congestive heart failure Chief complaint: CHF Pneumonia Narrative: I was consulted to see Lala in cardiology consultation today for acute hypoxemic respiratory failure. She has elderly 79 year female with prior history of severe ischemic cardiomyopathy LVEF of 10-15% with prior myocardial infarction 2007 as per her which did not undergo intervention. Since then she has developed congestive heart failure syndrome. She has a [employer] ICD in place for primary prevention seems like and has undergone 1 discharge probably related to atrial fibrillation. She has history of paroxysmal atrial fibrillation suppressed on amiodarone therapy in his on chronic anticoagulation warfarin. Currently on neurohormonal modulation. Admitted in April with COPD exacerbation pneumonia and congestive heart failure. At which time they echocardiogram was performed. She follows with [facility]F Clinic at [facility]. Patient came to the hospital with 2 weeks symptoms gradually started with productive cough of whitish phlegm which then eventually went on to dry cough. She continued to ignore but she had started noticing increasing exertional shortness of breath doing minimal activity including sometimes at rest just stocking she was getting short of breath. She had she had decided come to the hospital. She says she had not gained any weight or did not notice any abdominal distension or leg swelling that would prompt her to take extra Lasix. When she came to the hospital she was noted to be in hypoxemic respiratory failure with findings consistent with underlying pleural effusion with heart failure with significantly elevated BNP in the 10,000 range with a possible pneumonia. Patient has been admitted for COPD exacerbation CHF exacerbation. Has received IV Lasix. Since yesterday she says she walked to the bathroom today and feels a lot better however shortness of breath has improved and she is not short of breath at rest and talking. A blood pressures on softer side. Her Entresto and carvedilol therapy has been continued. She had also continued on amiodarone therapy. She is currently not having any chest pain. She still has some dry cough. Her BNP is downtrending to 8000 range. Her oxygen saturation still in the upper 80s but she was very comfortable at rest Review of Systems 2 Constitutional: Constitutional: Reports no additional constitutional complaints Eyes: Eyes: Reports no additional eye complaints Cardiovascular: Cardiovascular: Denies chest pain, Denies rapid heart rate, Denies leg edema, Denies lightheadedness, Denies palpitations, Reports dyspnea and Reports dyspnea on exertion Respiratory: Respiratory: Reports cough, Reports dyspnea and Reports dyspnea on exertion Gastrointestinal: Gastrointestinal: Reports no additional gastrointestinal complaints Genitourinary: Genitourinary: Reports no additional female genitourinary complaints Musculoskeletal: Musculoskeletal: Reports no additional musculoskeletal complaints Endocrine: Endocrine: Reports no additional endocrine complaints and Denies palpitations PMFSH Past Medical History Medical History CAD (coronary artery disease) Hyperlipidemia Afib HTN (hypertension) Social History Social History Household Members: None Housing: House Housing Other:: 1st floor of house. nephew lives on 2nd floor Do you presently have visiting nurse or other home services: No Alcohol intake: never Patient Tobacco Use Status: Former Tobacco user Tobacco use type: Cigarette Advance Directives Date on File: 09/08/24 service: No Meds Allergies Allergy/AdvReac Type Severity Reaction Status Date / Time lisinopril AdvReac Intermediate COUHG Verified 09/08/24 08:46 Active Medications: Current Medications Acetaminophen (Acetaminophen 325 Mg Tablet) 650 mg PO Q6H PRN PRN Reason: Pain, Mild 1-3,fever,headache Amiodarone HCl (Amiodarone Hcl 200 Mg Tablet) 100 mg PO DAILY [facility] Last Admin: 09/09/24 09:28 Dose: 100 mg Atorvastatin Calcium (Atorvastatin Calcium 20 Mg Tablet) 20 mg PO BEDTIME [facility] Last Admin: 09/08/24 21:42 Dose: 20 mg Calcium Carbonate (Calcium Carbonate 750 Mg Tab.Chew) 750 mg PO Q4H PRN PRN Reason: Heartburn Carvedilol (Carvedilol 12.5 Mg Tablet) 12.5 mg PO BID [facility]; Protocol Last Admin: 09/08/24 21:40 Dose: 12.5 mg Ceftriaxone Sodium (Ceftriaxone Sodium 1 Gm Vial) 1 gm IVPUSH Q24H [facility] Last Admin: 09/09/24 09:25 Dose: 1 gm Furosemide (Furosemide 40 Mg/4 Ml Vial) 40 mg IVPUSH BID@0900,1800 [facility]; Protocol Azithromycin 500 mg/ Sodium (Chloride) 250 mls @ 125 mls/hr IV Q24H [facility] Last Infusion: 09/08/24 21:43 Dose: Infused Magnesium Hydroxide (Milk Of Magnesia 30 Ml Oral.Susp) 30 ml PO DAILY PRN PRN Reason: Constipation Melatonin (Melatonin 3 Mg Tablet) 6 mg PO BEDTIME PRN PRN Reason: Insomnia Ondansetron HCl (Ondansetron Hcl 4 Mg/2 Ml Vial) 4 mg IVPUSH Q8H PRN PRN Reason: Nausea and Vomiting Sacubitril/Valsartan (Sacubitril/Valsartan 1 Tab Tablet) 1 tab PO BID [facility]; Protocol Last Admin: 09/08/24 21:42 Dose: 1 tab Sodium Chloride (0.9 % Sodium Chloride Flush 3 Ml Syringe) [facility] Last Admin: 09/09/24 09:25 Dose: 3 ml Warfarin Sodium (Warfarin Sodium 2.5 Mg Tablet) 2.5 mg PO WE@1800 [facility] Warfarin Sodium (Warfarin Sodium 2.5 Mg Tablet) 2.5 mg PO SUMOTUTHFRSA@1800 [facility] On Hold: 09/09/24 08:24 Comment: INR 5.5 Last Admin: 09/08/24 17:24 Dose: Not Given Home Medications ?Medication ?Instructions ?Recorded ?Confirmed ?Last Taken ?Type amiodarone 200 mg tablet 100 mg PO DAILY 07/08/2107/2909/07/24 History acetaminophen 500 mg tablet 500 mg PO Q6H PRN Pain 10/2809/08/24 Unknown History sacubitril 24 mg-valsartan 26 mg 1 tab PO BID 08/03/23 09/08/24 09/07/24 History tablet (Entresto) atorvastatin 20 mg tablet 20 mg PO BEDTIME 10/05/2309/07/24 History warfarin 2.5 mg tablet 2.5 mg PO SUMOTUTHFRSA@1800 05/01/24 09/08/24 09/07/24 History furosemide 20 mg tablet 20 mg PO DAILY PRN Edema 06/2909/08/24 09/07/24 History warfarin 2.5 mg tablet 2.5 mg PO WE@1800 09/08/24 0 09/08/24 09/05/24 History Physical Exam 2 Vital Signs: Vital Signs: Last Vital Signs Temp 97.6 F 09/09/24 07:54 Pulse 59 09/09/24 07:54 Resp 20 09/09/24 07:54 BP 96/56 L 09/09/24 07:54 Pulse Ox 88 L 09/09/24 07:54 O2 Del Method Room Air 09/09/24 07:54 O2 Flow Rate 2 09/08/24 14:42 BMI result Body Mass Index 16.8 Const: General: cooperative, comfortable, alert and awake Nutritional Appearance: thin Orientation/consciousness: patient oriented x3 HEENT: Head: Yes normocephalic and Yes atraumatic Neck: Neck: Yes trachea midline, Yes supple and Yes no JVD Resp: Effort & Inspection: normal respiratory effort Auscultation: breath sounds absent on th left (Base) and diminished lung sounds Cardio: Jugular venous distension: no JVD Palpation: abnormal PMI displaced PMI Rate: regular rate Rhythm: regular rhythm Heart sounds: S1 normal heart sound present, S2 normal heart sound present, no click, no gallops and no murmurs GI: Auscultation: normal bowel sounds Skin: General skin exam: no rashes or lesions noted Neuro: General: patient oriented x3 and no focal motor deficits Extrem: General: Yes no clubbing, cyanosis or edema Psych: Appearance: grossly normal Objective Labs and Meds 09/09/24 06:25 09/09/24 08:27 Lab results: Laboratory Results - last 24 hr 09/08/24 09/08/24 09/08/24 09:03 10:26 13:56 WBC RBC Hgb Hct MCV MCH MCHC RDW Plt Count MPV Immature Gran % (Auto) Neut % (Auto) Lymph % (Auto) [place] % (Auto) Eos % (Auto) Baso % (Auto) Lymph # (Auto) [place] # (Auto) Eos # (Auto) Baso # (Auto) Abs Immat Gran (auto) Absolute Neuts (auto) Absolute Nucleated RBC Nucleated RBC % (auto) PT 47.8 H INR 4.2 H Sodium Potassium Chloride Carbon Dioxide Anion Gap BUN Creatinine Estim Creat Clear Calc Estimated GFR Random Glucose Lactic Acid 1.4 Calcium Total Bilirubin AST ALT Alkaline Phosphatase B-Natriuretic Peptide 93042 H Total Protein Albumin 09/09/24 09/09/24 06:25 08:27 WBC 5.8 RBC 3.98 L Hgb 12.0 Hct 36.5 L MCV 91.7 MCH 30.2 MCHC 32.9 RDW 14.6 Plt Count 214 MPV 10.9 Immature Gran % (Auto) 0.3 Neut % (Auto) 85.3 H Lymph % (Auto) 12.0 L [place] % (Auto) 2.2 Eos % (Auto) 0.0 Baso % (Auto) 0.2 Lymph # (Auto) 0.7 L [place] # (Auto) 0.1 Eos # (Auto) 0.0 Baso # (Auto) 0.0 Abs Immat Gran (auto) 0.02 Absolute Neuts (auto) 5.0 Absolute Nucleated RBC 0.000 Nucleated RBC % (auto) 0.0 PT 63.0 H D INR 5.5 H* Sodium 144 Potassium 3.7 D Chloride 111 H Carbon Dioxide 22 Anion Gap 15 BUN 25 H Creatinine 0.81 Estim Creat Clear Calc 40.6 Estimated GFR > 60 Random Glucose 144 H Lactic Acid Calcium 8.2 L Total Bilirubin 0.7 AST 16 ALT 13 Alkaline Phosphatase 114 B-Natriuretic Peptide 8363 H Total Protein 5.7 L Albumin 3.5 Assessment and Plan (1) Acute hypoxic respiratory failure: Status: Acute Acute hypoxemic respiratory failure in this elderly woman with underlying COPD with a new consolidation left lower lobe with pleural effusion with decompensated congestive heart failure with markedly elevated BNP in the setting of known prior severe cardiomyopathy which is ischemic. She seems a lot better as per her in his diuresed well. Clinically does not appear markedly fluid overloaded surprisingly. However remains hypoxemic. I will continue with oral Lasix at this point time. Continue oxygen supplementation as needed. Continue treatment of her COPD exacerbation. Continue her neurohormonal modulation with Entresto and carvedilol. Consider adding Jardiance 10 mg to her regimen. Continue rhythm control approach, currently on amiodarone to maintain rhythm which is working well. She he has not had any further ICD discharge. Continue treatment with the atorvastatin. Currently on full oral anticoagulation with warfarin and will continue the same with target INR between 2 and 3. Will continue to follow with you. Strict intake and output chart needs to be pursued. Thank you for allowing me to partake in her care Procedures Date of Service Date of Service: 09/09/24
--- NOTE | 2024-09-09 09:59 | MHC.CM.PN ---
Addendum entered by Milena Sylvester 09/09/24 10:08: [facility] Authorized [employer] form has been signed and scanned into the PT's EMR. A referral has been sent to [facility]. They are 1st choice if MD orders home services. Original Note: IMM 09/09/24 DX CHF PNA Patient lives by herself. Her nephew lives down stairs and her dtr down the street. DME Cane (uses prn) Walker, Shower bench + grab bars She has had [facility] in the past. If VNA services are ordered, [facility] is her 1st choice. DP home self care. Patients son or dtr will provide transportation home.
[2024-09-09] MEDS: Sacubitril/Valsartan 24/26 1 TAB TABLET PO (11:50)
--- NOTE | 2024-09-09 13:18 | P.PNIM_ITS ---
Subjective Subjective Date of Service: 09/09/24 Interval History: No respiratory distress this a.m. no O2 requirement. No acute issues overnight Review of Systems Denies chest pain Admits shortness of breath that has worsened over the last 2 weeks Denies nausea vomiting diarrhea Denies fever chills Physical Exam 2 Vital Signs: Vital Signs: Last Vital Signs Temp 97.6 F 09/09/24 11:42 Pulse 70 09/09/24 11:42 Resp 18 09/09/24 11:42 BP 96/60 09/09/24 11:42 Pulse Ox 92 09/09/24 11:42 O2 Del Method Room Air 09/09/24 11:42 O2 Flow Rate 2 09/08/24 14:42 BMI result Body Mass Index 16.8 Const: Other: Awake alert oriented x3 speaking in short sentences but no respiratory distress Resp: Other: Bilateral crackles from inferior scapular border to bases Cardio: Other: No S4; positive S1-S2; no S3 murmurs rubs or gallops GI: Other: Soft nontender nondistended normoactive bowel sounds Neuro: Other: Cranial nerves 2-12 grossly intact as tested. Motor is 5/5 all extremities. Sensation is intact. Cognition appropriate. Gait not observed Extrem: Other: No edema bilaterally Objective Data Active Medications Acetaminophen (Acetaminophen 325 Mg Tablet) 650 mg PO Q6H PRN PRN Reason: Pain, Mild 1-3,fever,headache Amiodarone HCl (Amiodarone Hcl 200 Mg Tablet) 100 mg PO DAILY [facility] Last Admin: 09/09/24 09:28 Dose: 100 mg Documented By: VIOLET Atorvastatin Calcium (Atorvastatin Calcium 20 Mg Tablet) 20 mg PO BEDTIME [facility] Last Admin: 09/08/24 21:42 Dose: 20 mg Documented By: LUDA-DESSK Calcium Carbonate (Calcium Carbonate 750 Mg Tab.Chew) 750 mg PO Q4H PRN PRN Reason: Heartburn Carvedilol (Carvedilol 12.5 Mg Tablet) 12.5 mg PO BID [facility]; Protocol Last Admin: 09/09/24 11:50 Dose: 12.5 mg Documented By: VIOLET Ceftriaxone Sodium (Ceftriaxone Sodium 1 Gm Vial) 1 gm IVPUSH Q24H [facility] Last Admin: 09/09/24 09:25 Dose: 1 gm Documented By: HO.RICCIAV Furosemide (Furosemide 20 Mg Tablet) 20 mg PO BID@0900,1800 [facility]; Protocol Azithromycin 500 mg/ Sodium (Chloride) 250 mls @ 125 mls/hr IV Q24H [facility] Last Infusion: 09/08/24 21:43 Dose: Infused Documented By: TONO Magnesium Hydroxide (Milk Of Magnesia 30 Ml Oral.Susp) 30 ml PO DAILY PRN PRN Reason: Constipation Melatonin (Melatonin 3 Mg Tablet) 6 mg PO BEDTIME PRN PRN Reason: Insomnia Ondansetron HCl (Ondansetron Hcl 4 Mg/2 Ml Vial) 4 mg IVPUSH Q8H PRN PRN Reason: Nausea and Vomiting Sacubitril/Valsartan (Sacubitril/Valsartan 1 Tab Tablet) 1 tab PO BID [facility]; Protocol Last Admin: 09/09/24 11:50 Dose: 1 tab Documented By: VIOLET Sodium Chloride (0.9 % Sodium Chloride Flush 3 Ml Syringe) 3 ml IVFLUSH QSHIFT [facility] Last Admin: 09/09/24 09:25 Dose: 3 ml Documented By: VIOLET Warfarin Sodium (Warfarin Sodium 2.5 Mg Tablet) 2.5 mg PO WE@1800 [facility] Warfarin Sodium (Warfarin Sodium 2.5 Mg Tablet) 2.5 mg PO SUMOTUTHFRSA@1800 [facility] On Hold: 09/09/24 08:24 Comment: INR 5.5 Last Admin: 09/08/24 17:24 Dose: Not Given Documented By: VIOLET Non-Admin Reason: hold per MD. high INR Labs 09/09/24 06:25 09/09/24 08:27 Labs: Laboratory Results - last 24 hr 09/08/24 09/09/24 09/09/24 13:56 06:25 08:27 MCV 91.7 MCH 30.2 MCHC 32.9 RDW 14.6 Plt Count 214 MPV 10.9 Immature Gran % (Auto) 0.3 Neut % (Auto) 85.3 H Lymph % (Auto) 12.0 L [place] % (Auto) 2.2 Eos % (Auto) 0.0 Baso % (Auto) 0.2 Lymph # (Auto) 0.7 L [place] # (Auto) 0.1 Eos # (Auto) 0.0 Baso # (Auto) 0.0 Abs Immat Gran (auto) 0.02 Absolute Neuts (auto) 5.0 Absolute Nucleated RBC 0.000 Nucleated RBC % (auto) 0.0 PT 47.8 H 63.0 H D INR 4.2 H 5.5 H* Anion Gap 15 Estim Creat Clear Calc 40.6 Estimated GFR > 60 Random Glucose 144 H Calcium 8.2 L Total Bilirubin 0.7 AST 16 ALT 13 Alkaline Phosphatase 114 B-Natriuretic Peptide 8363 H Total Protein 5.7 L Albumin 3.5 Microbiology Microbiology Results: Microbiology 09/08/24 10:27 Blood Culture - Preliminary Blood - Venous No growth after 24 hours. 09/08/24 10:26 Blood Culture - Preliminary Blood - Venous No growth after 24 hours. Assessment and Plan (1) Congestive heart failure: Status: Acute (2) Afib: Status: Acute Plan 79-year-old female with PMH paroxysmal AFib on warfarin, [place] in 2007, pacemaker, TIA, HTN, HLD, COPD. cardiomyopathy with ejection fraction of 10-15% presents for evaluation of shortness of breath for the past 1-2 weeks. Workup in the emergency room consistent with the acute systolic CHF 1. Acute systolic CHF (04/2024 LVEF 10-15%) -appreciate Cardiology input. We will switch to p.o. Lasix as recommended -continue Coreg/Entresto as per outpatient dosing -adjust as clinically indicated 2. Hypertension -as above; goal SBP 100-110 -continue Entresto and Coreg -adjust as indicated 3. Paroxysmal atrial fibrillation -examines in NSR today -PT/INR elevated. . . Coumadin held -continue amiodarone 4. Left lower lobe infiltrate -ceftriaxone/azithromycin (2) -no O2 requirement at this time -likely inciting agent to this exacerbation Full code Warfarin Patient requires ongoing hospitalization for ongoing specialist consultation and IV antibiotics for pneumonia Quality Stroke Does the patient have a stroke diagnosis?: No VTE Prior VTE?: No VTE Risk Level:: Medical - moderate - high VTE Device Contraindication: Treatment Not Indicated VTE Drug Contraindication: N/A - Med Ordered
--- NOTE | 2024-09-09 19:42 | PC.NURSE ---
Assumed care of patient at 1900. Patient BP noted to be 78/58 (manual). Provider notified. Lasix and BP meds placed on hold.
[2024-09-10] VITALS (11 sets, daily range): BP systolic 95–119; BP diastolic 65–84; PULSE 73–94; RESP 17–23; TEMP 35.2–36.9; O2SAT 88–96; BMI 16.8
[2024-09-10 07:12] LABS: MANUAL DIFF FLAG NO
[2024-09-10 07:18] LABS: Hematocrit 36.3 % (37.0-47.0); Hemoglobin 12.0 g/dl (12.0-16.0); Imm Gran Abs Auto 0.08 X10*3/uL (0.00-0.03); Imm Gran Pct Auto 0.7 % (0.0-0.4); Lymphocytes Absolute Auto 0.7 X10*3/uL (1.2-4.9); Mean Corpuscular HGB Conc 33.1 g/dl (31.0-35.0); Mean Corpuscular Hemoglobin 30.2 pg (27.0-33.0); Mean Corpuscular Volume 91.2 fL (80.0-98.0); NRBC Abs Auto 0.000 X10*3/uL (0.0-0.012); NRBC Pct Auto 0.0 /100WBC (0.0-0.2); Platelet Count 230 X10*3/uL (160-400); Red Blood Count 3.98 X10*6/uL (4.20-5.50); White Blood Count 10.8 X10*3/uL (4.8-10.8)
[2024-09-10 07:34] LABS: Prothrombin Time 96.6 SEC (10.9-12.4)
[2024-09-10 07:40] LABS: Alanine Aminotransferase 26 U/L (0-31); Albumin Level 3.5 g/dL (3.5-5.0); Alkaline Phosphatase 121 U/L (39-117); Anion Gap 14 (12-20); Aspartate Amino Transferase 23 U/L (5-31); Blood Urea Nitrogen 32 mg/dL (9-16); Calcium 8.8 mg/dL (8.4-10.2); Carbon Dioxide 22 mmol/L (22-29); Chloride 110 mmol/L (96-108); Creatinine Clr Calc Pharmacy 33.6; Estimated Glomerular Filt Rate 55; Potassium 3.8 mmol/L (3.3-5.1); Sodium 142 mmol/L (135-145); Total Protein 5.8 g/dL (6.5-8.0)
[2024-09-10] MEDS: 0.9 % Sodium Chloride Flush 3 ML SYRINGE IVFLUSH ×3 (07:49→20:10)
[2024-09-10 08:01] LABS: INTERNATIONAL NORM RATIO 8.4 (0.9-1.1)
[2024-09-10] MEDS: guaiFENesin 200 MG/10 ML 10 ML LIQUID PO ×2 (08:10→20:02)
[2024-09-10] MEDS: guaiFENesin DM 600/30 1 TAB TAB.ER.12H PO ×2 (09:54→20:02)
[2024-09-10] MEDS: Phytonadione (Vit K1) Oral 10 MG/ML AMPUL 2.5 MG PO (09:54)
--- NOTE | 2024-09-10 10:15 | MHC.CM.PN ---
Per ROUNDS discussion, Patient is not yet medically cleared for dc (weaning O2); Patient may benefit from a PT Eval to assist with disposition. CM will continue to follow.
[2024-09-10] MEDS: Furosemide 40 MG/4 ML VIAL IVPUSH (12:08)
--- NOTE | 2024-09-10 12:09 | PC.NURSE ---
At 1125 pt noted to experience SOB, increase diaphoresis and increased WOB noted, pt pale as well; This RN did the initial assessment; Vital signs Temp 95.3, BP 106/75, R 28, O2 88 on 2L NC, HR 93, POC 152. Dr Hernandez present at the bedside; [employer]ELOP[employer]SULTANT called; MD Anne-Marie Chavez arrived with other staff members; IV lasix 40 mg ordered and administered, pt placed on CPAP; Vital signs after lasix been given, BP 111/75, HR 95, O2 91% on CPAP. Pt remains on the unit and being monitored, Warm blankets applied due to low temp.
--- NOTE | 2024-09-10 12:42 | P.PNIM_ITS ---
Subjective Subjective Date of Service: 09/10/24 Interval History: Seen and evaluated this morning looks dyspneic and in respiratory distress given 40 of Lasix and started on CPAP as rapid response was called on her 11:20 on 2L O2 O2 drops to 80s at rest Review of Systems Review of Systems: Yes all other systems are reviewed and are negative Physical Exam 2 Vital Signs: Vital Signs: Last Vital Signs Temp 97.4 F 09/10/24 12:00 Pulse 93 09/10/24 12:27 Resp 20 09/10/24 12:00 BP 119/75 09/10/24 12:27 Pulse Ox 96 09/10/24 12:27 O2 Del Method CPAP 09/10/24 12:27 O2 Flow Rate 2 09/10/24 12:00 Oxygen Flow Rate 6 09/10/24 11:48 BMI result Body Mass Index 16.8 Const: Other: Constitutional : Awake, interactive, in moderate distress Neck : Normal inspection, Supple Cardiovascular : RRR, elevated JVP, no lower extremity edema Respiratory : fair bilateral air entry, no crackles, in moderate distress, on O2 supplement Gastrointestinal: soft, lax, Normal bowel sounds, Non tender Skin : Warm, Dry Neurological : Alert & oriented x3, No focal deficit Objective Data Active Medications Acetaminophen (Acetaminophen 325 Mg Tablet) 650 mg PO Q6H PRN PRN Reason: Pain, Mild 1-3,fever,headache Last Admin: 09/09/24 23:08 Dose: 650 mg Documented By: SIMON Amiodarone HCl (Amiodarone Hcl 200 Mg Tablet) 100 mg PO DAILY [facility] Last Admin: 09/10/24 07:48 Dose: 100 mg Documented By: SOLEDAD Atorvastatin Calcium (Atorvastatin Calcium 20 Mg Tablet) 20 mg PO BEDTIME [facility] Last Admin: 09/09/24 20:20 Dose: 20 mg Documented By: SIMON Calcium Carbonate (Calcium Carbonate 750 Mg Tab.Chew) 750 mg PO Q4H PRN PRN Reason: Heartburn Carvedilol (Carvedilol 12.5 Mg Tablet) 12.5 mg PO BID [facility]; Protocol On Hold: 09/09/24 19:29 Comment: low bp Last Admin: 09/09/24 11:50 Dose: 12.5 mg Documented By: VIOLET Ceftriaxone Sodium (Ceftriaxone Sodium 1 Gm Vial) 1 gm IVPUSH Q24H [facility] Last Admin: 09/10/24 07:49 Dose: 1 gm Documented By: SOLEDAD Furosemide (Furosemide 20 Mg Tablet) 20 mg PO BID@0900,1800 [facility]; Protocol On Hold: 09/09/24 19:29 Comment: low bp Last Admin: 09/09/24 17:59 Dose: 20 mg Documented By: VIOLET Guaifenesin (Guaifenesin 200 Mg/10 Ml 10 Ml Liquid) 10 ml PO Q6H PRN PRN Reason: Cough Last Admin: 09/10/24 08:10 Dose: 10 ml Documented By: SOLEDAD Guaifenesin/Dextromethorphan (Guaifenesin Dm 600/30 1 Tab Tab.Er.12h) 1 tab PO BID [facility] Last Admin: 09/10/24 09:54 Dose: 1 tab Documented By: SOLEDAD Azithromycin 500 mg/ Sodium (Chloride) 250 mls @ 125 mls/hr IV Q24H [facility] Last Infusion: 09/09/24 20:00 Dose: Infused Documented By: SIMON Magnesium Hydroxide (Milk Of Magnesia 30 Ml Oral.Susp) 30 ml PO DAILY PRN PRN Reason: Constipation Melatonin (Melatonin 3 Mg Tablet) 6 mg PO BEDTIME PRN PRN Reason: Insomnia Ondansetron HCl (Ondansetron Hcl 4 Mg/2 Ml Vial) 4 mg IVPUSH Q8H PRN PRN Reason: Nausea and Vomiting Sacubitril/Valsartan (Sacubitril/Valsartan 1 Tab Tablet) 1 tab PO BID [facility]; Protocol On Hold: 09/09/24 19:29 Comment: low bp Last Admin: 09/09/24 11:50 Dose: 1 tab Documented By: VIOLET Sodium Chloride (0.9 % Sodium Chloride Flush 3 Ml Syringe) 3 ml IVFLUSH QSHIFT [facility] Last Admin: 09/10/24 07:49 Dose: 3 ml Documented By: SOLEDAD Warfarin Sodium (Warfarin Sodium 2.5 Mg Tablet) 2.5 mg PO WE@1800 [facility] Warfarin Sodium (Warfarin Sodium 2.5 Mg Tablet) 2.5 mg PO SUMOTUTHFRSA@1800 [facility] On Hold: 09/09/24 08:24 Comment: INR 5.5 Last Admin: 09/08/24 17:24 Dose: Not Given Documented By: VIOLET Non-Admin Reason: hold per MD. high INR Labs 09/10/24 06:56 09/10/24 06:56 Labs: Laboratory Results - last 24 hr 09/10/24 06:56 MCV 91.2 MCH 30.2 MCHC 33.1 RDW 14.7 Plt Count 230 MPV 10.6 Immature Gran % (Auto) 0.7 H Neut % (Auto) 84.2 H Lymph % (Auto) 6.1 L [place] % (Auto) 6.6 Eos % (Auto) 2.2 Baso % (Auto) 0.2 Lymph # (Auto) 0.7 L [place] # (Auto) 0.7 Eos # (Auto) 0.2 Baso # (Auto) 0.0 Abs Immat Gran (auto) 0.08 H Absolute Neuts (auto) 9.1 H Absolute Nucleated RBC 0.000 Nucleated RBC % (auto) 0.0 PT 96.6 H D INR 8.4 H* D Anion Gap 14 Estim Creat Clear Calc 33.6 Estimated GFR 55 Random Glucose 107 Calcium 8.8 D Total Bilirubin 0.6 AST 23 ALT 26 Alkaline Phosphatase 121 H Total Protein 5.8 L Albumin 3.5 Microbiology Microbiology Results: Microbiology 09/08/24 10:27 Blood Culture - Preliminary Blood - Venous No growth after 48 hours. 09/08/24 10:26 Blood Culture - Preliminary Blood - Venous No growth after 48 hours. Assessment and Plan (1) Acute exacerbation of chronic obstructive airways disease: Status: Acute (2) Congestive heart failure: Status: Acute (3) Acute hypoxic respiratory failure: Status: Acute (4) Pneumonia: Status: Acute Plan 79-year-old female with PMH paroxysmal AFib on warfarin, [place] in 2007, pacemaker, TIA, HTN, HLD, COPD. cardiomyopathy with ejection fraction of 10-15% presents for evaluation of shortness of breath for the past 1-2 weeks. Workup in the emergency room consistent with the acute systolic CHF # Acute hypoxemic resp failure 2/2 Acute systolic CHF (04/2024 LVEF 10-15%) Rapid response called, placed on CPAP for work of breathing appreciate Cardiology input. restart IV Lasix repeat CXR Give 40 IV Lasix and start Lasix 20 mg daily Continue Coreg at 6.25 mg bid and Hold Entresto for now adjust as clinically indicated # Paroxysmal atrial fibrillation w Elevated INR in NSR PT/INR elevated at 8.4, to give 2.5 mg continue amiodarone Warfarin on hold # Hypertension continue Coreg and Entresto on hold adjust as indicated # Left lower lobe infiltrate on ceftriaxone/azithromycin started 09/08 no O2 requirement at this time repeat CXR likely inciting agent to this exacerbation Full code Warfarin Patient requires ongoing hospitalization for ongoing specialist consultation and IV antibiotics for pneumonia Quality Stroke Does the patient have a stroke diagnosis?: No VTE Prior VTE?: No VTE Risk Level:: Medical - moderate - high VTE Device Contraindication: Treatment Not Indicated VTE Drug Contraindication: N/A - Med Ordered
--- NOTE | 2024-09-10 12:47 | PM.PNCARD ---
Subjective Subjective Date of Service: 09/10/24 Interval history: Seen and examined at bedside. Tachypneic and diaphoretic. Saying that she has not been feeling well. Denying chest discomfort. Physical Exam Vital Signs: Last Vital Signs Temp 97.4 F 09/10/24 12:00 Pulse 93 09/10/24 12:27 Resp 20 09/10/24 12:00 BP 119/75 09/10/24 12:27 Pulse Ox 96 09/10/24 12:27 O2 Del Method CPAP 09/10/24 12:27 O2 Flow Rate 2 09/10/24 12:00 Oxygen Flow Rate 6 09/10/24 11:48 BMI result Body Mass Index 16.8 GENERAL APPEARANCE: Tachypneic, diaphoretic. Ill-appearing. NECK: no carotid bruit, + jugular venous distention angle of jaw. SKIN: no suspicious lesions, warm and dry. HEART: no murmurs, regular rate and rhythm. LUNGS: clear to auscultation bilaterally. ABDOMEN: soft, nontender. EXTREMITIES: no edema. Cold peripheries. PERIPHERAL PULSES: equal. NEUROLOGIC: No gross deficits, AAO X 3 Objective Labs and Meds 09/10/24 06:56 09/10/24 06:56 Lab results: Laboratory Results - last 24 hr 09/10/24 06:56 WBC 10.8 RBC 3.98 L Hgb 12.0 Hct 36.3 L MCV 91.2 MCH 30.2 MCHC 33.1 RDW 14.7 Plt Count 230 MPV 10.6 Immature Gran % (Auto) 0.7 H Neut % (Auto) 84.2 H Lymph % (Auto) 6.1 L [place] % (Auto) 6.6 Eos % (Auto) 2.2 Baso % (Auto) 0.2 Lymph # (Auto) 0.7 L [place] # (Auto) 0.7 Eos # (Auto) 0.2 Baso # (Auto) 0.0 Abs Immat Gran (auto) 0.08 H Absolute Neuts (auto) 9.1 H Absolute Nucleated RBC 0.000 Nucleated RBC % (auto) 0.0 PT 96.6 H D INR 8.4 H* D Sodium 142 Potassium 3.8 Chloride 110 H Carbon Dioxide 22 Anion Gap 14 BUN 32 H Creatinine 0.98 Estim Creat Clear Calc 33.6 Estimated GFR 55 Random Glucose 107 Calcium 8.8 D Total Bilirubin 0.6 AST 23 ALT 26 Alkaline Phosphatase 121 H Total Protein 5.8 L Albumin 3.5 Progress Note: A&P Assessment and plan (1) Cardiomyopathy: Status: Acute (2) Congestive heart failure: Status: Acute Plan [age] female with COPD, cardiomyopathy with EF 10-15% and congestive heart failure. She appears quite sick with tachypnea and diaphoresis. She also has cold peripheries. Significantly volume overloaded by examination. Give 40 of Lasix. Try noninvasive ventilation. She is currently full code. She has significant cardiomyopathy with EF 10-15%. Decreasing carvedilol dose to 6.25 mg twice a day. Continue IV diuretics 40 mg IV b.i.d.. We will follow along with you. Thank you for allowing me to participate in the care of your patient. Please feel free to contact me if you have any questions. Time Spent With Patient Time: Total time managing care of this patient today ____ minutes. Progress Note: Quality Stroke Does the patient have a stroke diagnosis?: No Procedures Date of Service Date of Service: 09/10/24
--- NOTE | 2024-09-10 13:41 | MHC.CLN ---
NUTRITION DIET=REGULAR. TAKES ENSURE AT HOME BUT NOT DAILY. QUALIFIES MODERATELY MALNOURISHED IN THE CONTEXT OF CHRONIC ILLNESS. ADDING ENSURE BID TO PROVIDE 700 KCALS, 40 G PROTEIN. FOLLOW FOR PO INTAKE. SEE CLINICAL NUTRITION ASSESSMENT 09/10/24.
[2024-09-10 16:12] LABS: Glucose, Whole Blood 152 mg/dL (60-115)
[2024-09-11] VITALS (8 sets, daily range): BP systolic 93–113; BP diastolic 56–74; PULSE 76–99; RESP 16–22; TEMP 36.2–37.6; O2SAT 91–95
[2024-09-11 06:41] LABS: MANUAL DIFF FLAG NO
[2024-09-11 06:49] LABS: Hematocrit 33.5 % (37.0-47.0); Hemoglobin 11.3 g/dl (12.0-16.0); Imm Gran Abs Auto 0.07 X10*3/uL (0.00-0.03); Imm Gran Pct Auto 0.7 % (0.0-0.4); Lymphocytes Absolute Auto 0.6 X10*3/uL (1.2-4.9); Mean Corpuscular HGB Conc 33.7 g/dl (31.0-35.0); Mean Corpuscular Hemoglobin 30.3 pg (27.0-33.0); Mean Corpuscular Volume 89.8 fL (80.0-98.0); NRBC Abs Auto 0.000 X10*3/uL (0.0-0.012); NRBC Pct Auto 0.0 /100WBC (0.0-0.2); Platelet Count 186 X10*3/uL (160-400); Red Blood Count 3.73 X10*6/uL (4.20-5.50); White Blood Count 9.9 X10*3/uL (4.8-10.8)
[2024-09-11 06:55] LABS: INTERNATIONAL NORM RATIO 3.1 (0.9-1.1); Prothrombin Time 35.2 SEC (10.9-12.4)
[2024-09-11 07:05] LABS: Alanine Aminotransferase 18 U/L (0-31); Albumin Level 3.2 g/dL (3.5-5.0); Alkaline Phosphatase 111 U/L (39-117); Anion Gap 13 (12-20); Aspartate Amino Transferase 14 U/L (5-31); Blood Urea Nitrogen 31 mg/dL (9-16); Calcium 8.0 mg/dL (8.4-10.2); Carbon Dioxide 24 mmol/L (22-29); Chloride 108 mmol/L (96-108); Creatinine Clr Calc Pharmacy 37.8; Estimated Glomerular Filt Rate > 60; Potassium 3.2 mmol/L (3.3-5.1); Sodium 142 mmol/L (135-145); Total Protein 5.4 g/dL (6.5-8.0)
[2024-09-11 07:36] LABS: B Type Natriuretic Peptide 13088 pg/mL (<100)
[2024-09-11] MEDS: guaiFENesin DM 600/30 1 TAB TAB.ER.12H PO ×2 (07:59→21:02)
[2024-09-11] MEDS: 0.9 % Sodium Chloride Flush 3 ML SYRINGE IVFLUSH ×3 (07:59→21:03)
[2024-09-11 08:34] LABS: Magnesium 2.0 mg/dL (1.6-2.6)
[2024-09-11] MEDS: Furosemide 20 MG/2 ML VIAL IVPUSH (09:01)
--- NOTE | 2024-09-11 10:38 | MHC.CM.PN ---
CM has assisted Patient with the completion of a HCP; she has named her Daughter/Jesusita as her Agent.
--- NOTE | 2024-09-11 14:28 | PM.PNCARD ---
Subjective Subjective Date of Service: 09/11/24 Interval history: Seen examined at bedside. Feeling better and appears more comfortable compared to yesterday. Physical Exam Vital Signs: Last Vital Signs Temp 98.4 F 09/11/24 12:00 Pulse 94 09/11/24 12:00 Resp 22 H 09/11/24 12:00 BP 111/74 09/11/24 12:00 Pulse Ox 91 L 09/11/24 12:00 O2 Del Method Nasal Cannula 09/11/24 12:00 O2 Flow Rate 2.5 09/11/24 12:00 Oxygen Flow Rate 6 09/10/24 11:48 BMI result Body Mass Index 16.8 GENERAL APPEARANCE: In no acute distress. NECK: no carotid bruit, + jugular venous distention angle of jaw. SKIN: no suspicious lesions, warm and dry. HEART: no murmurs, regular rate and rhythm. LUNGS: Crackles at bases. ABDOMEN: soft, nontender. EXTREMITIES: no edema. PERIPHERAL PULSES: equal. NEUROLOGIC: No gross deficits, AAO X 3 Objective Labs and Meds 09/11/24 06:08 09/11/24 06:08 Lab results: Laboratory Results - last 24 hr 09/10/24 09/11/24 11:21 06:08 WBC 9.9 RBC 3.73 L Hgb 11.3 L Hct 33.5 L MCV 89.8 MCH 30.3 MCHC 33.7 RDW 14.8 Plt Count 186 MPV 11.0 Immature Gran % (Auto) 0.7 H Neut % (Auto) 84.4 H Lymph % (Auto) 5.8 L [place] % (Auto) 6.8 Eos % (Auto) 2.2 Baso % (Auto) 0.1 Lymph # (Auto) 0.6 L [place] # (Auto) 0.7 Eos # (Auto) 0.2 Baso # (Auto) 0.0 Abs Immat Gran (auto) 0.07 H Absolute Neuts (auto) 8.3 Absolute Nucleated RBC 0.000 Nucleated RBC % (auto) 0.0 PT 35.2 H D INR 3.1 H D Sodium 142 Potassium 3.2 L Chloride 108 Carbon Dioxide 24 Anion Gap 13 BUN 31 H Creatinine 0.87 Estim Creat Clear Calc 37.8 Estimated GFR > 60 POC Glucose 152 H Random Glucose 98 Calcium 8.0 L D Magnesium 2.0 Total Bilirubin 1.2 H AST 14 ALT 18 Alkaline Phosphatase 111 B-Natriuretic Peptide 38189 H Total Protein 5.4 L Albumin 3.2 L Progress Note: A&P Assessment and plan (1) Cardiomyopathy: Status: Acute (2) Congestive heart failure: Status: Acute Plan Pleasant 79 year female presenting with acute decompensated congestive heart failure. Clinically volume overloaded. Changing Lasix to 40 mg IV daily. If she does not diurese well with this then we may have to change the dose to b.i.d.. Continue Entresto and lower dose of carvedilol. Clinically improving at this stage. She is on azithromycin and amiodarone and QT interval needs to be monitor closely. Please change azithromycin to doxycycline if appropriate. Thank you for allowing me to participate in the care of your patient. Please feel free to contact me if you have any questions. Time Spent With Patient Time: Total time managing care of this patient today ____ minutes. Progress Note: Quality Stroke Does the patient have a stroke diagnosis?: No Procedures Date of Service Date of Service: 09/11/24
[2024-09-11] MEDS: Furosemide 20 MG/2 ML VIAL 40 MG IVPUSH (15:08)
--- NOTE | 2024-09-11 18:39 | P.PNIM_ITS ---
Subjective Subjective Date of Service: 09/11/24 Interval History: Acute hypoxemic resp failure 2/2 Acute systolic CHF Review of Systems sob seems somewhat improving no chest pain or sob Physical Exam 2 Vital Signs: Vital Signs: Last Vital Signs Temp 97.1 F 09/11/24 15:35 Pulse 99 09/11/24 15:35 Resp 18 09/11/24 15:35 BP 104/71 09/11/24 15:35 Pulse Ox 92 09/11/24 15:35 O2 Del Method Nasal Cannula 09/11/24 15:35 O2 Flow Rate 3 09/11/24 15:35 Oxygen Flow Rate 6 09/10/24 11:48 BMI result Body Mass Index 16.8 Constitutional : Awake, interactive, in moderate distress Neck : Normal inspection, Supple Cardiovascular : RRR, s1s2 heard. Respiratory : fair bilateral air entry, no crackles, in moderate distress, on O2 supplement Gastrointestinal: soft, nd, Normal bowel sounds, Non tender Skin : Warm, Dry Neurological : Alert & oriented x3, No focal deficit Objective Data Active Medications Acetaminophen (Acetaminophen 325 Mg Tablet) 650 mg PO Q6H PRN PRN Reason: Pain, Mild 1-3,fever,headache Last Admin: 09/09/24 23:08 Dose: 650 mg Documented By: SIMON Amiodarone HCl (Amiodarone Hcl 200 Mg Tablet) 100 mg PO DAILY [facility] Last Admin: 09/11/24 07:59 Dose: 100 mg Documented By: JACLYN Atorvastatin Calcium (Atorvastatin Calcium 20 Mg Tablet) 20 mg PO BEDTIME [facility] Last Admin: 09/10/24 20:02 Dose: 20 mg Documented By: SIMON Calcium Carbonate (Calcium Carbonate 750 Mg Tab.Chew) 750 mg PO Q4H PRN PRN Reason: Heartburn Carvedilol (Carvedilol 6.25 Mg Tablet) 6.25 mg PO BID [facility]; Protocol On Hold: 09/10/24 21:00 Comment: low bp Ceftriaxone Sodium (Ceftriaxone Sodium 1 Gm Vial) 1 gm IVPUSH Q24H [facility] Last Admin: 09/11/24 07:58 Dose: 1 gm Documented By: JACLYN Doxycycline Monohydrate (Doxycycline Monohydrate 100 Mg Capsule) 100 mg PO Q12H [facility] Last Admin: 09/11/24 16:31 Dose: 100 mg Documented By: JACLYN Furosemide (Furosemide 20 Mg/2 Ml Vial) 40 mg IVPUSH DAILY [facility]; Protocol Last Admin: 09/11/24 15:08 Dose: 40 mg Documented By: JACLYN Guaifenesin (Guaifenesin 200 Mg/10 Ml 10 Ml Liquid) 10 ml PO Q6H PRN PRN Reason: Cough Last Admin: 09/10/24 20:02 Dose: 10 ml Documented By: SIMON Guaifenesin/Dextromethorphan (Guaifenesin Dm 600/30 1 Tab Tab.Er.12h) 1 tab PO BID [facility] Last Admin: 09/11/24 07:59 Dose: 1 tab Documented By: JACLYN Magnesium Hydroxide (Milk Of Magnesia 30 Ml Oral.Susp) 30 ml PO DAILY PRN PRN Reason: Constipation Melatonin (Melatonin 3 Mg Tablet) 6 mg PO BEDTIME PRN PRN Reason: Insomnia Ondansetron HCl (Ondansetron Hcl 4 Mg/2 Ml Vial) 4 mg IVPUSH Q8H PRN PRN Reason: Nausea and Vomiting Sacubitril/Valsartan (Sacubitril/Valsartan 1 Tab Tablet) 1 tab PO BID [facility]; Protocol Last Admin: 09/09/24 11:50 Dose: 1 tab Documented By: VIOLET Sodium Chloride (0.9 % Sodium Chloride Flush 3 Ml Syringe) 3 ml IVFLUSH QSHIFT [facility] Last Admin: 09/11/24 15:08 Dose: 3 ml Documented By: JACLYN Warfarin Sodium (Warfarin Sodium 2.5 Mg Tablet) 2.5 mg PO WE@1800 [facility] Warfarin Sodium (Warfarin Sodium 2.5 Mg Tablet) 2.5 mg PO SUMOTUTHFRSA@1800 [facility] On Hold: 09/09/24 08:24 Comment: INR 5.5 Last Admin: 09/08/24 17:24 Dose: Not Given Documented By: VIOLET Non-Admin Reason: hold per high INR Labs 09/11/24 06:08 09/11/24 06:08 Labs: Laboratory Results - last 24 hr 09/11/24 06:08 MCV 89.8 MCH 30.3 MCHC 33.7 RDW 14.8 Plt Count 186 MPV 11.0 Immature Gran % (Auto) 0.7 H Neut % (Auto) 84.4 H Lymph % (Auto) 5.8 L [place] % (Auto) 6.8 Eos % (Auto) 2.2 Baso % (Auto) 0.1 Lymph # (Auto) 0.6 L [place] # (Auto) 0.7 Eos # (Auto) 0.2 Baso # (Auto) 0.0 Abs Immat Gran (auto) 0.07 H Absolute Neuts (auto) 8.3 Absolute Nucleated RBC 0.000 Nucleated RBC % (auto) 0.0 PT 35.2 H D INR 3.1 H D Anion Gap 13 Estim Creat Clear Calc 37.8 Estimated GFR > 60 Random Glucose 98 Calcium 8.0 L D Magnesium 2.0 Total Bilirubin 1.2 H AST 14 ALT 18 Alkaline Phosphatase 111 B-Natriuretic Peptide 15052 H Total Protein 5.4 L Albumin 3.2 L Assessment and Plan (1) Acute exacerbation of chronic obstructive airways disease: Status: Acute (2) Congestive heart failure: Status: Acute (3) Acute hypoxic respiratory failure: Status: Acute (4) Pneumonia: Status: Acute Plan 79-year-old female with PMH paroxysmal AFib on warfarin, [place] in 2007, pacemaker, TIA, HTN, HLD, COPD. cardiomyopathy with ejection fraction of 10-15% presents for evaluation of shortness of breath for the past 1-2 weeks. Workup in the emergency room consistent with the acute systolic CHF Acute hypoxemic resp failure 2/2 Acute systolic CHF (04/2024 LVEF 10-15%) Rapid response called, placed on CPAP for work of breathing appreciate Cardiology input. restart IV Lasix repeat CXR Give 40 IV Lasix and start Lasix 20 mg daily continue Entresto, hold coreg due to boderline . adjust as clinically indicated Paroxysmal atrial fibrillation w Elevated INR in NSR PT/INR elevated at 3.1 continue amiodarone Warfarin on hold Hypertension continue Coreg and Entresto on hold adjust as indicated Left lower lobe infiltrate on ceftriaxone/azithromycin started 09/08 no O2 requirement at this time repeat CXR likely inciting agent to this exacerbation Full code Warfarin Patient requires ongoing hospitalization for ongoing specialist consultation and IV antibiotics for pneumonia Quality Stroke Does the patient have a stroke diagnosis?: No VTE Prior VTE?: No VTE Risk Level:: Medical - moderate - high VTE Device Contraindication: Treatment Not Indicated VTE Drug Contraindication: N/A - Med Ordered
[2024-09-11] MEDS: Sacubitril/Valsartan 24/26 1 TAB TABLET PO (21:01)
--- NOTE | 2024-09-11 22:09 | PC.NURSE ---
Upon initial assessment, patient reports being unable to void. Bladder scanned for 878cc. Provider notified. Patient able to void 200cc via external catheter, straight cath'ed fr 550cc clear yellow urine. Patient tolerated well.
[2024-09-12] VITALS (9 sets, daily range): BP systolic 94–109; BP diastolic 55–73; PULSE 73–112; RESP 16–18; TEMP 36.4–37.5; O2SAT 90–94
[2024-09-12] MEDS: guaiFENesin 200 MG/10 ML 10 ML LIQUID PO (05:26)
--- NOTE | 2024-09-12 05:28 | PC.NURSE ---
Patient bladder scanned for 696cc and unable to void. Provider notified. Straight bishnu'ed for 600cc clear yellow urine. tolerated well.
[2024-09-12 06:50] LABS: INTERNATIONAL NORM RATIO 1.7 (0.9-1.1); Prothrombin Time 19.3 SEC (10.9-12.4)
[2024-09-12 09:30] LABS: Anion Gap 12 (12-20); Blood Urea Nitrogen 25 mg/dL (9-16); Calcium 8.0 mg/dL (8.4-10.2); Carbon Dioxide 27 mmol/L (22-29); Chloride 105 mmol/L (96-108); Creatinine Clr Calc Pharmacy 48.5; Estimated Glomerular Filt Rate > 60; Potassium 2.6 mmol/L (3.3-5.1); Sodium 141 mmol/L (135-145)
[2024-09-12 09:50] LABS: B Type Natriuretic Peptide 12267 pg/mL (<100); Magnesium 1.8 mg/dL (1.6-2.6)
[2024-09-12] MEDS: Potassium Chloride/H20 10 MEQ/100 ML PIGGYBACK 100 MEQ IV ×4 (09:51→13:38)
[2024-09-12] MEDS: 0.9 % Sodium Chloride Flush 3 ML SYRINGE IVFLUSH ×3 (09:52→20:18)
[2024-09-12] MEDS: guaiFENesin DM 600/30 1 TAB TAB.ER.12H PO ×2 (09:53→20:12)
--- NOTE | 2024-09-12 10:15 | MHC.CM.PN ---
Per ROUNDS discussion, Patient is not yet medically cleared for dc (CHF/IV Lasix); Patient may benefit from a PT Eval to assist with disposition. CM will continue to follow.
[2024-09-12] MEDS: Potassium Chloride ER 20 MEQ TAB.ER.PRT 40 MEQ PO (10:18)
--- NOTE | 2024-09-12 12:55 | MHC.CLN ---
F/U DIET=REGULAR. ENSURE BID TO PROVIDE 700 KCALS, 40 G PROTEIN. FOLLOW FOR PO INTAKE. ENCOURAGE INTAKE AT MEALS AND SUPPLEMENT ABLE.
[2024-09-12 13:46] LABS: CDiff Gene PCR NEGATIVE (Negative)
--- NOTE | 2024-09-12 14:49 | PM.PNCARD ---
Subjective Subjective Date of Service: 09/12/24 Interval history: Seen examined at bedside. He has urinary retention and we will be getting a Hidalgo's catheter today. She is also significantly hypokalemic. Physical Exam Vital Signs: Last Vital Signs Temp 98.3 F 09/12/24 11:40 Pulse 92 09/12/24 11:40 Resp 16 09/12/24 11:40 BP 109/68 09/12/24 13:25 Pulse Ox 93 09/12/24 11:40 O2 Del Method Nasal Cannula 09/12/24 11:40 O2 Flow Rate 1 09/12/24 11:40 Oxygen Flow Rate 6 09/10/24 11:48 BMI result Body Mass Index 16.8 GENERAL APPEARANCE: In no acute distress. NECK: no carotid bruit, + jugular venous distention. SKIN: no suspicious lesions, warm and dry. HEART: no murmurs, regular rate and rhythm. LUNGS: Crackles at bases. ABDOMEN: soft, nontender. EXTREMITIES: no edema. PERIPHERAL PULSES: equal. NEUROLOGIC: No gross deficits, AAO X 3 Objective Labs and Meds 09/11/24 06:08 09/12/24 08:57 Lab results: Laboratory Results - last 24 hr 09/12/24 09/12/24 09/12/24 06:01 08:57 12:09 PT 19.3 H D INR 1.7 H Sodium 141 Potassium 2.6 L* Chloride 105 Carbon Dioxide 27 Anion Gap 12 BUN 25 H Creatinine 0.68 Estim Creat Clear Calc 48.5 Estimated GFR > 60 Random Glucose 118 H Calcium 8.0 L Magnesium 1.8 B-Natriuretic Peptide 75888 H C. difficile Tox B Gene NEGATIVE Progress Note: A&P Assessment and plan (1) Cardiomyopathy: Status: Acute (2) Congestive heart failure: Status: Acute Plan [age] year female with severe cardiomyopathy presenting with acute decompensated congestive heart failure. She was diuresed but developed significant electrolyte issues including hypokalemia and hypomagnesemia. She is getting potassium and magnesium supplementation. Diuretics are currently on hold. Add spironolactone 25 mg daily. Continue Entresto. Can hold the Lasix for now. As potassium improves we can resume diuretics because she is still appears to be congested. We will follow along with you. Thank you for allowing me to participate in the care of your patient. Please feel free to contact me if you have any questions. Time Spent With Patient Time: Total time managing care of this patient today ____ minutes. Progress Note: Quality Stroke Does the patient have a stroke diagnosis?: No Procedures Date of Service Date of Service: 09/12/24
--- NOTE | 2024-09-12 15:05 | HO.PM.IMPN ---
Subjective Subjective Date of Service: 09/12/24 Interval History: chf ,hypokalemia boderline bp Review of Systems sob somewhat improving no chestpain Review of Systems: Yes all other systems are reviewed and are negative Physical Exam Vital Signs: Vital Signs: Last Vital Signs Temp 98.3 F 09/12/24 11:40 Pulse 92 09/12/24 11:40 Resp 16 09/12/24 11:40 BP 109/68 09/12/24 13:25 Pulse Ox 93 09/12/24 11:40 O2 Del Method Nasal Cannula 09/12/24 11:40 O2 Flow Rate 1 09/12/24 11:40 Oxygen Flow Rate 6 09/10/24 11:48 BMI result Body Mass Index 16.8 Constitutional : Awake, interactive, in moderate distress Neck : Normal inspection, Supple Cardiovascular : RRR, s1s2 heard. Respiratory : fair bilateral air entry, no crackles, in moderate distress, on O2 supplement Gastrointestinal: soft, nd, Normal bowel sounds, Non tender Skin : Warm, Dry Neurological : Alert & oriented x3, No focal deficit Objective Data Active Medications Acetaminophen (Acetaminophen 325 Mg Tablet) 650 mg PO Q6H PRN PRN Reason: Pain, Mild 1-3,fever,headache Last Admin: 09/09/24 23:08 Dose: 650 mg Documented By: SIMON Amiodarone HCl (Amiodarone Hcl 200 Mg Tablet) 100 mg PO DAILY [facility] Last Admin: 09/12/24 09:53 Dose: 100 mg Documented By: CASPER Atorvastatin Calcium (Atorvastatin Calcium 20 Mg Tablet) 20 mg PO BEDTIME [facility] Last Admin: 09/11/24 21:01 Dose: 20 mg Documented By: SIMON Calcium Carbonate (Calcium Carbonate 750 Mg Tab.Chew) 750 mg PO Q4H PRN PRN Reason: Heartburn Carvedilol (Carvedilol 6.25 Mg Tablet) 6.25 mg PO BID [facility]; Protocol On Hold: 09/10/24 21:00 Comment: low bp Ceftriaxone Sodium (Ceftriaxone Sodium 1 Gm Vial) 1 gm IVPUSH Q24H [facility] Last Admin: 09/12/24 09:52 Dose: 1 gm Documented By: CASPER Doxycycline Monohydrate (Doxycycline Monohydrate 100 Mg Capsule) 100 mg PO Q12H [facility] Last Admin: 09/12/24 05:12 Dose: 100 mg Documented By: SIMON Furosemide (Furosemide 20 Mg/2 Ml Vial) 40 mg IVPUSH DAILY [facility]; Protocol Last Admin: 09/12/24 10:17 Dose: Not Given Documented By: CASPER Non-Admin Reason: HOLD PER Guaifenesin (Guaifenesin 200 Mg/10 Ml 10 Ml Liquid) 10 ml PO Q6H PRN PRN Reason: Cough Last Admin: 09/12/24 05:26 Dose: 10 ml Documented By: SIMON Guaifenesin/Dextromethorphan (Guaifenesin Dm 600/30 1 Tab Tab.Er.12h) 1 tab PO BID [facility] Last Admin: 09/12/24 09:53 Dose: 1 tab Documented By: CASPER Magnesium Hydroxide (Milk Of Magnesia 30 Ml Oral.Susp) 30 ml PO DAILY PRN PRN Reason: Constipation Melatonin (Melatonin 3 Mg Tablet) 6 mg PO BEDTIME PRN PRN Reason: Insomnia Ondansetron HCl (Ondansetron Hcl 4 Mg/2 Ml Vial) 4 mg IVPUSH Q8H PRN PRN Reason: Nausea and Vomiting Sacubitril/Valsartan (Sacubitril/Valsartan 1 Tab Tablet) 1 tab PO BID [facility]; Protocol Last Admin: 09/12/24 10:17 Dose: Not Given Documented By: CASPER Non-Admin Reason: HOLD PER Sodium Chloride (0.9 % Sodium Chloride Flush 3 Ml Syringe) 3 ml IVFLUSH QSALFT [facility] Last Admin: 09/12/24 09:52 Dose: 3 ml Documented By: CASPER Spironolactone (Spironolactone 25 Mg Tablet) 25 mg PO DAILY [facility]; Protocol Last Admin: 09/12/24 13:25 Dose: 25 mg Documented By: CASPER Warfarin Sodium (Warfarin Sodium 2.5 Mg Tablet) 2.5 mg PO WE@1800 [facility] Warfarin Sodium (Warfarin Sodium 2.5 Mg Tablet) 2.5 mg PO SUMOTUTHFRSA@1800 [facility] Last Admin: 09/08/24 17:24 Dose: Not Given Documented By: VIOLET Non-Admin Reason: hold per MD. graham INR Labs 09/11/24 06:08 09/12/24 08:57 Labs: Laboratory Results - last 24 hr 09/12/24 09/12/24 09/12/24 06:01 08:57 12:09 PT 19.3 H D INR 1.7 H Anion Gap 12 Estim Creat Clear Calc 48.5 Estimated GFR > 60 Random Glucose 118 H Calcium 8.0 L Magnesium 1.8 B-Natriuretic Peptide 01583 H C. difficile Tox B Gene NEGATIVE Assessment and Plan (1) Acute exacerbation of chronic obstructive airways disease: Status: Acute (2) Congestive heart failure: Status: Acute (3) Acute hypoxic respiratory failure: Status: Acute (4) Pneumonia: Status: Acute Plan 79-year-old female with PMH paroxysmal AFib on warfarin, [place] in 2007, pacemaker, TIA, HTN, HLD, COPD. cardiomyopathy with ejection fraction of 10-15% presents for evaluation of shortness of breath for the past 1-2 weeks. Workup in the emergency room consistent with the acute systolic CHF Acute hypoxemic resp failure 2/2 Acute systolic CHF (04/2024 LVEF 10-15%) Rapid response called, placed on CPAP for work of breathing appreciate Cardiology input. restart IV Lasix repeat CXR Give 40 IV Lasix and start Lasix 20 mg daily continue Entresto, hold coreg due to boderline . adjust as clinically indicated. Hypokalemia : added po and iv potassium ,as well as po magnesium hold lasix for today added sprinolactone. Paroxysmal atrial fibrillation w Elevated INR in NSR PT/INR subtherpautic continue amiodarone Warfarin started back Hypertension continue Coreg and Entresto on hold adjust as indicated Left lower lobe infiltrate on ceftriaxone/azithromycin started 09/08 no O2 requirement at this time repeat CXR likely inciting agent to this exacerbation Full code Warfarin Patient requires ongoing hospitalization for ongoing specialist consultation and IV antibiotics for pneumonia Quality Stroke Does the patient have a stroke diagnosis?: No VTE Prior VTE?: No VTE Risk Level:: Medical - moderate - high VTE Device Contraindication: Treatment Not Indicated VTE Drug Contraindication: N/A - Med Ordered
[2024-09-12 15:08] LABS: E. coli EAEC Not Detected (Not Detect.); E. coli EPEC Not Detected (Not Detect.); E. coli ETEC Not Detected (Not Detect.); E. coli STEC Not Detected (Not Detect.); Shigella sp./EIEC Not Detected (Not Detect.)
[2024-09-12 17:53] LABS: Potassium 4.2 mmol/L (3.3-5.1)
[2024-09-13] VITALS (7 sets, daily range): BP systolic 91–113; BP diastolic 53–74; PULSE 75–109; RESP 16–18; TEMP 36.6–36.9; O2SAT 90–97
[2024-09-13 07:33] LABS: INTERNATIONAL NORM RATIO 1.8 (0.9-1.1); Prothrombin Time 20.9 SEC (10.9-12.4)
[2024-09-13] MEDS: guaiFENesin DM 600/30 1 TAB TAB.ER.12H PO ×2 (08:22→21:09)
[2024-09-13] MEDS: 0.9 % Sodium Chloride Flush 3 ML SYRINGE IVFLUSH ×3 (08:22→21:10)
[2024-09-13] MEDS: Furosemide 20 MG/2 ML VIAL IVPUSH (08:27)
[2024-09-13 09:23] LABS: Anion Gap 13 (12-20); Blood Urea Nitrogen 28 mg/dL (9-16); Calcium 8.5 mg/dL (8.4-10.2); Carbon Dioxide 24 mmol/L (22-29); Chloride 106 mmol/L (96-108); Creatinine Clr Calc Pharmacy 39.7; Estimated Glomerular Filt Rate > 60; Potassium 3.9 mmol/L (3.3-5.1); Sodium 139 mmol/L (135-145)
[2024-09-13 09:49] LABS: B Type Natriuretic Peptide 12917 pg/mL (<100)
--- NOTE | 2024-09-13 12:23 | MHC.CM.PN ---
CM met with Patient at bedside to discuss PT's recommendation for [facility]; Patient adamantly refuses to go to [facility]. Patient has had [facility] in the past and it is her choice to return home with [facility] for home PT. CM will continue to follow.
--- NOTE | 2024-09-13 15:08 | PM.PNCARD ---
Subjective Subjective Date of Service: 09/13/24 Interval history: Seen and examined at bedside. She is saying she is feeling better than yesterday. She still has a Hidalgo catheter in.. Physical Exam Vital Signs: Last Vital Signs Temp 98.1 F 09/13/24 11:55 Pulse 75 09/13/24 11:55 Resp 16 09/13/24 11:55 BP 91/53 L 09/13/24 11:55 Pulse Ox 95 09/13/24 11:55 O2 Del Method Nasal Cannula 09/13/24 11:55 O2 Flow Rate 2 09/13/24 11:55 Oxygen Flow Rate 6 09/10/24 11:48 BMI result Body Mass Index 16.8 GENERAL APPEARANCE: In no acute distress. NECK: no carotid bruit, mild jugular venous distention. SKIN: no suspicious lesions, warm and dry. HEART: no murmurs, regular rate and rhythm. LUNGS: Clear to auscultation. ABDOMEN: soft, nontender. EXTREMITIES: no edema. PERIPHERAL PULSES: equal. NEUROLOGIC: No gross deficits, AAO X 3 Objective Labs and Meds 09/11/24 06:08 09/13/24 08:55 Lab results: Laboratory Results - last 24 hr 09/12/24 09/12/24 09/13/24 12:09 17:41 06:37 Hold Purple Top SEE NOTE PT 20.9 H INR 1.8 H Sodium Potassium 4.2 D Chloride Carbon Dioxide Anion Gap BUN Creatinine Estim Creat Clear Calc Estimated GFR Random Glucose Calcium B-Natriuretic Peptide Stl C. cayetanensis PCR Not Detected Stool Rotavirus A PCR Not Detected Stl Adenov F 40/41 PCR Not Detected Stool Astrovirus (PCR) Not Detected Stool Campylobacter PCR Not Detected Stool Cryptosporidium PCR Not Detected Stl Sh Tox Pr E STEC PCR Not Detected Stool E coli O157 PCR Not applicable Stl Enterotoxigenic E PCR Not Detected Stool EPEC (PCR) Not Detected Stool EAEC (PCR) Not Detected Stl E. histolytica PCR Not Detected Stool Giardia Lamblia PCR Not Detected Stl P. shigelloides PCR Not Detected Stool Salmonella PCR Not Detected Stool Sapovirus (PCR) Not Detected Stl Shigella/EIEC PCR Not Detected St Y.enterocolitica PCR Not Detected Stool Vibrio (PCR) Not Detected Stl Vibrio cholerae PCR Not Detected Stl Norovirus GI/GII PCR Not Detected 09/13/24 08:55 Hold Purple Top PT INR Sodium 139 Potassium 3.9 Chloride 106 Carbon Dioxide 24 Anion Gap 13 BUN 28 H Creatinine 0.83 Estim Creat Clear Calc 39.7 Estimated GFR > 60 Random Glucose 120 H Calcium 8.5 D B-Natriuretic Peptide 20424 H Stl C. cayetanensis PCR Stool Rotavirus A PCR Stl Adenov F 40/41 PCR Stool Astrovirus (PCR) Stool Campylobacter PCR Stool Cryptosporidium PCR Stl Sh Tox Pr E STEC PCR Stool E coli O157 PCR Stl Enterotoxigenic E PCR Stool EPEC (PCR) Stool EAEC (PCR) Stl E. histolytica PCR Stool Giardia Lamblia PCR Stl P. shigelloides PCR Stool Salmonella PCR Stool Sapovirus (PCR) Stl Shigella/EIEC PCR St Y.enterocolitica PCR Stool Vibrio (PCR) Stl Vibrio cholerae PCR Stl Norovirus GI/GII PCR Progress Note: A&P Assessment and plan (1) Cardiomyopathy: Status: Acute (2) Congestive heart failure: Status: Acute Plan [age] year female with severe cardiomyopathy presenting with acute decompensated congestive heart failure. She was diuresed but developed significant electrolyte issues including hypokalemia and hypomagnesemia. After repletion of potassium and magnesium she was started on spironolactone which was increased to 25 mg twice a day. Continue Entresto low dose. Lower the dose of carvedilol 3.125 mg twice a day. Lasix 40 mg p.o. daily. Hopefully she can be discharged in the next 24-48 hours. Thank you for allowing me to participate in the care of your patient. Please feel free to contact me if you have any questions. Time Spent With Patient Time: Total time managing care of this patient today ____ minutes. Progress Note: Quality Stroke Does the patient have a stroke diagnosis?: No Procedures Date of Service Date of Service: 09/13/24
--- NOTE | 2024-09-13 16:15 | P.PNIM_ITS ---
Subjective Subjective Date of Service: 09/13/24 Interval History: chf ,hypokalemia Review of Systems sob somewhat improving no chest pain Physical Exam 2 Vital Signs: Vital Signs: Last Vital Signs Temp 97.9 F 09/13/24 15:50 Pulse 84 09/13/24 15:50 Resp 18 09/13/24 15:50 BP 100/56 L 09/13/24 15:50 Pulse Ox 97 09/13/24 15:50 O2 Del Method Nasal Cannula 09/13/24 15:50 O2 Flow Rate 3 09/13/24 15:50 Oxygen Flow Rate 6 09/10/24 11:48 BMI result Body Mass Index 16.8 Constitutional : Awake, interactive,sob seems improving Neck : Normal inspection, Supple Cardiovascular : RRR, s1s2 heard. Respiratory : fair bilateral air entry, no crackles, in moderate distress, on O2 supplement Gastrointestinal: soft, nd, Normal bowel sounds, Non tender Skin : Warm, Dry Neurological : Alert & oriented x3, No focal deficit Objective Data Active Medications Acetaminophen (Acetaminophen 325 Mg Tablet) 650 mg PO Q6H PRN PRN Reason: Pain, Mild 1-3,fever,headache Last Admin: 09/09/24 23:08 Dose: 650 mg Documented By: SIMON Amiodarone HCl (Amiodarone Hcl 200 Mg Tablet) 100 mg PO DAILY [facility] Last Admin: 09/13/24 08:22 Dose: 100 mg Documented By: RACHEL Atorvastatin Calcium (Atorvastatin Calcium 20 Mg Tablet) 20 mg PO BEDTIME [facility] Last Admin: 09/12/24 20:12 Dose: 20 mg Documented By: TOMAS Calcium Carbonate (Calcium Carbonate 750 Mg Tab.Chew) 750 mg PO Q4H PRN PRN Reason: Heartburn Carvedilol (Carvedilol 6.25 Mg Tablet) 6.25 mg PO BID [facility]; Protocol On Hold: 09/10/24 21:00 Comment: low bp Ceftriaxone Sodium (Ceftriaxone Sodium 1 Gm Vial) 1 gm IVPUSH Q24H [facility] Last Admin: 09/13/24 08:24 Dose: 1 gm Documented By: RACHEL Doxycycline Monohydrate (Doxycycline Monohydrate 100 Mg Capsule) 100 mg PO Q12H [facility] Last Admin: 09/13/24 05:52 Dose: 100 mg Documented By: TOMAS Furosemide (Furosemide 40 Mg Tablet) 40 mg PO DAILY [facility]; Protocol Guaifenesin (Guaifenesin 200 Mg/10 Ml 10 Ml Liquid) 10 ml PO Q6H PRN PRN Reason: Cough Last Admin: 09/12/24 05:26 Dose: 10 ml Documented By: SIMON Guaifenesin/Dextromethorphan (Guaifenesin Dm 600/30 1 Tab Tab.Er.12h) 1 tab PO BID [facility] Last Admin: 09/13/24 08:22 Dose: 1 tab Documented By: RACHEL Loperamide HCl (Loperamide Hcl 2 Mg Capsule) 2 mg PO Q6H PRN PRN Reason: Diarrhea Magnesium Hydroxide (Milk Of Magnesia 30 Ml Oral.Susp) 30 ml PO DAILY PRN PRN Reason: Constipation Melatonin (Melatonin 3 Mg Tablet) 6 mg PO BEDTIME PRN PRN Reason: Insomnia Ondansetron HCl (Ondansetron Hcl 4 Mg/2 Ml Vial) 4 mg IVPUSH Q8H PRN PRN Reason: Nausea and Vomiting Last Admin: 09/12/24 17:55 Dose: 4 mg Documented By: FABBY Sacubitril/Valsartan (Sacubitril/Valsartan 1 Tab Tablet) 1 tab PO BID [facility]; Protocol Last Admin: 09/13/24 08:25 Dose: Not Given Documented By: RACHEL Non-Admin Reason: Physician Held Med Sodium Chloride (0.9 % Sodium Chloride Flush 3 Ml Syringe) 3 ml IVFLUSH [facility] Last Admin: 09/13/24 08:22 Dose: 3 ml Documented By: RACHEL Spironolactone (Spironolactone 25 Mg Tablet) 25 mg PO BIDWM [facility]; Protocol Warfarin Sodium (Warfarin Sodium 2.5 Mg Tablet) 2.5 mg PO WE@1800 [facility] Last Admin: 09/12/24 17:15 Dose: 2.5 mg Documented By: CASPER Warfarin Sodium (Warfarin Sodium 2.5 Mg Tablet) 2.5 mg PO SUMOTUTHFRSA@1800 [facility] Last Admin: 09/08/24 17:24 Dose: Not Given Documented By: VIOLET Non-Admin Reason: hold per MD. high INR Labs 09/11/24 06:08 09/13/24 08:55 Labs: Laboratory Results - last 24 hr 09/13/24 09/13/24 06:37 08:55 Hold Purple Top SEE NOTE PT 20.9 H INR 1.8 H Anion Gap 13 Estim Creat Clear Calc 39.7 Estimated GFR > 60 Random Glucose 120 H Calcium 8.5 D B-Natriuretic Peptide 86229 H Microbiology Microbiology Results: Microbiology 09/08/24 10:27 Blood Culture - Final Blood - Venous No growth after 5 days. 09/08/24 10:26 Blood Culture - Final Blood - Venous No growth after 5 days. Assessment and Plan (1) Congestive heart failure: Status: Acute (2) Cardiomyopathy: Status: Acute Plan 79-year-old female with PMH paroxysmal AFib on warfarin, [place] in 2007, pacemaker, TIA, HTN, HLD, COPD. cardiomyopathy with ejection fraction of 10-15% presents for evaluation of shortness of breath for the past 1-2 weeks. Workup in the emergency room consistent with the acute systolic CHF Acute hypoxemic resp failure 2/2 Acute systolic CHF (04/2024 LVEF 10-15%) Rapid response /CPAP use on 09/10/24 CXR :Cardiomegaly. Small to moderate left pleural effusion. Underlying atelectasis or pneumonia is not excluded. continue iv lasix,Entresto, hold coreg due to boderline . adjust as clinically indicated. Hypokalemia : added po and iv potassium ,as well as po magnesium hold lasix for today added sprinolactone. Paroxysmal atrial fibrillation w Elevated INR in NSR PT/INR subtherpautic ( 1.8) continue amiodarone Warfarin started back Hypertension continue Coreg and Entresto on hold adjust as indicated Left lower lobe infiltrate on ceftriaxone/azithromycin started 09/08-switched to ceft/doxy(09/11/24) no O2 requirement at this time repeat CXR as above. Full code Warfarin Patient requires ongoing hospitalization for ongoing specialist consultation and IV antibiotics for pneumonia Quality Stroke Does the patient have a stroke diagnosis?: No VTE Prior VTE?: No VTE Risk Level:: Medical - moderate - high VTE Device Contraindication: Treatment Not Indicated VTE Drug Contraindication: N/A - Med Ordered
--- NOTE | 2024-09-13 16:43 | P.CDIM_ITS ---
PROVIDER RESPONSE TEXT: To clarify, the appropriate diagnosis supported by the clinical indicators: Moderate protein calorie malnutrition QUERY TEXT: PHYSICIAN'S DOCUMENTATION REQUEST Date of Query: 09/12/2024 01:07 PM EDT Patient Name: Lala Leger Admit Date: 09/08/2024 Dear Adrianna Castanon MD, A review of the medical record indicates additional documentation may be needed. Please review below and update the documentation accordingly. Clinical Indicators: Height: ( ) 5'4 Weight: ( ) 44.3 kg BMI: ( ) 16.8 Other Clinical Notes Supporting Significance of the BMI: Per Clinical Nutrition Assessment 09/10/24: underweight, moderately malnourished in the context of chronic illness regular diet Malnutrition, inadequate energy intake mild depletion of body fat and muscle mass Ensure BID If possible, please provide an associated diagnosis related to the abnormal BMI, such as: Underweight Weight loss Cachexia Anorexia Moderate protein calorie malnutrition Other (explain) Clinically unable to determine (explain) Thank you, Ania Burt RN Use of terms such as suspected, likely, concern for, or probable (associated with a specific diagnosis that is being evaluated, monitored, or treated as if it exists) are acceptable and can be coded in the inpatient setting, when documented at the time of discharge. Please use your independent medical judgment in providing your response. THIS QUERY IS PART OF THE PERMANENT MEDICAL RECORD
--- NOTE | 2024-09-13 18:07 | PC.NURSE ---
per MD order, li cath removed at 1800 for voiding trial. pt dt void at [id number] 09/14/24
[2024-09-13] MEDS: guaiFENesin 200 MG/10 ML 10 ML LIQUID PO (18:09)
--- NOTE | 2024-09-13 20:08 | PC.RT ---
pt refused cpap for more than 3 dats. will dc order per policy
[2024-09-14] VITALS (7 sets, daily range): BP systolic 80–110; BP diastolic 50–71; PULSE 77–95; RESP 16–18; TEMP 36.1–36.9; O2SAT 92–95
[2024-09-14] MEDS: guaiFENesin 200 MG/10 ML 10 ML LIQUID PO (05:24)
[2024-09-14 07:36] LABS: INTERNATIONAL NORM RATIO 3.2 (0.9-1.1); Prothrombin Time 36.3 SEC (10.9-12.4)
[2024-09-14] MEDS: guaiFENesin DM 600/30 1 TAB TAB.ER.12H PO ×2 (09:28→20:38)
[2024-09-14] MEDS: 0.9 % Sodium Chloride Flush 3 ML SYRINGE IVFLUSH ×3 (09:29→21:39)
[2024-09-14 09:57] LABS: Anion Gap 13 (12-20); Blood Urea Nitrogen 30 mg/dL (9-16); Calcium 8.3 mg/dL (8.4-10.2); Carbon Dioxide 25 mmol/L (22-29); Chloride 105 mmol/L (96-108); Creatinine Clr Calc Pharmacy 35.4; Estimated Glomerular Filt Rate 58; Potassium 3.6 mmol/L (3.3-5.1); Sodium 139 mmol/L (135-145)
[2024-09-14 10:33] LABS: B Type Natriuretic Peptide 12002 pg/mL (<100)
[2024-09-14] MEDS: Furosemide 20 MG/2 ML VIAL IVPUSH (12:13)
[2024-09-14] MEDS: Sacubitril/Valsartan 24/26 1 TAB TABLET PO (12:13)
--- NOTE | 2024-09-14 13:07 | MHC.CM.PN ---
EMR reviewed and per MD rounds, pt is not medically cleared for discharge due to management of CHF.
--- NOTE | 2024-09-14 13:34 | MHC.CLN ---
F/U DIET=REGULAR. ENSURE BID TO PROVIDE 700 KCALS, 40 G PROTEIN. INTAKE APPEARS GOOD, 75-100%. FOLLOW FOR PO INTAKE. ENCOURAGE INTAKE AT MEALS AND SUPPLEMENT ABLE.
--- NOTE | 2024-09-14 13:45 | W.PM.IDCN ---
History of Present Illness Data of Consult Service Date: 09/07/24 Requesting physician: Adrianna Castanon Primary Care Provider: Dorothy Salas MD [facility] Reason for consult: shortness of breath She presents with shortness of breath on 09/08 for a week and bilateral ankle swelling. She has no fever or chills and only occasional white sputum. No one else is ill. CXR and then CT scan shows small left effusion and airspace disease. She has no bacteremia. She is on 1 liter nasal cannula and 93%,but was on oxymask on admission. Her BNP is 13,002. She was started on Ceftriaxone and Doxcycline on arrival and day seven is on. [facility] Past Medical History Medical History CAD (coronary artery disease) Hyperlipidemia Afib HTN (hypertension) Family History Family history: reviewed and not pertinent Social History Social History Household Members: None Housing: House Housing Other:: 1st floor of house. nephew lives on 2nd floor Do you presently have visiting nurse or other home services: No Alcohol intake: never Patient Tobacco Use Status: Former Tobacco user Tobacco use type: Cigarette Advance Directives Date on File: 09/08/24 service: No Meds Allergies Allergy/AdvReac Type Severity Reaction Status Date / Time lisinopril AdvReac Intermediate COUHG Verified 09/08/24 08:46 Active Medications: Current Medications Acetaminophen (Acetaminophen 325 Mg Tablet) 650 mg PO Q6H PRN PRN Reason: Pain, Mild 1-3,fever,headache Last Admin: 09/09/24 23:08 Dose: 650 mg Amiodarone HCl (Amiodarone Hcl 200 Mg Tablet) 100 mg PO DAILY [facility] Last Admin: 09/14/24 09:28 Dose: 100 mg Atorvastatin Calcium (Atorvastatin Calcium 20 Mg Tablet) 20 mg PO BEDTIME [facility] Last Admin: 09/13/24 21:09 Dose: 20 mg Calcium Carbonate (Calcium Carbonate 750 Mg Tab.Chew) 750 mg PO Q4H PRN PRN Reason: Heartburn Carvedilol (Carvedilol 6.25 Mg Tablet) 6.25 mg PO BID [facility]; Protocol On Hold: 09/10/24 21:00 Comment: low bp Ceftriaxone Sodium (Ceftriaxone Sodium 1 Gm Vial) 1 gm IVPUSH Q24H [facility] Last Admin: 09/14/24 09:28 Dose: 1 gm Doxycycline Monohydrate (Doxycycline Monohydrate 100 Mg Capsule) 100 mg PO Q12H [facility] Last Admin: 09/14/24 05:24 Dose: 100 mg Furosemide (Furosemide 40 Mg Tablet) 40 mg PO DAILY [facility]; Protocol Last Admin: 09/14/24 09:28 Dose: 40 mg Guaifenesin (Guaifenesin 200 Mg/10 Ml 10 Ml Liquid) 10 ml PO Q6H PRN PRN Reason: Cough Last Admin: 09/14/24 05:24 Dose: 10 ml Guaifenesin/Dextromethorphan (Guaifenesin Dm 600/30 1 Tab Tab.Er.12h) 1 tab PO BID [facility] Last Admin: 09/14/24 09:28 Dose: 1 tab Loperamide HCl (Loperamide Hcl 2 Mg Capsule) 2 mg PO Q6H PRN PRN Reason: Diarrhea Magnesium Hydroxide (Milk Of Magnesia 30 Ml Oral.Susp) 30 ml PO DAILY PRN PRN Reason: Constipation Melatonin (Melatonin 3 Mg Tablet) 6 mg PO BEDTIME PRN PRN Reason: Insomnia Last Admin: 09/13/24 21:09 Dose: 6 mg Ondansetron HCl (Ondansetron Hcl 4 Mg/2 Ml Vial) 4 mg IVPUSH Q8H PRN PRN Reason: Nausea and Vomiting Last Admin: 09/12/24 17:55 Dose: 4 mg Sacubitril/Valsartan (Sacubitril/Valsartan 1 Tab Tablet) 1 tab PO BID [facility]; Protocol Last Admin: 09/14/24 12:13 Dose: 1 tab Sodium Chloride (0.9 % Sodium Chloride Flush 3 Ml Syringe) 3 ml IVFLUSH QSHIFT [facility] Last Admin: 09/14/24 09:29 Dose: 3 ml Spironolactone (Spironolactone 25 Mg Tablet) 25 mg PO BIDWM [facility]; Protocol Last Admin: 09/14/24 09:28 Dose: 25 mg Warfarin Sodium (Warfarin Sodium 1.25 Mg Halftab) 1.25 mg PO SuMoTuThFrSa@1800 [facility] Warfarin Sodium (Warfarin Sodium 2.5 Mg Tablet) 2.5 mg PO We@1800 [facility] Home Medications ?Medication ?Instructions ?Recorded ?Confirmed ?Last Taken ?Type amiodarone 200 mg tablet 100 mg PO DAILY 07/08/21 09/08/24 09/07/24 History acetaminophen 500 mg tablet 500 mg PO Q6H PRN Pain 07/13/23 09/08/24 Unknown History sacubitril 24 mg-valsartan 26 mg 1 tab PO BID 08/03/23 09/08/24 09/07/24 History tablet (Entresto) atorvastatin 20 mg tablet 20 mg PO BEDTIME 10/05/23 09/08/24 09/07/24 History warfarin 2.5 mg tablet 2.5 mg PO SUMOTUTHFRSA@1800 05/01/24 09/04/24 09/07/24 History furosemide 20 mg tablet 20 mg PO DAILY PRN Edema 05/08/24 09/08/24 09/07/24 History warfarin 2.5 mg tablet 2.5 mg PO WE@1800 09/08/24 09/08/24 09/05/24 History warfarin 2.5 mg tablet 1.25 mg PO SUMOTUTHFRSA@1800 09/14/24 09/14/24 Unknown History Physical Exam Vital Signs: Vital Signs: Last Vital Signs Temp 98.1 F 09/14/24 11:35 Pulse 85 09/14/24 11:35 Resp 16 09/14/24 11:35 BP 103/61 09/14/24 11:35 Pulse Ox 93 09/14/24 11:35 O2 Del Method Nasal Cannula 09/14/24 11:35 O2 Flow Rate 1 09/14/24 11:35 Oxygen Flow Rate 6 09/10/24 11:48 BMI result Body Mass Index 16.8 Const: General: cooperative HEENT: Head: Yes normal to inspection Face and sinus: Yes normal facial exam Mouth: Normal oral and palatal mucosa present Teeth and gingiva: dentition normal Eyes: General: appearance normal, both eyes and all related structures Pupils: Equal, round and reactive pupils present Resp: Other: diminished bs bases Cardio: Rate: regular rate Rhythm: regular rhythm GI: Palpation (GI): Soft to palpation and nontender : General: Yes no CVA tenderness Back/Spine/Pelvis: Back: no CVA tenderness Skin: General skin exam: no rashes or lesions noted Neuro: General: moves all extremities Cranial nerves: Yes Equal, round and reactive pupils present Extrem: General: Yes normal to inspection Psych: Appearance: grossly normal Results Labs 09/11/24 06:08 09/14/24 06:24 Labs: BMP 09/14/24 06:24 Sodium 139 Potassium 3.6 Chloride 105 Carbon Dioxide 25 BUN 30 H Creatinine 0.93 Calcium 8.3 L Microbiology Microbiology Results: Microbiology 09/08/24 10:27 Blood - Venous Blood Culture - Final No growth after 5 days. 09/08/24 10:26 Blood - Venous Blood Culture - Final No growth after 5 days. Assessment and Plan (1) Cardiomyopathy: Status: Acute (2) Congestive heart failure: Qualifiers: Heart failure chronicity: acute Heart failure type: systolic Qualified Code(s): I50.21 - Acute systolic (congestive) heart failure Status: Acute (3) Acute hypoxic respiratory failure: Status: Acute (4) Acute exacerbation of chronic obstructive airways disease: Status: Acute Plan She probably has CHF with bronchitis possibly. There is no leukocytosis,fever,purulent sputum or other signs of pneumonia. She has been on antibiotics for seven days. Stop IV Ceftriaxone and Doxycycline. Po Doxycycline another week cover bronchitis exacerbation possible.
--- NOTE | 2024-09-14 14:54 | HO.PM.IMPN ---
Subjective Subjective Date of Service: 09/14/24 Interval History: chf ,pneumonia Review of Systems sob seems somewhat improving says near to her baseline no diarrhae Review of Systems: Yes all other systems are reviewed and are negative Physical Exam Vital Signs: Vital Signs: Last Vital Signs Temp 98.1 F 09/14/24 11:35 Pulse 85 09/14/24 11:35 Resp 16 09/14/24 11:35 BP 103/61 09/14/24 11:35 Pulse Ox 93 09/14/24 11:35 O2 Del Method Nasal Cannula 09/14/24 11:35 O2 Flow Rate 1 09/14/24 11:35 Oxygen Flow Rate 6 09/10/24 11:48 BMI result Body Mass Index 16.8 Constitutional : Awake, interactive,sob seems improving Neck : Normal inspection, Supple Cardiovascular : RRR, s1s2 heard. Respiratory : fair bilateral air entry, no crackles, in moderate distress, on O2 supplement Gastrointestinal: soft, nd, Normal bowel sounds, Non tender Skin : Warm, Dry Neurological : Alert & oriented x3, No focal deficit Objective Data Active Medications Acetaminophen (Acetaminophen 325 Mg Tablet) 650 mg PO Q6H PRN PRN Reason: Pain, Mild 1-3,fever,headache Last Admin: 09/09/24 23:08 Dose: 650 mg Documented By: SIMON Amiodarone HCl (Amiodarone Hcl 200 Mg Tablet) 100 mg PO DAILY [facility] Last Admin: 09/14/24 09:28 Dose: 100 mg Documented By: RACHEL Atorvastatin Calcium (Atorvastatin Calcium 20 Mg Tablet) 20 mg PO BEDTIME [facility] Last Admin: 09/13/24 21:09 Dose: 20 mg Documented By: CHAVEZ Calcium Carbonate (Calcium Carbonate 750 Mg Tab.Chew) 750 mg PO Q4H PRN PRN Reason: Heartburn Carvedilol (Carvedilol 6.25 Mg Tablet) 6.25 mg PO BID [facility]; Protocol On Hold: 09/10/24 21:00 Comment: low bp Doxycycline Monohydrate (Doxycycline Monohydrate 100 Mg Capsule) 100 mg PO Q12H [facility] Furosemide (Furosemide 40 Mg Tablet) 40 mg PO DAILY [facility]; Protocol Last Admin: 09/14/24 09:28 Dose: 40 mg Documented By: RACHEL Guaifenesin (Guaifenesin 200 Mg/10 Ml 10 Ml Liquid) 10 ml PO Q6H PRN PRN Reason: Cough Last Admin: 09/14/24 05:24 Dose: 10 ml Documented By: CHAVEZ Guaifenesin/Dextromethorphan (Guaifenesin Dm 600/30 1 Tab Tab.Er.12h) 1 tab PO BID [facility] Last Admin: 09/14/24 09:28 Dose: 1 tab Documented By: RACHEL Loperamide HCl (Loperamide Hcl 2 Mg Capsule) 2 mg PO Q6H PRN PRN Reason: Diarrhea Magnesium Hydroxide (Milk Of Magnesia 30 Ml Oral.Susp) 30 ml PO DAILY PRN PRN Reason: Constipation Melatonin (Melatonin 3 Mg Tablet) 6 mg PO BEDTIME PRN PRN Reason: Insomnia Last Admin: 09/13/24 21:09 Dose: 6 mg Documented By: CHAVEZ Ondansetron HCl (Ondansetron Hcl 4 Mg/2 Ml Vial) 4 mg IVPUSH Q8H PRN PRN Reason: Nausea and Vomiting Last Admin: 09/12/24 17:55 Dose: 4 mg Documented By: FABBY Sacubitril/Valsartan (Sacubitril/Valsartan 1 Tab Tablet) 1 tab PO BID [facility]; Protocol Last Admin: 09/14/24 12:13 Dose: 1 tab Documented By: RACHEL Sodium Chloride (0.9 % Sodium Chloride Flush 3 Ml Syringe) 3 ml IVFLUSH [facility] Last Admin: 09/14/24 09:29 Dose: 3 ml Documented By: RACHEL Spironolactone (Spironolactone 25 Mg Tablet) 25 mg PO BIDWM [facility]; Protocol Last Admin: 09/14/24 09:28 Dose: 25 mg Documented By: RACHEL Warfarin Sodium (Warfarin Sodium 1.25 Mg Halftab) 1.25 mg PO SuMoTuThFrSa@1800 [facility] Warfarin Sodium (Warfarin Sodium 2.5 Mg Tablet) 2.5 mg PO We@1800 [facility] Labs 09/11/24 06:08 09/14/24 06:24 Labs: Laboratory Results - last 24 hr 09/14/24 06:24 Hold Purple Top SEE NOTE PT 36.3 H D INR 3.2 H Anion Gap 13 Estim Creat Clear Calc 35.4 Estimated GFR 58 Random Glucose 115 Calcium 8.3 L B-Natriuretic Peptide 19527 H Microbiology Microbiology Results: Microbiology 09/08/24 10:27 Blood Culture - Final Blood - Venous No growth after 5 days. 09/08/24 10:26 Blood Culture - Final Blood - Venous No growth after 5 days. Assessment and Plan (1) Congestive heart failure: Status: Acute (2) Cardiomyopathy: Status: Acute Plan 79-year-old female with PMH paroxysmal AFib on warfarin, [place] in 2007, pacemaker, TIA, HTN, HLD, COPD. cardiomyopathy with ejection fraction of 10-15% presents for evaluation of shortness of breath for the past 1-2 weeks. Workup in the emergency room consistent with the acute systolic CHF Acute hypoxemic resp failure 2/2 Acute systolic CHF (04/2024 LVEF 10-15%) Rapid response /CPAP use on 09/10/24 CXR :Cardiomegaly. Small to moderate left pleural effusion. Underlying atelectasis or pneumonia is not excluded. continue iv lasix,Entresto, hold coreg due to boderline . adjust as clinically indicated. Hypokalemia : added po and iv potassium ,as well as po magnesium hold lasix for today added sprinolactone. Paroxysmal atrial fibrillation w Elevated INR in NSR PT/INR subtherpautic ( 1.8) continue amiodarone Warfarin started back Hypertension continue Coreg and Entresto on hold adjust as indicated Left lower lobe infiltrate d/w id -stop ceftriaxone ,another 1 week doxy for bronchitis . Full code Warfarin Patient requires ongoing hospitalization for ongoing specialist consultation and IV antibiotics for pneumonia Quality Stroke Does the patient have a stroke diagnosis?: No VTE Prior VTE?: No VTE Risk Level:: Medical - moderate - high VTE Device Contraindication: Treatment Not Indicated VTE Drug Contraindication: N/A - Med Ordered
--- NOTE | 2024-09-14 15:27 | PM.PNCARD ---
Subjective Subjective Date of Service: 09/14/24 Interval history: Seen examined at bedside. Overall improving. Blood pressure is borderline but tolerating most of guideline directed medical therapy currently. She has Hidalgo catheter removed today and is getting a voiding trial Physical Exam Vital Signs: Last Vital Signs Temp 98.1 F 09/14/24 11:35 Pulse 85 09/14/24 11:35 Resp 16 09/14/24 11:35 BP 103/61 09/14/24 11:35 Pulse Ox 93 09/14/24 11:35 O2 Del Method Nasal Cannula 09/14/24 11:35 O2 Flow Rate 1 09/14/24 11:35 Oxygen Flow Rate 6 09/10/24 11:48 BMI result Body Mass Index 16.8 GENERAL APPEARANCE: In no acute distress. NECK: no carotid bruit, no jugular venous distention. SKIN: no suspicious lesions, warm and dry. HEART: no murmurs, regular rate and rhythm. LUNGS: Clear to auscultation. ABDOMEN: soft, nontender. EXTREMITIES: no edema. PERIPHERAL PULSES: equal. NEUROLOGIC: No gross deficits, AAO X 3 Objective Labs and Meds 09/11/24 06:08 09/14/24 06:24 Lab results: Laboratory Results - last 24 hr 09/14/24 06:24 Hold Purple Top SEE NOTE PT 36.3 H D INR 3.2 H Sodium 139 Potassium 3.6 Chloride 105 Carbon Dioxide 25 Anion Gap 13 BUN 30 H Creatinine 0.93 Estim Creat Clear Calc 35.4 Estimated GFR 58 Random Glucose 115 Calcium 8.3 L B-Natriuretic Peptide 60967 H Progress Note: A&P Assessment and plan (1) Cardiomyopathy: Status: Acute (2) Congestive heart failure: Status: Acute Plan [age] year female with severe cardiomyopathy presenting with acute decompensated congestive heart failure. She was diuresed but developed significant electrolyte issues including hypokalemia and hypomagnesemia. After repletion of potassium and magnesium she was started on spironolactone which was increased to 25 mg twice a day. Continue Entresto low dose. Lower the dose of carvedilol 3.125 mg twice a day. Lasix 40 mg p.o. daily. Follow-up with Dr. Vieira after discharge. Thank you for allowing me to participate in the care of your patient. Please feel free to contact me if you have any questions. Time Spent With Patient Time: Total time managing care of this patient today ____ minutes. Progress Note: Quality Stroke Does the patient have a stroke diagnosis?: No Procedures Date of Service Date of Service: 09/14/24
[2024-09-14] MEDS: Potassium Chloride Packet 20 MEQ PACKET PO (15:56)
--- NOTE | 2024-09-14 18:33 | ECG_ITS ---
Test Reason : ? vfib Blood Pressure : */* mmHG Vent. Rate : 81 BPM Atrial Rate : 81 BPM P-R Int : 168 ms QRS Dur : 182 ms QT Int : 482 ms P-R-T Axes : 60 209 23 degrees QTcB Int : 559 ms Normal sinus rhythm Possible Left atrial enlargement Right superior axis deviation Left bundle branch block Abnormal ECG When compared with ECG of 08-Sep-2024 10:04, No significant changes seen Referred By: Adrianna Castanon Electronically Signed By: Stefano Hernandez
[2024-09-14] MEDS: Magnesium Sulfate/H2O 2 GM/50 ML PIGGYBACK IV (19:06)
[2024-09-14 19:46] LABS: Anion Gap 12 (12-20); Blood Urea Nitrogen 25 mg/dL (9-16); Calcium 8.2 mg/dL (8.4-10.2); Carbon Dioxide 26 mmol/L (22-29); Chloride 105 mmol/L (96-108); Creatinine Clr Calc Pharmacy 39.7; Estimated Glomerular Filt Rate > 60; Magnesium 1.8 mg/dL (1.6-2.6); Potassium 3.4 mmol/L (3.3-5.1); Sodium 140 mmol/L (135-145)
--- NOTE | 2024-09-14 20:05 | PM.EVENT ---
Event Note Date of Service: 09/14/24 Event Note: 8:00 pm - Evaluated Mrs. Leger. Had an event of tachycardia ?Vtach. She has a known underlying old left bundle-branch block. I was also contacted to notify her blood pressure is 82/50 at 19:52. It was recheck and the systolic is 89. Their is no tachycardia or fever. The patient is alert and oriented. She is not in distress. Denies chest pain, palpitations, dizziness or shortness on breath. NC 2L/min in place. Electrolytes are unremarkable. Patient has an AICD/pacemaker - patient said it has not fired recently. Will hold Coreg, spironolactone and Entresto for now. We will continue to monitor blood pressure. Time Spent With Patient Time: Total time managing care of this patient today ____ minutes.
[2024-09-15] VITALS (7 sets, daily range): BP systolic 90–100; BP diastolic 59–62; PULSE 77–108; RESP 16–18; TEMP 35.9–37.1; O2SAT 87–96
[2024-09-15 06:31] LABS: INTERNATIONAL NORM RATIO 3.7 (0.9-1.1); Prothrombin Time 42.6 SEC (10.9-12.4)
[2024-09-15] MEDS: 0.9 % Sodium Chloride Flush 3 ML SYRINGE IVFLUSH (10:07)
[2024-09-15] MEDS: guaiFENesin DM 600/30 1 TAB TAB.ER.12H PO (10:11)
[2024-09-15 10:29] LABS: Anion Gap 12 (12-20); Blood Urea Nitrogen 22 mg/dL (9-16); Calcium 8.4 mg/dL (8.4-10.2); Carbon Dioxide 26 mmol/L (22-29); Chloride 104 mmol/L (96-108); Creatinine Clr Calc Pharmacy 43.9; Estimated Glomerular Filt Rate > 60; Magnesium 2.2 mg/dL (1.6-2.6); Potassium 3.3 mmol/L (3.3-5.1); Sodium 139 mmol/L (135-145)
--- NOTE | 2024-09-15 12:28 | PC.NURSE ---
MD requested bladder scan with result of 511. At the time, patient reports full bladder and needed to void. MD requested post void bladder scan. After voiding, patient rescanned for 343 and reported via tiger to provider. Provider said that's ok and not further order at this time.
--- NOTE | 2024-09-15 13:29 | PM.DS ---
DS: Providers Provider Date of Service: 09/15/24 Date of admission: 09/08/24 12:18 Date of discharge: 09/15/24 Primary care physician: Dorothy Salas MD Consults: 09/09/24 07:29 Consult to Cardiology Routine Consulting Provider: [facility] Reason for consultation: CHF Has provider been notified: No 09/13/24 16:22 Consult to Infectious Diseases Routine Consulting Provider: [facility] [place] Reason for consultation: pneumonia, diarrhae Attending physician on discharge: Adrianna Castanon Discharging clinician: Adrianna Castanon DS: Diagnosis Discharge Diagnosis (1) Cardiomyopathy: Status: Acute (2) Congestive heart failure: Status: Acute DS: Summary Hospital Course Hospital Course: Hpi:79-year-old female with a history of paroxysmal atrial fibrillation, CAD with NM 2007 status post pacemaker, TIA, hypertension and hyperlipidemia presents with dry cough and worsening shortness of breath over the last 2 weeks. She states she knew she was in heart failure yet hoped it would resolve. Had similar presentation earlier this year. Last known echo 04/23/2024 demonstrated an LVEF of 10-15%. She states this episode did not accompany chest pain. Otherwise she has no focal complaints Hospital course:79-year-old female with PMH paroxysmal AFib on warfarin, NM in 2007, pacemaker, TIA, HTN, HLD, COPD. cardiomyopathy with ejection fraction of 10-15% presents for evaluation of shortness of breath for the past 1-2 weeks. Workup in the emergency room consistent with the acute systolic CHF: Patient was admitted for acute hypoxemic respiratory failure secondary to acute systolic CHF(04/2024 LVEF 10-15%): CXR :Cardiomegaly. Small to moderate left pleural effusion. Underlying atelectasis or pneumonia is not excluded. Elevated BNP 32898 range: Patient was started on IV diuretics, I&O monitoring and electrolyte monitored. Also received IV antibiotics for question of pneumonia-seen by ID less likely pneumonia, antibiotics switched to p.o. doxycycline for possible bronchitis component. Patient was also tried on Entresto and Coreg(even lower dose)-patient blood pressure becomes very soft to borderline hypotensive-so currently these both medications are on hold. May introduce Entresto out patiently if blood pressure allows. With the above overall management with diuresis and antibiotics patient seems to be improved significantly, she says now she is near her baseline, also denies any cough, shortness of breaths [place] [address]. Continue Lasix 40 mg daily, spironolactone 25 b.i.d.. Follow-up with Dr. Vieira after discharge. in addition due to underlying copd -home oxygen eval done patient qualifies-needs 1 liter resting, 2 with ambulating. inaddition bodelrine urinary retention:If urine frequency decreases or discomfort-please get evaluated for emergency room for urinary retention. So far urinating better, no discomfort. so far < 350 ml on pvrs. Electrolyte repleted-hypokalemia resolved, patient is also on spironolactone. Monitor BMP out patiently in 1 week. Patient is AFib:last evening events d/w cardiology , small run afib afterwrads Current NSR, continue amiodarone, INR supratherapeutic 3.7 range,hold warfarin for 2 days, monitor INR outpatient in 2-3 days and restart warfarin as per INR. plan: Lasix 40 mg daily, spironolactone 25 mg p.o. b.i.d. coreg on hold due to low bp, consider trial of reintroducing Entresto out patiently if blood pressure allows. Complete doxycycline 100 mg p.o. b.i.d. for 6 more days, continue cough medication. Repeat chest imaging in 3-4 weeks . due to underlying copd -home oxygen eval done patient qualifies-needs 1 liter resting, 2 with ambulating. Hypokalemia repleted and resolved, currently on spironolactone. Monitor BMP closely. Supratherapeutic INR-hold warfarin for 2 days, monitor INR outpatient in 2-3 days and restart warfarin as per INR. CHF education given-if gains weight 2 lb or more in a week-will need outpatient Lasix dosing assessment with PCP. Consider Follow-up with cardiology outpatient. Discussed with the patient's daughter miss Mc ( yesterday and today) in detail length she understand and in agreement with the above plan, she also understand that the overall prognosis moving forward might not be good, she will discuss out patiently with PCP and Cardiology for further course. Assessment and plan coordination time spent 40 minute, all question answered. Time Attestation Total time managing care of this patient today: 40 mintues. Discharge Coordination Time (in mins): 40 min Quality: Safe Use of Opioids Does Pt have an Active Cancer Diagnosis on the Problem List?: No Quality: Stroke Does the patient have a stroke diagnosis?: No Physical Exam Vital Signs: Vital Signs: Last Vital Signs Temp 98.6 F 09/15/24 11:03 Pulse 85 09/15/24 11:03 Resp 18 09/15/24 11:03 BP 90/62 09/15/24 11:22 Pulse Ox 96 09/15/24 11:03 O2 Del Method Nasal Cannula 09/15/24 11:03 O2 Flow Rate 2 09/15/24 11:03 Oxygen Flow Rate 6 09/10/24 11:48 BMI result Body Mass Index 16.8 Appearance: Alert.? Oriented X3.? . cvs: rrr, [id number] . res: air entry fair , no rales or hweezing abd: no rebound or guarding ,nt, bs present. ext pulses present , no cyanosis . neuro: axo3 , nonfocal. DS: Data Data Completed and Pending Labs on day of discharge: Laboratory Results - last 24 hr 09/14/24 09/14/24 09/14/24 19:11 19:11 19:11 Hold Purple Top PT INR Sodium 140 Potassium 3.4 Cancelled Chloride 105 Carbon Dioxide 26 Anion Gap 12 BUN 25 H Creatinine 0.83 Estim Creat Clear Calc 39.7 Estimated GFR > 60 Random Glucose 121 H Calcium 8.2 L Magnesium 1.8 Cancelled 09/15/24 09/15/24 09/15/24 05:47 09:29 10:06 Hold Purple Top SEE NOTE PT 42.6 H INR 3.7 H Sodium 139 Potassium 3.3 Chloride 104 Carbon Dioxide 26 Anion Gap 12 BUN 22 H Creatinine 0.75 Estim Creat Clear Calc 43.9 Estimated GFR > 60 Random Glucose 134 H Calcium 8.4 Magnesium 2.2 Imaging Chest x-ray: Radiologist's impression: ITS Impressions Chest X-Ray 09/10/24 12:50 IMPRESSION: Cardiomegaly. Small to moderate left pleural effusion. Underlying atelectasis or pneumonia is not excluded. Discharge Plan Discharge Anticipated Discharge Date/Time: 09/15/24 13:11 Patient Disposition: Home Health Service Discharge Diagnosis: chf ,pneumonia ,boderline bp,supratherapeutic inr Referrals: Fritz [facility]LETCHER [Outside] - 1 Week Adlakha,Dorothy, MD [Primary Care Provider, Internal Medicine] - 1 Week Discharge Medications: New furosemide 40 mg Tablet 40 mg PO DAILY Qty: 90 0RF Protocol: Hold for SBP< HOLD for SBP < : 90 loperamide 2 mg Capsule 2 mg PO Q6H PRN (Reason: Diarrhea) Qty: 10 0RF guaifenesin 100 mg/5 mL Liquid 100 mg PO Q6H PRN (Reason: Cough) Qty: 118 0RF spironolactone 25 mg Tablet 25 mg PO BIDWM Qty: 120 0RF Protocol: Hold for SBP< HOLD for SBP < : 90 doxycycline monohydrate 100 mg Capsule 100 mg PO Q12H Qty: 12 0RF Continued amiodarone 200 mg tablet 100 mg PO DAILY acetaminophen 500 mg tablet 500 mg PO Q6H PRN (Reason: Pain) atorvastatin 20 mg tablet 20 mg PO BEDTIME furosemide 20 mg tablet 20 mg PO DAILY PRN (Reason: Edema) Patient Comments: pt states for weight gain 5 lbs or more Held warfarin 2.5 mg tablet 2.5 mg PO WE@1800 Hold Instructions: Resume on 09/17/24. warfarin 2.5 mg tablet 1.25 mg PO SUMOTUTHFRSA@1800 Hold Instructions: Resume on 09/17/24. Entresto 24-26 mg tablet 1 tab PO BID Hold Instructions: Resume on 09/18/24. give trial if bp stays at least around 100 mmhg warfarin 2.5 mg tablet 2.5 mg PO SUMOTUTHFRSA@1800 Hold Instructions: Resume on 09/17/24. Protocol: Dose Management Condition: Tuesday (Week One) Dose/Route: 1.25 mg Instruction: 0.5 x 2.5 mg tablets Condition: Tuesday Dose/Route: 1.25 mg Instruction: 0.5 x 2.5 mg tablets Condition: Tuesday Dose/Route: 1.25 mg Instruction: 0.5 x 2.5 mg tablets Condition: Tuesday Dose/Route: 2.5 mg Instruction: 1 x 2.5 mg tablet Condition: Dose/Route: 1.25 mg Instruction: 0.5 x 2.5 mg tablets Condition: Tuesday Dose/Route: 1.25 mg Instruction: 0.5 x 2.5 mg tablets Condition: Tuesday Dose/Route: 1.25 mg Instruction: 0.5 x 2.5 mg tablets Condition: Tuesday (Week Two) Dose/Route: 1.25 mg Instruction: 0.5 x 2.5 mg tablets Condition: Tuesday Dose/Route: 1.25 mg Instruction: 0.5 x 2.5 mg tablets Condition: Tuesday Dose/Route: 1.25 mg Instruction: 0.5 x 2.5 mg tablets Condition: Tuesday Dose/Route: 2.5 mg Instruction: 1 x 2.5 mg tablet Condition: Dose/Route: 1.25 mg Instruction: 0.5 x 2.5 mg tablets Condition: Tuesday Dose/Route: 1.25 mg Instruction: 0.5 x 2.5 mg tablets Condition: Tuesday Dose/Route: 1.25 mg Instruction: 0.5 x 2.5 mg tablets Protocol Text: Adjustment Start Date: Tuesday09/04/24 INR Value: 3.1 INR Date: 09/04/24 Recheck Date: 09/18/24 Discontinued carvedilol 25 mg tablet 12.5 mg PO BID Qty: 30 0RF Discharge Orders: Discharge Order (Routine); Ordered 09/15/24 Ordered By: Adrianna Castanon Diet: Advance to usual diet Activity on Discharge: As tolerated Stand Alone Forms: Patient Portal Discharge page Print Language: Urdu Other Ambulatory Orders: Basic Metabolic Panel (Routine) Timeframe: 1 Week Facility: [facility] - Location: Laboratory Ordered By: Adrianna Castanon Magnesium (Routine) Timeframe: 1 Week Facility: [facility] - Location: Laboratory Ordered By: Adrianna Castanon Prothrombin Time INR (Routine) Timeframe: 3 Days Facility: [facility] - Location: Laboratory Ordered By: Adrianna Castanon Care Plan Goals: As below. Health Concerns: As below. Plan of Treatment: Lasix 40 mg daily, spironolactone 25 mg p.o. b.i.d. If urine frequency decreases or discomfort-please get evaluated for emergency room for urinary retention. So far urinating better, no discomfort. coreg on hold due to low bp, consider trial of reintroducing Entresto out patiently if blood pressure allows. Complete doxycycline 100 mg p.o. b.i.d. for 6 more days, continue cough medication. Repeat chest imaging in 3-4 weeks . due to underlying copd -home oxygen eval done patient qualifies-needs 1 liter resting, 2 with ambulating. Hypokalemia repleted and resolved, currently on spironolactone. Monitor BMP closely. Supratherapeutic INR-hold warfarin for 2 days, monitor INR outpatient in 2-3 days and restart warfarin as per INR. CHF education given-if gains weight 2 lb or more in a week-will need outpatient Lasix dosing assessment with PCP. Consider Follow-up with cardiology outpatient Assessment: As above. Patient Instructions: Heart Failure (DC), Pneumonia (DC)
--- NOTE | 2024-09-15 13:29 | MHC.CM.PN ---
Patient has been medically cleared for dc to home today, with services. A referral was made to [facility], who has been made aware of today's dc.IMM was addressed with Patient at bedside; original was given to her and a copy has been placed on the chart. Daughter will transport to home.
--- NOTE | 2024-09-15 13:52 | W.MHC.F2F ---
Service Date Service Date: 09/15/24 Encounter Date of encounter: 09/15/24 Encounter: chf ,brinchitis Reasons for Services Signs and symptoms assessed: Shortness of breath or chest pain or fever or new symptoms Reason for residential: CV/CP assess and/or care, medication management, medication treatment, teach disease management and GI/ assessment (moniter for urinary retention) Reason for physical therapy: home safety and mobility, therapeutic exercises, restore joint function, gait/transfer training, assess need for DME, ADL training, energy conservation and other MD Overseeing Care: Dorothy Salas Homebound: Leaving the home is medically contraindicated at this time without the asist of a device and/or another person due th the listed conditions above and below. Reason homebound: weakness related to hospital stay Homebound supporting statement: Patient is generalised weak post hospitlisation and need help with going to appointments and labs draws as well as PT. Certification: Based on the above findings, I certify that this patient is confined to the home and needs intermittent residential care, physical therapy and/or speech therapy, or continues to need occupational therapy. The patient is under my care, and I have initiated the establishment of the plan of care. The patient will be followed by a physician who will periodically review the plan of care. Time Spent With Patient Time: Total time managing care of this patient today ____ minutes.
--- NOTE | 2024-09-16 08:16 | MHC.CM.PN ---
Patient was just dc'd to home yesterday with a referral to [facility], after refusing PT's recommendation for str. Patient will benefit from a PT Eval to assist with disposition/STR appears very likely. CM has initiated and will follow for dc planning. IMM was just addressed with Patient yesterday and verbally again today. Patient's PCP is Dr. Dorothy Salas and her Daughter/Jesusita is the HCP.Patient will require BLS transport to STR if she ultimately agrees with that plan.
== END 2024-09-15 15:38 | disposition home health service (06) | DRG 291 ==
LOC: HO.ED 12:32 → HO.EDOVER 12:58 → HO.IMC 15:54
PROVIDERS: Hospitalist; Student in an Organized Health Care Education/Training Program; Admitting Provider Student in an Organized Health Care Education/Training Program; Emergency Provider Emergency Medicine; PCP Internal Medicine; Visit Provider Internal Medicine
DX: I11.0 Hypertensive heart disease with heart failure (principal); I50.21 Acute systolic (congestive) heart failure; J18.9 Pneumonia, unspecified organism; J96.01 Acute respiratory failure with hypoxia; J44.0 Chronic obstructive pulmonary disease with (acute) lower respiratory infection; J44.1 Chronic obstructive pulmonary disease with (acute) exacerbation; E44.0 Moderate protein-calorie malnutrition; Z68.1 Body mass index [BMI] 19.9 or less, adult; I48.0 Paroxysmal atrial fibrillation; R79.1 Abnormal coagulation profile; E87.6 Hypokalemia; I25.5 Ischemic cardiomyopathy; R33.9 Retention of urine, unspecified; E83.42 Hypomagnesemia; I25.10 Atherosclerotic heart disease of native coronary artery without angina pectoris; Z95.810 Presence of automatic (implantable) cardiac defibrillator; Z87.891 Personal history of nicotine dependence; Z79.01 Long term (current) use of anticoagulants; Z79.899 Other long term (current) drug therapy
CPT/HCPCS: 36415; 71045; 80048; 80053; 82947; 83605; 83735; 83880; 84132; 84484; 85025; 85610; 87040; 87493; 87507; 93005; 94640; 94660; 97162; 99285; J0456; J0696; J1271; J1650; J1938; J2405; J2919; J3475; J3480; J7120

== ENCOUNTER → 2024-09-08 08:42 | Outpatient (BNV) | payer MEDICARE, MEDICAID, SELFPAY | PROVIDERS: Emergency Provider Emergency Medicine; PCP Internal Medicine; Visit Provider Radiology Vascular & Interventional Radiology | DX: J90 Pleural effusion, not elsewhere classified (principal); I51.7 Cardiomegaly | CPT/HCPCS: 71045 ==

== ENCOUNTER 2024-09-08 12:18 | Outpatient (BNV) | payer MEDICARE, MEDICAID, SELFPAY | END 2024-09-10 12:50 | PROVIDERS: Admitting Provider Student in an Organized Health Care Education/Training Program; Emergency Provider Emergency Medicine; PCP Internal Medicine; Visit Provider Radiology Diagnostic Radiology | DX: J44.9 Chronic obstructive pulmonary disease, unspecified (principal); J90 Pleural effusion, not elsewhere classified; I51.7 Cardiomegaly | CPT/HCPCS: 71045 ==

== ENCOUNTER 2024-09-08 12:18 | Outpatient (BNV) | payer MEDICARE, MEDICAID, SELFPAY | END 2024-09-14 18:33 | PROVIDERS: Admitting Provider Student in an Organized Health Care Education/Training Program; Emergency Provider Emergency Medicine; PCP Internal Medicine; Visit Provider Internal Medicine Cardiovascular Disease | DX: I44.7 Left bundle-branch block, unspecified (principal) | CPT/HCPCS: 93010 ==

== ENCOUNTER → 2024-09-08 12:18 | Outpatient (BNV) | payer MEDICARE, MEDICAID, SELFPAY | PROVIDERS: Admitting Provider Student in an Organized Health Care Education/Training Program; Emergency Provider Emergency Medicine; PCP Internal Medicine; Visit Provider Internal Medicine Cardiovascular Disease | DX: I42.9 Cardiomyopathy, unspecified (principal); I50.21 Acute systolic (congestive) heart failure | CPT/HCPCS: 93010; 99222; 99233 ==

== ENCOUNTER → 2024-09-08 12:18 | Outpatient (BNV) | payer MEDICARE, MEDICAID, SELFPAY | PROVIDERS: Admitting Provider Student in an Organized Health Care Education/Training Program; Emergency Provider Emergency Medicine; PCP Internal Medicine; Visit Provider Internal Medicine | DX: J44.1 Chronic obstructive pulmonary disease with (acute) exacerbation (principal); I42.9 Cardiomyopathy, unspecified; I50.21 Acute systolic (congestive) heart failure; J96.01 Acute respiratory failure with hypoxia | CPT/HCPCS: 99232 ==

== ENCOUNTER → 2024-09-08 12:18 | Outpatient (BNV) | payer MEDICARE, MEDICAID, SELFPAY | PROVIDERS: Admitting Provider Student in an Organized Health Care Education/Training Program; Emergency Provider Emergency Medicine; PCP Internal Medicine; Visit Provider Hospitalist | DX: J44.1 Chronic obstructive pulmonary disease with (acute) exacerbation (principal); I50.21 Acute systolic (congestive) heart failure; J96.01 Acute respiratory failure with hypoxia; J18.9 Pneumonia, unspecified organism | CPT/HCPCS: 99223; 99231; 99232; 99499 ==

== ENCOUNTER 2024-09-15 19:55 | Inpatient (IN) | payer MEDICARE, OTHER, SELFPAY ==
--- NOTE | ~2024-09-15 | XR_ITS ---
CLINICAL HISTORY: chest pain 1 view chest x-ray Comparison: 09/10/2024 Findings: Portions of the exam are obscured by overlying material. There is increase in diffuse consolidation with bilateral pleural effusions. The exam is otherwise unchanged IMPRESSION: 1. Increasing diffuse consolidation with bilateral pleural effusions. This document has been electronically signed by: Ashok Duncan MD on 09/16/2024 07:14:55
[2024-09-15 20:04] VITALS: BP 106/72; BP 113/69; PULSE 92; PULSE 93; RESP 18; TEMP 36.9; O2SAT 92; O2SAT 95; BMI 18.7
[2024-09-15 20:08] VITALS: BP 113/69; PULSE 93; RESP 18; TEMP 36.9; O2SAT 95
--- OUTSIDE RECORDS SUMMARY | 2024-09-15 20:16 | XMS_ITS | Patient Health Record ---
Author Organization [facility] Address [address] [place] [address] Care Team Providers Care Early Morning Name Role Phone Dorotyh Salas Primary Care Provider Unavailab Ryley Carroll Unavailable [phone] Allergies Allergen (clinical drug ingredient) Drug/Non Drug [...] W/U Status Risk Notes Problem Plantar wart ([id number]) Plantar wart (B07.0) Active confirmed Plan Of Treatment Pending Test Test Name Order Date [id number] Destruction, 1-14 12/14/2019 Insurance Providers Payer Name Payer Address Payer Phone Subscriber Number Group Number Insured Name Patient Relationship to Insured Coverage Start Date Coverage End Date [employer] [address] [place] [address] [id number] Lala Tucker Self - patient is the insured Medical (General) History Medical History History ICD Code CAD CHF - 2007 Surgical History Surgery Date(Month/Year)
--- NOTE | 2024-09-15 20:41 | PC.NURSE ---
patient cleaned and changed at this time. purewick applied and patient resting no complaints at this time.
--- NOTE | 2024-09-15 21:04 | ED_ITS ---
HPI - Weakness General Chief complaint: Weakness Stated complaint: sob chest pain, dizzy, overall weakness Time Seen by Provider: 09/15/24 21:04 Source: patient, EMS, RN notes reviewed and old records reviewed Mode of arrival: EMS Limitations: no limitations History of Present Illness ED Provider: Dr. Mely Burns HPI Narrative: 79-year-old female with history of hypertension, hyperlipidemia, atrial fibrillation on Coumadin and amiodarone, CAD, COPD presenting with global weakness after arriving home from her most recent hospitalization this afternoon. Admits that she was admitted here with diagnosis of CHF and COPD exacerbations, supratherapeutic INR. It was recommended that she go to rehab but the patient declined. States she got home and was unable to care for herself, could not even make it to the bathroom and was unfortunately incontinent. Admits that she ?made a mistake and needs to go to rehab?. She denies changes in her cough, fever, chest pain, difficulty breathing, abdominal pain, nausea or vomiting, dysuria or frequency of urination, lower extremity edema or pain. She was discharged on doxycycline for the COPD exacerbation and has taken her dose at 5 p.m. this evening as scheduled. Related Data Home Medications ?Medication ?Instructions ?Recorded ?Confirmed amiodarone 200 mg tablet 100 mg PO DAILY 07/08/2102/28 acetaminophen 500 mg tablet 500 mg PO Q6H PRN Pain 10/2809/15/24 sacubitril 24 mg-valsartan 26 mg 1 tab PO BID 08/03/23 09/16/24 tablet (Entresto) Held on 09/15/24. Instructions: Resume on 09/18/24. give trial if bp stays at least around 100 mmhg atorvastatin 20 mg tablet 20 mg PO BEDTIME 10/05/23 warfarin 2.5 mg tablet 2.5 mg PO SUMOTUTHFRSA@1800 05/01/24 09/16/24 Held on 09/15/24. Instructions: Resume on 09/17/24. furosemide 20 mg tablet 20 mg PO DAILY PRN Edema 06/2909/15/24 warfarin 2.5 mg tablet 2.5 mg PO WE@1800 09/08/24 0 09/15/24 Held on 09/15/24. Instructions: Resume on 09/17/24. warfarin 2.5 mg tablet 1.25 mg PO EDWARD@1800 09/14/24 09/15/24 Held on 09/15/24. Instructions: Resume on 09/17/24. Previous Rx's ?Medication ?Instructions ?Recorded doxycycline monohydrate 100 mg 100 mg PO Q12H #12 caps 09/15/24 capsule furosemide 40 mg tablet 40 mg PO DAILY #90 tabs 09/04 05/01 guaifenesin 100 mg/5 mL oral liquid 100 mg (5 mL) PO Q 6H PRN Cough 09/15/24 #118 mL loperamide 2 mg capsule 2 mg PO Q6H PRN Diarrhea #10 caps 09/15/24 spironolactone 25 mg tablet 25 mg PO BIDWM #120 tabs 0 09/15/24 Allergies Allergy/AdvReac Type Severity Reaction Status Date / Time lisinopril AdvReac Intermediate COUHG Verified 09/15/24 20:06 Review of Systems 2 Review of Systems: Yes all other systems are reviewed and are negative (As per HPI) [facility] Past Medical History Attestation statement: The following information was validated with the patient. [facility] Narrative: COPD, CHF, atrial fibrillation on warfarin, GA, pacemaker placement, TIA, hypertension, hyperlipidemia, cardiomyopathy with an ejection fraction of 10-15% Source: old records reviewed and nursing notes reviewed Medical History CAD (coronary artery disease) Hyperlipidemia Afib HTN (hypertension) Social History Social History Household Members: None Housing: House Housing Other:: 1st floor of house. nephew lives on 2nd floor Do you presently have visiting nurse or other home services: No Alcohol intake: never Patient Tobacco Use Status: Former Tobacco user Tobacco use type: Cigarette Smoked in Last 30 Days: No Use of substances other than those prescribed or required for medical reasons: No Advance Directives: Yes Advance Directives Information Provided: Yes Advance Directives on File: No Advance Directives Date on File: 09/08/24 service: No Physical Exam 2 Vital Signs: Vital Signs: Last Vital Signs Temp 97.9 F 09/15/24 22:15 Pulse 87 09/16/24 04:35 Resp 19 09/16/24 04:35 BP 97/63 09/16/24 04:35 Pulse Ox 95 09/16/24 04:35 O2 Del Method Nasal Cannula 09/16/24 04:35 O2 Flow Rate 3 09/16/24 04:35 Oxygen Flow Rate 1 09/15/24 20:04 BMI result Body Mass Index 18.7 GENERAL: Chronically ill-appearing, conversant, no acute distress. SKIN: Normal skin color for ethnicity, warm, dry, no rashes noted. HEENT: Normocephalic, atraumatic, no stridor, posterior oropharynx nonerythematous, EOMI. NECK: Soft, supple, full ROM, midline structures nontender, no step-offs, no deformities, no lymphadenopathy. CHEST: Heart regular rate and rhythm, no murmurs, symmetric chest rise and fall. PULMONARY: Clear to auscultation bilaterally, no labored breathing, no wheezes/rhales/ rhonchi, diminished at the bases. ABDOMINAL: Soft, nondistended, nontender, positive bowel sounds in all quadrants. : Deferred. MUSCULOSKELETAL: Normal tone, full range of motion, no deformities, no peripheral edema. NEURO: Alert and oriented to person, CN II through XII intact, no focal neurologic deficits. PSYCHIATRIC: Flat affect, fluid speech, appropriate demeanor. Course Reevaluation(s) Reevaluation #1: Time: 23:59 Date: 09/15/24 Provider: Mely Burns, DO Patient in physician observation for case management needs. No acute events reported overnight.? No current issues or complaints. VS stable. Patient is pending placement at facility/pending PT/CM eval. Will continue to monitor. Time: 21:59 Reevaluation #2: Called to the bedside as patient had an episode of V-tach, chest pressure and jaw pain. Heart rate went into the 190s, blood pressure dropped to 77/56. Initiated amiodarone bolus, placed on defib pads, given ketamine to prepare for defibrillation however, just prior to receiving a shock, her heart rate dropped back down to 100, blood pressure improved to her baseline and she became more stable. EKG shows a wide complex tachycardia with a rate of 143, leftward axis, several ST changes from her baseline including a proximally [address]-elevation in discordant leads V2 through V4, left bundle branch block with QRS of 164 is baseline. Prior to receiving ketamine, patient complained of severe chest pressure radiating to her jaw. Obvious concern is for an acute GA. Blood work is now ordered. We will discuss case with outreach specialist on-call. Time: 04:00 Reevaluation #3: Troponin of 307. Awaiting callback from outreach specialist. Repeat EKG with a heart rate of 100, persistent leftward axis and QTC prolongation with a QRS of 182, ST elevations in the discordant leads are less pronounced than the previous EKG. Time: 04:37 Consultations Consultation #1: Case discussed with outreach specialist on-call, Dr. Hernandez, who was reading the EKGs as atrial fibrillation with aberrancy. Continued amiodarone is the recommendation at 200 b.i.d.. Patient continues to rest comfortably post ketamine. Case discussed with hospitalist who agrees with plan for admission. Admitted in guarded condition. Time: 05:09 Medications Administered Discontinued Medications Generic Name Dose Route Start Last Admin Trade Name Freq PRN Reason Stop Dose Admin Amiodarone HCl 150 mg in 100 mls @ 600 mls/hr 09/16/24 03:48 09/16/24 04:22 Nexterone IV 09/16/24 03:57 Infused ONCE ONE Infusion Magnesium Sulfate 2 gm in 50 mls @ 150 mls/hr 09/16/24 04:42 09/16/24 04:48 Magnesium Sulfate/H2o IV 09/16/24 05:01 150 mls/hr ONCE ONE Administration Ketamine HCl 80 mg 09/16/24 04:09 09/16/24 04:12 Ketamine Hcl/Ns 100 Mg/10 Ml Syringe IVPUSH 09/16/24 04:10 80 mg ONCE ONE Administration Medical Decision Making Medical Decision Making MDM Narrative: 79-year-old female with history of CHF, AFib, GA, hypertension and hyperlipidemia presenting with generalized weakness after being discharged earlier today. Got home and could not care for herself. She has no new complaints today. Differential diagnosis includes anemia, electrolyte abnormality, rhabdomyolysis/myositis, CVA, medication side effects, deconditioning, dehydration, among many others. Given the fact that she had already had blood work performed today during her admission, I do not feel that additional workup is necessary. We will repeat her EKG but otherwise, I feel that a workup would be more appropriate tomorrow morning. If at all. She is having her warfarin held until the as per her discharge instructions due to supratherapeutic INR, based on pharmacy recommendations. She took her doxycycline earlier today. We will order for 6 more days. She remains hemodynamically stable, resting comfortably without chest pain or difficulty breathing. Awaiting case management evaluation for placement for rehab. Differential Diagnosis Differential Diagnoses: The differential diagnosis associated with the presentation includes (As above) Admission/Observation Consideration of admission/observation: Escalation of care including admission/observation considered Consult Healthcare Provider Management of the patient was discussed with: Hospitalist (Dr. Rico) and Personal Banking Representative (David, outreach specialist) Lab Data MDM Lab Attestation statement: I reviewed the patient's lab results. INR was 3.7 on 09/15, potassium slightly low at 3.3, BUN to creatinine ratio favors dehydration 09/16/24 04:00 09/16/24 04:00 Labs: Lab Results 09/16/24 Range/Units 04:00 WBC 9.0 (4.8-10.8) X10*3/uL RBC 3.83 L (4.20-5.50) X10*6/uL Hgb 11.4 L (12.0-16.0) g/dl Hct 34.9 L (37.0-47.0) % MCV 91.1 (80.0-98.0) fL MCH 29.8 (27.0-33.0) pg MCHC 32.7 (31.0-35.0) g/dl RDW 14.5 (11.0-16.0) % Plt Count 212 (160-400) X10*3/uL MPV 10.6 (9.4-12.3) fL Immature Gran % (Auto) 0.3 (0.0-0.4) % Neut % (Auto) 57.3 (45-73) % Lymph % (Auto) 25.7 (20-40) % Marin % (Auto) 8.1 (2-11) % Eos % (Auto) 8.3 H (0-4) % Baso % (Auto) 0.3 (0-2) % Lymph # (Auto) 2.3 (1.2-4.9) X10*3/uL Marin # (Auto) 0.7 (0.1-1.2) X10*3/uL Eos # (Auto) 0.8 H (0.0-0.4) X10*3/uL Baso # (Auto) 0.0 (0.0-0.2) X10*3/uL Abs Immat Gran (auto) 0.03 (0.00-0.03) X10*3/uL Absolute Neuts (auto) 5.2 (2.0-8.3) x10*3/uL Absolute Nucleated RBC 0.000 (0.0-0.012) X10*3/uL Nucleated RBC % (auto) 0.0 (0.0-0.2) /100WBC Sodium 142 (135-145) mmol/L Potassium 3.4 (3.3-5.1) mmol/L Chloride 108 (96-108) mmol/L Carbon Dioxide 24 (22-29) mmol/L Anion Gap 13 (12-20) BUN 20 H (9-16) mg/dL Creatinine 0.84 (0.5-1.4) mg/dL Estim Creat Clear Calc 41.0 Estimated GFR > 60 Random Glucose 96 (60-115) mg/dL Calcium 8.0 L (8.4-10.2) mg/dL Magnesium 1.9 (1.6-2.6) mg/dL Total Bilirubin 0.6 (0.0-1.0) mg/dL AST 16 (5-31) U/L ALT 16 (0-31) U/L Alkaline Phosphatase 105 (39-117) U/L Troponin I High Sens 307.2 H* D (<3.5-17.0) ng/L B-Natriuretic Peptide 16195 H (<100) pg/mL Total Protein 5.3 L (6.5-8.0) g/dL Albumin 2.9 L (3.5-5.0) g/dL Independent Interpretation I performed an independent interpretation of an: EKG and Rhythm Strip (Wide complex tachycardia, irregularly irregular, likely atrial fibrillation with aberrancy versus V-tach) Interpretation: See course for EKG readings. External Record Review External record reviewed: Inpatient record Prescription Management I considered prescription management with: Antibiotic Chronic Conditions Patient?s care impacted by: Hypertension and Other (CAD, atrial fibrillation) Critical Care Time Critical Care Time Critical Care Time: Yes Total Critical Care Time: 58 Attestation: Time is exclusive of separately billable procedures. Time includes: direct patient care, patient reassessment, coordination of patient care, interpretation of data (laboratory data, pulse oximetry, arterial blood gases and chest xrays), review of patient's medical records, medical consultation and documentation of patient care. Procedures excluded from critical care time: central intravenous line placement and electrocardiography. Discharge Plan Discharge Clinical Impression: Current use of anticoagulant therapy, Cardiomyopathy, Wide-complex tachycardia, Acute exacerbation of CHF (congestive heart failure) Patient Disposition: Admitted As Inpatient Print Language: Z[place]ian
[2024-09-15 22:15] VITALS: BP 96/59; PULSE 78; RESP 14; TEMP 36.6; O2SAT 91
[2024-09-16] VITALS (14 sets, daily range): BP systolic 93–116; BP diastolic 58–70; PULSE 66–167; RESP 11–24; TEMP 36.4–36.8; O2SAT 91–97; BMI 17.3
--- NOTE | 2024-09-16 | ECG_ITS ---
Test Reason : rate changed Blood Pressure : */* mmHG Vent. Rate : 143 BPM Atrial Rate : 143 BPM P-R Int : 178 ms QRS Dur : 164 ms QT Int : 396 ms P-R-T Axes : * -79 93 degrees QTcB Int : 611 ms Atrial fibrillation with RVR Left axis deviation Left bundle branch block Abnormal ECG When compared with ECG of 14-Sep-2024 18:33, Atrial fibrillation Present Referred By: Mely Burns Electronically Signed By: Stefano Hernandez
--- NOTE | 2024-09-16 | ECG_ITS ---
Test Reason : tachy Blood Pressure : */* mmHG Vent. Rate : 100 BPM Atrial Rate : 100 BPM P-R Int : 172 ms QRS Dur : 182 ms QT Int : 434 ms P-R-T Axes : 69 -36 51 degrees QTcB Int : 559 ms Sinus rhythm with Fusion complexes Left axis deviation Non-specific intra-ventricular conduction block Left ventricular hypertrophy with repolarization abnormality ( Sokolow-Tavera , [place] product ) Abnormal ECG When compared with ECG of 16-Sep-2024 03:40, Fusion complexes are now Present Premature supraventricular complexes are no longer Present Referred By: Mely Burns Electronically Signed By: Stefano Hernandez
[2024-09-16 04:08] LABS: MANUAL DIFF FLAG NO
[2024-09-16 04:09] LABS: Hematocrit 34.9 % (37.0-47.0); Hemoglobin 11.4 g/dl (12.0-16.0); Imm Gran Abs Auto 0.03 X10*3/uL (0.00-0.03); Imm Gran Pct Auto 0.3 % (0.0-0.4); Lymphocytes Absolute Auto 2.3 X10*3/uL (1.2-4.9); Mean Corpuscular HGB Conc 32.7 g/dl (31.0-35.0); Mean Corpuscular Hemoglobin 29.8 pg (27.0-33.0); Mean Corpuscular Volume 91.1 fL (80.0-98.0); NRBC Abs Auto 0.000 X10*3/uL (0.0-0.012); NRBC Pct Auto 0.0 /100WBC (0.0-0.2); Platelet Count 212 X10*3/uL (160-400); Red Blood Count 3.83 X10*6/uL (4.20-5.50); White Blood Count 9.0 X10*3/uL (4.8-10.8)
[2024-09-16] MEDS: Ketamine HCl/NS 100 MG/10 ML SYRINGE 80 MG IVPUSH (04:12)
[2024-09-16] MEDS: Amiodarone/Dextrose 150 MG/100 ML PLAST..BAG 600 MG IV (04:12)
--- NOTE | 2024-09-16 04:18 | PC.NURSE ---
patient noted to have heart rate in the 150s notified MD and got EKG, patient heart rate 183, pads applied and dr at bedside. verbal order for amiodarone and ketamine given.
[2024-09-16 04:21] LABS: Alanine Aminotransferase 16 U/L (0-31); Albumin Level 2.9 g/dL (3.5-5.0); Alkaline Phosphatase 105 U/L (39-117); Anion Gap 13 (12-20); Aspartate Amino Transferase 16 U/L (5-31); Blood Urea Nitrogen 20 mg/dL (9-16); Calcium 8.0 mg/dL (8.4-10.2); Carbon Dioxide 24 mmol/L (22-29); Chloride 108 mmol/L (96-108); Creatinine Clr Calc Pharmacy 41.0; Estimated Glomerular Filt Rate > 60; Magnesium 1.9 mg/dL (1.6-2.6); Potassium 3.4 mmol/L (3.3-5.1); Sodium 142 mmol/L (135-145); Total Protein 5.3 g/dL (6.5-8.0)
[2024-09-16 04:29] LABS: Troponin-I High Sensitivity 307.2 ng/L (<3.5-17.0)
[2024-09-16] MEDS: Magnesium Sulfate/H2O 2 GM/50 ML PIGGYBACK IV (04:48)
[2024-09-16 04:51] LABS: B Type Natriuretic Peptide 10647 pg/mL (<100)
--- NOTE | 2024-09-16 05:26 | PM.IMHP ---
History of Present Illness Date of Service: 09/16/24 Attending physician on admission: Constanza Rico Chief Complaint: weakness Patient is a 79-year-old female with past medical history AFib on Coumadin,HFrEF/ CM with 10-15% AICD in place, AICD last fired in 2007, , CAD with NM 2007, hypertension hyperlipidemia, COPD, hysterectomy presents to the emergency room after being discharged earlier in the afternoon on 09/15/2024 for Acute CHF exacerbation. It was felt that patient would benefit from rehabilitation but patient refused and was discharged to the home setting. Patient's son and daughter were with her for the 1st few hours and when they decided to go home, patient was on her own. During that time patient realized how truly weak she was and was not able to make it to the bathroom. Patient stated that she could no longer care for herself and 911 was called and patient was transferred here to [facility]. Upon assessment initially, patient was made a case management case and would be followed by case management for placement for rehab. In the interim patient experienced an episode of what appeared to be V-tach but patient AICD did not fire. Patient did receive ketamine for potential defibrillation but right before the defibrillation occurred, patient's heart rate decreased to 100 after a bolus of amiodarone. All patient's rhythms were evaluated by Cardiology and provider indicated that patient was experiencing AFib with aberrancy. Patient was placed for admission after review with hospitalist attending and would start amiodarone 200 mg b.i.d.. Troponin elevated 307. ECG SR with fusion complexes and left axis deviation and prolonged Qtc. Patient is normally on Coumadin with a supratherapeutic INR 3.7. Coumadin is currently on hold. There is no evidence of spontaneous bleeding of any kind. Patient's H&H is stable. Patient currently denies any chest pain, shortness of breath at rest but is extremely fatigued and is feeling the effects of the ketamine. Patient's memory is intact and she is currently alert and orientated able to answer questions for HPI. Patient does admit that she can not return home alone at this time. BMI is borderline low and pt states she has had less of an appetitie and has been having trouble swallowing her pills but not food or drink. Patient was scheduled to start doxycycline with transferred to rehab due to possible pneumonia with COPD exacerbation per ED provider. Review of Systems Review of Systems: Patient denies any chest pain currently, shortness breath at rest, abdominal pain or nausea and vomiting. Patient is not having chronic issues with constipation or diarrhea. Patient denies any recent falls or trauma. Patient states her weight is usually 93-98 lb. (Patient's weight is currently 101 but may be somewhat elevated due to recent acute CHF exacerbation.) Patient does report problems swallowing pills but has no issues with eating food or drinking water. Patient states her appetite has been fair. Patient only stopped driving. Yes all other systems are reviewed and are negative [facility] Medical History (Updated 09/16/24 @ 06:01 by JENNIFER Bagley) Myocardial infarction Congestive heart failure Cardiomyopathy CAD (coronary artery disease) Hyperlipidemia Afib HTN (hypertension) Cognitive capacity: Alert and orientated x3 Functional capacity: wheelchair bound Patient : No Surgical History H/O: hysterectomy AICD (automatic cardioverter/defibrillator) present Social History Household Members: None Housing: House Housing Other:: 1st floor of house. nephew lives on 2nd floor Do you presently have visiting nurse or other home services: No Alcohol intake: never Patient Tobacco Use Status: Former Tobacco user Tobacco use type: Cigarette Smoked in Last 30 Days: No Use of substances other than those prescribed or required for medical reasons: No Advance Directives: Yes Advance Directives Information Provided: Yes Advance Directives on File: No Advance Directives Date on File: 09/08/24 Patient : No service: No Ebola Risk: Travel/Contact With Anyone From Affected Area/s: No Has Patient Experienced Ebola Symptoms: No Meds Allergies Allergy/AdvReac Type Severity Reaction Status Date / Time lisinopril AdvReac Intermediate COUHG Verified 09/15/24 20:06 Active Medications: Current Medications Acetaminophen (Acetaminophen 325 Mg Tablet) 650 mg PO Q6H PRN PRN Reason: Pain, Mild 1-3,fever,headache Albuterol/Ipratropium (Albuterol/Iprat 2.5/0.5mg 3 Ml Ampul.Neb) 3 ml INHALE Q4H PRN PRN Reason: Shortness of Breath/Wheezing Amiodarone HCl (Amiodarone Hcl 200 Mg Tablet) 200 mg PO BID RENETTA Calcium Carbonate (Calcium Carbonate 750 Mg Tab.Chew) 750 mg PO Q4H PRN PRN Reason: Heartburn Magnesium Hydroxide (Milk Of Magnesia 30 Ml Oral.Susp) 30 ml PO DAILY PRN PRN Reason: Constipation Melatonin (Melatonin 3 Mg Tablet) 6 mg PO BEDTIME PRN PRN Reason: Insomnia Ondansetron HCl (Ondansetron Hcl 4 Mg/2 Ml Vial) 4 mg IVPUSH Q8H PRN PRN Reason: Nausea and Vomiting Polyethylene Glycol (Polyethylene Glycol 3350 17 Gm Powd.Pack) 17 gm PO DAILY PRN PRN Reason: Constipation Senna (Sennosides 8.6 Mg Tablet) 17.2 mg PO BEDTIME RENETTA Sodium Chloride (0.9 % Sodium Chloride Flush 3 Ml Syringe) 3 ml IVFLUSH QSHIFT RENETTA Home Medications ?Medication ?Instructions ?Recorded ?Confirmed ?Last Taken ?Type amiodarone 200 mg tablet 100 mg PO DAILY 07/08/21 09/15/24 09/15/24 10:10 History acetaminophen 500 mg tablet 500 mg PO Q6H PRN Pain 07/13/23 09/15/24 Unknown History sacubitril 24 mg-valsartan 26 mg 1 tab PO BID 08/03/23 09/16/24 09/14/24 12:13 History tablet (Entresto) Held on 09/15/24. Instructions: Resume on 09/18/24. give trial if bp stays at least around 100 mmhg atorvastatin 20 mg tablet 20 mg PO BEDTIME 10/05/23 09/15/24 09/15/24 20:38 History warfarin 2.5 mg tablet 2.5 mg PO SUMOTUTHFRSA@1800 05/01/24 09/16/24 09/07/24 History Held on 09/15/24. Instructions: Resume on 09/17/24. furosemide 20 mg tablet 20 mg PO DAILY PRN Edema 05/08/24 09/15/24 09/07/24 History warfarin 2.5 mg tablet 2.5 mg PO WE@1800 09/08/24 09/15/24 09/12/24 17:15 History Held on 09/15/24. Instructions: Resume on 09/17/24. warfarin 2.5 mg tablet 1.25 mg PO EDWARD@1800 09/14/24 09/15/24 09/13/24 17:30 History Held on 09/15/24. Instructions: Resume on 09/17/24. Physical Exam Vital Signs and Narrative: Vital Signs: Last Vital Signs Temp 97.9 F 09/15/24 22:15 Pulse 87 09/16/24 04:35 Resp 19 09/16/24 04:35 BP 97/63 09/16/24 04:35 Pulse Ox 95 09/16/24 04:35 O2 Del Method Nasal Cannula 09/16/24 04:35 O2 Flow Rate 3 09/16/24 04:35 Oxygen Flow Rate 1 09/15/24 20:04 BMI result Body Mass Index 18.7 Alert and orientated X3, somewhat sleepy s/p ketamine, able to give good history. Patient appears thin and frail. Neuro: CN II-X11 intact, no deficits, visual acuity intact EYES: PERRLA, EOM intact, sclerae nonicteric, conjunctiva pink ENT: hearing intact, uvula midline, lips moist, nares patent no epistaxis Cardiac: S1 S2 RRR, no murmur, no JVD, no edema in Lower ext Pulmonary: lungs diminished bilaterally Abdominal: BS active in all 4 quadrants, no guarding, tenderness, rebounding, no distention MSK: strength 2-3/5 upper and lower extremities : no CVA tenderness no bladder distension Extremities: no edema in lower extremities, PT and DP pulses palpable +2 Psych: mood stable, judgement and insight good Skin: intact, no report of open wounds Results Labs 09/16/24 04:00 09/16/24 04:00 Labs: Laboratory Results - last 24 hr 09/16/24 04:00 MCV 91.1 MCH 29.8 MCHC 32.7 RDW 14.5 Plt Count 212 MPV 10.6 Immature Gran % (Auto) 0.3 Neut % (Auto) 57.3 Lymph % (Auto) 25.7 [place] % (Auto) 8.1 Eos % (Auto) 8.3 H Baso % (Auto) 0.3 Lymph # (Auto) 2.3 [place] # (Auto) 0.7 Eos # (Auto) 0.8 H Baso # (Auto) 0.0 Abs Immat Gran (auto) 0.03 Absolute Neuts (auto) 5.2 Absolute Nucleated RBC 0.000 Nucleated RBC % (auto) 0.0 Anion Gap 13 Estim Creat Clear Calc 41.0 Estimated GFR > 60 Random Glucose 96 Calcium 8.0 L Magnesium 1.9 Total Bilirubin 0.6 AST 16 ALT 16 Alkaline Phosphatase 105 B-Natriuretic Peptide 45785 H Total Protein 5.3 L Albumin 2.9 L ECG Attestation: I personally reviewed and interpreted this ECG as follows: (Sinus rhythm with fusion complexes with left axis deviation QTC 559) Prior ECG tracings: available for review Assessment and Plan (1) Elevated troponin: Status: Acute Plan Patient is a 79-year-old female with past medical history AFib on Coumadin,HFrEF/ CM with 10-15% AICD in place, AICD last fired in 2007, , CAD with NM 2007, hypertension hyperlipidemia, COPD, hysterectomy return to the ED after being discharged in the afternoon on 09/15/2024. Initially patient became a case management case for placement in short-term rehab as patient really she can no longer remain at home and care for herself. During this time patient encountered and episode of what appeared to be V-tach but patient's defibrillator did not fire. Patient did receive a bolus of amiodarone and heart rate was reduced to 100 right before defibrillation was attempted. Patient did receive a dose of ketamine prior. All records were reviewed by Cardiology and indicated that patient was experiencing AFib with aberrancy and wanted patient admitted. Patient will start amiodarone 200 mg p.o. b.i.d.. INR supratherapeutic so Coumadin will be held. INR and for this morning. Elevated Troponin Associated to ischemia secondary to AFIB RVR Trend troponins Telemetry INR supratherapuetic Cardiology consulted AFIB with Aberrancy, associated chest pain on coumadin Amiodorone 200 mgs BID per cardiology Cardiology consulted Telemetry Initially VTACH considered, AICD did not fire, all strips read by cardiology, AFIB with aberrancy Pt unsure when AICD was last checked, consider interrogation if needed TSH pending Mg 1.9, pt received 2 gms in ED INR currently supratherapeutic, coumadin not ordered, INR pending Prolonged QTC 559 Repeat EKG next 24 hours 2 g of magnesium provided for Mag 1.9 goal is to keep Mag greater than 2 Patient had been on amiodarone 100 mg daily prior to admission today Avoid SSRIs and other medications that can prolong the QTC HFrEF/ Cardiomyopathy with AICD BNP 21174 Echo ordered, last echo April 2024 Daily weights Fluid Restriction 1500 No indciation for inotrope or pressors currently Holding Entresto until pt seen by cardiology Pt only on lasix currently prn for edema O2 via NC Pt unsure when AICD was last checked, consider interrogation if needed Weakness/ BMI borderline Case management Pt will likely need STR vs LTC Nutritional consultation ordered Speech therapy eval ordered as patient states she has difficulty swallowing pills but no difficulty eating food or drinking fluids COPD exacerbation/PNA (per ED records for DC planning) Pt was started in doxycycline 100 mgs BID 09/15/2024, will complete Incentive spirometer Xopenex prn Suppotive care, O2 NC, wean as tolerated HLD Continue statin DVT prophylaxis: coumadin on hold due to supretherapeutic INR MED REC for admission pending FULL CODE Quality Stroke Does the patient have a stroke diagnosis?: No Reason for No Anti-thrombotic by Day Two: N/A - Med Ordered VTE Prior VTE?: No VTE Risk Level:: Medical - moderate - high VTE Device Contraindication: N/A - Device Ordered VTE Drug Contraindication: N/A - Med Ordered
[2024-09-16 06:19] LABS: INTERNATIONAL NORM RATIO 3.8 (0.9-1.1); Prothrombin Time 43.3 SEC (10.9-12.4)
[2024-09-16 06:32] LABS: Magnesium 2.6 mg/dL (1.6-2.6)
[2024-09-16 06:42] LABS: Troponin-I High Sensitivity 301.7 ng/L (<3.5-17.0)
[2024-09-16] MEDS: 0.9 % Sodium Chloride Flush 3 ML SYRINGE IVFLUSH ×3 (08:09→20:56)
--- NOTE | 2024-09-16 08:21 | MHC.CM.PN ---
09/16/24 08:16 - [facility] Mgmt [id number] 1945 Patient Age: 79 Patient was just dc'd to home yesterday with a referral to [facility], after refusing PT's recommendation for str. Patient will benefit from a PT Eval to assist with disposition/STR appears very likely. CM has initiated and will follow for dc planning. IMM was just addressed with Patient yesterday and verbally again today. Patient's PCP is Dr. Dorothy Salas and her Daughter/Jesusita is the HCP.Patient will require BLS transport to STR if she ultimately agrees with that plan. Initialized on 09/16/24 08:16 - END OF NOTE
--- NOTE | 2024-09-16 08:39 | PHA.MEDREC ---
Pharmacy Consult ? Medication Reconciliation Pharmacy has completed the medication reconciliation. Med rec done using discharge information from 09/15/24 @6505. Reviewed med rec done by nursing.
--- NOTE | 2024-09-16 09:25 | PC.NURSE ---
Pt alert and oriented, resting in bed comfortably. She currently denies any pain, just feels very tired and weak after receiving ketamine this morning. Shes on O2 2L spO2 95%, breath sounds mostly clear, with some crackles and slightly dim in bases. She denies feeling short of breath or having chest pain. NSR on tele. Purewick in place, voiding yellow urine. Medicated as charted.
--- NOTE | 2024-09-16 12:19 | PM.CNCAR ---
History of Present Illness History of Present Illness Date of Service: 09/16/24 Requesting physician: Adrianna Castanon Chief complaint: Fatigue, Afib with RVR Narrative: Pleasant 79 year female who left the hospital yesterday after prolonged admission for congestive heart failure. She has severe cardiomyopathy and has background of coronary disease with previous CT. She follows with Dr. Vieira. She said she went home and was sitting on the couch. She felt like she needs to pass urine but could not get up due to significant weakness and had an accident. She said she was feeling very tired. After that the daughter brought her into the emergency department. In the ER she developed wide complex tachycardia which was initially thought to be ventricular tachycardia but was self-limiting. I was called and EKGs clearly showed AFib with aberrancy. She was getting episodes of atrial fibrillation during her heart failure admission recently too. She is on supplemental oxygen. Otherwise denying any significant symptoms currently. [facility] Past Medical History Medical History (Updated 09/16/24 @ 06:01 by JENNIFER Bagley) Myocardial infarction Congestive heart failure Cardiomyopathy CAD (coronary artery disease) Hyperlipidemia Afib HTN (hypertension) Surgical History Surgical History H/O: hysterectomy AICD (automatic cardioverter/defibrillator) present Social History Social History Household Members: None Housing: House Housing Other:: 1st floor of house. nephew lives on 2nd floor Do you presently have visiting nurse or other home services: No Alcohol intake: never Patient Tobacco Use Status: Former Tobacco user Tobacco use type: Cigarette Smoked in Last 30 Days: No Use of substances other than those prescribed or required for medical reasons: No Advance Directives: Yes Advance Directives Information Provided: Yes Advance Directives on File: No Advance Directives Date on File: 09/08/24 Patient : No service: No Travel History Ebola Risk: Travel/Contact With Anyone From Affected Area/s: No Has Patient Experienced Ebola Symptoms: No Meds Allergies Allergy/AdvReac Type Severity Reaction Status Date / Time lisinopril AdvReac Intermediate COUHG Verified 09/15/24 20:06 Active Medications: Current Medications Acetaminophen (Acetaminophen 325 Mg Tablet) 650 mg PO Q6H PRN PRN Reason: Pain, Mild 1-3,fever,headache Amiodarone HCl (Amiodarone Hcl 200 Mg Tablet) 200 mg PO BID [facility] Last Admin: 09/16/24 08:02 Dose: 200 mg Atorvastatin Calcium (Atorvastatin Calcium 20 Mg Tablet) 20 mg PO BEDTIME RENETTA Calcium Carbonate (Calcium Carbonate 750 Mg Tab.Chew) 750 mg PO Q4H PRN PRN Reason: Heartburn Doxycycline Monohydrate (Doxycycline Monohydrate 100 Mg Capsule) 100 mg PO Q12H [facility] Stop: 09/22/24 05:59 Last Admin: 09/16/24 06:07 Dose: 100 mg Furosemide (Furosemide 20 Mg Tablet) 20 mg PO DAILY PRN; Protocol PRN Reason: Edema Furosemide (Furosemide 40 Mg Tablet) 40 mg PO DAILY [facility]; Protocol Last Admin: 09/16/24 09:08 Dose: 40 mg Guaifenesin (Guaifenesin 200 Mg/10 Ml 10 Ml Liquid) 5 ml PO Q6H PRN PRN Reason: Cough Levalbuterol HCl (Levalbuterol Hcl 1.25 Mg/3 Ml Vial.Neb) 1.25 mg INHALE Q4H PRN PRN Reason: Shortness of Breath/Wheezing Loperamide HCl (Loperamide Hcl 2 Mg Capsule) 2 mg PO Q6H PRN PRN Reason: Diarrhea Magnesium Hydroxide (Milk Of Magnesia 30 Ml Oral.Susp) 30 ml PO DAILY PRN PRN Reason: Constipation Melatonin (Melatonin 3 Mg Tablet) 6 mg PO BEDTIME PRN PRN Reason: Insomnia Ondansetron HCl (Ondansetron Hcl 4 Mg/2 Ml Vial) 4 mg IVPUSH Q8H PRN PRN Reason: Nausea and Vomiting Polyethylene Glycol (Polyethylene Glycol 3350 17 Gm Powd.Pack) 17 gm PO DAILY PRN PRN Reason: Constipation Senna (Sennosides 8.6 Mg Tablet) 17.2 mg PO BEDTIME [facility] Sodium Chloride (0.9 % Sodium Chloride Flush 3 Ml Syringe) 3 ml IVFLUSH QSHIFT [facility] Last Admin: 09/16/24 08:09 Dose: 3 ml Spironolactone (Spironolactone 25 Mg Tablet) 25 mg PO BIDWM [facility]; Protocol Home Medications ?Medication ?Instructions ?Recorded ?Confirmed ?Last Taken ?Type amiodarone 200 mg tablet 100 mg PO DAILY 07/08/21 09/15/24 09/15/24 10:10 History acetaminophen 500 mg tablet 500 mg PO Q6H PRN Pain 07/13/23 09/15/24 Unknown History sacubitril 24 mg-valsartan 26 mg 1 tab PO BID 08/03/23 09/16/24 09/14/24 12:13 History tablet (Entresto) Held on 09/15/24. Instructions: Resume on 09/18/24. give trial if bp stays at least around 100 mmhg atorvastatin 20 mg tablet 20 mg PO BEDTIME 10/05/23 09/15/24 09/15/24 20:38 History furosemide 20 mg tablet 20 mg PO DAILY PRN Edema 05/08/24 09/15/24 09/07/24 History warfarin 2.5 mg tablet 2.5 mg PO WE@1800 09/08/24 09/15/24 09/12/24 17:15 History Held on 09/15/24. Instructions: Resume on 09/17/24. warfarin 2.5 mg tablet 1.25 mg PO SUMOTUTHFRSA@1800 09/14/24 09/15/24 09/13/24 17:30 History Held on 09/15/24. Instructions: Resume on 09/17/24. Physical Exam Vital Signs: Vital Signs: Last Vital Signs Temp 97.8 F 09/16/24 10:23 Pulse 84 09/16/24 10:23 Resp 11 L 09/16/24 10:23 BP 99/66 09/16/24 10:23 Pulse Ox 96 09/16/24 10:23 O2 Del Method Room Air 09/16/24 10:23 O2 Flow Rate 2 09/16/24 08:05 Oxygen Flow Rate 1 09/15/24 20:04 BMI result Body Mass Index 18.7 GENERAL APPEARANCE: In no acute distress. NECK: no carotid bruit, mild jugular venous distention. SKIN: no suspicious lesions, warm and dry. HEART: no murmurs, regular rate and rhythm. LUNGS: Few crackles at bases. ABDOMEN: soft, nontender. EXTREMITIES: no edema. PERIPHERAL PULSES: equal. NEUROLOGIC: No gross deficits, AAO X 3 Objective Labs and Meds 09/16/24 04:00 09/16/24 04:00 Lab results: Laboratory Results - last 24 hr 09/16/24 09/16/24 04:00 06:06 WBC 9.0 RBC 3.83 L Hgb 11.4 L Hct 34.9 L MCV 91.1 MCH 29.8 MCHC 32.7 RDW 14.5 Plt Count 212 MPV 10.6 Immature Gran % (Auto) 0.3 Neut % (Auto) 57.3 Lymph % (Auto) 25.7 [place] % (Auto) 8.1 Eos % (Auto) 8.3 H Baso % (Auto) 0.3 Lymph # (Auto) 2.3 [place] # (Auto) 0.7 Eos # (Auto) 0.8 H Baso # (Auto) 0.0 Abs Immat Gran (auto) 0.03 Absolute Neuts (auto) 5.2 Absolute Nucleated RBC 0.000 Nucleated RBC % (auto) 0.0 PT 43.3 H INR 3.8 H Sodium 142 Potassium 3.4 Chloride 108 Carbon Dioxide 24 Anion Gap 13 BUN 20 H Creatinine 0.84 Estim Creat Clear Calc 41.0 Estimated GFR > 60 Random Glucose 96 Calcium 8.0 L Magnesium 1.9 2.6 Total Bilirubin 0.6 AST 16 ALT 16 Alkaline Phosphatase 105 Troponin I High Sens 307.2 H* D 301.7 H* B-Natriuretic Peptide 60435 H Total Protein 5.3 L Albumin 2.9 L TSH 2.76 Assessment and Plan (1) Cardiomyopathy: Status: Acute (2) Congestive heart failure: Qualifiers: Heart failure chronicity: acute Heart failure type: systolic Qualified Code(s): I50.21 - Acute systolic (congestive) heart failure Status: Acute (3) Afib: Qualifiers: Atrial fibrillation type: paroxysmal Qualified Code(s): I48.0 - Paroxysmal atrial fibrillation Status: Acute Plan [age] year female who was discharged home yesterday and felt very weak at home and was brought back to the emergency department. She appears quite deconditioned and would benefit from rehab and we discussed about that. In the ER she had episode of wide complex tachycardia which was atrial fibrillation with aberrancy. It appears she was given some ketamine and was about to be shocked when she went back into sinus rhythm. She was given amiodarone bolus. She is on chronic amiodarone 100 mg daily. This is not ventricular tachycardia. Give amiodarone 200 mg twice a day for a week and then cut the dose down to 200 mg daily. Continue rest of the medications as before. Can be discharged as she improves. Follow-up will be with heart failure specialist Dr. Jennifer Vieira at [facility]. Thank you for allowing me to participate in the care of your patient. Please feel free to contact me if you have any questions. Procedures Date of Service Date of Service: 09/16/24
--- NOTE | 2024-09-16 15:36 | PM.EVENT ---
Event Note Date of Service: 09/16/24 Event Note: Patient is already seen and examined by hospitalist team this morning, seen and examined again. Denies any chest pain, minimal shortness of breath. Otherwise feeling better than last night. Assessment and plan and physical exam as per H&P. In addition seen by cardiology: She appears quite deconditioned and would benefit from rehab and we discussed about that. In the ER she had episode of wide complex tachycardia which was atrial fibrillation with aberrancy. It appears she was given some ketamine and was about to be shocked when she went back into sinus rhythm. She was given amiodarone bolus. She is on chronic amiodarone 100 mg daily. This is not ventricular tachycardia. Give amiodarone 200 mg twice a day for a week and then cut the dose down to 200 mg daily. Continue rest of the medications as before. Time Spent With Patient Time: Total time managing care of this patient today ____ minutes.
[2024-09-16] MEDS: Sacubitril/Valsartan 24/26 1 TAB TABLET PO (20:55)
[2024-09-17] VITALS: BP 90/55; PULSE 71; RESP 16; TEMP 36.5; O2SAT 93
--- NOTE | 2024-09-17 | ECG_ITS ---
Test Reason : SR? Blood Pressure : */* mmHG Vent. Rate : 75 BPM Atrial Rate : 75 BPM P-R Int : 174 ms QRS Dur : 182 ms QT Int : 502 ms P-R-T Axes : 48 -61 71 degrees QTcB Int : 560 ms Normal sinus rhythm Left axis deviation Non-specific intra-ventricular conduction block Minimal voltage criteria for LVH, may be normal variant ( [place] product ) Abnormal ECG When compared with ECG of 16-Sep-2024 04:00, No significant changes seen Referred By: Adrianna Castanon Electronically Signed By: SUZIE CALVO
[2024-09-17 04:00] VITALS: BP 88/53; PULSE 69; RESP 16; TEMP 36.4; O2SAT 93
[2024-09-17 06:00] VITALS: BMI 16.9
--- NOTE | 2024-09-17 07:00 | CA_ITS ---
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 The calculated ejection fraction is 12% by biplane method. - The basal inferior, basal anteroseptal, and mid anteroseptal segments are akinetic. - Evidence suggests grade II (moderate) diastolic dysfunction. - There is severe mitral valve regurgitation. - There is severe tricuspid valve regurgitation. - Mild pulmonary hypertension is present. Findings Left Ventricle Severely increased left ventricular cavity size. The left ventricular systolic function is severely decreased. The calculated ejection fraction is 12% by biplane method. Evidence suggests grade II (moderate) diastolic dysfunction. Wall Motion Rest Echo Findings The basal inferior, basal anteroseptal, and mid anteroseptal segments are akinetic. Right Ventricle There is an ICD wire seen in the right ventricle. Atria The left atrium is severely dilated. The right atrium is normal in size. Aortic Valve There is a normal trileaflet aortic valve. There is no aortic valve stenosis. There is no aortic valve regurgitation. Mitral Valve The posterior mitral leaflet has restricted mobility. There is severe mitral valve regurgitation. There is no mitral valve stenosis. Pulmonic Valve The pulmonic valve is likely normal. Tricuspid Valve There is severe tricuspid valve regurgitation. Mild pulmonary hypertension is present. Great Vessels The asc aorta is normal in size. Venous The inferior vena cava is normal in size and collapses less than 50% with inspiration. Pericardium/Pleural There is a trivial pericardial effusion. There is a left sided pleural effusion. Prior Study Comparison Changes noted compared to prior study dated: 04/23/2024. see comment on valvular findings. Measurements 2D Linear Measurements IVSd: 0.76 0.6-0.9/0.6-1.0 cm LVIDd: 6.71 3.9-5.3/4.2-5.9 cm LVIDd Index: 4.90 2.4-3.2/2.2-3.1 cm/m2 LVIDs: 6.29 2.0-3.6 cm LVPWd: 0.76 0.7-1.1 cm Ao Root: 3.10 2.1-3.5 cm LA Diam: 4.10 2.7-3.8/3.0-4.0 cm LAIDs Index: 2.99 1.5-2.3 cm/m2 LV Mass: 266.81 67-162/88-224 g LV Mass Index: 194.75 43-95/49-115 g/m2 LVOT Diam: 1.90 3.0+(-)1.3 cm 2D Systolic Function EF 4C: 12.00 >55% EF 2C: 11.10 >55% EF BiP: 11.70 >55% Mitral Valve MV Pk E: 1.08 MV PK A: 0.85 MV Decel Time: 120.00 E/A: 1.30 E'Lateral: 6.20 E'Medial: 4.24 E/E' Med: 25.50 E/E' Lat: 17.40 PHT: 35.00 MVA PHT: 6.29 Decel Gonzales: 8.95 Aortic Valve AoV Pk Fracisco: 1.14 AoV Mn Fracisco: 0.75 AoV VTI: 0.21 AoV Pk Grad: 5.00 Aov Mn Grad: 3.00 DIEGO Cont.VTI: 1.25 LVOT LVOT Pk Fracisco: 0.58 LVOT Mn Fracisco: 0.33 LVOT VTI: 0.09 LVOT Pk Grad: 1.00 LVOT Mn Grad: 1.00 LVOT Diam: 1.90 LVOT Area: 2.84 Diastolic Function MV Pk E: 1.08 MV Pk A: 0.85 E/A: 1.30 E'Medial: 4.24 E/E' Med: 25.50 E' Laterial: 6.20 E/E' Lat: 17.40 Right Ventricle TAPSE (mm): 17.00 TVS' Fracisco: 7.00 Tricuspid Valve TR Pk Fracisco: 3.33 TR Pk Grad: 44.00 RA Press: 3.00 RVSP: 47.00 Great Vessels Aorta Ao Root-2D: 3.10 2.0-3.7 cm Ao Asc: 2.80 2.1-3.4 cm Pulmonary Valve PV Pk Fracisco: 0.77 Peak PV Grad: 2.00 Updated in Other Vendor System with Status of Final Iban Cole MD electronically signed on 09/17/2024 12:07:28 PM with status of Final
[2024-09-17 07:41] LABS: INTERNATIONAL NORM RATIO 3.4 (0.9-1.1); Prothrombin Time 38.9 SEC (10.9-12.4)
[2024-09-17 07:48] LABS: Alanine Aminotransferase 14 U/L (0-31); Albumin Level 3.0 g/dL (3.5-5.0); Alkaline Phosphatase 107 U/L (39-117); Anion Gap 11 (12-20); Aspartate Amino Transferase 14 U/L (5-31); Blood Urea Nitrogen 21 mg/dL (9-16); Calcium 8.2 mg/dL (8.4-10.2); Carbon Dioxide 28 mmol/L (22-29); Chloride 106 mmol/L (96-108); Creatinine Clr Calc Pharmacy 40.5; Estimated Glomerular Filt Rate > 60; Potassium 3.2 mmol/L (3.3-5.1); Sodium 142 mmol/L (135-145); Total Protein 5.3 g/dL (6.5-8.0)
[2024-09-17 07:58] VITALS: BP 91/57; PULSE 64; RESP 20; TEMP 36.7; O2SAT 96
[2024-09-17 08:06] LABS: Hematocrit 33.3 % (37.0-47.0); Hemoglobin 11.1 g/dl (12.0-16.0); Imm Gran Abs Auto 0.04 X10*3/uL (0.00-0.03); Imm Gran Pct Auto 0.5 % (0.0-0.4); Lymphocytes Absolute Auto 1.8 X10*3/uL (1.2-4.9); MANUAL DIFF FLAG SCAN; Mean Corpuscular HGB Conc 33.3 g/dl (31.0-35.0); Mean Corpuscular Hemoglobin 30.1 pg (27.0-33.0); Mean Corpuscular Volume 90.2 fL (80.0-98.0); NRBC Abs Auto 0.000 X10*3/uL (0.0-0.012); NRBC Pct Auto 0.0 /100WBC (0.0-0.2); Platelet Count 215 X10*3/uL (160-400); Red Blood Count 3.69 X10*6/uL (4.20-5.50); SCAN SMEAR FLAG 1; White Blood Count 8.3 X10*3/uL (4.8-10.8)
[2024-09-17] MEDS: Potassium Chloride ER 20 MEQ TAB.ER.PRT PO (08:10)
[2024-09-17] MEDS: 0.9 % Sodium Chloride Flush 3 ML SYRINGE IVFLUSH ×3 (08:10→21:03)
--- NOTE | 2024-09-17 10:31 | P.PNCA_ITS ---
Subjective Subjective Date of Service: 09/17/24 Interval history: Patient was seen and examined. It appears the current admissions because of atrial fibrillation. Her amiodarone dose has been increased. Patient herself states she feels okay. No new complaints. Shortness of breath is better. Review of Systems Review of Systems Yes all other systems are reviewed and are negative Constitutional: Reports as per HPI and Reports no additional constitutional complaints Eyes: Reports as per HPI and Denies no additional eye complaints Denies system reviewed and no additional complaints, except as documented and Reports as per HPI Cardiovascular: Reports as per HPI, Reports no additional cardiovascular complaints, Denies acrocyanosis, Denies cool extremities, Denies chest pain, Denies leg edema, Denies lightheadedness, Denies palpitations and Denies dyspnea Respiratory: Reports as per HPI, Denies no additional respiratory complaints and Denies dyspnea Gastrointestinal: Reports as per HPI and Denies no additional gastrointestinal complaints Genitourinary: Reports as per HPI Musculoskeletal: Reports no additional musculoskeletal complaints and Reports as per HPI Skin/Breast: Reports system reviewed and no additional complaints, except as docu Reports system reviewed and no additional complaints, except as documented and Reports as per HPI Psychiatric: Reports no additional psychiatric complaints and Reports as per HPI Endocrine: Reports no additional endocrine complaints, Reports as per HPI and Denies palpitations Hematologic/Lymphatic: Reports no additional hematologic/lymphatic complaints and Reports as per HPI Allergic/Immunologic: Reports no additional allergic/immunologic complaints and Reports as per HPI Physical Exam Vital Signs: Last Vital Signs Temp 98.1 F 09/17/24 07:58 Pulse 64 09/17/24 07:58 Resp 20 09/17/24 07:58 BP 91/57 L 09/17/24 07:58 Pulse Ox 96 09/17/24 07:58 O2 Del Method Nasal Cannula 09/17/24 07:58 O2 Flow Rate 2 09/17/24 07:58 Oxygen Flow Rate 1 09/15/24 20:04 BMI result Body Mass Index 16.9 Const General: comfortable and no acute distress Orientation/consciousness: patient oriented x3 HEENT Other: Unremarkable Head: Yes normal to inspection Neck Neck: Yes normal visual inspection Chest Chest palpation & inspection: normal inspection of the chest Resp Other: Few basal crackles Cardio Palpation: normal PMI Heart sounds: S1 normal heart sound present, S2 normal heart sound present, no gallops, no murmurs and no rubs GI Palpation (GI): Soft to palpation Back/Spine/Pelvis Other: unremarkable Skin General skin exam: no rashes or lesions noted Neuro General: patient oriented x3 Extrem General: Yes normal to inspection Psych Mental Status: mental status grossly normal Objective Labs and Meds 09/17/24 07:46 09/17/24 07:24 Lab results: Laboratory Results - last 24 hr 09/17/24 09/17/24 07:24 07:46 WBC 8.3 RBC 3.69 L Hgb 11.1 L Hct 33.3 L MCV 90.2 MCH 30.1 MCHC 33.3 RDW 14.5 Plt Count 215 MPV 10.1 Immature Gran % (Auto) 0.5 H Neut % (Auto) 60.5 Lymph % (Auto) 21.9 Griggs % (Auto) 6.4 Eos % (Auto) 10.5 H Baso % (Auto) 0.2 Lymph # (Auto) 1.8 Griggs # (Auto) 0.5 Eos # (Auto) 0.9 H Baso # (Auto) 0.0 Abs Immat Gran (auto) 0.04 H Absolute Neuts (auto) 5.0 Absolute Nucleated RBC 0.000 Nucleated RBC % (auto) 0.0 Smear Tech's Comments VERIFIED PT 38.9 H INR 3.4 H Sodium 142 Potassium 3.2 L Chloride 106 Carbon Dioxide 28 Anion Gap 11 L BUN 21 H Creatinine 0.77 Estim Creat Clear Calc 40.5 Estimated GFR > 60 Random Glucose 101 Calcium 8.2 L Total Bilirubin 0.6 AST 14 ALT 14 Alkaline Phosphatase 107 Total Protein 5.3 L Albumin 3.0 L Progress Note: A&P Assessment and plan (1) Atrial fibrillation with rapid ventricular response: Status: Acute (2) Cardiomyopathy: Status: Acute Plan Last echocardiogram from April-LVEF of 10-15%. Basal inferior/mid inferior dyskinesis. Inferoseptal wall aneurysmal. No significant valvular findings. Initial admission EKG with atrial fibrillation with a left bundle pattern. In the EKG prior to that from 14 of September, sinus with left bundle branch block. In the most recent EKG, again she is back in sinus rhythm with left bundle- branch block pattern. On telemetry, she has had some recurring atrial fibrillation but then goes back into sinus rhythm. Agree with increasing the amiodarone dose as done already. On anticoagulation with warfarin. Discussed with Dr. Castanon. 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 Of note, carvedilol dose in that note from 2023 was 25 mg b.i.d. but currently she is not on any-presumably because of low blood pressure. Time Spent With Patient Time: Total time managing care of this patient today ____ minutes. Progress Note: Quality Stroke Does the patient have a stroke diagnosis?: No Reason for No Anti-thrombotic by Day Two: N/A - Med Ordered Procedures Date of Service Date of Service: 09/17/24
[2024-09-17 12:00] VITALS: BP 91/59; PULSE 73; RESP 20; TEMP 36.9; O2SAT 96
[2024-09-17 13:59] VITALS: BMI 16.9
--- NOTE | 2024-09-17 14:03 | MHC.CLN ---
PT IS MODERATELY MALNOURISHED PT WITH MILD DEPLETION OF SUBCUTANEOUS FAT AND MUSCLE MASS WITH BMI 16.8 PT FAMILIAR WITH RECENT ADMISSION THIS MONTH D/C 09/15 DIET RX: CARDIAC-APPROPRIATE RECOMMEND STARTING ENSURE BID (DAYANA OR STRAWBERRY FLAVOR) SUPP PROVIDES 700KCALS, 40G PROTEIN MONITOR PO INTAKE AND ENCOURAGE SUPPLEMENTS SEE FULL ASSESSMENT
--- NOTE | 2024-09-17 15:00 | MHC.SLORD ---
Speech Language Pathology Order Status: Pt not experiencing dysphagia with solids/liquids and small medications. Pt reported episode of 'choking' on large medication in the past, when she was home alone, which she resolved by shoving herself against the counter. Pt conveyed her fear of taking large medications but denied any other dysphagia. Pt did not want to participate in clinical bedside swallow evaluation. RN consulted, pt has been taking meds without overt s/s of aspiration. MD notified of findings, no formal assessment of swallow mechanism conducted at this time.
[2024-09-17 16:00] VITALS: BP 94/52; PULSE 83; RESP 18; TEMP 36.5; O2SAT 95
--- NOTE | 2024-09-17 16:20 | HO.PM.IMPN ---
Subjective Subjective Date of Service: 09/17/24 Interval History: chf ,afib , boderline bp Review of Systems sob seems improving hr also improving Review of Systems: Yes all other systems are reviewed and are negative Physical Exam Vital Signs: Vital Signs: Last Vital Signs Temp 97.7 F 09/17/24 16:00 Pulse 83 09/17/24 16:00 Resp 18 09/17/24 16:00 BP 94/52 L 09/17/24 16:00 Pulse Ox 95 09/17/24 16:00 O2 Del Method Room Air 09/17/24 16:00 O2 Flow Rate 2 09/17/24 12:00 Oxygen Flow Rate 1 09/15/24 20:04 BMI result Body Mass Index 16.9 Constitutional : Awake, interactive,sob seems improving Neck : Normal inspection, Supple Cardiovascular : RRR, s1s2 heard. Respiratory : fair bilateral air entry, no crackles, in moderate distress, on O2 supplement Gastrointestinal: soft, nd, Normal bowel sounds, Non tender Skin : Warm, Dry Neurological : Alert & oriented x3, No focal deficit Objective Data Active Medications Acetaminophen (Acetaminophen 325 Mg Tablet) 650 mg PO Q6H PRN PRN Reason: Pain, Mild 1-3,fever,headache Amiodarone HCl (Amiodarone Hcl 200 Mg Tablet) 200 mg PO BID [facility] Last Admin: 09/17/24 08:10 Dose: 200 mg Documented By: IRAIS Atorvastatin Calcium (Atorvastatin Calcium 20 Mg Tablet) 20 mg PO BEDTIME [facility] Last Admin: 09/16/24 20:54 Dose: 20 mg Documented By: WALDEMAR Calcium Carbonate (Calcium Carbonate 750 Mg Tab.Chew) 750 mg PO Q4H PRN PRN Reason: Heartburn Doxycycline Monohydrate (Doxycycline Monohydrate 100 Mg Capsule) 100 mg PO Q12H [facility] Stop: 09/22/24 05:59 Last Admin: 09/17/24 06:02 Dose: 100 mg Documented By: WALDEMAR Furosemide (Furosemide 20 Mg Tablet) 20 mg PO DAILY PRN; Protocol PRN Reason: Edema Furosemide (Furosemide 40 Mg Tablet) 40 mg PO DAILY [facility]; Protocol Last Admin: 09/17/24 08:10 Dose: 40 mg Documented By: IRAIS Guaifenesin (Guaifenesin 200 Mg/10 Ml 10 Ml Liquid) 5 ml PO Q6H PRN PRN Reason: Cough Levalbuterol HCl (Levalbuterol Hcl 1.25 Mg/3 Ml Vial.Neb) 1.25 mg INHALE Q4H PRN PRN Reason: Shortness of Breath/Wheezing Loperamide HCl (Loperamide Hcl 2 Mg Capsule) 2 mg PO Q6H PRN PRN Reason: Diarrhea Magnesium Hydroxide (Milk Of Magnesia 30 Ml Oral.Susp) 30 ml PO DAILY PRN PRN Reason: Constipation Melatonin (Melatonin 3 Mg Tablet) 6 mg PO BEDTIME PRN PRN Reason: Insomnia Last Admin: 09/16/24 20:54 Dose: 6 mg Documented By: WALDEMAR Ondansetron HCl (Ondansetron Hcl 4 Mg/2 Ml Vial) 4 mg IVPUSH Q8H PRN PRN Reason: Nausea and Vomiting Polyethylene Glycol (Polyethylene Glycol 3350 17 Gm Powd.Pack) 17 gm PO DAILY PRN PRN Reason: Constipation Sacubitril/Valsartan (Sacubitril/Valsartan 1 Tab Tablet) 1 tab PO BID [facility]; Protocol On Hold: 09/17/24 07:52 Last Admin: 09/16/24 20:55 Dose: 1 tab Documented By: WALDEMAR Senna (Sennosides 8.6 Mg Tablet) 17.2 mg PO BEDTIME [facility] Last Admin: 09/16/24 20:57 Dose: Not Given Documented By: WALDEMAR Non-Admin Reason: Patient Refused Sodium Chloride (0.9 % Sodium Chloride Flush 3 Ml Syringe) 3 ml IVFLUSH [facility] Last Admin: 09/17/24 08:10 Dose: 3 ml Documented By: IRAIS Spironolactone (Spironolactone 25 Mg Tablet) 25 mg PO BIDWM [facility]; Protocol Last Admin: 09/17/24 08:10 Dose: 25 mg Documented By: IRAIS Warfarin Sodium (Warfarin Sodium 1.25 Mg Halftab) 1.25 mg PO SUMOTUTHFRSA@1800 RENETTA Warfarin Sodium (Warfarin Sodium 2.5 Mg Tablet) 2.5 mg PO WE@1800 [facility] Labs 09/17/24 07:46 09/17/24 07:24 Labs: Laboratory Results - last 24 hr 09/17/24 09/17/24 07:24 07:46 MCV 90.2 MCH 30.1 MCHC 33.3 RDW 14.5 Plt Count 215 MPV 10.1 Immature Gran % (Auto) 0.5 H Neut % (Auto) 60.5 Lymph % (Auto) 21.9 Cotton % (Auto) 6.4 Eos % (Auto) 10.5 H Baso % (Auto) 0.2 Lymph # (Auto) 1.8 Cotton # (Auto) 0.5 Eos # (Auto) 0.9 H Baso # (Auto) 0.0 Abs Immat Gran (auto) 0.04 H Absolute Neuts (auto) 5.0 Absolute Nucleated RBC 0.000 Nucleated RBC % (auto) 0.0 Smear Tech's Comments VERIFIED PT 38.9 H INR 3.4 H Anion Gap 11 L Estim Creat Clear Calc 40.5 Estimated GFR > 60 Random Glucose 101 Calcium 8.2 L Total Bilirubin 0.6 AST 14 ALT 14 Alkaline Phosphatase 107 Total Protein 5.3 L Albumin 3.0 L Assessment and Plan (1) Congestive heart failure: Status: Acute Plan 79-year-old female with past medical history AFib on Coumadin,HFrEF/ CM with 10-15% AICD in place, AICD last fired in 2007, , CAD with CA 2007, hypertension hyperlipidemia, COPD, hysterectomy return to the ED after being discharged in the afternoon on 09/15/2024. Initially patient became a case management case for placement in short-term rehab as patient really she can no longer remain at home and care for herself. During this time patient encountered and episode of what appeared to be V-tach but patient's defibrillator did not fire. Patient did receive a bolus of amiodarone and heart rate was reduced to 100 right before defibrillation was attempted. Patient did receive a dose of ketamine prior. All records were reviewed by Cardiology and indicated that patient was experiencing AFib with aberrancy and wanted patient admitted. Patient will start amiodarone 200 mg p.o. b.i.d.. INR supratherapeutic so Coumadin will be held. AFIB with Aberrancy, associated chest pain on coumadin trop might elevated sec to demand . qtc -lbbb/also baseline prolonged. Amiodorone 200 mgs BID per cardiology inr supratherapeutic. tsh normal hypomagnesemia improved repleted for hypokalemia. HFrEF/ Cardiomyopathy with AICD BNP 31791(better than 2 days back) Echo ordered, last echo April 2024 plan: continue diurectics i/o daily weights Holding Entresto ,coreg -boderline bp,slowly introduce as bp allows. Pt only on lasix currently prn for edema O2 via [place] cardiology following. Weakness/ BMI borderline Case management Pt - STR vs LTC Nutritional consultation ordered Speech therapy eval noted-been taking meds without overt s/s of aspiration. hx of COPD, recent possible bronchitis recent . Pt was started in doxycycline 100 mgs BID 09/15/2024, will complete Incentive spirometer ,Xopenex prn Suppotive care, O2 NC, wean as tolerated HLD:Continue statin DVT prophylaxis: coumadin on hold due to supretherapeutic INR . ongoing need :AFIB with Aberrancy, associated chest pain on coumadin , moniter tele, renal function /electrolytes. Quality Stroke Does the patient have a stroke diagnosis?: No Reason for No Anti-thrombotic by Day Two: N/A - Med Ordered VTE Prior VTE?: No VTE Risk Level:: Medical - moderate - high VTE Device Contraindication: N/A - Device Ordered VTE Drug Contraindication: N/A - Med Ordered
[2024-09-17 20:00] VITALS: BP 80/53; PULSE 81; RESP 16; TEMP 36.5; O2SAT 94
[2024-09-18] VITALS (10 sets, daily range): BP systolic 90–107; BP diastolic 54–71; PULSE 76–89; RESP 16–18; TEMP 36.2–36.7; O2SAT 93–98; BMI 17.3
[2024-09-18 06:47] LABS: INTERNATIONAL NORM RATIO 3.4 (0.9-1.1); Prothrombin Time 39.3 SEC (10.9-12.4)
[2024-09-18 07:01] LABS: Anion Gap 12 (12-20); Blood Urea Nitrogen 21 mg/dL (9-16); Calcium 8.2 mg/dL (8.4-10.2); Carbon Dioxide 25 mmol/L (22-29); Chloride 106 mmol/L (96-108); Creatinine Clr Calc Pharmacy 34.7; Estimated Glomerular Filt Rate 59; Potassium 3.4 mmol/L (3.3-5.1); Sodium 140 mmol/L (135-145)
[2024-09-18] MEDS: 0.9 % Sodium Chloride Flush 3 ML SYRINGE IVFLUSH ×2 (09:02→16:17)
--- NOTE | 2024-09-18 09:48 | P.PNCA_ITS ---
Subjective Subjective Date of Service: 09/18/24 Interval history: She states that she feels fine. She has got no new complaints. Denies any shortness of breath. No further atrial fibrillation. Review of Systems Review of Systems Yes all other systems are reviewed and are negative Constitutional: Reports as per HPI and Reports no additional constitutional complaints Eyes: Reports as per HPI and Denies no additional eye complaints Denies system reviewed and no additional complaints, except as documented and Reports as per HPI Cardiovascular: Reports as per HPI, Reports no additional cardiovascular complaints, Denies acrocyanosis, Denies cool extremities, Denies chest pain, Denies leg edema, Denies lightheadedness, Denies palpitations and Denies dyspnea Respiratory: Reports as per HPI, Denies no additional respiratory complaints and Denies dyspnea Gastrointestinal: Reports as per HPI and Denies no additional gastrointestinal complaints Genitourinary: Reports as per HPI Musculoskeletal: Reports no additional musculoskeletal complaints and Reports as per HPI Skin/Breast: Reports system reviewed and no additional complaints, except as docu Reports system reviewed and no additional complaints, except as documented and Reports as per HPI Psychiatric: Reports no additional psychiatric complaints and Reports as per HPI Endocrine: Reports no additional endocrine complaints, Reports as per HPI and Denies palpitations Hematologic/Lymphatic: Reports no additional hematologic/lymphatic complaints and Reports as per HPI Allergic/Immunologic: Reports no additional allergic/immunologic complaints and Reports as per HPI Physical Exam Vital Signs: Last Vital Signs Temp 97.5 F 09/18/24 07:25 Pulse 76 09/18/24 07:25 Resp 17 09/18/24 07:25 BP 97/54 L 09/18/24 09:03 Pulse Ox 96 09/18/24 07:25 O2 Del Method Nasal Cannula 09/18/24 07:25 O2 Flow Rate 4 09/18/24 07:25 Oxygen Flow Rate 1 09/15/24 20:04 BMI result Body Mass Index 17.3 Const General: comfortable and no acute distress Orientation/consciousness: patient oriented x3 HEENT Other: Unremarkable Head: Yes normal to inspection Neck Neck: Yes normal visual inspection Chest Chest palpation & inspection: normal inspection of the chest Resp Auscultation: clear to auscultation bilaterally Cardio Palpation: normal PMI Heart sounds: S1 normal heart sound present, S2 normal heart sound present, no gallops, no murmurs and no rubs GI Palpation (GI): Soft to palpation Back/Spine/Pelvis Other: unremarkable Skin General skin exam: no rashes or lesions noted Neuro General: patient oriented x3 Extrem General: Yes normal to inspection Psych Mental Status: mental status grossly normal Objective Labs and Meds 09/17/24 07:46 09/18/24 06:34 Lab results: Laboratory Results - last 24 hr 09/18/24 06:34 PT 39.3 H INR 3.4 H Sodium 140 Potassium 3.4 Chloride 106 Carbon Dioxide 25 Anion Gap 12 BUN 21 H Creatinine 0.92 Estim Creat Clear Calc 34.7 Estimated GFR 59 Random Glucose 120 H Calcium 8.2 L Progress Note: A&P Assessment and plan (1) Atrial fibrillation with rapid ventricular response: Status: Acute (2) Cardiomyopathy: Status: Acute Plan Echocardiogram yesterday with LVEF of 12%. Basal inferior/anteroseptal segments are akinetic. Moderate diastolic dysfunction. Severe mitral/tricuspid regurgitation although no clear audible murmurs. Mild pulmonary hypertension. In a prior echocardiogram, again LVEF was 10-15% but above valvular lesions not noted. It seems that recurring atrial fibrillation might have brought on some heart failure symptoms. Amiodarone dose has been increased and agree with that. Already on anticoagulation. Of note, her usual heart failure medications have been stopped or held mainly because of hypotension. Further changes as an outpatient. 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 Discussed with Dr. Castanon[place] 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 Time Spent With Patient Time: Total time managing care of this patient today ____ minutes. Progress Note: Quality Stroke Does the patient have a stroke diagnosis?: No Reason for No Anti-thrombotic by Day Two: N/A - Med Ordered Procedures Date of Service Date of Service: 09/18/24
--- NOTE | 2024-09-18 15:40 | HO.PM.IMPN ---
Subjective Subjective Date of Service: 09/18/24 Interval History: afib chf Review of Systems sob seems improving no chest pain Review of Systems: Yes all other systems are reviewed and are negative Physical Exam Vital Signs: Vital Signs: Last Vital Signs Temp 98.1 F 09/18/24 15:03 Pulse 83 09/18/24 15:03 Resp 18 09/18/24 15:03 BP 90/56 L 09/18/24 15:03 Pulse Ox 94 09/18/24 15:03 O2 Del Method Nasal Cannula 09/18/24 15:03 O2 Flow Rate 2 09/18/24 15:03 Oxygen Flow Rate 1 09/15/24 20:04 BMI result Body Mass Index 17.3 Constitutional : Awake, interactive,sob seems improving Neck : Normal inspection, Supple Cardiovascular : RRR, s1s2 heard. Respiratory : fair bilateral air entry, no crackles, in moderate distress, on O2 supplement Gastrointestinal: soft, nd, Normal bowel sounds, Non tender Skin : Warm, Dry Neurological : Alert & oriented x3, No focal deficit Objective Data Active Medications Acetaminophen (Acetaminophen 325 Mg Tablet) 650 mg PO Q6H PRN PRN Reason: Pain, Mild 1-3,fever,headache Amiodarone HCl (Amiodarone Hcl 200 Mg Tablet) 200 mg PO BID [facility] Last Admin: 09/18/24 09:03 Dose: 200 mg Documented By: MONICA Atorvastatin Calcium (Atorvastatin Calcium 20 Mg Tablet) 20 mg PO BEDTIME [facility] Last Admin: 09/17/24 21:02 Dose: 20 mg Documented By: WALDEMAR Calcium Carbonate (Calcium Carbonate 750 Mg Tab.Chew) 750 mg PO Q4H PRN PRN Reason: Heartburn Doxycycline Monohydrate (Doxycycline Monohydrate 100 Mg Capsule) 100 mg PO Q12H [facility] Stop: 09/22/24 05:59 Last Admin: 09/18/24 06:12 Dose: 100 mg Documented By: WALDEMAR Furosemide (Furosemide 20 Mg Tablet) 20 mg PO DAILY PRN; Protocol PRN Reason: Edema Furosemide (Furosemide 40 Mg Tablet) 40 mg PO DAILY [facility]; Protocol Last Admin: 09/18/24 09:03 Dose: 40 mg Documented By: MONICA Guaifenesin (Guaifenesin 200 Mg/10 Ml 10 Ml Liquid) 5 ml PO Q6H PRN PRN Reason: Cough Levalbuterol HCl (Levalbuterol Hcl 1.25 Mg/3 Ml Vial.Neb) 1.25 mg INHALE Q4H PRN PRN Reason: Shortness of Breath/Wheezing Loperamide HCl (Loperamide Hcl 2 Mg Capsule) 2 mg PO Q6H PRN PRN Reason: Diarrhea Magnesium Hydroxide (Milk Of Magnesia 30 Ml Oral.Susp) 30 ml PO DAILY PRN PRN Reason: Constipation Melatonin (Melatonin 3 Mg Tablet) 6 mg PO BEDTIME PRN PRN Reason: Insomnia Last Admin: 09/17/24 21:01 Dose: 6 mg Documented By: WALDEMAR Ondansetron HCl (Ondansetron Hcl 4 Mg/2 Ml Vial) 4 mg IVPUSH Q8H PRN PRN Reason: Nausea and Vomiting Polyethylene Glycol (Polyethylene Glycol 3350 17 Gm Powd.Pack) 17 gm PO DAILY PRN PRN Reason: Constipation Sacubitril/Valsartan (Sacubitril/Valsartan 1 Tab Tablet) 1 tab PO BID [facility]; Protocol On Hold: 09/17/24 07:52 Last Admin: 09/16/24 20:55 Dose: 1 tab Documented By: WALDEMAR Senna (Sennosides 8.6 Mg Tablet) 17.2 mg PO BEDTIME [facility] Last Admin: 09/17/24 21:06 Dose: Not Given Documented By: WALDEMAR Non-Admin Reason: Patient Refused Sodium Chloride (0.9 % Sodium Chloride Flush 3 Ml Syringe) 3 ml IVFLUSH [facility] Last Admin: 09/18/24 09:02 Dose: 3 ml Documented By: MONICA Spironolactone (Spironolactone 25 Mg Tablet) 25 mg PO BIDWM [facility]; Protocol Last Admin: 09/18/24 09:00 Dose: 25 mg Documented By: MONICA Warfarin Sodium (Warfarin Sodium 1.25 Mg Halftab) 1.25 mg PO SUMOTUTHFRSA@1800 [facility] On Hold: 09/18/24 07:57 Comment: per Dr Castanon, INR still high Warfarin Sodium (Warfarin Sodium 2.5 Mg Tablet) 2.5 mg PO WE@1800 [facility] Labs 09/17/24 07:46 09/18/24 06:34 Labs: Laboratory Results - last 24 hr 09/18/24 06:34 PT 39.3 H INR 3.4 H Anion Gap 12 Estim Creat Clear Calc 34.7 Estimated GFR 59 Random Glucose 120 H Calcium 8.2 L Assessment and Plan (1) Congestive heart failure: Status: Acute Plan 79-year-old female with past medical history AFib on Coumadin,HFrEF/ CM with 10-15% AICD in place, AICD last fired in 2007, , CAD with [place] 2007, hypertension hyperlipidemia, COPD, hysterectomy return to the ED after being discharged in the afternoon on 09/15/2024. Initially patient became a case management case for placement in short-term rehab as patient really she can no longer remain at home and care for herself. During this time patient encountered and episode of what appeared to be V-tach but patient's defibrillator did not fire. Patient did receive a bolus of amiodarone and heart rate was reduced to 100 right before defibrillation was attempted. Patient did receive a dose of ketamine prior. All records were reviewed by Cardiology and indicated that patient was experiencing AFib with aberrancy and wanted patient admitted. Patient will start amiodarone 200 mg p.o. b.i.d.. INR supratherapeutic so Coumadin will be held. AFIB with Aberrancy, associated chest pain on coumadin trop might elevated sec to demand . qtc -lbbb/also baseline prolonged. Amiodorone 200 mgs BID per cardiology inr supratherapeutic. tsh normal hypomagnesemia improved repleted for hypokalemia. HFrEF/ Cardiomyopathy with AICD BNP 07552(better than 2 days back) Echo ordered, last echo April 2024 plan: continue diurectics i/o daily weights Holding Entresto ,coreg -boderline bp,slowly introduce as bp allows. Pt only on lasix currently prn for edema O2 via [place] cardiology following. Weakness/ BMI borderline Case management Pt - STR vs LTC Nutritional consultation ordered Speech therapy eval noted-been taking meds without overt s/s of aspiration. hx of COPD, recent possible bronchitis recent . Pt was started in doxycycline 100 mgs BID 09/15/2024, will complete Incentive spirometer ,Xopenex prn Suppotive care, O2 NC, wean as tolerated HLD:Continue statin DVT prophylaxis: coumadin on hold due to supretherapeutic INR . ongoing need :AFIB with Aberrancy, associated chest pain on coumadin , moniter tele, renal function /electrolytes. Quality Stroke Does the patient have a stroke diagnosis?: No Reason for No Anti-thrombotic by Day Two: N/A - Med Ordered VTE Prior VTE?: No VTE Risk Level:: Medical - moderate - high VTE Device Contraindication: N/A - Device Ordered VTE Drug Contraindication: N/A - Med Ordered
[2024-09-19 03:20] VITALS: BP 98/61; PULSE 79; RESP 16; TEMP 36.2; O2SAT 94
[2024-09-19 06:00] VITALS: BMI 36.8
[2024-09-19 07:47] LABS: INTERNATIONAL NORM RATIO 3.2 (0.9-1.1); Prothrombin Time 36.9 SEC (10.9-12.4)
[2024-09-19 07:59] VITALS: BP 98/61; PULSE 84; RESP 16; TEMP 36.7; O2SAT 93
[2024-09-19 09:32] VITALS: BP 96/57; PULSE 77; RESP 18; TEMP 36.8; O2SAT 94
[2024-09-19] MEDS: 0.9 % Sodium Chloride Flush 3 ML SYRINGE IVFLUSH ×2 (09:35)
[2024-09-19 11:37] VITALS: BP 97/63; PULSE 79; RESP 16; TEMP 37.1; O2SAT 91
--- NOTE | 2024-09-19 12:09 | MHC.CLN ---
F/U PT IS MODERATELY MALNOURISHED SEE FULL CLINICAL NUTRITION ASSESSMENT PO INTAKE 75-100% DIET RX: CARDIAC 1500ML FLUID RESTRICTION-APPROPRIATE RECEIVING ENSURE BID (DAYANA OR STRAWBERRY FLAVOR) SUPP PROVIDES 700KCALS, 40G PROTEIN MONITOR PO INTAKE AND ENCOURAGE SUPPLEMENTS
--- NOTE | 2024-09-19 13:15 | MHC.CM.PN ---
Second IMM 09/19/24, Pt has been medically cleared to DC to STR, she will go to [facility] via [facility]LS this afternoon.
--- NOTE | 2024-09-19 13:53 | P.DS_ITS ---
DS: Providers Provider Date of Service: 09/19/24 Date of admission: 09/16/24 05:05 Date of discharge: 09/19/24 Primary care physician: Dorothy Salas MD Consults: 09/16/24 05:24 Consult to Cardiology Routine Consulting Provider: [facility] Reason for consultation: AFIB with aberrancy Has provider been notified: Yes 09/16/24 05:37 Consult to Case Management Routine Comment: pt unanle to care for self at home, experienced AF DS: Diagnosis Discharge Diagnosis (1) Cardiomyopathy: Status: Acute (2) Acute on chronic HFrEF (heart failure with reduced ejection fraction): Status: Acute (3) Atrial fibrillation with rapid ventricular response: Status: Acute (4) Wide-complex tachycardia: Status: Acute DS: Summary Hospital Course Hospital Course: From the history and physical by the admitting hospitalist, Damari Pérez NP, 09/16/24: Patient is a 79-year-old female with past medical history AFib on Coumadin,HFrEF/ CM with 10-15% AICD in place, AICD last fired in 2007, , CAD with [place] 2007, hypertension hyperlipidemia, COPD, hysterectomy presents to the emergency room after being discharged earlier in the afternoon on 09/15/2024 for Acute CHF exacerbation. It was felt that patient would benefit from rehab ilitation but patient refused and was discharged to the home setting. Patient's son and daughter were with her for the 1st few hours and when they decided to go home, patient was on her own. During that time patient realized how truly weak she was and was not able to make it to the bathroom. Patient stated that she could no longer care for herself and 911 was called and patient was transferred here to [facility]. Upon assessment initially, patient was made a case management case and would be followed by case management for placement for rehab. In the interim patient experienced an episode of what appeared to be V-tach but patient AICD did not fire. Patient did receive ketamine for potential defibrillation but right before the defibrillation occurred, patient's heart rate decreased to 100 after a bolus of amiodarone. All patient's rhythms were evaluated by Cardiology and provider indicated that patient was experiencing AFib with aberrancy. Patient was placed for admission after review with hospitalist attending and would start amiodarone 200 mg b.i.d.. Troponin elevated 307. ECG SR with fusion complexes and left axis deviation and prolonged Qtc. Patient is normally on Coumadin with a supratherapeutic INR 3.7. Coumadin is currently on hold. There is no evidence of spontaneous bleeding of any kind. Patient's H&H is stable. Patient currently denies any chest pain, shortness of breath at rest but is extremely fatigued and is feeling the effects of the ketamine. Patient's memory is intact and she is currently alert and orientated able to answer questions for HPI. Patient does admit that she can not return home alone at this time. BMI is borderline low and pt states she has had less of an appetitie and has been having trouble swallowing her pills but not food or drink. Patient was scheduled to start doxycycline with transferred to rehab due to possible pneumonia with COPD exacerbation per ED provider. She was admitted to the telemetry unit with Cardiology consulted. She was thought to have AF with aberrancy [LBBB]. Amiodarone was increased from 100 mg daily to 200 mg twice daily for 1 week, then to change to 200 mg once daily. AF did not recur. TTE 09/17 showed: - The left ventricular systolic function is severely decreased. The calculated ejection fraction is 12% by biplane method. - The basal inferior, basal anteroseptal, and mid anteroseptal segments are akinetic. - Evidence suggests grade II (moderate) diastolic dysfunction. - There is severe mitral valve regurgitation. - There is severe tricuspid valve regurgitation. - Mild pulmonary hypertension is present. Echocardiographic results similar to prior with the exception of the valvular findings. Likely had some CHF provoked by the AF. Entresto and carvedilol were held due to low blood pressure; furosemide and spironolactone were continued. INR remained supratherpeutic, so warfarin was held. INR was 3.2 on 09/19/24 and should be rechecked 09/20/24. Once 3 or less, to resume warfarin at lower dose of 1.25 mg daily with repeat INR within 1 week. She was seen by PT and discharged to short-term SNF rehabilitation. She will need to follow up with her promotions assistant sales marketing at [facility] within 1-2 weeks. Time Attestation Discharge Coordination Time (in mins): 35 Quality: Safe Use of Opioids Does Pt have an Active Cancer Diagnosis on the Problem List?: No Quality: Stroke Does the patient have a stroke diagnosis?: No Physical Exam Vital Signs: Vital Signs: Last Vital Signs Temp 98.8 F 09/19/24 11:37 Pulse 79 09/19/24 11:37 Resp 16 09/19/24 11:37 BP 97/63 09/19/24 11:37 Pulse Ox 91 L 09/19/24 11:37 O2 Del Method Nasal Cannula 09/19/24 11:37 O2 Flow Rate 1 09/19/24 11:37 Oxygen Flow Rate 1 09/15/24 20:04 BMI result Body Mass Index 36.8 Gen: in no acute distress HEENT: sclera anicteric, moist mucus membranes Neck: supple Lungs: clear to auscultation bilaterally Heart: regular rate and rhythm, no murmurs Abd: soft, non-tender, non-distended Ext: no edema Skin: warm/well-perfused Neuro: alert and oriented x3, no focal findings Psych: appropriate affect DS: Data Data Completed and Pending Completed studies during hospitalization [Text1]: Laboratory Results WBC 8.3 X10*3/uL (4.8-10.8) 09/17/24 07:46 RBC 3.69 X10*6/uL (4.20-5.50) L 09/17/24 07:46 Hgb 11.1 g/dl (12.0-16.0) L 09/17/24 07:46 Hct 33.3 % (37.0-47.0) L 09/17/24 07:46 MCV 90.2 fL (80.0-98.0) 09/17/24 07:46 MCH 30.1 pg (27.0-33.0) 09/17/24 07:46 MCHC 33.3 g/dl (31.0-35.0) 09/17/24 07:46 RDW 14.5 % (11.0-16.0) 09/17/24 07:46 Plt Count 215 X10*3/uL (160-400) 09/17/24 07:46 MPV 10.1 fL (9.4-12.3) 09/17/24 07:46 Immature Gran % (Auto) 0.5 % (0.0-0.4) H 09/17/24 07:46 Neut % (Auto) 60.5 % (45-73) 09/17/24 07:46 Lymph % (Auto) 21.9 % (20-40) 09/17/24 07:46 [place] % (Auto) 6.4 % (2-11) 09/17/24 07:46 Eos % (Auto) 10.5 % (0-4) H 09/17/24 07:46 Baso % (Auto) 0.2 % (0-2) 09/17/24 07:46 Lymph # (Auto) 1.8 X10*3/uL (1.2-4.9) 09/17/24 07:46 [place] # (Auto) 0.5 X10*3/uL (0.1-1.2) 09/17/24 07:46 Eos # (Auto) 0.9 X10*3/uL (0.0-0.4) H 09/17/24 07:46 Baso # (Auto) 0.0 X10*3/uL (0.0-0.2) 09/17/24 07:46 Abs Immat Gran (auto) 0.04 X10*3/uL (0.00-0.03) H 09/17/24 07:46 Absolute Neuts (auto) 5.0 x10*3/uL (2.0-8.3) 09/17/24 07:46 Absolute Nucleated RBC 0.000 X10*3/uL (0.0-0.012) 09/17/24 07:46 Nucleated RBC % (auto) 0.0 /100WBC (0.0-0.2) 09/17/24 07:46 Smear Tech's Comments VERIFIED 09/17/24 07:46 PT 36.9 SEC (10.9-12.4) H 09/19/24 06:57 INR 3.2 (0.9-1.1) H 09/19/24 06:57 Sodium 140 mmol/L (135-145) 09/18/24 06:34 Potassium 3.4 mmol/L (3.3-5.1) 09/18/24 06:34 Chloride 106 mmol/L (96-108) 09/18/24 06:34 Carbon Dioxide 25 mmol/L (22-29) 09/18/24 06:34 Anion Gap 12 (12-20) 09/18/24 06:34 BUN 21 mg/dL (9-16) H 09/18/24 06:34 Creatinine 0.92 mg/dL (0.5-1.4) 09/18/24 06:34 Estim Creat Clear Calc 34.7 09/18/24 06:34 Estimated GFR 59 09/18/24 06:34 Random Glucose 120 mg/dL (60-115) H 09/18/24 06:34 Calcium 8.2 mg/dL (8.4-10.2) L 09/18/24 06:34 Magnesium 2.6 mg/dL (1.6-2.6) 09/16/24 06:06 Total Bilirubin 0.6 mg/dL (0.0-1.0) 09/17/24 07:24 AST 14 U/L (5-31) 09/17/24 07:24 ALT 14 U/L (0-31) 09/17/24 07:24 Alkaline Phosphatase 107 U/L (39-117) 09/17/24 07:24 Troponin I High Sens 301.7 ng/L (<3.5-17.0) H* 09/16/24 06:06 B-Natriuretic Peptide 41177 pg/mL (<100) H 09/16/24 04:00 Total Protein 5.3 g/dL (6.5-8.0) L 09/17/24 07:24 Albumin 3.0 g/dL (3.5-5.0) L 09/17/24 07:24 TSH 2.76 uIU/mL (0.32-4.0) 09/16/24 04:00 Discharge Plan Discharge Anticipated Discharge Date/Time: 09/19/24 13:41 Patient Disposition: Xfer SNF Discharge Diagnosis: atrial fibrillation with aberrancy cardiomyopathy Referrals: [facility] [Provider Group, Cardiology] - 1 Week Dorothy Salas MD [Primary Care Provider, Internal Medicine] - 1 Week Discharge Medications: New levalbuterol HCl 1.25 mg/3 mL Solution For Nebulization 1.25 mg inhalation Q4H PRN (Reason: Shortness Of Breath/Wheezing) Qty: 72 0RF amiodarone 200 mg Tablet See Rx Instructions .ROUTE .COMPLEX Qty: 1 0RF Rx Instructions: 200 mg twice daily for 4 days, then 200 mg once daily warfarin 2.5 mg tablet 1.25 mg PO DAILY Qty: 1 0RF Continued furosemide 40 mg Tablet 40 mg PO DAILY Qty: 90 0RF Protocol: Hold for SBP< HOLD for SBP < : 90 loperamide 2 mg Capsule 2 mg PO Q6H PRN (Reason: Diarrhea) Qty: 10 0RF guaifenesin 100 mg/5 mL Liquid 100 mg PO Q6H PRN (Reason: Cough) Qty: 118 0RF spironolactone 25 mg Tablet 25 mg PO BIDWM Qty: 120 0RF Protocol: Hold for SBP< HOLD for SBP < : 90 doxycycline monohydrate 100 mg Capsule 100 mg PO Q12H Qty: 12 0RF acetaminophen 500 mg tablet 500 mg PO Q6H PRN (Reason: Pain) atorvastatin 20 mg tablet 20 mg PO BEDTIME furosemide 20 mg tablet 20 mg PO DAILY PRN (Reason: Edema) Patient Comments: pt states for weight gain 5 lbs or more Discontinued warfarin 2.5 mg tablet 2.5 mg PO WE@1800 warfarin 2.5 mg tablet 1.25 mg PO SUMOTUTHFRSA@1800 Rx Instructions: resume 09/17/24 amiodarone 200 mg tablet 100 mg PO DAILY Entresto 24-26 mg tablet 1 tab PO BID Patient Comments: resume on 09/18/24 Rx Instructions: resume 09/18/24 Discharge Orders: Discharge Order (Routine); Ordered 09/19/24 Ordered By: Leslie Patiño Diet: Low salt diet Activity on Discharge: As tolerated Stand Alone Forms: Patient Portal Discharge page Print Language: Guatemalan Other Ambulatory Orders: Prothrombin Time INR (Routine) Timeframe: 1 Day Facility: [facility] - Location: Laboratory Ordered By: Leslie Patiño Care Plan Goals: cardiac health Health Concerns: atrial fibrillation with aberrancy cardiomyopathy Plan of Treatment: short-term rehabilitation at take amiodarone 200 mg twice daily for 4 days, then 200 mg once daily hold warfarin; recheck INR 09/20/24 and if INR 3 or less, resume warfarin 1.25 mg daily and recheck INR in 1 week follow up with [facility] Cardiology in 1-2 weeks Please follow up with your primary care doctor within 1 week of discharge from rehabilitation. Return to the hospital if you experience recurrent or worsening symptoms. Assessment: See Discharge Summary.
[2024-09-19 15:40] VITALS: BP 97/65; PULSE 87; RESP 18; TEMP 36.4; O2SAT 91
== END 2024-09-19 16:49 | disposition skilled nursing facility (03) | DRG 291 ==
LOC: HO.ED 09-16 05:16 → HO.EDOVER 09-16 06:05 → HO.IMC 09-16 15:31
PROVIDERS: Internal Medicine; Nurse Practitioner Family; Admitting Provider Student in an Organized Health Care Education/Training Program; Emergency Provider Emergency Medicine; PCP Internal Medicine; Visit Provider Family Medicine
DX: I11.0 Hypertensive heart disease with heart failure (principal); I50.23 Acute on chronic systolic (congestive) heart failure; J18.9 Pneumonia, unspecified organism; J44.0 Chronic obstructive pulmonary disease with (acute) lower respiratory infection; J44.1 Chronic obstructive pulmonary disease with (acute) exacerbation; R94.31 Abnormal electrocardiogram [ECG] [EKG]; I42.9 Cardiomyopathy, unspecified; I27.20 Pulmonary hypertension, unspecified; I08.1 Rheumatic disorders of both mitral and tricuspid valves; I48.91 Unspecified atrial fibrillation; E78.5 Hyperlipidemia, unspecified; R79.1 Abnormal coagulation profile; I25.10 Atherosclerotic heart disease of native coronary artery without angina pectoris; Z95.810 Presence of automatic (implantable) cardiac defibrillator; Z87.891 Personal history of nicotine dependence; Z79.01 Long term (current) use of anticoagulants; Z79.899 Other long term (current) drug therapy
CPT/HCPCS: 36415; 71045; 80048; 80053; 83735; 83880; 84443; 84484; 85025; 85610; 93005; 93306; 97116; 97162; 99285; J0283; J3475

== ENCOUNTER 2024-09-16 05:05 | Outpatient (BNV) | payer MEDICARE, MEDICAID, SELFPAY | END 2024-09-17 07:00 | PROVIDERS: Admitting Provider Student in an Organized Health Care Education/Training Program; Emergency Provider Emergency Medicine; PCP Internal Medicine; Visit Provider Internal Medicine | DX: R94.31 Abnormal electrocardiogram [ECG] [EKG] (principal) | CPT/HCPCS: 93010 ==

== ENCOUNTER 2024-09-16 05:05 | Outpatient (BNV) | payer MEDICARE, MEDICAID, SELFPAY | END 2024-09-16 05:16 | PROVIDERS: Admitting Provider Student in an Organized Health Care Education/Training Program; Emergency Provider Emergency Medicine; PCP Internal Medicine; Visit Provider Specialist | DX: J90 Pleural effusion, not elsewhere classified (principal); R91.8 Other nonspecific abnormal finding of lung field | CPT/HCPCS: 71045 ==

== ENCOUNTER → 2024-09-16 05:05 | Outpatient (BNV) | payer MEDICARE, MEDICAID, SELFPAY | PROVIDERS: Admitting Provider Student in an Organized Health Care Education/Training Program; Emergency Provider Emergency Medicine; PCP Internal Medicine; Visit Provider Internal Medicine Cardiovascular Disease | DX: I48.91 Unspecified atrial fibrillation (principal); I42.9 Cardiomyopathy, unspecified | CPT/HCPCS: 99233 ==

== ENCOUNTER → 2024-09-16 05:05 | Outpatient (BNV) | payer MEDICARE, MEDICAID, SELFPAY | PROVIDERS: Admitting Provider Student in an Organized Health Care Education/Training Program; Emergency Provider Emergency Medicine; PCP Internal Medicine; Visit Provider Nurse Practitioner Family | DX: I50.21 Acute systolic (congestive) heart failure (principal) | CPT/HCPCS: 99223; 99232; 99499 ==

== ENCOUNTER 2024-09-20 05:57 | Outpatient (REF) | payer MEDICARE, OTHER, SELFPAY ==
[2024-09-20 06:05] LABS: MANUAL DIFF FLAG NO
[2024-09-20 06:31] LABS: Hematocrit 35.3 % (37.0-47.0); Hemoglobin 11.5 g/dl (12.0-16.0); Imm Gran Abs Auto 0.04 X10*3/uL (0.00-0.03); Imm Gran Pct Auto 0.4 % (0.0-0.4); Lymphocytes Absolute Auto 2.2 X10*3/uL (1.2-4.9); Mean Corpuscular HGB Conc 32.6 g/dl (31.0-35.0); Mean Corpuscular Hemoglobin 29.3 pg (27.0-33.0); Mean Corpuscular Volume 89.8 fL (80.0-98.0); NRBC Abs Auto 0.000 X10*3/uL (0.0-0.012); NRBC Pct Auto 0.0 /100WBC (0.0-0.2); Platelet Count 246 X10*3/uL (160-400); Red Blood Count 3.93 X10*6/uL (4.20-5.50); White Blood Count 8.9 X10*3/uL (4.8-10.8)
[2024-09-20 06:44] LABS: Alanine Aminotransferase 13 U/L (0-31); Albumin Level 3.1 g/dL (3.5-5.0); Alkaline Phosphatase 103 U/L (39-117); Anion Gap 14 (12-20); Aspartate Amino Transferase 16 U/L (5-31); Blood Urea Nitrogen 28 mg/dL (9-16); Calcium 8.4 mg/dL (8.4-10.2); Carbon Dioxide 26 mmol/L (22-29); Chloride 103 mmol/L (96-108); Estimated Glomerular Filt Rate 58; Potassium 3.3 mmol/L (3.3-5.1); Sodium 140 mmol/L (135-145); Total Protein 5.5 g/dL (6.5-8.0)
[2024-09-20 07:19] LABS: INTERNATIONAL NORM RATIO 2.5 (0.9-1.1); Prothrombin Time 28.9 SEC (10.9-12.4)
== END 2024-09-20 05:58 | disposition home or self-care (01) ==
LOC: HO.MMNH1L 05:57
PROVIDERS: Visit Provider Student in an Organized Health Care Education/Training Program
DX: I48.91 Unspecified atrial fibrillation (principal)
CPT/HCPCS: 36415; 80053; 85025; 85610

== ENCOUNTER 2024-09-24 05:58 | Outpatient (REF) | payer MEDICARE, OTHER, SELFPAY ==
[2024-09-24 05:53] LABS: MANUAL DIFF FLAG NO
--- OUTSIDE RECORDS SUMMARY | 2024-09-24 06:01 | XMS_ITS | Data Portability ---
Author Organization [place] [facility] Address [address] [place] [address] Care Team Providers Care Plumber Gasfitter Name Role Phone GISELLESONAL DICKINSON Primary Care Provider [phone] Assessment Encounter Date Assessment Date Assessment LastModified [...] w/o pelvis 2-3 V-lt 2021 [facility] Corporate Office ([facility]), [address] [place], [address], 13:06:50 unlisted imaging order - hip uni W or w/o pelvis 2-3 V-RT [facility] [address] [facility], [place], [address], 13:06:50 Medication Orders None recorded. Patient TargetsNo [...] JOHNSON M.D. 10/14/19 12:58: 02 PM EDT. [email or web address] [place] [address] [address], [place], [address], 10/13/2021 17:01:04 10/14/19 22 10/13/2021 hip uni [...] JOHNSON M.D. 10/14/19 12:58: 02 PM EDT. [email or web address] [facility] [address] [facility] [address], [place], [address], 10/13/2021 17:01:09 Result Notes None recorded. Procedures Surgical History Date Name Laterality Status Provider Name and Address Organization Details Recorded Time cardiac pacemaker procedure completed PAULO Gonzalez [address], [place], [address], [place] [facility] 10/11/2021 15:05:34 Appendectomy completed PAULO Gonzalez [address], [place], [address], [place] [facility] 10/11/2021 15:05:42 Imaging Results None recorded. Procedure Notes None recorded. Medical Equipment None Reported. Allergies Allergen ID Allergen Name Allergen Category Reaction Reaction Severity Criticality Documentation Date Start Date Code Code System Note Provider Name and Address Organization Details Recorded Time [id number] lisinopri l medicatio n Not available Not available Not available 10/11/2021 98570 RxNorm PAULO Myers [address], [place], [address], [place] [facility] 2 15:01:18 Medications Name Sig Start Date Stop [...] Pulse oximetry Respiratory rate Body temperature Systolic And Diastolic Provider Name and Address Organization Details Last Updated DateTime 2 72 /min 100 % 100 % 18 /min 97.4 [degF] 114/54 mm[Hg] Not Available [facility] 2 14:40:45 Social History Question Answer Notes LastModified by Organizat ion Details LastModified Time Tobacco Smoking Status Never Smoker PAULO Gonzalez [address] [place], [address], [place] [facility] 10/11/2021 15:02:27 Excessive Alcohol [...] History Condition Response Coronary Artery Disease Y Parkinson's Disease N COPD N Depression N Hypothyroidism N A-fib Y Diabetes N CHF Y Cancer N Stroke N Dementia N Asthma N High Cholesterol Y Rheumatoid Arthritis N Pulmonary Embolism N Hypertension N Osteoporosis N Kidney Disease N Gynecological HistoryNo gynecological history recorded. Obstetrics History GPAL:G 0 P 0 0 0 0 Past Encounters Encounter ID Performer Location Encounter Start Date Encounter Closed Date Diagnosis/Indication Diagnosis SNOMED-CT Code Diagnosis ICD10 Code Diagnosis Note [id number] PAULO Smith [facility] [address] [place] [address] 10/11/2021 14:02:15 10/12/2021 07:14:08 Pain of hip region 91354209 M25.559 Fall on sa me level from slipping, tripping or stumbling 469094787 W01.0XXA Health Concerns Section Related Observation LastModified by Organization Detai ls LastModified Time None Recorded Concern Status LastModified by Organization Details LastModified Time None Recorded Advance Directives Directive None Recorded Payers Insurance Date Sequence Insurance Name Policy Number Policy Hirsch Covered Member ID Hirsch Member ID Guarantor Name 10/11/2021 1 [place] [facility] Lala Leger [id number] Lala Leger 10/11/2021 1 *SELF PAY* Lala Leger [id number] Lala Leger 10/16/2021 1 [place] [facility] Lala Leger [id number] Lala Leger 10/11/2021 1 [place] [facility] Lala Leger [id number] Lala Leger 11/05/2021 2 [place] [facility] Lala Leger [id number] Lala Leger 01/21/2022 2 [place] [facility] Lala Leger [id number] Lala Leger Notes Date Note Type Note [...] further falls. PAULO Gonzalez [address], [place], [address], [place] [facility] 10/11/2021 17:26:17 OBGyn Episode No OBEpisode recorded.
--- OUTSIDE RECORDS SUMMARY | 2024-09-24 06:01 | XMS_ITS | Patient Health Record ---
Author Organization [facility] Address [address] [facility] [place] [address] Care Team Providers Care Self Rising Flour Mixer Name Role Phone Dorothy Salas Primary Care Provider Unavailab Ryley Carroll Unavailable [phone] Allergies Allergen (clinical drug ingredient) Drug/Non Drug Allergy documented on EMR Reaction Allergy Type Onset Date Status lisinopril Lisinopril Unknown Drug Allergy Activ e Reason For Referral No Information Medications Medication [...] W/U Status Risk Notes Problem Plantar wart (74003372) Plantar wart (B07.0) Active confirmed Plan Of Treatment Pending Test Test Name Order Date [id number]-Hcny Destruction, 1-14 12/14/2019 Insurance Providers Payer Name Payer Address Payer Phone Subscriber Number Group Number Insured Name Patient Relationship to Insured Coverage Start Date Coverage End Date Medicare [employer] [address] [place] [address] [id number] Lala Tucker Self - patient is the insured Medical (General) History Medical History History ICD Code CAD CHF [place] - 2007 Surgical History Surgery Date(Month/Year)
[2024-09-24 06:55] LABS: Hematocrit 37.4 % (37.0-47.0); Hemoglobin 12.1 g/dl (12.0-16.0); Imm Gran Abs Auto 0.03 X10*3/uL (0.00-0.03); Imm Gran Pct Auto 0.4 % (0.0-0.4); Lymphocytes Absolute Auto 2.2 X10*3/uL (1.2-4.9); Mean Corpuscular HGB Conc 32.4 g/dl (31.0-35.0); Mean Corpuscular Hemoglobin 29.5 pg (27.0-33.0); Mean Corpuscular Volume 91.2 fL (80.0-98.0); NRBC Abs Auto 0.000 X10*3/uL (0.0-0.012); NRBC Pct Auto 0.0 /100WBC (0.0-0.2); Platelet Count 242 X10*3/uL (160-400); Red Blood Count 4.10 X10*6/uL (4.20-5.50); White Blood Count 8.6 X10*3/uL (4.8-10.8)
[2024-09-24 07:02] LABS: INTERNATIONAL NORM RATIO 2.4 (0.9-1.1); Prothrombin Time 27.3 SEC (10.9-12.4)
[2024-09-24 07:04] LABS: Anion Gap 15 (12-20); Blood Urea Nitrogen 35 mg/dL (9-16); Calcium 8.6 mg/dL (8.4-10.2); Carbon Dioxide 29 mmol/L (22-29); Chloride 102 mmol/L (96-108); Estimated Glomerular Filt Rate 44; Potassium 3.1 mmol/L (3.3-5.1); Sodium 143 mmol/L (135-145)
== END 2024-09-24 05:59 | disposition home or self-care (01) ==
LOC: HO.MMNH1L 05:58
PROVIDERS: Visit Provider Student in an Organized Health Care Education/Training Program
DX: I48.91 Unspecified atrial fibrillation (principal)
CPT/HCPCS: 36415; 80048; 85025; 85610

== ENCOUNTER 2024-09-26 05:46 | Outpatient (REF) | payer MEDICARE, OTHER, SELFPAY ==
--- OUTSIDE RECORDS SUMMARY | 2024-09-26 05:48 | XMS_ITS | Patient Health Record ---
Author Organization [facility] Address [address] [facility] [place] [address] Care Team Providers Care Dragline Operator Name Role Phone Dorothy Salas Primary Care Provider Unavailab Ryley Carroll Unavailable [phone] Allergies Allergen (clinical drug ingredient) Drug/Non Drug [...] W/U Status Risk Notes Problem Plantar wart (99460476) Plantar wart (B07.0) Active confirmed Plan Of Treatment Pending Test Test Name Order Date [id number]-Yzwa Destruction, 1-14 12/14/2019 Insurance Providers Payer Name Payer Address Payer Phone Subscriber Number Group Number Insured Name Patient Relationship to Insured Coverage Start Date Coverage End Date Medicare National [employer] [address] [place] [address] [id number] Lala Tucker Self - patient is the insured Medical (General) History Medical History History ICD Code CAD CHF [place] - 2007 Surgical History Surgery Date(Month/Year)
[2024-09-26 06:24] LABS: INTERNATIONAL NORM RATIO 2.6 (0.9-1.1); Prothrombin Time 29.3 SEC (10.9-12.4)
== END 2024-09-26 05:47 | disposition home or self-care (01) ==
LOC: HO.MMNH1L 05:46
PROVIDERS: Visit Provider Family Medicine
DX: E46 Unspecified protein-calorie malnutrition (principal); J20.9 Acute bronchitis, unspecified; I50.9 Heart failure, unspecified
CPT/HCPCS: 36415; 85610

== ENCOUNTER 2024-10-02 11:21 | Outpatient (AMB) | payer MEDICARE, OTHER, SELFPAY ==
[2024-10-02 11:28] LABS: Prothrombin Time Whole Bld POC 56.1 sec (11.1-13.5); ~PT, ~INR - Anti Coag Clinic 4.7 (0.9-1.1)
--- NOTE | 2024-10-02 11:39 | MHC.OFFVISCO ---
Intake Intake Visit Reasons: Anticoagulation Allergies lisinopril Adverse Reaction (Intermediate, Verified 10/02/24 11:21) [facility] Nursing Note INR: 4.7?out of therapeutic range of 203 Medications and supplements reviewed Patient status: better Medications or supplements: pt was on antibiotics, meds reviewed. Came home from rehab 09/30/24 and will be getting VNA services Was taking 2mg daily of warfarin at the rehab facillity Denies any signs and symptoms of bleeding or clotting or unusual bruising Bleeding, bruising, clotting discussed Nutritional guidance given: to have a serving of greens today Dose: hold dose today then half of usual dose tomorrow which is 1.25mg then then retest the next day by VNA. Visiting nurses called and scheduled INR for 10/04/24 F/U INR Date : 10/04/24?? Patient verbalizing understanding of instructions given. Anti-Coag Initial Assessment Social Hx Patient Tobacco Use Status: Former Tobacco user Tobacco use type: Cigarette alcohol intake: never Coding Level of Care Code Est Patient Level 2 Diagnoses Current use of anticoagulant therapy Z79.01 Time Spent (min) 30 Comment 1st visit post d/c from rehab, meds reviewed and dose adjusted for high INR result Results AMB INR Fingerstick AMB INR Fingerstick 4.7 Last Edit by Lela Strickland RN on 10/02/24 11:28 interface delay Assessment & Plan Assessment & Plan (1) Current use of anticoagulant therapy: Code(s): Z79.01 - intermission coordinator (current) use of anticoagulants Category: Medical
--- OUTSIDE RECORDS SUMMARY | 2024-10-02 12:33 | XMS_ITS | Patient Health Record ---
Author Organization [facility] Address [address] [place] [address] Care Team Providers Care Mandarin Chinese Teacher Name Role Phone Dorothy Salas Primary Care Provider Unavailab Ryley Carroll Unavailable [phone] Allergies Allergen (clinical drug ingredient) Drug/Non Drug [...] W/U Status Risk Notes Problem Plantar wart (78296368) Plantar wart (B07.0) Active confirmed Plan Of Treatment Pending Test Test Name Order Date [id number] Destruction, 1-14 12/14/2019 Insurance Providers Payer Name Payer Address Payer Phone Subscriber Number Group Number Insured Name Patient Relationship to Insured Coverage Start Date Coverage End Date Medicare [employer] [address] [place] [address] [id number] Lala Tucker Self - patient is the insured Medical (General) History Medical History History ICD Code CAD CHF [place] - 2007 Surgical History Surgery Date(Month/Year)
== END 2024-10-02 11:47 | disposition home or self-care (01) ==
LOC: HO.ACS 11:21
PROVIDERS: PCP Internal Medicine; Visit Provider Internal Medicine Medical Oncology
DX: Z79.01 Long term (current) use of anticoagulants (principal)

== ENCOUNTER → 2024-10-02 11:21 | Outpatient (BNVA) | payer MEDICARE, OTHER, SELFPAY | PROVIDERS: PCP Internal Medicine; Visit Provider Internal Medicine Medical Oncology | DX: I48.20 Chronic atrial fibrillation, unspecified (principal); Z79.01 Long term (current) use of anticoagulants; Z51.81 Encounter for therapeutic drug level monitoring | CPT/HCPCS: 85610; 99212 ==

== ENCOUNTER 2024-10-16 18:37 | Inpatient (IN) | payer MEDICARE, OTHER, SELFPAY ==
--- NOTE | ~2024-10-16 | NM_ITS ---
CLINICAL HISTORY: NAUSEA --- Additional Notes or Special Instructions: GB SLUDGE AND SMALL GALLSTONES SUGGESTIVE OF CHOLECYSTITIS WT. LOSS ALSO NM HIDA SCAN Comparison: US - US ABDOMEN LIMITED - 10/16/24 21:[address]/SR - CT ABDOMEN PELVIS WO IV CON - 10/16/24 21:04 EDT Technique: NAUSEA --- Additional Notes or Special Instructions: GB SLUDGE AND SMALL GALLSTONES SUGGESTIVE OF CHOLECYSTITIS WT. LOSS ALSO (Hx) / Statics (DICOM Hx) (DICOM Hx) Findings: Normal liver uptake, distribution, and excretion. Central bile ducts appear at 22 minutes. Gallbladder ap at pears 33 minutes. Duodenum visualized at 3.5 hours. No enterogastric reflux of radiotracer. IMPRESSION: 1. No findings suggest acute cholecystitis. 2. Delayed biliary to bowel transit can be seen with chronic gallbladder dysfunction or biliary dyskinesia. This document has been electronically signed by: Tamara Tavera DO on 10/18/2024 18:35:15
--- NOTE | ~2024-10-16 | FL_ITS ---
EXAMINATION: XR BARIUM SWALLOW CLINICAL INFORMATION: Dysphagia COMPARISON: None available. TECHNIQUE: With patient sitting routine barium swallow was performed with thin barium. Patient could not lie supine. FINDINGS: On oral administration of thin barium in anterior and right lateral views there is normal perfusion bolus from the oral cavity through the pharynx, esophagus into stomach without any obstruction, intraluminal filling defect or extrinsic compression. The GE junction is widely patent. Mild prominent cricoesophageal sphincter is noted. FLUOROSCOPY TIME: 1 minute and 06 seconds DOSE AREA PRODUCT: 266.3 uGy-m2 (microgray-meter squared) FL/FL barium swallow IMPRESSION: Unremarkable barium swallow exam with thin barium only. Electronically signed by: Jero Welch MD 10/17/2024 03:23 PM EDT
--- NOTE | ~2024-10-16 | CT_ITS ---
CLINICAL HISTORY: nausea, wt loss, cachectic. alkphos bili elevat CT abdomen and pelvis without contrast Comparison: None provided Findings: The heart is extremely enlarged. Small right effusion. Severe centrilobular emphysema. Left lower lobe consolidation, nonspecific. The unenhanced liver is unremarkable. The spleen and adrenal glands demonstrate no definite mass. The kidneys both demonstrate moderately severe hydroureteronephrosis. Pronounced dilation of the right extrarenal pelvis. The right kidney is located within the pelvis. Moderate bladder distention. No bowel obstruction or free air. Degenerative changes within the spine. Severe atherosclerotic disease. Impression: Pronounced cardiomegaly. Moderately severe hydroureteronephrosis bilaterally without calculus identified. This document has been electronically signed by: Fernando Rangle MD on 10/16/2024 21:45:55
--- NOTE | ~2024-10-16 | US_ITS ---
CLINICAL HISTORY: RUQ, obstructive biliary labs US abdomen limited Comparison: CT/SR - CT ABDOMEN PELVIS WO IV CON - 10/16/24 21:04 EDT Findings: The visualized pancreas is normal. The aorta and inferior vena cava are normal caliber. The liver is normal in size and within normal limits in echotexture. Small benign calcification seen within the left lobe. There is no intrahepatic bile duct dilatation. The common duct is 6.0 mm in diameter. The gallbladder demonstrates sludge and layering stones. There is no sonographic Sullivan sign. The main portal vein is antegrade. The right kidney is 11.7 cm in length. Moderately severe hydroureteronephrosis. No ascites. IMPRESSION: There is sludge throughout the gallbladder and there are tiny layering stone suggested. No pericholecystic fluid or sonographic Sullivan's. Moderately severe right hydroureteronephrosis. Right-sided pelvic kidney. This document has been electronically signed by: Fernando Rangel MD on 10/16/2024 21:55:53
--- NOTE | ~2024-10-16 | US_ITS ---
CLINICAL HISTORY: Elevated LFTs, GB and CBD only US abdomen limited Comparison: 10/16/2024 Findings: The gallbladder is normal. There is no sonographic Sullivan sign. IMPRESSION: 1. Normal gallbladder ultrasound. This document has been electronically signed by: Ashok Duncan MD on 10/20/2024 09:24:43
[2024-10-16 18:51] VITALS: BP 101/56; PULSE 72; O2SAT 94
--- NOTE | 2024-10-16 19:00 | PC.NURSE ---
this RN assumed care of this pt @1900, pt A+Ox3, in no apparent distress at this time, NS running through 20g IV in R. forearm
[2024-10-16 19:03] VITALS: BP 102/64; PULSE 78; RESP 20; O2SAT 97; BMI 30.6
[2024-10-16 19:07] VITALS: BP 102/64; PULSE 78; RESP 20; O2SAT 97
--- NOTE | 2024-10-16 19:10 | ECG_ITS ---
Test Reason : MALNOURISH Blood Pressure : */* mmHG Vent. Rate : 78 BPM Atrial Rate : 78 BPM P-R Int : 180 ms QRS Dur : 194 ms QT Int : 508 ms P-R-T Axes : 52 174 44 degrees QTcB Int : 579 ms Normal sinus rhythm Possible Left atrial enlargement Right axis deviation Left bundle branch block Biventricular hypertrophy Abnormal ECG When compared with ECG of 17-Sep-2024 16:40, Questionable change in QRS axis Referred By: Benjamin Ma Electronically Signed By: Stefano Hernandez
--- NOTE | 2024-10-16 19:12 | ED.GENADULT ---
HPI - General Adult General Chief complaint: General Medical Stated complaint: nausea, fatigue Time Seen by Provider: 10/16/24 18:48 History of Present Illness ED Provider: Benjamin Ma MD HPI narrative: 79-year-old female with a history of CHF COPD tells me that for the past week she has had very decreased appetite she is able to tolerate and swallow solids she does not have dysphagia or vomiting she feels she has had a weight loss she tells me since early September she has lost 16 lb and feels dehydrated and malnourished. Related Data Home Medications ?Medication ?Instructions ?Recorded ?Confirmed atorvastatin 20 mg tablet 20 mg PO BEDTIME 10/05/23 10/17/24 furosemide 20 mg tablet 20 mg PO DAILY PRN Edema 05/08/24 10/17/24 amiodarone 200 mg tablet 100 mg PO DAILY 10/17/24 10/17/24 spironolactone 25 mg tablet 25 mg PO WEFR 10/17/24 10/17/24 warfarin 2.5 mg tablet 1.25 mg PO SUMOTUTHFRSA 10/17/24 warfarin 2.5 mg tablet 1.25 mg PO SUMOTUTHFRSA 10/17/24 10/17/24 warfarin 2.5 mg tablet 2.5 mg PO WE 10/17/24 10/17/24 Allergies Allergy/AdvReac Type Severity Reaction Status Date / Time lisinopril AdvReac Intermediate COUHG Verified 10/16/24 19:04 [facility] Past Medical History Medical History (Updated 10/16/24 @ 23:13 by Evelyne Quintana PA-C) Myocardial infarction Congestive heart failure Cardiomyopathy CAD (coronary artery disease) Hyperlipidemia Afib HTN (hypertension) Surgical History H/O: hysterectomy AICD (automatic cardioverter/defibrillator) present Social History Social History Household Members: None Housing: House Housing Other:: 1st floor of house. nephew lives on 2nd floor Do you presently have visiting nurse or other home services: No Alcohol intake: never Patient Tobacco Use Status: Former Tobacco user Tobacco use type: Cigarette Smoked in Last 30 Days: No Second Hand Smoke Exposure: Yes Use of substances other than those prescribed or required for medical reasons: No Advance Directives: Yes Advance Directives on File: Yes Advance Directives Date on File: 09/08/24 Do you have a plan to hurt others: No Plan Nutrition Risks: Acute nausea or vomiting x1 week and Poor intake 0-25% >4 days service: No Physical Exam ED Exam Exam: EXAM: Gen: Alert, awake, slightly dehydrated appearing thin cachectic looking Head: Atraumatic Eyes: Anicteric, Normal conjunctiva. ENT: Moist mucosa, no pallor. ? Neck: Supple. Skin: ?No observable rash or bruising on exposed or examined skin Respiratory: Breathing comfortably, No distress.Clear to auscultation bilaterally, symmetric chest expansion, No wheeze, rales, ronchi. Cardiovascular: Regular rate and rhythm. No murmurs or rub. Well perfused periphery, warm extremities. No edema. ? Abdominal: No focal tenderness. Soft, no objective distension. No palpable masses or obvious organomegaly. ?No guarding, no rebound tenderness or other peritoneal findings. : No flank tenderness. Neuro: Alert. Gross movement of all extremities intact. ? Psych: Calm. Cooperative. MSK: No grossly visible deformity. Vital signs: See flowsheet Vital Signs: Vital Signs - 24 hr 10/16/24 19:03 10/16/24 19:07 10/16/24 20:45 Temperature 97.5 F Pulse Rate 78 78 81 Respiratory Rate 20 20 26 H Blood Pressure 102/64 102/64 107/70 Pulse Oximetry 97 97 94 Oxygen Delivery Method Room Air Room Air Nasal Cannula Oxygen Flow Rate 2 10/16/24 22:03 Temperature 98.9 F Pulse Rate 79 Respiratory Rate 28 H Blood Pressure 102/66 Pulse Oximetry 94 Oxygen Delivery Method Nasal Cannula Oxygen Flow Rate 2 BMI result Body Mass Index 30.6 Medications Administered Generic Name Dose Route Start Last Admin Trade Name Freq PRN Reason Stop Dose Admin Sodium Chloride 3 ml 10/17/24 00:00 10/17/24 07:53 0.9 % Sodium Chloride Flush 3 Ml Syringe IVFLUSH 3 ml QSHIFT RENETTA Administration Discontinued Medications Generic Name Dose Route Start Last Admin Trade Name Freq PRN Reason Stop Dose Admin Sodium Chloride 1,000 mls @ 999 mls/hr 10/16/24 21:00 10/17/24 00:20 Ns IV 10/16/24 22:00 Infused .Q1H1M RENETTA Infusion Phytonadione 2.5 mg 10/17/24 12:27 10/17/24 12:35 Phytonadione (Vit K1) Oral 10 Mg/Ml Ampul PO 10/17/24 12:28 2.5 mg ONCE ONE Administration Medical Decision Making Medical Decision Making MDM Narrative: Medical Decision Makin-year-old female with history of CHF COPD who is thin and frail with decreased p.o. intake. Does not seem to be mechanical or dysphagia related. No abdominal pain or chest pain. Symptomatology is vague and likely secondary to malnourished status. Patient has weight loss dehydration decreased p.o. intake no obvious dysphagia. Biliary Obstructive pattern on the chemistry tests. CT without acute pathology chronic cardiomegaly and chronic bilateral hydronephrosis since 2014. Ultrasound: CBD 0.6. Nonspecific calcifications seen gallbladder Plan for admission may need GI consultation for upper endoscopy non emergently, may need MRCP Preliminary Favored Differential Diagnosis: Malignancy, dehydration, electrolyte derangement, cachexia/wasting, among additional considered etiologies Testing Interpreted Independently: Left bundle-branch block, sinus rhythm rate 78 grossly unchanged from 09/17/2024 no sgarbossa criteria Radiology or Lab testing Results Reviewed: Reviewed historical records here at [facility] with [address] showing the attached kidney and ureter section below This is consistent with what we are seeing on today's CT scan Consults: Not Applicable Independent Historians/External Chart Reviews: Not Applicable Social Determinants of Health Impacting MDM/Planning: Not Applicable Lab Data 10/17/24 04:34 10/17/24 04:34 Labs: Lab Results 10/16/24 Range/Units 20:15 WBC 8.4 (4.8-10.8) X10*3/uL RBC 3.92 L (4.20-5.50) X10*6/uL Hgb 11.4 L (12.0-16.0) g/dl Hct 34.6 L (37.0-47.0) % MCV 88.3 (80.0-98.0) fL MCH 29.1 (27.0-33.0) pg MCHC 32.9 (31.0-35.0) g/dl RDW 16.3 H (11.0-16.0) % Plt Count 271 (160-400) X10*3/uL MPV 10.4 (9.4-12.3) fL Immature Gran % (Auto) 0.4 (0.0-0.4) % Neut % (Auto) 72.1 (45-73) % Lymph % (Auto) 19.2 L (20-40) % Sibley % (Auto) 8.0 (2-11) % Eos % (Auto) 0.2 (0-4) % Baso % (Auto) 0.1 (0-2) % Lymph # (Auto) 1.6 (1.2-4.9) X10*3/uL [place]y # (Auto) 0.7 (0.1-1.2) X10*3/uL Eos # (Auto) 0.0 (0.0-0.4) X10*3/uL Baso # (Auto) 0.0 (0.0-0.2) X10*3/uL Abs Immat Gran (auto) 0.03 (0.00-0.03) X10*3/uL Absolute Neuts (auto) 6.0 (2.0-8.3) x10*3/uL Absolute Nucleated RBC 0.030 H (0.0-0.012) X10*3/uL Nucleated RBC % (auto) 0.4 H (0.0-0.2) /100WBC Sodium 138 (135-145) mmol/L Potassium 4.1 D (3.3-5.1) mmol/L Chloride 103 (96-108) mmol/L Carbon Dioxide 21 L (22-29) mmol/L Anion Gap 18 (12-20) BUN 43 H (9-16) mg/dL Creatinine 1.44 H (0.5-1.4) mg/dL Estim Creat Clear Calc 33.7 Estimated GFR 35 Random Glucose 107 (60-115) mg/dL Calcium 8.4 (8.4-10.2) mg/dL Magnesium 2.3 (1.6-2.6) mg/dL Total Bilirubin 1.6 H (0.0-1.0) mg/dL AST 78 H (5-31) U/L ALT 80 H (0-31) U/L Alkaline Phosphatase 241 H (39-117) U/L Total Protein 5.9 L (6.5-8.0) g/dL Albumin 3.6 (3.5-5.0) g/dL TSH 6.52 H (0.32-4.0) uIU/mL Free T4 1.32 (0.71-1.85) ng/dL Thyroxine (T4) 8.1 (4.5-12.0) ug/dL Discharge Plan Discharge Clinical Impression: Acquired hyperbilirubinemia Patient Disposition: Admitted As Inpatient
[2024-10-16 20:19] LABS: MANUAL DIFF FLAG NO
[2024-10-16 20:20] LABS: Hematocrit 34.6 % (37.0-47.0); Hemoglobin 11.4 g/dl (12.0-16.0); Imm Gran Abs Auto 0.03 X10*3/uL (0.00-0.03); Imm Gran Pct Auto 0.4 % (0.0-0.4); Lymphocytes Absolute Auto 1.6 X10*3/uL (1.2-4.9); Mean Corpuscular HGB Conc 32.9 g/dl (31.0-35.0); Mean Corpuscular Hemoglobin 29.1 pg (27.0-33.0); Mean Corpuscular Volume 88.3 fL (80.0-98.0); NRBC Abs Auto 0.030 X10*3/uL (0.0-0.012); NRBC Pct Auto 0.4 /100WBC (0.0-0.2); Platelet Count 271 X10*3/uL (160-400); Red Blood Count 3.92 X10*6/uL (4.20-5.50); White Blood Count 8.4 X10*3/uL (4.8-10.8)
[2024-10-16 20:43] LABS: Alanine Aminotransferase 80 U/L (0-31); Albumin Level 3.6 g/dL (3.5-5.0); Alkaline Phosphatase 241 U/L (39-117); Anion Gap 18 (12-20); Aspartate Amino Transferase 78 U/L (5-31); Blood Urea Nitrogen 43 mg/dL (9-16); Calcium 8.4 mg/dL (8.4-10.2); Carbon Dioxide 21 mmol/L (22-29); Chloride 103 mmol/L (96-108); Creatinine Clr Calc Pharmacy 33.7; Estimated Glomerular Filt Rate 35; Magnesium 2.3 mg/dL (1.6-2.6); Potassium 4.1 mmol/L (3.3-5.1); Sodium 138 mmol/L (135-145); Total Protein 5.9 g/dL (6.5-8.0)
[2024-10-16 20:45] VITALS: BP 107/70; PULSE 81; RESP 26; TEMP 36.4; O2SAT 94
[2024-10-16 20:57] LABS: Thyroid Stimulating Hormone 6.52 uIU/mL (0.32-4.0)
[2024-10-16 22:03] VITALS: BP 102/66; PULSE 79; RESP 28; TEMP 37.2; O2SAT 94
--- NOTE | 2024-10-16 23:03 | P.HPHOSP_ITS ---
History of Present Illness Date of Service: 10/16/24 Attending physician on admission: Kameron Aguilera Chief Complaint: nausea Patient is a 79-year-old female with a past medical history significant for pacemaker, AICD, HFrEF (EF 15% with grade 2 moderate diastolic dysfunction), severe COPD on 2L O2 NC, HLD, a fib, HTN, CAD, hx [place] and congenital UPJ obstruction, who presented to the ED due to decreased appetite caused by nausea. The patient reports she has had poor p.o. intake for the past few days, has been unable to tolerate liquids or solids due to severe nausea. She also reports R shoulder pain but denies abd pain. The patient reports that if she did eat or drink she would have severe indigestion or vomit. She has lost 16 lb in the last month. She reports a dry cough but no wheezing, shortness of breath or chest pain. She also reports decreased urine output, last urinated this morning, no urge to urinate now. She has not had anything to eat or drink today but feels very thirsty. Review of Systems 2 Constitutional: Constitutional: Denies body ache(s), Denies chills, Reports fatigue, Denies fever(s) and Denies headache(s) Eyes: Eyes: Denies change in vision ENT: Denies headache(s), Denies nasal congestion and Denies sore throat Cardiovascular: Cardiovascular: Denies chest pain, Denies rapid heart rate, Denies leg edema, Denies lightheadedness and Denies dyspnea Respiratory: Respiratory: Denies chest congestion, Reports cough, Denies dyspnea and Denies wheezing Gastrointestinal: Gastrointestinal: Denies abdominal pain, Denies melena, Denies hematochezia, Denies constipation, Reports dyspepsia, Denies diarrhea and Reports nausea Genitourinary: Genitourinary: Reports as per HPI, Denies dysuria and Denies urinary urgency Musculoskeletal: Musculoskeletal: Denies myalgias Integumentary/Breasts: Skin/Breast: Denies rash Neurologic: Denies confusion and Denies headache(s) Psychiatric: Psychiatric: Denies confusion Endocrine: Endocrine: Reports fatigue Hematologic/Lymphatic: Hematologic/Lymphatic: Denies easy bleeding and Denies easy bruising Allergic/Immunologic: Allergic/Immunologic: Denies wheezing [facility] Medical History (Updated 10/16/24 @ 23:13 by Evelyne Quintana PA-C) Myocardial infarction Congestive heart failure Cardiomyopathy CAD (coronary artery disease) Hyperlipidemia Afib HTN (hypertension) Surgical History H/O: hysterectomy AICD (automatic cardioverter/defibrillator) present Social History Household Members: None Housing: House Housing Other:: 1st floor of house. nephew lives on 2nd floor Do you presently have visiting nurse or other home services: No Alcohol intake: never Patient Tobacco Use Status: Former Tobacco user Tobacco use type: Cigarette Smoked in Last 30 Days: No Second Hand Smoke Exposure: Yes Use of substances other than those prescribed or required for medical reasons: No Advance Directives: Yes Advance Directives on File: Yes Advance Directives Date on File: 09/08/24 Do you have a plan to hurt others: No Plan service: No Narrative: no smoking, etoh or drug use Meds Allergies Allergy/AdvReac Type Severity Reaction Status Date / Time lisinopril AdvReac Intermediate COUHG Verified 10/16/24 19:04 Active Medications: Current Medications Acetaminophen (Acetaminophen 325 Mg Tablet) 650 mg PO Q6H PRN PRN Reason: Pain, Mild 1-3,fever,headache Calcium Carbonate (Calcium Carbonate 750 Mg Tab.Chew) 750 mg PO Q4H PRN PRN Reason: Heartburn Hydromorphone HCl (Hydromorphone Hcl 1 Mg/Ml Syringe) 0.25 mg IVPUSH Q4H PRN; Protocol PRN Reason: Pain, Severe (Pain Scale 7-10) Magnesium Hydroxide (Milk Of Magnesia 30 Ml Oral.Susp) 30 ml PO DAILY PRN PRN Reason: Constipation Melatonin (Melatonin 3 Mg Tablet) 6 mg PO BEDTIME PRN PRN Reason: Insomnia Oxycodone HCl (Oxycodone Hcl Immed Release 5 Mg Tablet) 5 mg PO Q6H PRN PRN Reason: Pain, Moderate(Pain Scale 4-6) Pharmacy Consult (Consult Rx Anticoag Dosing) 1 each MISCELLANE DAILY PRN; Protocol PRN Reason: Consult order Sodium Chloride (0.9 % Sodium Chloride Flush 3 Ml Syringe) 3 ml IVFLUSH QSHIFT [facility] Home Medications ?Medication ?Instructions ?Recorded ?Confirmed ?Last Taken ?Type acetaminophen 500 mg tablet 500 mg PO Q6H PRN Pain 10/2810/09/24 Unknown History atorvastatin 20 mg tablet 20 mg PO BEDTIME 10/05/2309/15/24 20:38 History furosemide 20 mg tablet 20 mg PO DAILY PRN Edema 06/2910/09/24 09/07/24 History Physical Exam 2 Vital Signs and Narrative: Vital Signs: Last Vital Signs Temp 98.9 F 10/16/24 22:03 Pulse 79 10/16/24 22:03 Resp 28 H 10/16/24 22:03 BP 102/66 10/16/24 22:03 Pulse Ox 94 10/16/24 22:03 O2 Del Method Nasal Cannula 10/16/24 22:03 O2 Flow Rate 2 10/16/24 22:03 Oxygen Flow Rate 2 10/16/24 19:03 BMI result Body Mass Index 30.6 General: AOx3, no acute distress. frail. Resp: diminished throughout, no crackles or wheezing CVS: RRR, +murmur GI: +BS, NT, no distention. negative Sullivan's sign. Skin: Warm, dry Neuro: Cranial nerves II-XII grossly intact bilaterally. Motor grossly intact bilaterally Extremities: No LE edema Psych: Appropriate affect Const: General: No confusion Orientation/consciousness: No confusion Neuro: General: No confusion Results Labs 10/16/24 20:15 10/16/24 20:15 Labs: Laboratory Results - last 24 hr 10/16/24 20:15 MCV 88.3 MCH 29.1 MCHC 32.9 RDW 16.3 H Plt Count 271 MPV 10.4 Immature Gran % (Auto) 0.4 Neut % (Auto) 72.1 Lymph % (Auto) 19.2 L [place] % (Auto) 8.0 Eos % (Auto) 0.2 Baso % (Auto) 0.1 Lymph # (Auto) 1.6 [place]os # (Auto) 0.7 Eos # (Auto) 0.0 Baso # (Auto) 0.0 Abs Immat Gran (auto) 0.03 Absolute Neuts (auto) 6.0 Absolute Nucleated RBC 0.030 H Nucleated RBC % (auto) 0.4 H Anion Gap 18 Estim Creat Clear Calc 33.7 Estimated GFR 35 Random Glucose 107 Calcium 8.4 Magnesium 2.3 Total Bilirubin 1.6 H AST 78 H ALT 80 H Alkaline Phosphatase 241 H Total Protein 5.9 L Albumin 3.6 TSH 6.52 H Assessment and Plan (1) Elevated LFTs: Status: Acute (2) Acute kidney injury superimposed on CKD: Status: Acute (3) Gallbladder sludge: Status: Acute Plan Patient is a 79-year-old female with a past medical history significant for pacemaker, AICD, HFrEF (EF 15% with grade 2 moderate diastolic dysfunction), severe COPD on 2L O2 NC, HLD, a fib, HTN, CAD, hx [place] and congenital UPJ obstruction, who presented to the ED due to decreased appetite caused by nausea. elevated LFTs, gallbladder sludge - AST 78, ALT 80, alk phos 241, t bili 1.6 - A/P CT without acute findings, chorinc moderate to severe bilateral hydroureteronephrosis - abd US with sludge throughout the gallbladder and tiny layering stones. no pericholecystic fluid or Sullivan's sign - not a candidiate for MRCP due to pacemaker and AICD - GI consult - very high risk surgical candidate due to CHF with EF of 12% - regular diet - follow CMP and CBC PARVIN on CKD, secondary to dehydration - cr 1.44 - BMP with metabolic acidosis - given 1L IVF in ED, no further fluids due to CHF - monitor kidney function severe COPD without acute exacerbation - at baseline O2 - continue home meds HLD - continue home meds paroxysmal a fib - EKG with NSR - continue home meds - coumadin dosing per pharmacy - follow INR HTN - hold BP meds for now, continue when appropriate CAD - continue home meds med rec pending full code, discussed poor prognosis if CPR needed with EF of 12%, pt will discuss with family in AM VTE prophy: coumadin Pt with elevated LFTs and PARVIN requiring admission for at least 2 midnights stay for GI consultation and monitoring. Quality Stroke Does the patient have a stroke diagnosis?: No VTE Prior VTE?: No VTE Risk Level:: Medical - moderate - high VTE Device Contraindication: Treatment Not Indicated VTE Drug Contraindication: N/A - Med Ordered
[2024-10-16 23:10] LABS: Free T4 (Free Thyroxine) 1.32 ng/dL (0.71-1.85)
[2024-10-17] VITALS (13 sets, daily range): BP systolic 93–108; BP diastolic 59–71; PULSE 66–83; RESP 14–31; TEMP 36.2–36.9; O2SAT 92–96; BMI 13.8
--- NOTE | 2024-10-17 | PC.NURSE ---
this RN flushed pt IV at this time, fluids noted to have infused approximately 100mL's d/t pt arms being bent and line being kinked, pt educated to keep arm as straight as possible in order to infuse fluids
[2024-10-17 00:31] LABS: Prothrombin Time 83.2 SEC (10.9-12.4)
[2024-10-17 00:34] LABS: INTERNATIONAL NORM RATIO 7.2 (0.9-1.1)
[2024-10-17 05:04] LABS: MANUAL DIFF FLAG NO
[2024-10-17 05:07] LABS: Hematocrit 33.5 % (37.0-47.0); Hemoglobin 10.6 g/dl (12.0-16.0); Imm Gran Abs Auto 0.03 X10*3/uL (0.00-0.03); Imm Gran Pct Auto 0.4 % (0.0-0.4); Lymphocytes Absolute Auto 1.5 X10*3/uL (1.2-4.9); Mean Corpuscular HGB Conc 31.6 g/dl (31.0-35.0); Mean Corpuscular Hemoglobin 28.3 pg (27.0-33.0); Mean Corpuscular Volume 89.6 fL (80.0-98.0); NRBC Abs Auto 0.030 X10*3/uL (0.0-0.012); NRBC Pct Auto 0.4 /100WBC (0.0-0.2); Platelet Count 259 X10*3/uL (160-400); Red Blood Count 3.74 X10*6/uL (4.20-5.50); White Blood Count 7.5 X10*3/uL (4.8-10.8)
[2024-10-17 05:26] LABS: Alanine Aminotransferase 108 U/L (0-31); Albumin Level 3.2 g/dL (3.5-5.0); Alkaline Phosphatase 213 U/L (39-117); Anion Gap 15 (12-20); Aspartate Amino Transferase 116 U/L (5-31); Blood Urea Nitrogen 43 mg/dL (9-16); Calcium 7.9 mg/dL (8.4-10.2); Carbon Dioxide 21 mmol/L (22-29); Chloride 107 mmol/L (96-108); Creatinine Clr Calc Pharmacy 33.8; Estimated Glomerular Filt Rate 36; Potassium 3.9 mmol/L (3.3-5.1); Sodium 139 mmol/L (135-145); Total Protein 5.2 g/dL (6.5-8.0)
--- NOTE | 2024-10-17 07:19 | PC.NURSE ---
assumed care of pt. Pt is A+OX4, calm, cooperative. On 2L NC, RR even and unlabored, lungs clear bilat and denies CP or SOB. Pt denies pain at this time other than a little discomfort in her neck from the bed. Pt denies nausea.
[2024-10-17] MEDS: 0.9 % Sodium Chloride Flush 3 ML SYRINGE IVFLUSH ×4 (07:53→21:06)
[2024-10-17 09:02] LABS: Prothrombin Time 71.1 SEC (10.9-12.4)
[2024-10-17 09:15] LABS: INTERNATIONAL NORM RATIO 6.2 (0.9-1.1)
--- NOTE | 2024-10-17 10:17 | PHA.MEDREC ---
Pharmacy Consult ? Medication Reconciliation Pharmacy has completed the medication reconciliation. Patient knew medications. Stated that a lot of her cardio meds were stops because of hypotension
--- NOTE | 2024-10-17 11:26 | MHC.CM.PN ---
CM met with Patient at bedside, in the ED,and addressed IMM with her, providing Patient with the original and a copy will be placed on the chart. Patient lives alone in a 2 family house, on the first floor, with her Nephew living on the second floor (per Patient Nephew is not helpful to her but her Son and Daughter live close by). Patient uses a walker to assist with mobility; Patient may benefit from a PT Eval to assist with disposition (home/resume [facility] VS STR @ [facility](recently there and had a good experience). CM has initiated and will follow for dc planning. PCP is Dr. Maritza De La Cruz and Daughter will transport to home if final dc plan is to home.
[2024-10-17] MEDS: Phytonadione (Vit K1) Oral 10 MG/ML AMPUL 2.5 MG PO (12:35)
--- NOTE | 2024-10-17 13:01 | HO.PM.IMPN ---
Subjective Subjective Date of Service: 10/17/24 Interval History: early satiety, dysphagia, weight loss Physical Exam Exam: Exam: General: AO X 3, frail-appearing Resp: CTA bilateral, no accessory muscles used CVS: S1,S2,RRR GI: soft, non tender, non distended Neuro: motor grossly intact, alert Psych: appropriate affect, appropriate insight Vital Signs: Vital Signs: Last Vital Signs Temp 97.6 F 10/17/24 08:04 Pulse 83 10/17/24 12:24 Resp 25 H 10/17/24 12:24 BP 100/66 10/17/24 12:24 Pulse Ox 94 10/17/24 12:24 O2 Del Method Nasal Cannula 10/17/24 12:24 O2 Flow Rate 2 10/17/24 12:24 Oxygen Flow Rate 2 10/16/24 19:03 BMI result Body Mass Index 30.6 Objective Data Active Medications Acetaminophen (Acetaminophen 325 Mg Tablet) 650 mg PO Q6H PRN PRN Reason: Pain, Mild 1-3,fever,headache Amiodarone HCl (Amiodarone Hcl 200 Mg Tablet) 100 mg PO DAILY R[facility]ETTA Calcium Carbonate (Calcium Carbonate 750 Mg Tab.Chew) 750 mg PO Q4H PRN PRN Reason: Heartburn Hydromorphone HCl (Hydromorphone Hcl 1 Mg/Ml Syringe) 0.25 mg IVPUSH Q4H PRN; Protocol PRN Reason: Pain, Severe (Pain Scale 7-10) Magnesium Hydroxide (Milk Of Magnesia 30 Ml Oral.Susp) 30 ml PO DAILY PRN PRN Reason: Constipation Melatonin (Melatonin 3 Mg Tablet) 6 mg PO BEDTIME PRN PRN Reason: Insomnia Oxycodone HCl (Oxycodone Hcl Immed Release 5 Mg Tablet) 5 mg PO Q6H PRN PRN Reason: Pain, Moderate(Pain Scale 4-6) Pharmacy Consult (Consult Rx Anticoag Dosing) 1 each MISCELLANE DAILY PRN; Protocol PRN Reason: Consult order Sodium Chloride (0.9 % Sodium Chloride Flush 3 Ml Syringe) 3 ml IVFLUSH [facility] Last Admin: 10/17/24 07:53 Dose: 3 ml Documented By: KATIA Warfarin Sodium (Warfarin Sodium 1.25 Mg Halftab) 1.25 mg PO [facility] Warfarin Sodium (Warfarin Sodium 2.5 Mg Tablet) 2.5 mg PO [facility] Labs 10/17/24 04:34 10/17/24 04:34 Labs: Laboratory Results - last 24 hr 10/16/24 10/17/24 10/17/24 20:15 00:05 04:34 MCV 88.3 89.6 MCH 29.1 28.3 MCHC 32.9 31.6 RDW 16.3 H 16.2 H Plt Count 271 259 MPV 10.4 10.7 Immature Gran % (Auto) 0.4 0.4 Neut % (Auto) 72.1 69.7 Lymph % (Auto) 19.2 L 20.5 [place] % (Auto) 8.0 9.2 Eos % (Auto) 0.2 0.1 Baso % (Auto) 0.1 0.1 Lymph # (Auto) 1.6 1.5 [place] # (Auto) 0.7 0.7 Eos # (Auto) 0.0 0.0 Baso # (Auto) 0.0 0.0 Abs Immat Gran (auto) 0.03 0.03 Absolute Neuts (auto) 6.0 5.2 Absolute Nucleated RBC 0.030 H 0.030 H Nucleated RBC % (auto) 0.4 H 0.4 H PT 83.2 H D INR 7.2 H* D Anion Gap 18 15 Estim Creat Clear Calc 33.7 33.8 Estimated GFR 35 36 Random Glucose 107 91 Calcium 8.4 7.9 L Magnesium 2.3 Total Bilirubin 1.6 H 1.9 H AST 78 H 116 H ALT 80 H 108 H Alkaline Phosphatase 241 H 213 H Total Protein 5.9 L 5.2 L Albumin 3.6 3.2 L TSH 6.52 H Free T4 1.32 Thyroxine (T4) 8.1 10/17/24 08:40 MCV MCH MCHC RDW Plt Count MPV Immature Gran % (Auto) Neut % (Auto) Lymph % (Auto) [place] % (Auto) Eos % (Auto) Baso % (Auto) Lymph # (Auto) [place] # (Auto) Eos # (Auto) Baso # (Auto) Abs Immat Gran (auto) Absolute Neuts (auto) Absolute Nucleated RBC Nucleated RBC % (auto) PT 71.1 H INR 6.2 H* Anion Gap Estim Creat Clear Calc Estimated GFR Random Glucose Calcium Magnesium Total Bilirubin AST ALT Alkaline Phosphatase Total Protein Albumin TSH Free T4 Thyroxine (T4) Assessment and Plan (1) Cardiomyopathy: Status: Acute Plan 79M PMH chronic systolic CHF with EF of 15% and grade 2 moderate diastolic dysfunction, AICD, severe COPD with chronic hypoxic respiratory failure on 2 L home O2, hyperlipidemia, AFib, CAD, chronic congenital UPJ obstruction presented with dysphagia, nausea, weight loss Moderate protein calorie malnutrition, failure to thrive, early satiety and nausea and dysphagia GI eval, barium swallow, encourage oral nutrition Transaminitis with gallstones Negative Sullivan's, follow up GI Monitor LFTs Acute kidney injury on CKD II Due to dehydration, monitor Chronic hypoxic respiratory failure due to COPD On baseline O2 Paroxysmal AFib with supratherapeutic INR We will give 2.5 mg vitamin K, monitor INR Continue amiodarone, warfarin 2 restart once INR therapeutic DVT prophylaxis on Coumadin Full Code reason for continued hospitalization: GI eval Quality Stroke Does the patient have a stroke diagnosis?: No VTE Prior VTE?: No VTE Risk Level:: Medical - moderate - high VTE Device Contraindication: Treatment Not Indicated VTE Drug Contraindication: N/A - Med Ordered
--- NOTE | 2024-10-17 14:21 | PC.NURSE ---
pt of the unit for her barium swallow test
--- NOTE | 2024-10-17 16:30 | PM.GICN ---
History of Present Illness Data of Consult Service Date: 10/17/24 Requesting physician: Evelyne Quintana Primary Care Provider: Dorothy Salas MD [facility] Reason for consult: Elevated LFTs This is a 79-year-old female with medical history significant for COPD, coronary artery disease, with history of cardiomyopathy, most recent EF of 12% status post AICD placement severe mitral and tricuspid regurgitation, mild pulmonary hypertension, atrial fibrillation, follows with [facility], who presented to the hospital yesterday for decreased appetite and nausea. Reports 3-4 days of loss of appetite, and nausea on attempting to eat or drink anything including her protein shakes. With this, she does not report any abdominal pain, shortness of breath, lightheadedness, chest pain, changes in bowel habits. Due to concern for dehydration and decreased urine output, she presented to the hospital last evening. On initial evaluation, she was noted to be slightly tachypneic but with stable vitals. Labs with mild decrease in hemoglobin from baseline. Chem 7 with PARVIN, creatinine up to 1.4. LFTs up in a cholestatic pattern. Ultrasound abdomen with gallbladder sludge and small stones without any signs suggestive of cholecystitis. CBD 6 mm in diameter. Review of Systems Review of Systems: Yes all other systems are reviewed and are negative PMF Past Medical History Medical History (Updated 10/16/24 @ 23:13 by Evelyne Quintana PA-C) Myocardial infarction Congestive heart failure Cardiomyopathy CAD (coronary artery disease) Hyperlipidemia Afib HTN (hypertension) Surgical History Surgical History H/O: hysterectomy AICD (automatic cardioverter/defibrillator) present Social History Social History Household Members: None Housing: House Housing Other:: 1st floor of house. nephew lives on 2nd floor Do you presently have visiting nurse or other home services: No Alcohol intake: never Patient Tobacco Use Status: Former Tobacco user Tobacco use type: Cigarette Smoked in Last 30 Days: No Second Hand Smoke Exposure: Yes Use of substances other than those prescribed or required for medical reasons: No Advance Directives: Yes Advance Directives on File: Yes Advance Directives Date on File: 09/08/24 Do you have a plan to hurt others: No Plan Nutrition Risks: Acute nausea or vomiting x1 week and Poor intake 0-25% >4 days service: No Meds Allergies Allergy/AdvReac Type Severity Reaction Status Date / Time lisinopril AdvReac Intermediate COUHG Verified 10/16/24 19:04 Active Medications: Current Medications Acetaminophen (Acetaminophen 325 Mg Tablet) 650 mg PO Q6H PRN PRN Reason: Pain, Mild 1-3,fever,headache Amiodarone HCl (Amiodarone Hcl 200 Mg Tablet) 100 mg PO DAILY [place] Calcium Carbonate (Calcium Carbonate 750 Mg Tab.Chew) 750 mg PO Q4H PRN PRN Reason: Heartburn Hydromorphone HCl (Hydromorphone Hcl 1 Mg/Ml Syringe) 0.25 mg IVPUSH Q4H PRN; Protocol PRN Reason: Pain, Severe (Pain Scale 7-10) Magnesium Hydroxide (Milk Of Magnesia 30 Ml Oral.Susp) 30 ml PO DAILY PRN PRN Reason: Constipation Melatonin (Melatonin 3 Mg Tablet) 6 mg PO BEDTIME PRN PRN Reason: Insomnia Oxycodone HCl (Oxycodone Hcl Immed Release 5 Mg Tablet) 5 mg PO Q6H PRN PRN Reason: Pain, Moderate(Pain Scale 4-6) Pharmacy Consult (Consult Rx Anticoag Dosing) 1 each MISCELLANE DAILY PRN; Protocol PRN Reason: Consult order Sodium Chloride (0.9 % Sodium Chloride Flush 3 Ml Syringe) 3 ml IVFLUSH [facility] Last Admin: 10/17/24 15:33 Dose: 3 ml Warfarin Sodium (Warfarin Sodium 1.25 Mg Halftab) 1.25 mg PO [facility] Warfarin Sodium (Warfarin Sodium 2.5 Mg Tablet) 2.5 mg PO [facility] Home Medications ?Medication ?Instructions ?Recorded ?Confirmed ?Last Taken ?Type atorvastatin 20 mg tablet 20 mg PO BEDTIME 10/05/23 10/17/24 10/16/24 History furosemide 20 mg tablet 20 mg PO DAILY PRN Edema 05/08/24 10/17/24 10/16/24 History amiodarone 200 mg tablet 100 mg PO DAILY 10/17/24 10/17/24 10/16/24 History spironolactone 25 mg tablet 25 mg PO WEFR 10/17/24 10/17/24 10/16/24 History warfarin 2.5 mg tablet 1.25 mg PO [facility]OTUTHFRSA 10/17/24 10/16/24 History warfarin 2.5 mg tablet 1.25 mg PO SUMOTUTHFRSA 10/17/24 10/17/24 10/16/24 History warfarin 2.5 mg tablet 2.5 mg PO WE 10/17/24 10/17/24 10/16/24 History Physical Exam Exam: Exam: Frail elderly female Nonicteric Abdomen soft, nontender, nondistended Tachypneic Mild lower extremity edema Vital Signs: Vital Signs: Last Vital Signs Temp 97.8 F 10/17/24 14:13 Pulse 80 10/17/24 15:32 Resp 22 H 10/17/24 15:32 BP 102/71 10/17/24 15:32 Pulse Ox 93 10/17/24 15:32 O2 Del Method Nasal Cannula 10/17/24 15:32 O2 Flow Rate 2 10/17/24 15:32 Oxygen Flow Rate 2 10/16/24 19:03 BMI result Body Mass Index 30.6 Results Labs 10/17/24 04:34 10/17/24 04:34 Labs: Short CBC 10/16/24 10/17/24 Range/Units 20:15 04:34 WBC 8.4 7.5 (4.8-10.8) X10*3/uL Hgb 11.4 L 10.6 L (12.0-16.0) g/dl Hct 34.6 L 33.5 L (37.0-47.0) % Plt Count 271 259 (160-400) X10*3/uL BMP 10/16/24 10/17/24 20:15 04:34 Sodium 138 139 Potassium 4.1 D 3.9 Chloride 103 107 Carbon Dioxide 21 L 21 L BUN 43 H 43 H Creatinine 1.44 H 1.43 H Calcium 8.4 7.9 L Liver Function 10/16/24 10/17/24 Range/Units 20:15 04:34 Total Bilirubin 1.6 H 1.9 H (0.0-1.0) mg/dL AST 78 H 116 H (5-31) U/L ALT 80 H 108 H (0-31) U/L Alkaline Phosphatase 241 H 213 H (39-117) U/L Albumin 3.6 3.2 L (3.5-5.0) g/dL Assessment and Plan (1) Elevated LFTs: Status: Acute (2) Gallbladder sludge: Status: Acute (3) AICD (automatic cardioverter/defibrillator) present: Status: Acute (4) Afib: Qualifiers: Atrial fibrillation type: paroxysmal Qualified Code(s): I48.0 - Paroxysmal atrial fibrillation Status: Acute (5) Congestive heart failure: Qualifiers: Heart failure chronicity: acute Heart failure type: systolic Qualified Code(s): I50.21 - Acute systolic (congestive) heart failure Status: Acute Plan Differentials for elevated LFTs include biliary obstruction secondary to stone versus cholecystitis, congestive hepatopathy, infectious illness, drug-induced liver injury. Patient is unable to undergo MRCP for evaluation of biliary tree due to AICD which is MRI non-compatible per her report. Plan: -check HIDA scan -check troponin and NT proBNP -check resp panel to r/o infectious illness -daily LFTs -if HIDA scan positive for cholecystitis or CBD obstruction, will likely need percutaneous intervention given extremely low cardiopulmonary reserve. Anticoagulation is on hold anyway due to supratherapeutic INR Thank you for allowing me to participate in her care. Please do not hesitate to reach out for any questions or concerns. Procedures Date of Service Date of Service: 10/17/24
--- NOTE | 2024-10-17 19:43 | PC.NURSE ---
Weight of 80lbs, chart updated.
--- NOTE | 2024-10-18 00:55 | HO.SKINPHOTO ---
Location: buttocks Category: Stage: Length: Width: Depth: cm Location: Category: Stage: Length: Width: Depth: cm Location: Category: Stage: Length: Width: Depth: cm Location: Category: Stage: Length: Width: Depth: cm Location: Category: Stage: Length: Width: Depth: cm Location: Category: Stage: Length: Width: Depth: cm
[2024-10-18 03:09] VITALS: BP 109/66; PULSE 76; RESP 18; TEMP 36.8; O2SAT 92
[2024-10-18 06:17] LABS: MANUAL DIFF FLAG NO
[2024-10-18 06:46] LABS: Hematocrit 34.5 % (37.0-47.0); Hemoglobin 11.1 g/dl (12.0-16.0); Imm Gran Abs Auto 0.05 X10*3/uL (0.00-0.03); Imm Gran Pct Auto 0.6 % (0.0-0.4); Lymphocytes Absolute Auto 1.4 X10*3/uL (1.2-4.9); Mean Corpuscular HGB Conc 32.2 g/dl (31.0-35.0); Mean Corpuscular Hemoglobin 28.8 pg (27.0-33.0); Mean Corpuscular Volume 89.6 fL (80.0-98.0); NRBC Abs Auto 0.040 X10*3/uL (0.0-0.012); NRBC Pct Auto 0.4 /100WBC (0.0-0.2); Platelet Count 252 X10*3/uL (160-400); Red Blood Count 3.85 X10*6/uL (4.20-5.50); White Blood Count 9.0 X10*3/uL (4.8-10.8)
[2024-10-18 06:47] LABS: Hematocrit 34.0 % (37.0-47.0); Hemoglobin 11.1 g/dl (12.0-16.0); Mean Corpuscular HGB Conc 32.6 g/dl (31.0-35.0); Mean Corpuscular Hemoglobin 29.1 pg (27.0-33.0); Mean Corpuscular Volume 89.0 fL (80.0-98.0); NRBC Abs Auto 0.040 X10*3/uL (0.0-0.012); NRBC Pct Auto 0.4 /100WBC (0.0-0.2); Platelet Count 252 X10*3/uL (160-400); Red Blood Count 3.82 X10*6/uL (4.20-5.50); White Blood Count 9.0 X10*3/uL (4.8-10.8)
[2024-10-18 06:48] LABS: Alanine Aminotransferase 478 U/L (0-31); Albumin Level 3.3 g/dL (3.5-5.0); Alkaline Phosphatase 407 U/L (39-117); Anion Gap 17 (12-20); Aspartate Amino Transferase 545 U/L (5-31); Blood Urea Nitrogen 50 mg/dL (9-16); Calcium 8.6 mg/dL (8.4-10.2); Carbon Dioxide 21 mmol/L (22-29); Chloride 104 mmol/L (96-108); Creatinine Clr Calc Pharmacy 18.4; Estimated Glomerular Filt Rate 34; Magnesium 2.4 mg/dL (1.6-2.6); Potassium 4.5 mmol/L (3.3-5.1); Sodium 137 mmol/L (135-145); Total Protein 5.4 g/dL (6.5-8.0)
[2024-10-18 06:49] LABS: Prothrombin Time 61.6 SEC (10.9-12.4)
[2024-10-18 07:04] LABS: B Type Natriuretic Peptide 9381 pg/mL (<100)
[2024-10-18 07:17] LABS: Troponin-I High Sensitivity 54.4 ng/L (<3.5-17.0)
[2024-10-18 07:19] LABS: INTERNATIONAL NORM RATIO 5.4 (0.9-1.1)
[2024-10-18 07:57] VITALS: BP 96/61; PULSE 72; RESP 16; TEMP 36.4; O2SAT 94
--- NOTE | 2024-10-18 08:27 | PC.NURSE ---
0805 MD Thorne made aware pt bp 78/43, at bedside to assess pt, per MD 1L LR bolus ordered and infusing. Pt contineus to be minimally responsive to verbal stimuli, opens eyes, grunts one word answer then falls back to sleep. All safety measures in place.
[2024-10-18] MEDS: 0.9 % Sodium Chloride Flush 3 ML SYRINGE IVFLUSH ×3 (09:52→20:39)
--- NOTE | 2024-10-18 09:55 | P.CDIM_ITS ---
PROVIDER RESPONSE TEXT: To clarify, the appropriate diagnosis supported by the clinical indicators: Acute QUERY TEXT: PHYSICIAN'S DOCUMENTATION REQUEST Date of Query: 10/18/2024 09:45 AM EDT Patient Name: Lala Leger Admit Date: 10/17/2024 Dear Dimitrios Yang MD, A review of the medical record indicates additional documentation may be needed. Please review below and update the documentation accordingly. Clinical Indicators: H&P 10/16/24 - PARVIN on CKD, secondary to dehydration. BMP with metabolic acidosis Given IV Fluids in Ed. Clarify which of the following accurately represents the acuity of the Metabolic acidosis: Possible options might include: Acute Chronic Other specified Other (explain) Clinically unable to determine (explain) Thank you, Breanna Hu, CCS, CDIS Use of terms such as suspected, likely, concern for, or probable (associated with a specific diagnosis that is being evaluated, monitored, or treated as if it exists) are acceptable and can be coded in the inpatient setting, when documented at the time of discharge. Please use your independent medical judgment in providing your response. THIS QUERY IS PART OF THE PERMANENT MEDICAL RECORD
--- NOTE | 2024-10-18 10:42 | HO.PM.IMPN ---
Subjective Subjective Date of Service: 10/18/24 Interval History: Unchanged Physical Exam Exam: Exam: Frail elderly female Nonicteric Abdomen soft, nontender, nondistended Tachypneic Mild lower extremity edema Vital Signs: Vital Signs: Last Vital Signs Temp 97.5 F 10/18/24 07:57 Pulse 72 10/18/24 07:57 Resp 16 10/18/24 07:57 BP 96/61 10/18/24 07:57 Pulse Ox 94 10/18/24 07:57 O2 Del Method Nasal Cannula 10/18/24 07:57 O2 Flow Rate 2 10/18/24 07:57 Oxygen Flow Rate 2 10/16/24 19:03 BMI result Body Mass Index 13.8 Objective Data Active Medications Acetaminophen (Acetaminophen 325 Mg Tablet) 650 mg PO Q6H PRN PRN Reason: Pain, Mild 1-3,fever,headache Amiodarone HCl (Amiodarone Hcl 200 Mg Tablet) 100 mg PO DAILY [facility] Last Admin: 10/18/24 09:51 Dose: Not Given Documented By: EMIR Non-Admin Reason: NPO Calcium Carbonate (Calcium Carbonate 750 Mg Tab.Chew) 750 mg PO Q4H PRN PRN Reason: Heartburn Hydromorphone HCl (Hydromorphone Hcl 1 Mg/Ml Syringe) 0.25 mg IVPUSH Q4H PRN; Protocol PRN Reason: Pain, Severe (Pain Scale 7-10) Magnesium Hydroxide (Milk Of Magnesia 30 Ml Oral.Susp) 30 ml PO DAILY PRN PRN Reason: Constipation Melatonin (Melatonin 3 Mg Tablet) 6 mg PO BEDTIME PRN PRN Reason: Insomnia Oxycodone HCl (Oxycodone Hcl Immed Release 5 Mg Tablet) 5 mg PO Q6H PRN PRN Reason: Pain, Moderate(Pain Scale 4-6) Pharmacy Consult (Consult Rx Anticoag Dosing) 1 each MISCELLANE DAILY PRN; Protocol PRN Reason: Consult order Sodium Chloride (0.9 % Sodium Chloride Flush 3 Ml Syringe) [facility] Last Admin: 10/18/24 09:52 Dose: 3 ml Documented By: EMIR Warfarin Sodium (Warfarin Sodium 1.25 Mg Halftab) 1.25 mg [facility] Warfarin Sodium (Warfarin Sodium 2.5 Mg Tablet) 2.5 mg PO [facility] Labs 10/18/24 06:11 10/18/24 06:11 Labs: Laboratory Results - last 24 hr 10/18/24 10/18/24 10/18/24 06:11 06:11 06:11 MCV 89.6 89.0 MCH 28.8 29.1 MCHC 32.2 RDW Plt Count MPV Immature Gran % (Auto) Neut % (Auto) Lymph % (Auto) [place] % (Auto) Eos % (Auto) Baso % (Auto) Lymph # (Auto) [place] # (Auto) Eos # (Auto) Baso # (Auto) Abs Immat Gran (auto) Absolute Neuts (auto) Absolute Nucleated RBC Nucleated RBC % (auto) PT INR Anion Gap Estim Creat Clear Calc Estimated GFR Random Glucose Calcium Magnesium Total Bilirubin Direct Bilirubin AST ALT Alkaline Phosphatase B-Natriuretic Peptide Total Protein Albumin 10/18/24 10/18/24 10/18/24 06:11 06:11 06:11 MCV MCH MCHC 32.6 RDW 16.2 H 16.1 H Plt Count 252 252 MPV 11.0 Immature Gran % (Auto) Neut % (Auto) Lymph % (Auto) [place] % (Auto) Eos % (Auto) Baso % (Auto) Lymph # (Auto) [place] # (Auto) Eos # (Auto) Baso # (Auto) Abs Immat Gran (auto) Absolute Neuts (auto) Absolute Nucleated RBC Nucleated RBC % (auto) PT INR Anion Gap Estim Creat Clear Calc Estimated GFR Random Glucose Calcium Magnesium Total Bilirubin Direct Bilirubin AST ALT Alkaline Phosphatase B-Natriuretic Peptide Total Protein Albumin 10/18/24 10/18/24 10/18/24 06:11 06:11 06:11 MCV MCH MCHC RDW Plt Count MPV 10.5 Immature Gran % (Auto) 0.6 H Neut % (Auto) 72.9 Lymph % (Auto) 16.1 L [place] % (Auto) 10.3 Eos % (Auto) 0.0 Baso % (Auto) 0.1 Lymph # (Auto) 1.4 [place] # (Auto) 0.9 Eos # (Auto) 0.0 Baso # (Auto) 0.0 Abs Immat Gran (auto) 0.05 H Absolute Neuts (auto) 6.6 Absolute Nucleated RBC 0.040 H 0.040 H Nucleated RBC % (auto) 0.4 H 0.4 H PT 61.6 H INR 5.4 H* Anion Gap 17 Estim Creat Clear Calc 18.4 Estimated GFR 34 Random Glucose 102 Calcium 8.6 D Magnesium 2.4 Total Bilirubin 2.3 H Direct Bilirubin 1.2 H AST 545 H ALT 478 H Alkaline Phosphatase 407 H B-Natriuretic Peptide 9381 H Total Protein 5.4 L Albumin 3.3 L Assessment and Plan (1) Cardiomyopathy: Status: Acute Plan 79M PMH chronic systolic CHF with EF of 15% and grade 2 moderate diastolic dysfunction, AICD, severe COPD with chronic hypoxic respiratory failure on 2 L home O2, hyperlipidemia, AFib, CAD, chronic congenital UPJ obstruction presented with dysphagia, nausea, weight loss Moderate protein calorie malnutrition, failure to thrive, early satiety and nausea and dysphagia Barium swallow negative, GI appreciated plan for HIDA scan Transaminitis with gallstones Negative Sullivan's, plan for HIDA scan Monitor LFTs Acute kidney injury on CKD II Due to dehydration, monitor Chronic hypoxic respiratory failure due to COPD On baseline O2 Paroxysmal AFib with supratherapeutic INR given 2.5 mg vitamin K, monitor INR Continue amiodarone, warfarin 2 restart once INR therapeutic DVT prophylaxis on Coumadin Full Code reason for continued hospitalization: Hida Quality Stroke Does the patient have a stroke diagnosis?: No VTE Prior VTE?: No VTE Risk Level:: Medical - moderate - high VTE Device Contraindication: Treatment Not Indicated VTE Drug Contraindication: N/A - Med Ordered
[2024-10-18 11:30] VITALS: BMI 14.7
--- NOTE | 2024-10-18 11:35 | MHC.CLN ---
PT IS MODERATELY MALNOURISHED PT WITH MILDLY DEPLETED SUBCUTANEOUS FAT AND MUSCLE MASS WITH BMI 14 AND CHRONIC POOR PO INTAKE FAMILIAR WITH PT FROM PREVIOUS ADMISSIONS; SEE NAWS DATED 09/17/24 AND 09/10/24 REGULAR DIET ENSURE TID ORDERED PER MD PROVIDES 1050KCALS, 60G PROTEIN RECOMMEND REDUCING ENSURE BID TO PROVIDE 700KCALS, 40G PROTEIN MONITOR PO INTAKE AND ENCOURAGE SUPPLEMENTS SEE FULL ASSESSMENT
[2024-10-18 11:38] VITALS: BP 100/61; PULSE 76; RESP 16; TEMP 36.8; O2SAT 94
[2024-10-18 15:37] VITALS: BP 105/63; PULSE 68; RESP 16; TEMP 36.4; O2SAT 98
[2024-10-18 20:00] VITALS: BP 102/61; PULSE 82; RESP 18; TEMP 36.4; O2SAT 96
[2024-10-18 23:50] VITALS: BP 98/62; PULSE 85; RESP 18; TEMP 36.4; O2SAT 93
[2024-10-19 04:00] VITALS: BP 98/66; PULSE 72; RESP 17; TEMP 37.3; O2SAT 97
[2024-10-19 05:38] LABS: MANUAL DIFF FLAG NO
[2024-10-19 05:59] LABS: Hematocrit 36.3 % (37.0-47.0); Hemoglobin 11.5 g/dl (12.0-16.0); Imm Gran Abs Auto 0.04 X10*3/uL (0.00-0.03); Imm Gran Pct Auto 0.4 % (0.0-0.4); Lymphocytes Absolute Auto 0.9 X10*3/uL (1.2-4.9); Mean Corpuscular HGB Conc 31.7 g/dl (31.0-35.0); Mean Corpuscular Hemoglobin 28.3 pg (27.0-33.0); Mean Corpuscular Volume 89.4 fL (80.0-98.0); NRBC Abs Auto 0.090 X10*3/uL (0.0-0.012); NRBC Pct Auto 0.9 /100WBC (0.0-0.2); Platelet Count 275 X10*3/uL (160-400); Red Blood Count 4.06 X10*6/uL (4.20-5.50); White Blood Count 10.2 X10*3/uL (4.8-10.8)
[2024-10-19 06:00] LABS: INTERNATIONAL NORM RATIO 3.6 (0.9-1.1); Prothrombin Time 41.4 SEC (10.9-12.4)
[2024-10-19 06:02] LABS: Alanine Aminotransferase 890 U/L (0-31); Albumin Level 3.4 g/dL (3.5-5.0); Alkaline Phosphatase 523 U/L (39-117); Anion Gap 17 (12-20); Aspartate Amino Transferase 887 U/L (5-31); Blood Urea Nitrogen 49 mg/dL (9-16); Calcium 8.8 mg/dL (8.4-10.2); Carbon Dioxide 22 mmol/L (22-29); Chloride 99 mmol/L (96-108); Creatinine Clr Calc Pharmacy 18.4; Estimated Glomerular Filt Rate 34; Magnesium 2.5 mg/dL (1.6-2.6); Potassium 4.8 mmol/L (3.3-5.1); Sodium 133 mmol/L (135-145); Total Protein 5.5 g/dL (6.5-8.0)
[2024-10-19 07:18] VITALS: BP 99/62; PULSE 78; RESP 22; TEMP 36.8; O2SAT 94
[2024-10-19] MEDS: 0.9 % Sodium Chloride Flush 3 ML SYRINGE IVFLUSH ×3 (07:36→21:33)
[2024-10-19 08:37] LABS: Acetaminophen LAB < 3 mcg/mL (<30); Salicylate < 5.0 mg/dL (15-30)
[2024-10-19 08:50] LABS: HBS Num1 0.03 mIU/mL (0-7.99); HBc Num1 0.07 S/CO (0.00-0.79); HBsAGNum1 0.46 S/CO (0.00-0.99); Hepatitis A Antibody IgM 0.17 Index (0-0.79); Hepatitis B Surface Antigen Negative (Negative); ~HepC Num1 0.09 S/CO (0.00-0.79); ~Hepatitis A Antibody IgM Nonreactive (Nonreactive); ~Hepatitis B Surface Antibody NONREACTIVE (Nonreactive); ~Hepatitis C Antibody Nonreactive (Nonreactive)
--- NOTE | 2024-10-19 09:42 | P.PNIM_ITS ---
Subjective Subjective Date of Service: 10/19/24 Interval History: tolerated some soup Physical Exam 2 Exam: Exam: Frail elderly female Nonicteric Abdomen soft, nontender, nondistended Tachypneic Mild lower extremity edema Vital Signs: Vital Signs: Last Vital Signs Temp 98.2 F 10/19/24 07:18 Pulse 78 10/19/24 07:18 Resp 22 H 10/19/24 07:18 BP 99/62 10/19/24 07:18 Pulse Ox 94 10/19/24 07:18 O2 Del Method Nasal Cannula 10/19/24 07:18 O2 Flow Rate 2 10/19/24 07:18 Oxygen Flow Rate 2 10/16/24 19:03 BMI result Body Mass Index 14.7 Objective Data Active Medications Acetaminophen (Acetaminophen 325 Mg Tablet) 650 mg PO Q6H PRN PRN Reason: Pain, Mild 1-3,fever,headache Amiodarone HCl (Amiodarone Hcl 200 Mg Tablet) 100 mg PO DAILY R[facility]ETTA On Hold: 10/19/24 09:04 Last Admin: 10/19/24 07:34 Dose: 100 mg Documented By: EMIR Calcium Carbonate (Calcium Carbonate 750 Mg Tab.Chew) 750 mg PO Q4H PRN PRN Reason: Heartburn Hydromorphone HCl (Hydromorphone Hcl 1 Mg/Ml Syringe) 0.25 mg IVPUSH Q4H PRN; Protocol PRN Reason: Pain, Severe (Pain Scale 7-10) Magnesium Hydroxide (Milk Of Magnesia 30 Ml Oral.Susp) 30 ml PO DAILY PRN PRN Reason: Constipation Melatonin (Melatonin 3 Mg Tablet) 6 mg PO BEDTIME PRN PRN Reason: Insomnia Last Admin: 10/18/24 21:22 Dose: 6 mg Documented By: PETE Oxycodone HCl (Oxycodone Hcl Immed Release 5 Mg Tablet) 5 mg PO Q6H PRN PRN Reason: Pain, Moderate(Pain Scale 4-6) Pharmacy Consult (Consult Rx Anticoag Dosing) 1 each MISCELLANE DAILY PRN; Protocol PRN Reason: Consult order Sodium Chloride (0.9 % Sodium Chloride Flush 3 Ml Syringe) [facility] Last Admin: 10/19/24 07:36 Dose: 3 ml Documented By: EMIR Warfarin Sodium (Warfarin Sodium 1.25 Mg Halftab) 1.25 mg [facility] Warfarin Sodium (Warfarin Sodium 2.5 Mg Tablet) 2.5 mg PO [facility] Labs 10/19/24 05:09 10/19/24 05:09 Labs: Laboratory Results - last 24 hr 10/19/24 10/19/24 05:09 07:50 MCV 89.4 MCH 28.3 MCHC 31.7 RDW 16.3 H Plt Count 275 MPV 11.1 Immature Gran % (Auto) 0.4 Neut % (Auto) 81.8 H Lymph % (Auto) 9.1 L [place] % (Auto) 8.6 Eos % (Auto) 0.0 Baso % (Auto) 0.1 Lymph # (Auto) 0.9 L [place] # (Auto) 0.9 Eos # (Auto) 0.0 Baso # (Auto) 0.0 Abs Immat Gran (auto) 0.04 H Absolute Neuts (auto) 8.3 Absolute Nucleated RBC 0.090 H Nucleated RBC % (auto) 0.9 H PT 41.4 H D INR 3.6 H Anion Gap 17 Estim Creat Clear Calc 18.4 Estimated GFR 34 Random Glucose 111 Calcium 8.8 Magnesium 2.5 Total Bilirubin 3.0 H Direct Bilirubin 1.6 H AST 887 H ALT 890 H Alkaline Phosphatase 523 H Total Protein 5.5 L Albumin 3.4 L Salicylates < 5.0 L Acetaminophen < 3 Hepatitis A IgM Ab Nonreactive Hep Bs Antigen Negative Hep Bs Antibody NONREACTIVE Hep B Core Total Ab Nonreactive Hepatitis C Ab (EIA) Nonreactive Assessment and Plan (1) Cardiomyopathy: Status: Acute Plan 79M PMH chronic systolic CHF with EF of 15% and grade 2 moderate diastolic dysfunction, AICD, severe COPD with chronic hypoxic respiratory failure on 2 L home O2, hyperlipidemia, AFib, CAD, chronic congenital UPJ obstruction presented with dysphagia, nausea, weight loss Moderate protein calorie malnutrition, failure to thrive, early satiety and nausea and dysphagia Barium swallow negative, hida - no cholecystits, possible biliary dyskinesia - gen surg eval Transaminitis with gallstones Negative Sullivan's, ?amio toxicity - will hold Monitor LFTs Acute kidney injury on CKD II Due to dehydration, monitor Chronic hypoxic respiratory failure due to COPD On baseline O2 Paroxysmal AFib with supratherapeutic INR given 2.5 mg vitamin K, monitor INR Continue amiodarone, warfarin to restart once INR therapeutic DVT prophylaxis on Coumadin Full Code reason for continued hospitalization: lfts Quality Stroke Does the patient have a stroke diagnosis?: No VTE Prior VTE?: No VTE Risk Level:: Medical - moderate - high VTE Device Contraindication: Treatment Not Indicated VTE Drug Contraindication: N/A - Med Ordered
--- NOTE | 2024-10-19 11:58 | MHC.CLN ---
F/U REGULAR DIET. ENSURE BID PROVIDES 700 KCALS, 40 G PROTEIN. SIGNIFICANT WEIGHT LOSS X ONE MONTH WITH NAUSEA. MONITOR PO INTAKE AND ENCOURAGE SUPPLEMENTS.
--- NOTE | 2024-10-19 14:19 | MHC.CM.PN ---
PER MD ROUNDS, PT IS NOT YET MEDICALLY CLEARED FOR DC (ABNORMAL LFT'S) CM WILL CONTINUE TO FOLLOW FOR ANY CHANGES TO DC PLAN/NEEDS.
--- NOTE | 2024-10-19 15:07 | HO.WOUND ---
Wound Consult: Initial 79 yr old female admitted to [facility] on 10/16/24 - See progress notes and H&P for detailed history. Wound consult placed for buttocks. Patient agreeable to assessment with family at bedside. Etiology: blanchable redness Measurements: 5cm x 5cm x 0cm Wound Bed: intact skin with blanchable redness, extending over coccyx and bilateral upper buttocks. patient with prominent bony coccyx. no pain reported Drainage / Odor: none Priscilla wound: ? No Induration, Fluctuance or Warmth noted Pain: none Goals of Treatment: ? offloading, preventative foam Recommendations: 1. Turn and Reposition every 2 hours and as needed for patient comfort. Use pillows or wedges to support off loading positions. 2. Off Load all bony prominences with use of pillows and heel boots if needed. Apply Preventative foams where needed. 3. Monitor for incontinence and moisture control, use barrier creams when needed for prevention and treatment. 4. Provide adequate and supplemental nutrition. 5. Order or Continue low air loss mattress. 6. When applicable maintain blood glucose levels per Providers order. 7. coccyx: Q2 hour repositioning, offloading, routine cleansing with pH balanced cleanser, apply protective foam dressing change every 3-5 days and PRN, lift and reapply for skin assessment q shift Re-consult wound care Nurse for wound deterioration or wound changes.
[2024-10-19 15:18] VITALS: BP 99/63; PULSE 79; RESP 18; TEMP 36.3; O2SAT 94
--- NOTE | 2024-10-19 16:12 | P.PNGI_ITS ---
Subjective Subjective Date of Service: 10/19/24 Interval History: Patient seen and evaluated at bedside. Reports hepatitis better, but not back to baseline. LFTs reviewed, further up today in the 800s. Bilirubin is 3. White count has also been trending up in his a 10.2 today. HIDA scan with delayed transit to small bowel. Critical Care Time (minutes): 0 Physical Exam 2 Exam: Exam: Elderly female Mildly icteric Under nourished Abdomen soft, nontender, nondistended Vital Signs: Vital Signs: Last Vital Signs Temp 97.4 F 10/19/24 15:18 Pulse 79 10/19/24 15:18 Resp 18 10/19/24 15:18 BP 99/63 10/19/24 15:18 Pulse Ox 94 10/19/24 15:18 O2 Del Method Nasal Cannula 10/19/24 15:18 O2 Flow Rate 2 10/19/24 15:18 Oxygen Flow Rate 2 10/16/24 19:03 BMI result Body Mass Index 14.7 Objective Data Labs 10/19/24 05:09 10/19/24 05:09 Labs: Laboratory Results - last 24 hr 10/19/24 10/19/24 05:09 07:50 WBC 10.2 RBC 4.06 L Hgb 11.5 L Hct 36.3 L MCV 89.4 MCH 28.3 MCHC 31.7 RDW 16.3 H Plt Count 275 MPV 11.1 Immature Gran % (Auto) 0.4 Neut % (Auto) 81.8 H Lymph % (Auto) 9.1 L [place] % (Auto) 8.6 Eos % (Auto) 0.0 Baso % (Auto) 0.1 Lymph # (Auto) 0.9 L [place] # (Auto) 0.9 Eos # (Auto) 0.0 Baso # (Auto) 0.0 Abs Immat Gran (auto) 0.04 H Absolute Neuts (auto) 8.3 Absolute Nucleated RBC 0.090 H Nucleated RBC % (auto) 0.9 H PT 41.4 H D INR 3.6 H Sodium 133 L Potassium 4.8 Chloride 99 Carbon Dioxide 22 Anion Gap 17 BUN 49 H Creatinine 1.47 H Estim Creat Clear Calc 18.4 Estimated GFR 34 Random Glucose 111 Calcium 8.8 Magnesium 2.5 Total Bilirubin 3.0 H Direct Bilirubin 1.6 H AST 887 H ALT 890 H Alkaline Phosphatase 523 H Total Protein 5.5 L Albumin 3.4 L Salicylates < 5.0 L Acetaminophen < 3 Hepatitis A IgM Ab Nonreactive Hep Bs Antigen Negative Hep Bs Antibody NONREACTIVE Hep B Core Total Ab Nonreactive Hepatitis C Ab (EIA) Nonreactive Procedures Date of Service Date of Service: 10/19/24 Progress Note: A&P Assessment and plan (1) Elevated LFTs: Status: Acute (2) Gallbladder sludge: Status: Acute Plan HIDA scan rules out cholecystitis, interestingly delayed transit to small bowel noted. Can not rule out partially obstructing stone versus sludge in CBD. Unfortunately AICD is prohibitive for an MRI and can not justify a diagnostic ERCP without a definitive CBD obstruction with her current cardiopulmonary status. Congestive hepatopathy and dili (amio,statin) remain on the Ddx. Index episode of AIH very unlikely at this age. Hep serology, tylenol and ASA level normal. Plan: -repeat ultrasound to look for any interval change in CBD -if CBD obstruction confirmed on repeat US with intrahepatic ductal dilation, would recommend IR consult for PTC -daily LFTs and INR -surgery consult for ? biliary dyskinesia on HIDA Time Spent With Patient Time: Total time managing care of this patient today ____ minutes. Quality Stroke Does the patient have a stroke diagnosis?: No VTE Prior VTE?: No VTE Risk Level:: Medical - moderate - high VTE Device Contraindication: Treatment Not Indicated VTE Drug Contraindication: N/A - Med Ordered
[2024-10-19 19:26] VITALS: BP 99/63; PULSE 71; RESP 17; TEMP 36; O2SAT 98
--- NOTE | 2024-10-19 21:29 | PM.HPGS ---
History of Present Illness History of Present Illness Date of Service: 10/20/24 Chief complaint: elevated lfts Narrative: Lala Leger is a 79 year old female past history significant for AICD pacemaker ejection fraction cardiac 15% with moderate diastolic dysfunction severe COPD AFib hypertension history of [place] having presented to the emergency room complaining of decreased appetite nausea and vomiting. She reports losing 16 lb in the last month and has a BMI of 14.7 now. She says that she does eat. She denies any diarrhea blood in the stools or vomiting any blood. On admission her LFTs were elevated and continue to become more elevated. Her T bili his increased from 1.9-3.0 AST ALT respectively and alk-phos from 116-887, 1 0 8th 2 890, 213-523. Abdominal ultrasound at the time revealed the common bile duct that was 0.6 cm which is not necessarily abnormally large for 79-year-old female. Granular stones were noted. Patient had GI consult to help determine etiology for elevated LFTs. Today she denies any abdominal pain she has been tolerating liquids. No fevers or chills PMFSH Past Medical History Medical History (Updated 10/16/24 @ 23:13 by Evelyne Quintana PA-C) Myocardial infarction Congestive heart failure Cardiomyopathy CAD (coronary artery disease) Hyperlipidemia Afib HTN (hypertension) Surgical History Surgical History H/O: hysterectomy AICD (automatic cardioverter/defibrillator) present Social History Social History Household Members: None Housing: House Housing Other:: 1st floor of house. nephew lives on 2nd floor Do you presently have visiting nurse or other home services: Yes (Fritz FLETCHER) Alcohol intake: never Comment: pt too light bed alarm not functioning Patient Tobacco Use Status: Former Tobacco user Tobacco use type: Cigarette Second Hand Smoke Exposure: No Advance Directives Date on File: 09/08/24 service: No Meds Allergies Allergy/AdvReac Type Severity Reaction Status Date / Time lisinopril AdvReac Intermediate COUHG Verified 10/16/24 19:04 Active Medications: Current Medications Acetaminophen (Acetaminophen 325 Mg Tablet) 650 mg PO Q6H PRN PRN Reason: Pain, Mild 1-3,fever,headache Amiodarone HCl (Amiodarone Hcl 200 Mg Tablet) 100 mg PO DAILY [facility] On Hold: 10/19/24 09:04 Last Admin: 10/19/24 07:34 Dose: 100 mg Calcium Carbonate (Calcium Carbonate 750 Mg Tab.Chew) 750 mg PO Q4H PRN PRN Reason: Heartburn Hydromorphone HCl (Hydromorphone Hcl 1 Mg/Ml Syringe) 0.25 mg IVPUSH Q4H PRN; Protocol PRN Reason: Pain, Severe (Pain Scale 7-10) Magnesium Hydroxide (Milk Of Magnesia 30 Ml Oral.Susp) 30 ml PO DAILY PRN PRN Reason: Constipation Melatonin (Melatonin 3 Mg Tablet) 6 mg PO BEDTIME PRN PRN Reason: Insomnia Last Admin: 10/18/24 21:22 Dose: 6 mg Oxycodone HCl (Oxycodone Hcl Immed Release 5 Mg Tablet) 5 mg PO Q6H PRN PRN Reason: Pain, Moderate(Pain Scale 4-6) Pharmacy Consult (Consult Rx Anticoag Dosing) 1 each MISCELLANE DAILY PRN; Protocol PRN Reason: Consult order Sodium Chloride (0.9 % Sodium Chloride Flush 3 Ml Syringe) 3 ml IVFLUSH [facility] Last Admin: 10/19/24 16:25 Dose: 3 ml Warfarin Sodium (Warfarin Sodium 1.25 Mg Halftab) 1.[address] [facility] Warfarin Sodium (Warfarin Sodium 2.5 Mg Tablet) 2.[address] [facility] Home Medications ?Medication ?Instructions ?Recorded ?Confirmed ?Last Taken ?Type atorvastatin 20 mg tablet 20 mg PO BEDTIME 10/05/23 10/17/24 10/16/24 History furosemide 20 mg tablet 20 mg PO DAILY PRN Edema 05/08/24 10/17/24 10/16/24 History amiodarone 200 mg tablet 100 mg PO DAILY 10/17/24 10/17/24 10/16/24 History spironolactone 25 mg tablet 25 mg PO WEFR 10/17/24 10/17/24 10/16/24 History warfarin 2.5 mg tablet 1.25 mg PO SUMOTUTHFRSA 10/17/24 10/16/24 History warfarin 2.5 mg tablet 1.25 mg PO SUMOTUTHFRSA 10/17/24 10/17/24 10/16/24 History warfarin 2.5 mg tablet 2.5 mg PO WE 10/17/24 10/17/24 10/16/24 History Physical Exam Vital Signs: Vital Signs: Last Vital Signs Temp 96.8 F 10/19/24 19:26 Pulse 71 10/19/24 19:26 Resp 17 10/19/24 19:26 BP 99/63 10/19/24 19:26 Pulse Ox 98 10/19/24 19:26 O2 Del Method Nasal Cannula 10/19/24 19:26 O2 Flow Rate 2 10/19/24 19:26 Oxygen Flow Rate 2 10/16/24 19:03 BMI result Body Mass Index 14.7 GI: Other: Abdomen is soft mildly tender in the epigastric area no guarding no rebound no peritoneal signs Skin: Other: Patient is jaundiced. Results Results Labs: Short CBC 10/19/24 Range/Units 05:09 WBC 10.2 (4.8-10.8) X10*3/uL Hgb 11.5 L (12.0-16.0) g/dl Hct 36.3 L (37.0-47.0) % Plt Count 275 (160-400) X10*3/uL BMP 10/19/24 05:09 Sodium 133 L Potassium 4.8 Chloride 99 Carbon Dioxide 22 BUN 49 H Creatinine 1.47 H Calcium 8.8 Liver Function 10/19/24 Range/Units 05:09 Total Bilirubin 3.0 H (0.0-1.0) mg/dL Direct Bilirubin 1.6 H (0.0-0.5) mg/dL AST 887 H (5-31) U/L ALT 890 H (0-31) U/L Alkaline Phosphatase 523 H (39-117) U/L Albumin 3.4 L (3.5-5.0) g/dL Assessment and Plan (1) Elevated LFTs: Status: Acute Plan 79-year-old female with elevated LFTs ultrasound showing gallstones but common bile duct initially at 0.6 cm new repeat ultrasound showing common bile duct now at 1 cm and LFTs even higher. Patient may have choledocholithiasis. Unable to do MRCP. Patient is also very weak and frail and significant cardiac history any procedure would be high with complications. At this point if patient does not pass gallstone then can consider cholecystostomy tube if she can not undergo an ERCP. Hopefully the bile tree could be decompressed via the gallbladder at that point. Technically she is hemodynamically stable and not exhibiting signs of cholangitis. Quality Stroke Does the patient have a stroke diagnosis?: No VTE Prior VTE?: No VTE Risk Level:: Medical - moderate - high VTE Device Contraindication: Treatment Not Indicated VTE Drug Contraindication: N/A - Med Ordered Procedures Date of Service Date of Service: 10/20/24
[2024-10-20 03:35] VITALS: BP 98/62; PULSE 66; RESP 18; TEMP 36.6; O2SAT 97
[2024-10-20 06:48] LABS: Hematocrit 33.6 % (37.0-47.0); Hemoglobin 11.0 g/dl (12.0-16.0); Mean Corpuscular HGB Conc 32.7 g/dl (31.0-35.0); Mean Corpuscular Hemoglobin 28.8 pg (27.0-33.0); Mean Corpuscular Volume 88.0 fL (80.0-98.0); NRBC Abs Auto 0.050 X10*3/uL (0.0-0.012); NRBC Pct Auto 0.6 /100WBC (0.0-0.2); Platelet Count 244 X10*3/uL (160-400); Red Blood Count 3.82 X10*6/uL (4.20-5.50); White Blood Count 8.3 X10*3/uL (4.8-10.8)
[2024-10-20 06:55] LABS: INTERNATIONAL NORM RATIO 3.6 (0.9-1.1); Prothrombin Time 41.2 SEC (10.9-12.4)
[2024-10-20 07:01] VITALS: BP 100/52; PULSE 66; RESP 16; TEMP 36.4; O2SAT 95
[2024-10-20 07:10] LABS: Alanine Aminotransferase 854 U/L (0-31); Albumin Level 3.2 g/dL (3.5-5.0); Alkaline Phosphatase 524 U/L (39-117); Anion Gap 20 (12-20); Aspartate Amino Transferase 555 U/L (5-31); Blood Urea Nitrogen 46 mg/dL (9-16); Calcium 8.5 mg/dL (8.4-10.2); Carbon Dioxide 21 mmol/L (22-29); Chloride 96 mmol/L (96-108); Creatinine Clr Calc Pharmacy 23.4; Estimated Glomerular Filt Rate 45; Magnesium 2.4 mg/dL (1.6-2.6); Potassium 4.7 mmol/L (3.3-5.1); Sodium 132 mmol/L (135-145); Total Protein 5.3 g/dL (6.5-8.0)
[2024-10-20] MEDS: 0.9 % Sodium Chloride Flush 3 ML SYRINGE IVFLUSH ×3 (08:45→21:15)
--- NOTE | 2024-10-20 08:49 | P.PNIM_ITS ---
Subjective Subjective Date of Service: 10/20/24 Interval History: tolerating ensures Physical Exam 2 Vital Signs: Vital Signs: Last Vital Signs Temp 97.6 F 10/20/24 07:01 Pulse 66 10/20/24 07:01 Resp 16 10/20/24 07:01 BP 100/52 L 10/20/24 07:01 Pulse Ox 95 10/20/24 07:01 O2 Del Method Nasal Cannula 10/20/24 07:01 O2 Flow Rate 2 10/20/24 07:01 Oxygen Flow Rate 2 10/16/24 19:03 BMI result Body Mass Index 14.7 GI: Other: Abdomen is soft mildly tender in the epigastric area no guarding no rebound no peritoneal signs Skin: Other: Patient is jaundiced. Objective Data Active Medications Acetaminophen (Acetaminophen 325 Mg Tablet) 650 mg PO Q6H PRN PRN Reason: Pain, Mild 1-3,fever,headache Amiodarone HCl (Amiodarone Hcl 200 Mg Tablet) 100 mg PO DAILY [facility] On Hold: 10/19/24 09:04 Last Admin: 10/19/24 07:34 Dose: 100 mg Documented By: EMIR Calcium Carbonate (Calcium Carbonate 750 Mg Tab.Chew) 750 mg PO Q4H PRN PRN Reason: Heartburn Hydromorphone HCl (Hydromorphone Hcl 1 Mg/Ml Syringe) 0.25 mg IVPUSH Q4H PRN; Protocol PRN Reason: Pain, Severe (Pain Scale 7-10) Magnesium Hydroxide (Milk Of Magnesia 30 Ml Oral.Susp) 30 ml PO DAILY PRN PRN Reason: Constipation Melatonin (Melatonin 3 Mg Tablet) 6 mg PO BEDTIME PRN PRN Reason: Insomnia Last Admin: 10/20/24 01:13 Dose: 6 mg Documented By: NIKUNJ Comments: pt requested for sleep Oxycodone HCl (Oxycodone Hcl Immed Release 5 Mg Tablet) 5 mg PO Q6H PRN PRN Reason: Pain, Moderate(Pain Scale 4-6) Pharmacy Consult (Consult Rx Anticoag Dosing) 1 each MISCELLANE DAILY PRN; Protocol PRN Reason: Consult order Sodium Chloride (0.9 % Sodium Chloride Flush 3 Ml Syringe) [address] [facility] Last Admin: 10/20/24 08:45 Dose: 3 ml Documented By: FRANKO Warfarin Sodium (Warfarin Sodium 1.25 Mg Halftab) 1.25 mg PO [facility] Warfarin Sodium (Warfarin Sodium 2.5 Mg Tablet) 2.5 mg PO [facility] Labs 10/20/24 06:01 10/20/24 06:01 Labs: Laboratory Results - last 24 hr 10/19/24 10/20/24 07:50 06:01 MCV 88.0 MCH 28.8 MCHC 32.7 RDW 16.1 H Plt Count 244 MPV 10.6 Absolute Nucleated RBC 0.050 H Nucleated RBC % (auto) 0.6 H PT 41.2 H INR 3.6 H Anion Gap 20 Estim Creat Clear Calc 23.4 Estimated GFR 45 Random Glucose 91 Calcium 8.5 Magnesium 2.4 Total Bilirubin 2.0 H Direct Bilirubin 1.0 H AST 555 H ALT 854 H Alkaline Phosphatase 524 H Total Protein 5.3 L Albumin 3.2 L Hepatitis A IgM Ab Nonreactive Hep Bs Antigen Negative Hep Bs Antibody NONREACTIVE Hep B Core Total Ab Nonreactive Hepatitis C Ab (EIA) Nonreactive Assessment and Plan (1) Cardiomyopathy: Status: Acute Plan 79M PMH chronic systolic CHF with EF of 15% and grade 2 moderate diastolic dysfunction, AICD, severe COPD with chronic hypoxic respiratory failure on 2 L home O2, hyperlipidemia, AFib, CAD, chronic congenital UPJ obstruction presented with dysphagia, nausea, weight loss Moderate protein calorie malnutrition, failure to thrive, early satiety and nausea and dysphagia Barium swallow negative, hida - no cholecystits, possible biliary dyskinesia - gen surg appreciated - us with ?obstructing stone Transaminitis with gallstones Negative Sullivan's, ?amio toxicity - will hold Monitor LFTs Acute kidney injury on CKD II Due to dehydration, monitor Chronic hypoxic respiratory failure due to COPD On baseline O2 Paroxysmal AFib with supratherapeutic INR given 2.5 mg vitamin K, monitor INR Continue amiodarone, warfarin to restart once INR therapeutic DVT prophylaxis on Coumadin Full Code reason for continued hospitalization: lfts Quality Stroke Does the patient have a stroke diagnosis?: No VTE Prior VTE?: No VTE Risk Level:: Medical - moderate - high VTE Device Contraindication: Treatment Not Indicated VTE Drug Contraindication: N/A - Med Ordered
--- NOTE | 2024-10-20 11:27 | P.PNGI_ITS ---
Subjective Subjective Date of Service: 10/20/24 Interval History: Seen at bedside. Reports improvement in appetite, Was able to finish her breakfast this morning. Ultrasound results reviewed. Previous ultrasound with CBD of 5 mm, that has increased to almost 9 mm on ultrasound yesterday. Critical Care Time (minutes): 0 Physical Exam 2 Exam: Exam: Elderly female Under nourished No acute distress Abdomen soft, nondistended, nontender Vital Signs: Vital Signs: Last Vital Signs Temp 97.6 F 10/20/24 07:01 Pulse 66 10/20/24 07:01 Resp 16 10/20/24 07:01 BP 100/52 L 10/20/24 07:01 Pulse Ox 95 10/20/24 07:01 O2 Del Method Nasal Cannula 10/20/24 07:01 O2 Flow Rate 2 10/20/24 07:01 Oxygen Flow Rate 2 10/16/24 19:03 BMI result Body Mass Index 14.7 Objective Data Labs 10/20/24 06:01 10/20/24 06:01 Labs: Laboratory Results - last 24 hr 10/20/24 06:01 WBC 8.3 RBC 3.82 L Hgb 11.0 L Hct 33.6 L MCV 88.0 MCH 28.8 MCHC 32.7 RDW 16.1 H Plt Count 244 MPV 10.6 Absolute Nucleated RBC 0.050 H Nucleated RBC % (auto) 0.6 H PT 41.2 H INR 3.6 H Sodium 132 L Potassium 4.7 Chloride 96 Carbon Dioxide 21 L Anion Gap 20 BUN 46 H Creatinine 1.16 Estim Creat Clear Calc 23.4 Estimated GFR 45 Random Glucose 91 Calcium 8.5 Magnesium 2.4 Total Bilirubin 2.0 H Direct Bilirubin 1.0 H AST 555 H ALT 854 H Alkaline Phosphatase 524 H Total Protein 5.3 L Albumin 3.2 L Procedures Date of Service Date of Service: 10/20/24 Progress Note: A&P Assessment and plan (1) Elevated LFTs: Status: Acute (2) Gallbladder sludge: Status: Acute Plan Appetite has improved today. LFTs are also improving. Possibly had CBD microlithiasis/ sludge that may have spontaneously passed. Gallbladder appears normal on HIDA and repeat ultrasound. Plan: - cont with LOW FAT diet - daily LFTs Time Spent With Patient Time: Total time managing care of this patient today ____ minutes. Quality Stroke Does the patient have a stroke diagnosis?: No VTE Prior VTE?: No VTE Risk Level:: Medical - moderate - high VTE Device Contraindication: Treatment Not Indicated VTE Drug Contraindication: N/A - Med Ordered
[2024-10-20 15:00] VITALS: BP 93/64; PULSE 80; RESP 16; TEMP 36.8; O2SAT 96
--- NOTE | 2024-10-20 18:14 | PM.PNGS ---
Subjective Subjective Date of Service: 10/20/24 Interval history: Patient says she is feeling well no significant abdominal pain tolerating her diet. Physical Exam Vital Signs: Vital Signs: Last Vital Signs Temp 98.2 F 10/20/24 15:00 Pulse 80 10/20/24 15:00 Resp 16 10/20/24 15:00 BP 93/64 10/20/24 15:00 Pulse Ox 96 10/20/24 15:00 O2 Del Method Room Air 10/20/24 15:00 O2 Flow Rate 2 10/20/24 07:01 Oxygen Flow Rate 2 10/16/24 19:03 BMI result Body Mass Index 14.7 GI: Other: Abdomen is soft nondistended nontender Objective Data Active Medications Acetaminophen (Acetaminophen 325 Mg Tablet) 650 mg PO Q6H PRN PRN Reason: Pain, Mild 1-3,fever,headache Amiodarone HCl (Amiodarone Hcl 200 Mg Tablet) 100 mg PO DAILY [facility] On Hold: 10/19/24 09:04 Last Admin: 10/19/24 07:34 Dose: 100 mg Documented By: EMIR Calcium Carbonate (Calcium Carbonate 750 Mg Tab.Chew) 750 mg PO Q4H PRN PRN Reason: Heartburn Hydromorphone HCl (Hydromorphone Hcl 1 Mg/Ml Syringe) 0.25 mg IVPUSH Q4H PRN; Protocol PRN Reason: Pain, Severe (Pain Scale 7-10) Magnesium Hydroxide (Milk Of Magnesia 30 Ml Oral.Susp) 30 ml PO DAILY PRN PRN Reason: Constipation Melatonin (Melatonin 3 Mg Tablet) 6 mg PO BEDTIME PRN PRN Reason: Insomnia Last Admin: 10/20/24 01:13 Dose: 6 mg Documented By: NIKUNJ Comments: pt requested for sleep Oxycodone HCl (Oxycodone Hcl Immed Release 5 Mg Tablet) 5 mg PO Q6H PRN PRN Reason: Pain, Moderate(Pain Scale 4-6) Pharmacy Consult (Consult Rx Anticoag Dosing) 1 each MISCELLANE DAILY PRN; Protocol PRN Reason: Consult order Sodium Chloride (0.9 % Sodium Chloride Flush 3 Ml Syringe) [facility] Last Admin: 10/20/24 16:36 Dose: 3 ml Documented By: FRANKO Warfarin Sodium (Warfarin Sodium 1.25 Mg Halftab) 1.25 mg PO [facility] COUNTS INCLUDE 234 BEDS AT THE [facility] Warfarin Sodium (Warfarin Sodium 2.5 Mg Tablet) 2.5 mg PO WE COUNTS INCLUDE 234 BEDS AT THE [facility] Labs 10/20/24 06:01 10/20/24 06:01 Labs: Laboratory Results - last 24 hr 10/20/24 06:01 MCV 88.0 MCH 28.8 MCHC 32.7 RDW 16.1 H Plt Count 244 MPV 10.6 Absolute Nucleated RBC 0.050 H Nucleated RBC % (auto) 0.6 H PT 41.2 H INR 3.6 H Anion Gap 20 Estim Creat Clear Calc 23.4 Estimated GFR 45 Random Glucose 91 Calcium 8.5 Magnesium 2.4 Total Bilirubin 2.0 H Direct Bilirubin 1.0 H AST 555 H ALT 854 H Alkaline Phosphatase 524 H Total Protein 5.3 L Albumin 3.2 L Procedures Date of Service Date of Service: 10/20/24 Progress Note: A&P Assessment and plan (1) Elevated LFTs: Status: Acute Plan 79-year-old female with elevated LFTs questionable sludge stone in common bile duct as ultrasound shows larger diameter of the duct but LFTs are improving. Hopefully she passes this if that is the issue. She is able to tolerate p.o. diet there is no evidence of any cholangitis. At this point no need for any surgical intervention. Of the becomes an issue may consider interventional drainage of the gallbladder. GI team following along as well. Time Spent With Patient Time: Total time managing care of this patient today ____ minutes. Quality Stroke Does the patient have a stroke diagnosis?: No VTE Prior VTE?: No VTE Risk Level:: Medical - moderate - high VTE Device Contraindication: Treatment Not Indicated VTE Drug Contraindication: N/A - Med Ordered
[2024-10-20 19:22] VITALS: BP 97/63; PULSE 82; RESP 17; TEMP 36.1; O2SAT 96
[2024-10-21 02:18] VITALS: BP 95/58; PULSE 69; RESP 18; TEMP 36.9; O2SAT 96
[2024-10-21 06:18] LABS: Hematocrit 35.4 % (37.0-47.0); Hemoglobin 11.4 g/dl (12.0-16.0); Mean Corpuscular HGB Conc 32.2 g/dl (31.0-35.0); Mean Corpuscular Hemoglobin 28.8 pg (27.0-33.0); Mean Corpuscular Volume 89.4 fL (80.0-98.0); NRBC Abs Auto 0.080 X10*3/uL (0.0-0.012); Platelet Count 252 X10*3/uL (160-400); Red Blood Count 3.96 X10*6/uL (4.20-5.50); White Blood Count 8.3 X10*3/uL (4.8-10.8)
[2024-10-21 06:25] LABS: INTERNATIONAL NORM RATIO 4.2 (0.9-1.1); NRBC Pct Auto 1.0 /100WBC (0.0-0.2); Prothrombin Time 47.9 SEC (10.9-12.4)
[2024-10-21 06:38] LABS: Alanine Aminotransferase 956 U/L (0-31); Albumin Level 3.4 g/dL (3.5-5.0); Alkaline Phosphatase 707 U/L (39-117); Anion Gap 17 (12-20); Aspartate Amino Transferase 535 U/L (5-31); Blood Urea Nitrogen 44 mg/dL (9-16); Calcium 8.7 mg/dL (8.4-10.2); Carbon Dioxide 23 mmol/L (22-29); Chloride 99 mmol/L (96-108); Creatinine Clr Calc Pharmacy 23.8; Estimated Glomerular Filt Rate 46; Magnesium 2.4 mg/dL (1.6-2.6); Potassium 5.1 mmol/L (3.3-5.1); Sodium 134 mmol/L (135-145); Total Protein 5.6 g/dL (6.5-8.0)
[2024-10-21 06:53] VITALS: BP 91/59; PULSE 62; RESP 16; TEMP 36.6; O2SAT 97
[2024-10-21] MEDS: 0.9 % Sodium Chloride Flush 3 ML SYRINGE IVFLUSH ×2 (07:13→22:28)
[2024-10-21] MEDS: Milk of Magnesia 30 ML ORAL.SUSP PO (07:13)
--- NOTE | 2024-10-21 10:52 | P.PNIM_ITS ---
Subjective Subjective Date of Service: 10/21/24 Interval History: says she ate ok yesterday Physical Exam 2 Vital Signs: Vital Signs: Last Vital Signs Temp 97.9 F 10/21/24 06:53 Pulse 62 10/21/24 06:53 Resp 16 10/21/24 06:53 BP 91/59 L 10/21/24 06:53 Pulse Ox 97 10/21/24 06:53 O2 Del Method Nasal Cannula 10/21/24 06:53 O2 Flow Rate 2 10/21/24 06:53 Oxygen Flow Rate 2 10/16/24 19:03 BMI result Body Mass Index 14.7 GI: Other: Abdomen is soft nondistended nontender Objective Data Active Medications Acetaminophen (Acetaminophen 325 Mg Tablet) 650 mg PO Q6H PRN PRN Reason: Pain, Mild 1-3,fever,headache Amiodarone HCl (Amiodarone Hcl 200 Mg Tablet) 100 mg PO DAILY [facility] On Hold: 10/19/24 09:04 Last Admin: 10/19/24 07:34 Dose: 100 mg Documented By: EMIR Calcium Carbonate (Calcium Carbonate 750 Mg Tab.Chew) 750 mg PO Q4H PRN PRN Reason: Heartburn Hydromorphone HCl (Hydromorphone Hcl 1 Mg/Ml Syringe) 0.25 mg IVPUSH Q4H PRN; Protocol PRN Reason: Pain, Severe (Pain Scale 7-10) Magnesium Hydroxide (Milk Of Magnesia 30 Ml Oral.Susp) 30 ml PO DAILY PRN PRN Reason: Constipation Last Admin: 10/21/24 07:13 Dose: 30 ml Documented By: FRANKO Melatonin (Melatonin 3 Mg Tablet) 6 mg PO BEDTIME PRN PRN Reason: Insomnia Last Admin: 10/20/24 21:14 Dose: 6 mg Documented By: RAFAEL Oxycodone HCl (Oxycodone Hcl Immed Release 5 Mg Tablet) 5 mg PO Q6H PRN PRN Reason: Pain, Moderate(Pain Scale 4-6) Sodium Chloride (0.9 % Sodium Chloride Flush 3 Ml Syringe) [facility] Last Admin: 10/21/24 07:13 Dose: 3 ml Documented By: FRANKO Warfarin Sodium (Warfarin Sodium 1.25 Mg Halftab) 1.25 mg PO [email or web address] [facility] Warfarin Sodium (Warfarin Sodium 2.5 Mg Tablet) 2.5 mg PO We@1800 [facility] Labs 10/21/24 05:39 10/21/24 05:39 Labs: Laboratory Results - last 24 hr 10/21/24 05:39 MCV 89.4 MCH 28.8 MCHC 32.2 RDW 16.3 H Plt Count 252 MPV 10.8 Absolute Nucleated RBC 0.080 H Nucleated RBC % (auto) 1.0 H PT 47.9 H INR 4.2 H Anion Gap 17 Estim Creat Clear Calc 23.8 Estimated GFR 46 Random Glucose 123 H Calcium 8.7 Magnesium 2.4 Total Bilirubin 1.9 H Direct Bilirubin 1.0 H AST 535 H ALT 956 H Alkaline Phosphatase 707 H Total Protein 5.6 L Albumin 3.4 L Assessment and Plan (1) Cardiomyopathy: Status: Acute Plan 79M PMH chronic systolic CHF with EF of 15% and grade 2 moderate diastolic dysfunction, AICD, severe COPD with chronic hypoxic respiratory failure on 2 L home O2, hyperlipidemia, AFib, CAD, chronic congenital UPJ obstruction presented with dysphagia, nausea, weight loss Moderate protein calorie malnutrition, failure to thrive, early satiety and nausea and dysphagia Barium swallow negative, hida - no cholecystits, possible biliary dyskinesia - gen surg appreciated - we will continue with conservative therapy and monitor LFTs Transaminitis with gallstones Negative Sullivan's, ?amio toxicity - will hold Monitor LFTs Acute kidney injury on CKD II Due to dehydration, monitor Chronic hypoxic respiratory failure due to COPD On baseline O2 Paroxysmal AFib with supratherapeutic INR given 2.5 mg vitamin K, monitor INR Continue amiodarone, warfarin to restart once INR therapeutic DVT prophylaxis on Coumadin Full Code reason for continued hospitalization: lfts Quality Stroke Does the patient have a stroke diagnosis?: No VTE Prior VTE?: No VTE Risk Level:: Medical - moderate - high VTE Device Contraindication: Treatment Not Indicated VTE Drug Contraindication: N/A - Med Ordered
[2024-10-21 15:34] VITALS: BP 95/62; PULSE 78; RESP 16; TEMP 36.2; O2SAT 96
--- NOTE | 2024-10-21 16:07 | P.PNGS_ITS ---
Subjective Subjective Date of Service: 10/21/24 Interval history: Patient continues to feel well tolerating her diet but not having a very big appetite. Denies any abdominal pain Physical Exam 2 Vital Signs: Vital Signs: Last Vital Signs Temp 97.1 F 10/21/24 15:34 Pulse 78 10/21/24 15:34 Resp 16 10/21/24 15:34 BP 95/62 10/21/24 15:34 Pulse Ox 96 10/21/24 15:34 O2 Del Method Nasal Cannula 10/21/24 15:34 O2 Flow Rate 1.0 10/21/24 15:34 Oxygen Flow Rate 2 10/16/24 19:03 BMI result Body Mass Index 14.7 GI: Other: Abdomen is soft nontender Objective Data Active Medications Acetaminophen (Acetaminophen 325 Mg Tablet) 650 mg PO Q6H PRN PRN Reason: Pain, Mild 1-3,fever,headache Amiodarone HCl (Amiodarone Hcl 200 Mg Tablet) 100 mg PO DAILY RENETTA On Hold: 10/19/24 09:04 Last Admin: 10/19/24 07:34 Dose: 100 mg Documented By: EMIR Calcium Carbonate (Calcium Carbonate 750 Mg Tab.Chew) 750 mg PO Q4H PRN PRN Reason: Heartburn Hydromorphone HCl (Hydromorphone Hcl 1 Mg/Ml Syringe) 0.25 mg IVPUSH Q4H PRN; Protocol PRN Reason: Pain, Severe (Pain Scale 7-10) Magnesium Hydroxide (Milk Of Magnesia 30 Ml Oral.Susp) 30 ml PO DAILY PRN PRN Reason: Constipation Last Admin: 10/21/24 07:13 Dose: 30 ml Documented By: FRANKO Melatonin (Melatonin 3 Mg Tablet) 6 mg PO BEDTIME PRN PRN Reason: Insomnia Last Admin: 10/20/24 21:14 Dose: 6 mg Documented By: RAFAEL Oxycodone HCl (Oxycodone Hcl Immed Release 5 Mg Tablet) 5 mg PO Q6H PRN PRN Reason: Pain, Moderate(Pain Scale 4-6) Sodium Chloride (0.9 % Sodium Chloride Flush 3 Ml Syringe) [facility] Last Admin: 10/21/24 07:13 Dose: 3 ml Documented By: FRANKO Warfarin Sodium (Warfarin Sodium 1.25 Mg Halftab) 1.25 mg PO SuMoTuThFrSa@1800 [facility] Warfarin Sodium (Warfarin Sodium 2.5 Mg Tablet) 2.5 mg PO We@1800 [facility] Labs 10/21/24 05:39 10/21/24 05:39 Labs: Laboratory Results - last 24 hr 10/21/24 05:39 MCV 89.4 MCH 28.8 MCHC 32.2 RDW 16.3 H Plt Count 252 MPV 10.8 Absolute Nucleated RBC 0.080 H Nucleated RBC % (auto) 1.0 H PT 47.9 H INR 4.2 H Anion Gap 17 Estim Creat Clear Calc 23.8 Estimated GFR 46 Random Glucose 123 H Calcium 8.7 Magnesium 2.4 Total Bilirubin 1.9 H Direct Bilirubin 1.0 H AST 535 H ALT 956 H Alkaline Phosphatase 707 H Total Protein 5.6 L Albumin 3.4 L Procedures Date of Service Date of Service: 10/21/24 Progress Note: A&P Assessment and plan (1) Elevated LFTs: Status: Acute Plan 79-year-old female with elevated LFTs biliary dyskinesia prakash necessarily be a cause for this she may have common bile duct sludge that is causing a partial obstruction but she has to medically fragile to undergo any significant procedure. Can determine whether there maybe a role for cholecystostomy tube if GI agrees. GI to rule out any other potential hepatic sources for the cause of the elevated LFTs. No surgical procedures plan for this patient Time Spent With Patient Time: Total time managing care of this patient today ____ minutes. Quality Stroke Does the patient have a stroke diagnosis?: No VTE Prior VTE?: No VTE Risk Level:: Medical - moderate - high VTE Device Contraindication: Treatment Not Indicated VTE Drug Contraindication: N/A - Med Ordered
[2024-10-21 19:23] VITALS: BP 104/62; PULSE 77; RESP 17; TEMP 36.7; O2SAT 95
[2024-10-22] MEDS: guaiFENesin 200 MG/10 ML 10 ML LIQUID PO ×2 (00:12→22:24)
[2024-10-22 02:52] VITALS: BP 93/57; PULSE 72; RESP 17; TEMP 36.7; O2SAT 95
[2024-10-22 06:36] LABS: Hematocrit 33.8 % (37.0-47.0); Hemoglobin 11.3 g/dl (12.0-16.0); Mean Corpuscular HGB Conc 33.4 g/dl (31.0-35.0); Mean Corpuscular Hemoglobin 29.1 pg (27.0-33.0); Mean Corpuscular Volume 87.1 fL (80.0-98.0); NRBC Abs Auto 0.060 X10*3/uL (0.0-0.012); NRBC Pct Auto 0.7 /100WBC (0.0-0.2); Platelet Count 254 X10*3/uL (160-400); Red Blood Count 3.88 X10*6/uL (4.20-5.50); White Blood Count 8.4 X10*3/uL (4.8-10.8)
[2024-10-22 06:41] LABS: INTERNATIONAL NORM RATIO 4.1 (0.9-1.1); Prothrombin Time 47.6 SEC (10.9-12.4)
[2024-10-22 06:54] VITALS: BP 96/64; PULSE 73; RESP 16; TEMP 36.6; O2SAT 96
[2024-10-22 07:16] LABS: Alanine Aminotransferase 871 U/L (0-31); Albumin Level 3.4 g/dL (3.5-5.0); Alkaline Phosphatase 761 U/L (39-117); Anion Gap 17 (12-20); Aspartate Amino Transferase 365 U/L (5-31); Blood Urea Nitrogen 46 mg/dL (9-16); Calcium 8.6 mg/dL (8.4-10.2); Carbon Dioxide 22 mmol/L (22-29); Chloride 97 mmol/L (96-108); Creatinine Clr Calc Pharmacy 25.3; Estimated Glomerular Filt Rate 50; Potassium 5.4 mmol/L (3.3-5.1); Sodium 131 mmol/L (135-145); Total Protein 5.7 g/dL (6.5-8.0)
[2024-10-22] MEDS: 0.9 % Sodium Chloride Flush 3 ML SYRINGE IVFLUSH ×3 (07:54→20:54)
--- NOTE | 2024-10-22 09:36 | P.PNIM_ITS ---
Subjective Subjective Date of Service: 10/22/24 Interval History: at half of roast last night Physical Exam 2 Vital Signs: Vital Signs: Last Vital Signs Temp 98 F 10/22/24 06:54 Pulse 73 10/22/24 06:54 Resp 16 10/22/24 06:54 BP 96/64 10/22/24 06:54 Pulse Ox 96 10/22/24 06:54 O2 Del Method Nasal Cannula 10/22/24 06:54 O2 Flow Rate 1 10/22/24 06:54 Oxygen Flow Rate 2 10/16/24 19:03 BMI result Body Mass Index 14.7 GI: Other: Abdomen is soft nontender Objective Data Active Medications Acetaminophen (Acetaminophen 325 Mg Tablet) 650 mg PO Q6H PRN PRN Reason: Pain, Mild 1-3,fever,headache Amiodarone HCl (Amiodarone Hcl 200 Mg Tablet) 100 mg PO DAILY RENETTA On Hold: 10/19/24 09:04 Last Admin: 10/19/24 07:34 Dose: 100 mg Documented By: EMIR Calcium Carbonate (Calcium Carbonate 750 Mg Tab.Chew) 750 mg PO Q4H PRN PRN Reason: Heartburn Guaifenesin (Guaifenesin 200 Mg/10 Ml 10 Ml Liquid) 10 ml PO Q6H PRN PRN Reason: Cough Last Admin: 10/22/24 00:12 Dose: 10 ml Documented By: RAFAEL Hydromorphone HCl (Hydromorphone Hcl 1 Mg/Ml Syringe) 0.25 mg IVPUSH Q4H PRN; Protocol PRN Reason: Pain, Severe (Pain Scale 7-10) Magnesium Hydroxide (Milk Of Magnesia 30 Ml Oral.Susp) 30 ml PO DAILY PRN PRN Reason: Constipation Last Admin: 10/21/24 07:13 Dose: 30 ml Documented By: FRANKO Melatonin (Melatonin 3 Mg Tablet) 6 mg PO BEDTIME PRN PRN Reason: Insomnia Last Admin: 10/21/24 22:27 Dose: 6 mg Documented By: RAFAEL Oxycodone HCl (Oxycodone Hcl Immed Release 5 Mg Tablet) 5 mg PO Q6H PRN PRN Reason: Pain, Moderate(Pain Scale 4-6) Sodium Chloride (0.9 % Sodium Chloride Flush 3 Ml Syringe) 3 ml IVFLUSH QSHIFT [facility] Last Admin: 10/22/24 07:54 Dose: 3 ml Documented By: SANTA Warfarin Sodium (Warfarin Sodium 1.25 Mg Halftab) 1.25 mg PO SuMoTuThFrSa@1800 [facility] Warfarin Sodium (Warfarin Sodium 2.5 Mg Tablet) 2.5 mg PO We@1800 [facility] Labs 10/22/24 06:03 10/22/24 06:03 Labs: Laboratory Results - last 24 hr 10/22/24 06:03 MCV 87.1 MCH 29.1 MCHC 33.4 RDW 16.4 H Plt Count 254 MPV 10.9 Absolute Nucleated RBC 0.060 H Nucleated RBC % (auto) 0.7 H PT 47.6 H INR 4.1 H Anion Gap 17 Estim Creat Clear Calc 25.3 Estimated GFR 50 Random Glucose 94 Calcium 8.6 Total Bilirubin 2.2 H Direct Bilirubin 1.2 H AST 365 H ALT 871 H Alkaline Phosphatase 761 H Total Protein 5.7 L Albumin 3.4 L Assessment and Plan (1) Cardiomyopathy: Status: Acute Plan 79M PMH chronic systolic CHF with EF of 15% and grade 2 moderate diastolic dysfunction, AICD, severe COPD with chronic hypoxic respiratory failure on 2 L home O2, hyperlipidemia, AFib, CAD, chronic congenital UPJ obstruction presented with dysphagia, nausea, weight loss Moderate protein calorie malnutrition, failure to thrive, early satiety and nausea and dysphagia Barium swallow negative, hida - no cholecystits, possible biliary dyskinesia - gen surg appreciated - no plan for cholecystectomy, ?if benefit from cholecystotomy Transaminitis with gallstones Negative Sullivan's, ?amio toxicity - will hold Monitor LFTs Acute kidney injury on CKD II Due to dehydration, resolved Chronic hypoxic respiratory failure due to COPD On baseline O2 Paroxysmal AFib with supratherapeutic INR given 2.5 mg vitamin K, monitor INR Continue amiodarone, warfarin to restart once INR therapeutic DVT prophylaxis on Coumadin Full Code reason for continued hospitalization: lfts Quality Stroke Does the patient have a stroke diagnosis?: No VTE Prior VTE?: No VTE Risk Level:: Medical - moderate - high VTE Device Contraindication: Treatment Not Indicated VTE Drug Contraindication: N/A - Med Ordered
--- NOTE | 2024-10-22 11:48 | MHC.CM.PN ---
Per MD rounds Patient is possibly planned for a procedure today r/t Lisette sludge. DP home with resumption of [facility]. She will arrange for her Dtr Jesusita to provide transport home.
--- NOTE | 2024-10-22 13:13 | P.CDIM_ITS ---
PROVIDER RESPONSE TEXT: To clarify, the appropriate diagnosis supported by the clinical indicators: Hyperkalemia: acute QUERY TEXT: PHYSICIAN'S DOCUMENTATION REQUEST Date of Query: 10/22/2024 01:02 PM EDT Patient Name: Lala Leger Admit Date: 10/17/2024 Dear Dimitrios Yang MD, A review of the medical record indicates additional documentation may be needed. Please review below and update the documentation accordingly. Clinical Indicators: LABS: Potassium 5.4 H Based on the above, is there a diagnosis that correlates with these findings? Hyperkalemia possible, suspected, resolved etc. Labs indicate a diagnosis of (please specify) Other (explain) Clinically unable to determine (explain) Thank you, Breanna Hu, CCS, CDIS Use of terms such as suspected, likely, concern for, or probable (associated with a specific diagnosis that is being evaluated, monitored, or treated as if it exists) are acceptable and can be coded in the inpatient setting, when documented at the time of discharge. Please use your independent medical judgment in providing your response. THIS QUERY IS PART OF THE PERMANENT MEDICAL RECORD
--- NOTE | 2024-10-22 14:14 | MHC.CLN ---
F/U REGULAR DIET. ENSURE BID PROVIDES 700 KCALS, 40 G PROTEIN. SIGNIFICANT WEIGHT LOSS X ONE MONTH WITH NAUSEA. CURRENT PO 25% MOST MEALS. SKIN WITH REDNESS TO BUTTOCK. MONITOR PO INTAKE AND ENCOURAGE SUPPLEMENTS.
[2024-10-22 15:14] VITALS: BP 112/71; PULSE 78; RESP 17; TEMP 36.1; O2SAT 95
[2024-10-22 19:14] VITALS: BP 103/67; PULSE 77; RESP 18; TEMP 36.4; O2SAT 96
[2024-10-23 03:39] VITALS: BP 92/59; PULSE 68; RESP 18; TEMP 36.4; O2SAT 97
[2024-10-23 06:43] LABS: INTERNATIONAL NORM RATIO 4.0 (0.9-1.1); Prothrombin Time 45.5 SEC (10.9-12.4)
[2024-10-23 08:00] VITALS: BP 97/62; PULSE 68; RESP 18; TEMP 36.2; O2SAT 96
[2024-10-23] MEDS: 0.9 % Sodium Chloride Flush 3 ML SYRINGE IVFLUSH (08:33)
--- NOTE | 2024-10-23 09:33 | P.PNGI_ITS ---
Subjective Subjective Date of Service: 10/23/24 Interval History: Patient seen and evaluated bedside. Son also present. Reports good appetite this morning, finished her breakfast. Critical Care Time (minutes): 0 Physical Exam 2 Exam: Exam: Frail elderly female No acute distress Abdomen soft, nontender, nondistended Vital Signs: Vital Signs: Last Vital Signs Temp 97.1 F 10/23/24 08:00 Pulse 68 10/23/24 08:00 Resp 18 10/23/24 08:00 BP 97/62 10/23/24 08:00 Pulse Ox 96 10/23/24 08:00 O2 Del Method Nasal Cannula 10/23/24 08:00 O2 Flow Rate 1 10/23/24 08:00 Oxygen Flow Rate 2 10/16/24 19:03 BMI result Body Mass Index 14.7 Objective Data Labs 10/22/24 06:03 10/22/24 06:03 Labs: Laboratory Results - last 24 hr 10/23/24 05:29 Hold Purple Top SEE NOTE PT 45.5 H INR 4.0 H Procedures Date of Service Date of Service: 10/23/24 Progress Note: A&P Assessment and plan (1) Elevated LFTs: Status: Acute (2) Gallbladder sludge: Status: Acute (3) Congestive heart failure: Status: Acute (4) Cardiomyopathy: Status: Acute (5) AICD (automatic cardioverter/defibrillator) present: Status: Acute (6) Acute hypoxic respiratory failure: Status: Acute Plan Reviewed with the patient and the son in detail, that while the leading differential is some degree of biliary obstruction leading to elevated LFTs, the definitive diagnosis has not been established. AICD prohibitive for MRI. Cardiopulmonary function makes anesthesia for a diagnostic procedure high-risk. Plan is to continue ursodiol for possible symptomatic cholelithiasis. Recheck LFTs in 5. If LFTs worsen, or plateau, can explore percutaneous biliary access through IR. Time Spent With Patient Time: Total time managing care of this patient today ____ minutes. Quality Stroke Does the patient have a stroke diagnosis?: No VTE Prior VTE?: No VTE Risk Level:: Medical - moderate - high VTE Device Contraindication: Treatment Not Indicated VTE Drug Contraindication: N/A - Med Ordered
[2024-10-23 10:46] LABS: Alanine Aminotransferase 797 U/L (0-31); Albumin Level 3.3 g/dL (3.5-5.0); Alkaline Phosphatase 847 U/L (39-117); Aspartate Amino Transferase 305 U/L (5-31); Total Protein 5.5 g/dL (6.5-8.0)
--- NOTE | 2024-10-23 11:16 | PM.DS ---
DS: Providers Provider Date of Service: 10/23/24 Date of admission: 10/16/24 22:27 Date of discharge: 10/23/24 Primary care physician: Dorothy Salas MD Consults: 10/16/24 23:02 Consult to Gastroenterology Routine Consulting Provider: Jeannie Bingham Reason for consultation: elevated LFTs, gallbladder sludge 10/18/24 00:57 Consult to Wound Care Routine Reason for consultation: buttocks 10/19/24 06:57 Consult to General Surgery Routine Consulting Provider: [facility] Reason for consultation: ?biliary dyskinesia DS: Diagnosis Discharge Diagnosis (1) Cardiomyopathy: Status: Acute DS: Summary Hospital Course Hospital Course: from initial hpi: 79-year-old female with a past medical history significant for pacemaker, AICD, HFrEF (EF 15% with grade 2 moderate diastolic dysfunction), severe COPD on 2L O2 NC, HLD, a fib, HTN, CAD, hx [place] and congenital UPJ obstruction, who presented to the ED due to decreased appetite caused by nausea. The patient reports she has had poor p.o. intake for the past few days, has been unable to tolerate liquids or solids due to severe nausea. She also reports R shoulder pain but denies abd pain. The patient reports that if she did eat or drink she would have severe indigestion or vomit. She has lost 16 lb in the last month. She reports a dry cough but no wheezing, shortness of breath or chest pain. She also reports decreased urine output, last urinated this morning, no urge to urinate now. She has not had anything to eat or drink today but feels very thirsty. hospital course: Patient admitted for moderate protein calorie malnutrition and failure to thrive likely related to biliary sludge/dyskinesia with intermittent CBD obstruction. Was evaluated by Gastroenterology and Interventional Radiology and surgery. Given patient's comorbidities was deemed too high-risk for surgical intervention. Recommendations were to continue medical management with ursodiol and to monitor closely for signs of cholangitis or CBD obstruction. Patient's appetite did improve somewhat during hospitalization and was able to tolerate adequate nutritional intake. Total bilirubin stable around 2, with AST around 300, ALT 800, alk phos 800. Abdominal ultrasound prior to discharge shows mildly dilated CBD without obstruction. Amiodarone has been discontinued as possible contributor. For acute kidney injury on CKD to this resolved with fluids. For chronic hypoxic respiratory failure due to COPD remained on baseline O2. For paroxysmal AFib with supratherapeutic INR was given 2.5 mg vitamin K. INR still about 4 at time of discharge. So we will continue to hold warfarin until INR less than 3. Patient is eager for discharge home and appears medically stable. Will discharge with VNA, patient instructed to monitor symptoms and return for signs of cholangitis or CBD obstruction. Time Attestation Discharge Coordination Time (in mins): 32 Quality: Safe Use of Opioids Does Pt have an Active Cancer Diagnosis on the Problem List?: No Quality: Stroke Does the patient have a stroke diagnosis?: No Physical Exam Vital Signs: Vital Signs: Last Vital Signs Temp 97.1 F 10/23/24 08:00 Pulse 68 10/23/24 08:00 Resp 18 10/23/24 08:00 BP 97/62 10/23/24 08:00 Pulse Ox 96 10/23/24 08:00 O2 Del Method Nasal Cannula 10/23/24 08:00 O2 Flow Rate 1 10/23/24 08:00 Oxygen Flow Rate 2 10/16/24 19:03 BMI result Body Mass Index 14.7 GI: Other: Abdomen is soft nontender DS: Data Data Completed and Pending Completed studies during hospitalization [Text1]: Procedures Assistance with Respiratory Ventilation, Less than 24 Consecutive Hours, Continuous Positive Airway Pressure (09/08/24) Labs on day of discharge: Laboratory Results - last 24 hr 10/23/24 10/23/24 05:29 09:40 Hold Purple Top SEE NOTE PT 45.5 H INR 4.0 H Total Bilirubin 2.2 H Direct Bilirubin 1.3 H AST 305 H ALT 797 H Alkaline Phosphatase 847 H Total Protein 5.5 L Albumin 3.3 L Discharge Plan Discharge Anticipated Discharge Date/Time: 10/23/24 11:12 Patient Disposition: Home Health Service Discharge Diagnosis: ftt, biliary sludge Referrals: Dorothy Salas MD [Primary Care Provider, Internal Medicine] - 1 Week Jeannie Bingham MD [Physician, Gastroenterology] - 1 Week Discharge Medications: New ursodiol 300 mg Capsule 200 mg PO BID Qty: 180 0RF Continued spironolactone 25 mg tablet 25 mg PO WEFR Protocol: Hold for SBP< HOLD for SBP < : 90 atorvastatin 20 mg tablet 20 mg PO BEDTIME furosemide 20 mg tablet 20 mg PO DAILY PRN (Reason: Edema) Patient Comments: pt states for weight gain 2 lbs or more Held warfarin 2.5 mg tablet 2.5 mg PO WE Hold Instructions: Resume on 10/29/24. hold until inr<3 warfarin 2.5 mg tablet 1.25 mg PO SUMOTUTHFRSA Hold Instructions: Resume on 10/29/24. warfarin 2.5 mg tablet 1.25 mg PO SUMOTUTHFRSA Hold Instructions: Resume on 10/29/24. Protocol: Dose Management Condition: Tuesday (Week One) Dose/Route: 1.25 mg Instruction: 0.5 x 2.5 mg tablets Condition: Tuesday Dose/Route: 1.25 mg Instruction: 0.5 x 2.5 mg tablets Condition: Tuesday Dose/Route: 1.25 mg Instruction: 0.5 x 2.5 mg tablets Condition: Tuesday Dose/Route: 2.5 mg Instruction: 1 x 2.5 mg tablet Condition: Dose/Route: 1.25 mg Instruction: 0.5 x 2.5 mg tablets Condition: Tuesday Dose/Route: 1.25 mg Instruction: 0.5 x 2.5 mg tablets Condition: Tuesday Dose/Route: 1.25 mg Instruction: 0.5 x 2.5 mg tablets Condition: Tuesday (Week Two) Dose/Route: 1.25 mg Instruction: 0.5 x 2.5 mg tablets Condition: Tuesday Dose/Route: 1.25 mg Instruction: 0.5 x 2.5 mg tablets Condition: Tuesday Dose/Route: 1.25 mg Instruction: 0.5 x 2.5 mg tablets Condition: Tuesday Dose/Route: 2.5 mg Instruction: 1 x 2.5 mg tablet Condition: Dose/Route: 1.25 mg Instruction: 0.5 x 2.5 mg tablets Condition: Tuesday Dose/Route: 1.25 mg Instruction: 0.5 x 2.5 mg tablets Condition: Tuesday Dose/Route: 1.25 mg Instruction: 0.5 x 2.5 mg tablets Protocol Text: Adjustment Start Date: Tuesday10/09/24 INR Value: 1.8 INR Date: 10/09/24 Recheck Date: 10/16/24 Discontinued amiodarone 200 mg tablet 100 mg PO DAILY Discharge Orders: Discharge Order (Routine); Ordered 10/23/24 Ordered By: Dimitrios Yang Diet: Advance to usual diet Activity on Discharge: As tolerated Stand Alone Forms: Patient Portal Discharge page Print Language: Persian Care Plan Goals: Improve p.o. intake Health Concerns: Intermittent CBD obstruction, failure to thrive Plan of Treatment: Optimize nutrition intake, monitor for worsening intake, abdominal pain jaundice could be sign of obstruction/cholangitis would then need to returned to ED Holding amiodarone for now Assessment: See above
--- NOTE | 2024-10-23 11:45 | MHC.CM.PN ---
IMM 10/23/24 DX Elevated LFTs Patient is discharged today. She will return to home with resumption of [facility] home services. They have been notified via [facility] of the discharge today. A call was placed too. A message re dc today was given to [place]. Patient's son is in the room. He will provide transportation home.
--- NOTE | 2024-10-23 12:20 | P.F2F_ITS ---
Service Date Service Date: 10/23/24 Encounter Date of encounter: 10/23/24 Reasons for Services Signs and symptoms assessed: ftt, weakness Reason for residential: monitoring of PT/INR, medication management, medication treatment, teach disease management and other (cbc, LFts, INR) Homebound: Leaving the home is medically contraindicated at this time without the asist of a device and/or another person due th the listed conditions above and below. Reason homebound: unsteady gait / fall risk and weakness related to hospital stay Certification: Based on the above findings, I certify that this patient is confined to the home and needs intermittent residential care, physical therapy and/or speech therapy, or continues to need occupational therapy. The patient is under my care, and I have initiated the establishment of the plan of care. The patient will be followed by a physician who will periodically review the plan of care. Time Spent With Patient Time: Total time managing care of this patient today ____ minutes.
== END 2024-10-23 12:39 | disposition home health service (06) | DRG 444 ==
LOC: HO.ED 21:57 → HO.EDOVER 22:40 → HO.S3 10-17 19:20
PROVIDERS: Internal Medicine; Physician Assistant; Admitting Provider Internal Medicine; Emergency Provider Emergency Medicine; PCP Internal Medicine; Visit Provider Internal Medicine
DX: K80.21 Calculus of gallbladder without cholecystitis with obstruction (principal); I50.23 Acute on chronic systolic (congestive) heart failure; I13.0 Hypertensive heart and chronic kidney disease with heart failure and stage 1 through stage 4 chronic kidney disease, or unspecified chronic kidney disease; N17.9 Acute kidney failure, unspecified; E44.0 Moderate protein-calorie malnutrition; Z68.1 Body mass index [BMI] 19.9 or less, adult; E87.21 Acute metabolic acidosis; J96.11 Chronic respiratory failure with hypoxia; I25.10 Atherosclerotic heart disease of native coronary artery without angina pectoris; N18.2 Chronic kidney disease, stage 2 (mild); Z99.81 Dependence on supplemental oxygen; I08.1 Rheumatic disorders of both mitral and tricuspid valves; I27.20 Pulmonary hypertension, unspecified; R79.1 Abnormal coagulation profile; E87.5 Hyperkalemia; E86.0 Dehydration; R62.7 Adult failure to thrive; J44.9 Chronic obstructive pulmonary disease, unspecified; E78.5 Hyperlipidemia, unspecified; I48.0 Paroxysmal atrial fibrillation; Z95.810 Presence of automatic (implantable) cardiac defibrillator; Z87.891 Personal history of nicotine dependence; Z79.01 Long term (current) use of anticoagulants; Z79.899 Other long term (current) drug therapy
CPT/HCPCS: 36415; 74176; 74220; 76705; 78226; 80048; 80053; 80076; 80143; 80179; 82248; 83735; 83880; 84436; 84439; 84443; 84484; 85025; 85027; 85610; 86704; 86706; 86709; 86803; 87340; 93005; 99285; A9537

== ENCOUNTER → 2024-10-16 19:10 | Outpatient (BNV) | payer MEDICARE, MEDICAID, SELFPAY | PROVIDERS: Admitting Provider Internal Medicine; Emergency Provider Emergency Medicine; PCP Internal Medicine; Visit Provider Internal Medicine Cardiovascular Disease | DX: I44.7 Left bundle-branch block, unspecified (principal); I51.7 Cardiomegaly | CPT/HCPCS: 93010 ==

== ENCOUNTER → 2024-10-16 20:55 | Outpatient (BNV) | payer MEDICARE, MEDICAID, SELFPAY | PROVIDERS: Emergency Provider Emergency Medicine; PCP Internal Medicine; Visit Provider Radiology Vascular & Interventional Radiology | DX: R11.0 Nausea (principal); R10.11 Right upper quadrant pain | CPT/HCPCS: 74176; 76705 ==

== ENCOUNTER 2024-10-16 22:27 | Outpatient (BNV) | payer MEDICARE, MEDICAID, SELFPAY | END 2024-10-17 14:30 | PROVIDERS: Admitting Provider Internal Medicine; Emergency Provider Emergency Medicine; PCP Internal Medicine; Visit Provider Radiology Diagnostic Radiology | DX: R13.10 Dysphagia, unspecified (principal) | CPT/HCPCS: 74240 ==

== ENCOUNTER 2024-10-16 22:27 | Outpatient (BNV) | payer MEDICARE, MEDICAID, SELFPAY | END 2024-10-19 17:01 | PROVIDERS: Admitting Provider Internal Medicine; Emergency Provider Emergency Medicine; PCP Internal Medicine; Visit Provider Specialist | DX: R79.89 Other specified abnormal findings of blood chemistry (principal) | CPT/HCPCS: 76705 ==

== ENCOUNTER 2024-10-16 22:27 | Outpatient (BNV) | payer MEDICARE, MEDICAID, SELFPAY | END 2024-10-18 11:54 | PROVIDERS: Admitting Provider Internal Medicine; Emergency Provider Emergency Medicine; PCP Internal Medicine; Visit Provider Radiology Diagnostic Radiology | DX: K82.8 Other specified diseases of gallbladder (principal) | CPT/HCPCS: 78226 ==

== ENCOUNTER → 2024-10-16 22:27 | Outpatient (BNV) | payer MEDICARE, MEDICAID, SELFPAY | PROVIDERS: Admitting Provider Internal Medicine; Emergency Provider Emergency Medicine; PCP Internal Medicine; Visit Provider Physician Assistant | DX: I42.9 Cardiomyopathy, unspecified (principal) | CPT/HCPCS: 99223; 99232; 99239; G0180 ==

== ENCOUNTER → 2024-10-16 22:27 | Outpatient (BNV) | payer MEDICARE, MEDICAID, SELFPAY | PROVIDERS: Admitting Provider Internal Medicine; Emergency Provider Emergency Medicine; PCP Internal Medicine; Visit Provider Internal Medicine | DX: R74.01 Elevation of levels of liver transaminase levels (principal); K82.8 Other specified diseases of gallbladder; Z95.810 Presence of automatic (implantable) cardiac defibrillator; I48.0 Paroxysmal atrial fibrillation; I50.21 Acute systolic (congestive) heart failure | CPT/HCPCS: 99232 ==

== ENCOUNTER → 2024-10-16 22:27 | Outpatient (BNV) | payer MEDICARE, MEDICAID, SELFPAY | PROVIDERS: Admitting Provider Internal Medicine; Emergency Provider Emergency Medicine; PCP Internal Medicine; Visit Provider Surgery | DX: R74.01 Elevation of levels of liver transaminase levels (principal) | CPT/HCPCS: 99232 ==

== ENCOUNTER 2024-10-23 14:36 | Inpatient (IN) | payer MEDICARE, OTHER, SELFPAY ==
[2024-10-23] VITALS (8 sets, daily range): BP systolic 93–102; BP diastolic 52–68; PULSE 68–82; RESP 13–29; TEMP 36.3–36.5; O2SAT 95–97; BMI 16.6; BMI 17.0
--- NOTE | 2024-10-23 14:31 | ED.WEAKNESS ---
HPI - Weakness General Chief complaint: Weakness Stated complaint: Weakness Source: patient, family, EMS and old records reviewed Mode of arrival: EMS Limitations: no limitations History of Present Illness ED Provider: JILL HPI Narrative: 79 yo female with PMH Of pacemaker AICD, HF with EF 15%, severe COPD on 2L O2, HTN, HLD, CAD, afib on coumadin, she was just admitted here 10/16 until 10/23 this AM for FTT and intermittent CBD obstruction - medical management given age and co-morbities, her amiodarone was held, warfarin held for elevated INR, she was sent home with usodiol 200mg BID. She went home with VNA she comes back today with c/o being too weak to be at home after DC. States she should have gone to [facility]. She was with son tried to stand up and landed on buttocks no headstrike he was right there she denies any injury. MD Complaint: generalized weakness Onset (ago): week(s) Duration: constant Location: generalized Migration: none Severity: moderate Relieving factors: none Exacerbating factors: movement Context: recent illness Associated symptoms: denies other symptoms Related Data Home Medications ?Medication ?Instructions ?Recorded ?Confirmed atorvastatin 20 mg tablet 20 mg PO BEDTIME 10/05/23 10/23/24 furosemide 20 mg tablet 20 mg PO DAILY PRN Edema 05/08/24 10/23/24 spironolactone 25 mg tablet 25 mg PO WEFR 10/17/24 10/23/24 warfarin 2.5 mg tablet 1.25 mg PO SUMOTUTHFRSA 10/17/24 10/23/24 Held on 10/23/24. Instructions: Resume on 10/29/24. warfarin 2.5 mg tablet 1.25 mg PO SUMOTUTHFRSA 10/17/24 10/23/24 Held on 10/23/24. Instructions: Resume on 10/29/24. warfarin 2.5 mg tablet 2.5 mg PO WE 10/17/24 10/23/24 Held on 10/23/24. Instructions: Resume on 10/29/24. hold until inr<3 Previous Rx's ?Medication ?Instructions ?Recorded ursodiol 300 mg capsule 200 mg (0.6667 x 300 mg) PO BID 10/23/24 #180 caps Allergies Allergy/AdvReac Type Severity Reaction Status Date / Time lisinopril AdvReac Intermediate COUHG Verified 10/23/24 14:43 Review of Systems Review of Systems: Constitutional : No Fever, No Chills, No Fatigue ENT/Mouth : No sore throat, No Rhinorrhea Eyes: No Eye Pain, No Swelling, No Redness Cardiovascular : No Chest Pain, No SOB, No Dyspnea on Exertion Respiratory : No Cough, No Sputum Gastrointestinal : No Nausea, No Vomiting, No Diarrhea, No abdominal Pain Genitourinary : No Dysuria, No Urinary Frequency, No Hematuria, Musculoskeletal : No joint pain, No Myalgias, No Joint Swelling Skin : No Skin Lesions, No rash Neuro : pos Weakness, No Numbness, No Dizziness, no Headache Psych : No Anxiety/Panic, No Depression All other systems reviewed and are negative [facility] Past Medical History Attestation statement: The following information was validated with the patient. Source: old records reviewed Medical History Myocardial infarction Congestive heart failure Cardiomyopathy CAD (coronary artery disease) Hyperlipidemia Afib HTN (hypertension) Surgical History H/O: hysterectomy AICD (automatic cardioverter/defibrillator) present Social History Social History Household Members: None Housing: House Housing Other:: 1st floor of house. nephew lives on 2nd floor Do you presently have visiting nurse or other home services: No Alcohol intake: never Comment: pt too light bed alarm not functioning Patient Tobacco Use Status: Former Tobacco user Tobacco use type: Cigarette Second Hand Smoke Exposure: No Advance Directives Date on File: 09/08/24 service: No Physical Exam Vital Signs: Vital Signs: Last Vital Signs Temp 96.7 F L 10/24/24 07:55 Pulse 64 10/24/24 07:55 Resp 17 10/24/24 07:55 BP 102/62 10/24/24 07:55 Pulse Ox 97 10/24/24 07:55 O2 Del Method Nasal Cannula 10/24/24 07:55 O2 Flow Rate 2 10/24/24 07:55 Oxygen Flow Rate 2 10/23/24 14:38 BMI result Body Mass Index 16.6 Appearance: Alert. Oriented X3. No acute distress. Eyes: Pupils equal, round and reactive to light. ENT: Pharynx normal. Neck: Normal inspection. Neck supple. CVS: Normal heart rate and rhythm. Pulses normal. Respiratory: No respiratory distress. Breath sounds diminished no rales noted Abdomen: Soft and nontender. Skin: Skin warm and dry. Normal skin color. Extremities: No lower extremity edema. Neuro: Oriented X 3. No motor deficit. No sensory deficit. Medications Administered Generic Name Dose Route Start Last Admin Trade Name Freq PRN Reason Stop Dose Admin Atorvastatin Calcium 20 mg 10/23/24 21:00 10/23/24 20:42 Atorvastatin Calcium 20 Mg Tablet PO 20 mg BEDTIME RENETTA Administration Guaifenesin/Codeine Phosphate 5 ml 10/23/24 22:35 10/23/24 22:47 Guaifen/Codeine Sf 200/20/10ml 10 Ml Liquid PO 5 ml Q6H PRN Administration Cough Melatonin 6 mg 10/23/24 15:55 10/23/24 22:47 Melatonin 3 Mg Tablet PO 6 mg BEDTIME PRN Administration Insomnia Sodium Chloride 3 ml 10/23/24 16:00 10/24/24 08:32 0.9 % Sodium Chloride Flush 3 Ml Syringe IVFLUSH 3 ml QSHIFT RENETTA Administration Ursodiol 300 mg 10/23/24 21:00 10/24/24 08:32 Ursodiol 300 Mg Capsule PO 300 mg BID RENETTA Administration Discontinued Medications Generic Name Dose Route Start Last Admin Trade Name Freq PRN Reason Stop Dose Admin Sodium Chloride 1,000 mls @ 75 mls/hr 10/23/24 16:00 10/24/24 07:44 Ns IVCONT 10/24/24 05:19 Infused .[id number] RENETTA Infusion Sodium Zirconium Cyclosilicate 5 gm 10/23/24 17:07 10/23/24 17:24 Sodium Zirconium Cyclosilicate 5 Gm Powd.Pack PO 10/23/24 17:08 5 gm ONCE ONE Administration Medical Decision Making Medical Decision Making MDM Narrative: 79 yo female with PMH Of pacemaker AICD, HF with EF 15%, severe COPD on 2L O2, HTN, HLD, CAD, afib on coumadin who just left today after prolonged stay but states she needs STR - no new complaints she states other than being tired and weak she is okay. She will get das labs, CM consult. I did order her DC meds but held coumadin given supratherapeutic INR will monitor level and start accordingly. No trauma from fall she has prior mepilex dressings on thoracic spine and sacral area we did put new dressings on. Differential Diagnosis Differential Diagnoses: The differential diagnosis associated with the presentation includes anemia, FTT, weakness, lyte abnormality Admission/Observation Consideration of admission/observation: Escalation of care including admission/observation considered Na 126 stable for DC Consult Healthcare Provider Management of the patient was discussed with: Hospitalist (will admit) Lab Data [facility] Lab Attestation statement: I reviewed the patient's lab results. 10/24/24 06:05 10/24/24 06:05 Labs: Lab Results 10/23/24 Range/Units 14:48 WBC 8.5 (4.8-10.8) X10*3/uL RBC 3.89 L (4.20-5.50) X10*6/uL Hgb 11.1 L (12.0-16.0) g/dl Hct 35.1 L (37.0-47.0) % MCV 90.2 (80.0-98.0) fL MCH 28.5 (27.0-33.0) pg MCHC 31.6 (31.0-35.0) g/dl RDW 16.4 H (11.0-16.0) % Plt Count 220 (160-400) X10*3/uL MPV 11.0 (9.4-12.3) fL Immature Gran % (Auto) Cancelled Neut % (Auto) Cancelled Lymph % (Auto) Cancelled [place] % (Auto) Cancelled Eos % (Auto) Cancelled Baso % (Auto) Cancelled Lymph # (Auto) Cancelled [place] # (Auto) Cancelled Eos # (Auto) Cancelled Baso # (Auto) Cancelled Abs Immat Gran (auto) Cancelled Absolute Neuts (auto) Cancelled Absolute Nucleated RBC 0.090 H (0.0-0.012) X10*3/uL Nucleated RBC % (auto) 1.1 H (0.0-0.2) /100WBC Neutrophils % (Manual) 84 H (45-73) % Band Neutrophils % 0 L (3-5) % Lymphocytes % (Manual) 8 L (20-40) % Monocytes % (Manual) 8 (2-11) % Abs Neuts (Manual) 7.1 (2.0-8.3) X10*3/uL Lymphocytes # (Manual) 0.7 L (1.2-4.9) X10*3/uL Monocytes # (Manual) 0.7 (0.1-1.2) X10*3/uL Nucleated RBCs 2 H (0-0) /100WBC Toxic Vacuolation PRESENT Platelet Estimate NORMAL (NORMAL) Plt Morphology Comment NORMAL RBC Morphology NOTED Ovalocytes 1+ (5-14) /OIF Smear Path Review SEE NOTE PT 42.2 H (10.9-12.4) SEC INR 3.7 H (0.9-1.1) Sodium 126 L (135-145) mmol/L Potassium 5.4 H (3.3-5.1) mmol/L Chloride 97 (96-108) mmol/L Carbon Dioxide 17 L (22-29) mmol/L Anion Gap 17 (12-20) BUN 47 H (9-16) mg/dL Creatinine 1.18 (0.5-1.4) mg/dL Estim Creat Clear Calc 27.7 Estimated GFR 44 Random Glucose 110 (60-115) mg/dL Calcium 8.3 L (8.4-10.2) mg/dL Total Bilirubin 2.1 H (0.0-1.0) mg/dL Direct Bilirubin 1.2 H (0.0-0.5) mg/dL AST 270 H (5-31) U/L ALT 754 H (0-31) U/L Alkaline Phosphatase 822 H (39-117) U/L Total Protein 5.5 L (6.5-8.0) g/dL Albumin 2.9 L (3.5-5.0) g/dL Independent Interpretation I performed an independent interpretation of an: EKG Interpretation: Rate: 78 Rhythm: NSR with 1st degree AVB [place]: normal Normal P waves. 1st degree LBBB ST T wave : tall T waves anterior leads, nonspecific ST T wave changes inf leads qTC: 542 prior studies: no change The study has been interpreted contemporaneously by me. . Independent Historian Clinical information obtained from an independent historian. History obtained from or confirmed by: EMS External Record Review External record reviewed: Inpatient record and Outpatient record Social Determinants Patient?s care significantly limited by Social Determinants of Health including: Problems related to primary support group Discharge Plan Discharge Clinical Impression: Adult failure to thrive, Acute hyponatremia Patient Disposition: Admitted As Inpatient Interventions: Admission Worksheet (ED) Last Done: 10/23/24 17:03 Discharge Date/Time: 10/23/24 20:17
[2024-10-23 14:55] LABS: Hematocrit 35.1 % (37.0-47.0); Hemoglobin 11.1 g/dl (12.0-16.0); Mean Corpuscular HGB Conc 31.6 g/dl (31.0-35.0); Mean Corpuscular Hemoglobin 28.5 pg (27.0-33.0); Mean Corpuscular Volume 90.2 fL (80.0-98.0); NRBC Abs Auto 0.090 X10*3/uL (0.0-0.012); Platelet Count 220 X10*3/uL (160-400); Red Blood Count 3.89 X10*6/uL (4.20-5.50); White Blood Count 8.5 X10*3/uL (4.8-10.8)
[2024-10-23 14:56] LABS: NRBC Pct Auto 1.1 /100WBC (0.0-0.2)
[2024-10-23 15:04] LABS: INTERNATIONAL NORM RATIO 3.7 (0.9-1.1); Prothrombin Time 42.2 SEC (10.9-12.4)
[2024-10-23 15:21] LABS: Alanine Aminotransferase 754 U/L (0-31); Albumin Level 2.9 g/dL (3.5-5.0); Alkaline Phosphatase 822 U/L (39-117); Anion Gap 17 (12-20); Aspartate Amino Transferase 270 U/L (5-31); Blood Urea Nitrogen 47 mg/dL (9-16); Calcium 8.3 mg/dL (8.4-10.2); Carbon Dioxide 17 mmol/L (22-29); Chloride 97 mmol/L (96-108); Creatinine Clr Calc Pharmacy 27.7; Estimated Glomerular Filt Rate 44; Potassium 5.4 mmol/L (3.3-5.1); Sodium 126 mmol/L (135-145); Total Protein 5.5 g/dL (6.5-8.0)
--- NOTE | 2024-10-23 15:24 | ECG_ITS ---
Test Reason : hesss Blood Pressure : */* mmHG Vent. Rate : 78 BPM Atrial Rate : 78 BPM P-R Int : 220 ms QRS Dur : 200 ms QT Int : 476 ms P-R-T Axes : 42 197 30 degrees QTcB Int : 542 ms Sinus rhythm with 1st degree A-V block Non-specific intra-ventricular conduction block Minimal voltage criteria for LVH, may be normal variant ( [place] product ) Possible Lateral infarct , age undetermined Abnormal ECG When compared with ECG of 16-Oct-2024 19:23, CO interval has increased Referred By: Sumaya Best Electronically Signed By: MARIO PICKARD MD
--- NOTE | 2024-10-23 15:41 | PHA.MEDREC ---
Pharmacy Consult ? Medication Reconciliation Pharmacy has completed the medication reconciliation.Patient discharge in am on 10/23 and knew medications. Nothing changed since discharge
--- NOTE | 2024-10-23 15:45 | PC.NURSE ---
per ED MD, pt will be admitted as inpatient. 20gIV placed in the right wrist - patent/intact. otherwise, vss and up to date. pt remains slightly tachypneic. remains on 2L via NC. slight wob noted. sitting upright to promote patent airway. otherwise in no apparent distress. pt pending hospitalist assessment at this time. plan of care ongoing. call ro placed within reach.
[2024-10-23 15:59] LABS: Band Neutrophils Percent 0 % (3-5); Lymphocytes Absolute Manual 0.7 X10*3/uL (1.2-4.9); Lymphocytes Percent Manual 8 % (20-40); Monocytes Absolute Manual 0.7 X10*3/uL (0.1-1.2); Monocytes Percent Manual 8 % (2-11); Neutrophils Absolute Manual 7.1 X10*3/uL (2.0-8.3); Neutrophils Percent Manual 84 % (45-73); Ovalocytes 1+ (5-14) /OIF; Toxic Vacuolation PRESENT
[2024-10-23 16:00] LABS: RBC Morphology NOTED
--- NOTE | 2024-10-23 16:04 | PM.IMHP ---
History of Present Illness Date of Service: 10/23/24 Chief Complaint: weakness 79F PMH chronic systolic CHF with AICD EF of 15% and grade 2 diastolic dysfunction, severe COPD with chronic hypoxic respiratory failure on 2 L home O2, hyperlipidemia, paroxysmal AFib on warfarin, hypertension, CAD, congenital UPJ obstruction presented with weakness. Patient had been admitted to [facility] on 10/16/2024 and discharged on 10/23/2024 after hospitalization for moderate protein calorie malnutrition and feel that thrive due to suspected intermittent biliary obstruction. Given patient's frailty and comorbidities, no overt obstruction on imaging, and that patient is intake improved decision was made to pursue conservative management only with ursodiol. Patient was not interested in discharge to rehab at that time. Patient went home and immediately on getting home felt very weak and was unable to stand. Patient did not fall or hurt herself but called EMS with family to returned to ED. in ED sodium noted to be 126, otherwise LFTs similar to pre discharge. Patient now more open to rehab. Review of Systems Review of Systems: Yes all other systems are reviewed and are negative [facility] Medical History Myocardial infarction Congestive heart failure Cardiomyopathy CAD (coronary artery disease) Hyperlipidemia Afib HTN (hypertension) Surgical History H/O: hysterectomy AICD (automatic cardioverter/defibrillator) present Social History Household Members: None Housing: House Housing Other:: 1st floor of house. nephew lives on 2nd floor Do you presently have visiting nurse or other home services: Yes ([facility]) Alcohol intake: never Comment: pt too light bed alarm not functioning Patient Tobacco Use Status: Former Tobacco user Tobacco use type: Cigarette Second Hand Smoke Exposure: No Advance Directives: Yes Advance Directives on File: Yes Advance Directives Date on File: 09/08/24 Do you have a plan to hurt others: No Plan service: No Meds Allergies Allergy/AdvReac Type Severity Reaction Status Date / Time lisinopril AdvReac Intermediate COUHG Verified 10/23/24 14:43 Active Medications: Current Medications Acetaminophen (Acetaminophen 325 Mg Tablet) 650 mg PO Q6H PRN PRN Reason: Pain, Mild 1-3,fever,headache Atorvastatin Calcium (Atorvastatin Calcium 20 Mg Tablet) 20 mg PO BEDTIME RENETTA Atorvastatin Calcium (Atorvastatin Calcium 20 Mg Tablet) 20 mg PO BEDTIME RENETTA Calcium Carbonate (Calcium Carbonate 750 Mg Tab.Chew) 750 mg PO Q4H PRN PRN Reason: Heartburn Furosemide (Furosemide 20 Mg Tablet) 20 mg PO DAILY PRN; Protocol On Hold: 10/23/24 15:38 PRN Reason: Edema Sodium Chloride (Ns) 1,000 mls @ 75 mls/hr IVCONT .[id number] RENETTA Magnesium Hydroxide (Milk Of Magnesia 30 Ml Oral.Susp) 30 ml PO DAILY PRN PRN Reason: Constipation Melatonin (Melatonin 3 Mg Tablet) 6 mg PO BEDTIME PRN PRN Reason: Insomnia Sodium Chloride (0.9 % Sodium Chloride Flush 3 Ml Syringe) 3 ml IVFLUSH QSHIFT RENETTA Spironolactone (Spironolactone 25 Mg Tablet) 25 mg PO WEFR RENETTA; Protocol Ursodiol (Ursodiol 300 Mg Capsule) 200 mg PO BID RENETTA Ursodiol (Ursodiol 300 Mg Capsule) 200 mg PO BID [facility] Home Medications ?Medication ?Instructions ?Recorded ?Confirmed ?Last Taken ?Type atorvastatin 20 mg tablet 20 mg PO BEDTIME 10/05/23 10/23/24 10/16/24 History furosemide 20 mg tablet 20 mg PO DAILY PRN Edema 05/08/24 10/23/24 10/16/24 History spironolactone 25 mg tablet 25 mg PO WEFR 10/17/24 10/23/24 10/16/24 History warfarin 2.5 mg tablet 1.25 mg PO SUMOTUTHFRSA 10/17/24 10/23/24 10/16/24 History Held on 10/23/24. Instructions: Resume on 10/29/24. warfarin 2.5 mg tablet 1.25 mg PO SUMOTUTHFRSA 10/17/24 10/23/24 10/16/24 History Held on 10/23/24. Instructions: Resume on 10/29/24. warfarin 2.5 mg tablet 2.5 mg PO WE 10/17/24 10/23/24 10/16/24 History Held on 10/23/24. Instructions: Resume on 10/29/24. hold until inr<3 Physical Exam Vital Signs and Narrative: Vital Signs: Last Vital Signs Temp 97.5 F 10/23/24 14:38 Pulse 77 10/23/24 14:38 Resp 26 H 10/23/24 14:38 BP 102/68 10/23/24 14:38 Pulse Ox 96 10/23/24 14:38 O2 Del Method Nasal Cannula 10/23/24 14:38 Oxygen Flow Rate 2 10/23/24 14:38 BMI result Body Mass Index 16.6 Alert oriented x3, frail appearing, underweight Lungs clear, abdomen soft and nontender Results Labs 10/23/24 14:48 10/23/24 14:48 Labs: Laboratory Results - last 24 hr 10/23/24 14:48 MCV 90.2 MCH 28.5 MCHC 31.6 RDW 16.4 H Plt Count 220 MPV 11.0 Immature Gran % (Auto) Cancelled Neut % (Auto) Cancelled Lymph % (Auto) Cancelled [place] % (Auto) Cancelled Eos % (Auto) Cancelled Baso % (Auto) Cancelled Lymph # (Auto) Cancelled [place] # (Auto) Cancelled Eos # (Auto) Cancelled Baso # (Auto) Cancelled Abs Immat Gran (auto) Cancelled Absolute Neuts (auto) Cancelled Absolute Nucleated RBC 0.090 H Nucleated RBC % (auto) 1.1 H Neutrophils % (Manual) 84 H Band Neutrophils % 0 L Lymphocytes % (Manual) 8 L Monocytes % (Manual) 8 Abs Neuts (Manual) 7.1 Lymphocytes # (Manual) 0.7 L Monocytes # (Manual) 0.7 Nucleated RBCs 2 H Toxic Vacuolation PRESENT Platelet Estimate NORMAL Plt Morphology Comment NORMAL RBC Morphology NOTED Ovalocytes 1+ (5-14) PT 42.2 H INR 3.7 H Anion Gap 17 Estim Creat Clear Calc 27.7 Estimated GFR 44 Random Glucose 110 Calcium 8.3 L Total Bilirubin 2.1 H Direct Bilirubin 1.2 H AST 270 H ALT 754 H Alkaline Phosphatase 822 H Total Protein 5.5 L Albumin 2.9 L Assessment and Plan (1) Cardiomyopathy: Status: Acute Plan 79F PMH chronic systolic CHF with AICD EF of 15% and grade 2 diastolic dysfunction, severe COPD with chronic hypoxic respiratory failure on 2 L home O2, hyperlipidemia, paroxysmal AFib on warfarin, hypertension, CAD, congenital UPJ obstruction presented with weakness, found to have hyponatremia Weakness and acute hyponatremia Check urine studies We will give 1 L of normal saline, follow up repeat Hold Lasix PT eval Transaminitis with moderate protein calorie malnutrition, failure to thrive Continue ursodiol Outpatient follow up with GI Chronic systolic CHF Monitor closely while hydrating Continue Aldactone Paroxysmal atrial fibrillation on warfarin with supratherapeutic INR Holding warfarin for now, restart when INR less than 3 CAD Warfarin and statin Chronic hypoxic respiratory failure due to COPD on 2 L home O2 Stable DVT prophylaxis-warfarin Full Code Quality Stroke Does the patient have a stroke diagnosis?: No VTE Prior VTE?: No VTE Risk Level:: Medical - moderate - high VTE Device Contraindication: Treatment Not Indicated VTE Drug Contraindication: N/A - Med Ordered
--- OUTSIDE RECORDS SUMMARY | 2024-10-23 16:37 | XMS_ITS | Patient Health Record ---
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 Name Role Phone Dorothy Salas Primary Care Provider Unavailab Ryley Carroll Unavailable [phone] Allergies Allergen (clinical drug ingredient) Drug/Non Drug [...] W/U Status Risk Notes Problem Plantar wart ([id number]) Plantar wart (B07.0) Active confirmed Plan Of Treatment Pending Test Test Name Order Date 35564-[id number] Destruction, 1-14 12/14/2019 Insurance Providers Payer Name Payer Address Payer Phone Subscriber Number Group Number Insured Name Patient Relationship to Insured Coverage Start Date Coverage End Date [employer] [address] [place] [address] [id number] Lala Tucker Self - patient is the insured Medical (General) History Medical History History ICD Code CAD CHF SD - 2007 Surgical History Surgery Date(Month/Year)
--- NOTE | 2024-10-23 16:39 | PC.NURSE ---
pt transitioned to hospital bed to promote comfort. bed alarm turned on for safety precautions. pt pending admission. plan of care ongoing. call ro placed within reach.
[2024-10-23 18:29] LABS: Appearance Urine Cloudy; Glucose Urine UA Negative (Negative); PH 5.5 (5.0-9.0); Specific Gravity - Urine 1.020 (1.005-1.025); UMIC TRIGGER UACC YES
[2024-10-23 19:17] LABS: UACC Culture Trigger YES
[2024-10-23 20:08] LABS: Glucose, Whole Blood 126 mg/dL (60-115)
[2024-10-23] MEDS: guaiFEN/Codeine SF 200/20/10ML 10 ML LIQUID 5 ML PO (22:47)
[2024-10-24 03:25] VITALS: BP 97/61; PULSE 71; RESP 16; TEMP 36.2; O2SAT 95
[2024-10-24 06:46] LABS: Hematocrit 31.7 % (37.0-47.0); Hemoglobin 10.3 g/dl (12.0-16.0); Mean Corpuscular HGB Conc 32.5 g/dl (31.0-35.0); Mean Corpuscular Hemoglobin 28.4 pg (27.0-33.0); Mean Corpuscular Volume 87.3 fL (80.0-98.0); NRBC Abs Auto 0.080 X10*3/uL (0.0-0.012); Platelet Count 206 X10*3/uL (160-400); Red Blood Count 3.63 X10*6/uL (4.20-5.50); White Blood Count 8.1 X10*3/uL (4.8-10.8)
[2024-10-24 06:49] LABS: NRBC Pct Auto 1.0 /100WBC (0.0-0.2)
[2024-10-24 07:03] LABS: Alanine Aminotransferase 649 U/L (0-31); Albumin Level 2.9 g/dL (3.5-5.0); Alkaline Phosphatase 723 U/L (39-117); Anion Gap 15 (12-20); Aspartate Amino Transferase 224 U/L (5-31); Blood Urea Nitrogen 48 mg/dL (9-16); Calcium 8.0 mg/dL (8.4-10.2); Carbon Dioxide 21 mmol/L (22-29); Chloride 98 mmol/L (96-108); Creatinine Clr Calc Pharmacy 32.1; Estimated Glomerular Filt Rate 51; Potassium 4.8 mmol/L (3.3-5.1); Sodium 129 mmol/L (135-145); Total Protein 5.0 g/dL (6.5-8.0)
[2024-10-24 07:13] LABS: INTERNATIONAL NORM RATIO 3.3 (0.9-1.1); Prothrombin Time 37.7 SEC (10.9-12.4)
[2024-10-24 07:55] VITALS: BP 102/62; PULSE 64; RESP 17; TEMP 35.9; O2SAT 97
[2024-10-24] MEDS: 0.9 % Sodium Chloride Flush 3 ML SYRINGE IVFLUSH ×3 (08:32→19:08)
[2024-10-24 12:22] VITALS: BMI 17.0
--- NOTE | 2024-10-24 12:39 | MHC.CM.PN ---
Addendum entered by Sejal Sanford 10/24/24 12:58: PT REPORTS SHE WOULD PREFER STR AT [facility] IF INDICATED Original Note: PT REPORTS SHE LIVES ALONE AND HER SON AND DAUGHTER LIVE NEARBY SHE WAS DISCHARGED YESTERDAY WITH [facility] WHICH OF COURSE HAD NOT YET STARTED [employer]PER[employer]OR [employer] SHE USES A WALKER HCP ON FILE PCP: SONAL ABREU IMM DELIVERED DCP: HOME RESUME [facility] VS STR TRANSPORT TBD BY DISPO DAUGHTER VS BLS PER NOTE, PT WAS UNABLE TO WALK UPON DC YESTERDAY
--- NOTE | 2024-10-24 13:06 | MHC.CLN ---
NUTRITION CONSULT DIET=REGULAR. ADDING ENSURE BID TO PROMOTE NUTRITIONAL INTAKE. SUPPLEMENT PROVIDES 700 KCALS, 40 G PROTEIN. SKIN WITH PREVENTATIVE FOAM DRESSING TO SACRUM AND SPINE. MOST RECENT PO APPROX 25%. QUALIFIES MODERATELY MALNOURISHED IN THE CONTEXT OF CHRONIC ILLNESS. PT WITH MILDLY DEPLETED SUBCUTANEOUS FAT AND MUSCLE MASS. MONITOR PO INTAKE AND ENCOURAGE SUPPLEMENTS ABLE. SEE CLINICAL NUTRITION ASSESSMENT 10/24/24.
--- NOTE | 2024-10-24 13:42 | HO.PM.IMPN ---
Subjective Subjective Date of Service: 10/24/24 Interval History: No acute issues overnight. Agreeable to rehab Review of Systems Denies chest pain Denies shortness of breath Denies nausea vomiting diarrhea Denies fever chills Physical Exam Vital Signs: Vital Signs: Last Vital Signs Temp 96.7 F L 10/24/24 07:55 Pulse 64 10/24/24 07:55 Resp 17 10/24/24 07:55 BP 102/62 10/24/24 07:55 Pulse Ox 97 10/24/24 07:55 O2 Del Method Nasal Cannula 10/24/24 07:55 O2 Flow Rate 2 10/24/24 07:55 Oxygen Flow Rate 2 10/23/24 14:38 BMI result Body Mass Index 17.0 Const: Other: Awake alert no acute distress Resp: Other: Clear to auscultation bilaterally no rales rhonchi or wheezes Cardio: Other: No S4; positive S1-S2; no S3 murmurs rubs or gallops GI: Other: Soft nontender nondistended normoactive bowel sounds Extrem: Other: No edema bilaterally Objective Data Active Medications Acetaminophen (Acetaminophen 325 Mg Tablet) 650 mg PO Q6H PRN PRN Reason: Pain, Mild 1-3,fever,headache Atorvastatin Calcium (Atorvastatin Calcium 20 Mg Tablet) 20 mg PO BEDTIME [facility] Last Admin: 10/23/24 20:42 Dose: 20 mg Documented By: BURTON Calcium Carbonate (Calcium Carbonate 750 Mg Tab.Chew) 750 mg PO Q4H PRN PRN Reason: Heartburn Furosemide (Furosemide 20 Mg Tablet) 20 mg PO DAILY PRN; Protocol On Hold: 10/23/24 15:38 PRN Reason: Edema Guaifenesin/Codeine Phosphate (Guaifen/Codeine Sf 200/20/10ml 10 Ml Liquid) 5 ml PO Q6H PRN PRN Reason: Cough Last Admin: 10/23/24 22:47 Dose: 5 ml Documented By: BURTON Magnesium Hydroxide (Milk Of Magnesia 30 Ml Oral.Susp) 30 ml PO DAILY PRN PRN Reason: Constipation Melatonin (Melatonin 3 Mg Tablet) 6 mg PO BEDTIME PRN PRN Reason: Insomnia Last Admin: 10/23/24 22:47 Dose: 6 mg Documented By: BURTON Sodium Chloride (0.9 % Sodium Chloride Flush 3 Ml Syringe) 3 ml IVFLUSH QSHIFT [facility] Last Admin: 10/24/24 08:32 Dose: 3 ml Documented By: VANDA Spironolactone (Spironolactone 25 Mg Tablet) 25 mg PO WEFR [facility]; Protocol Ursodiol (Ursodiol 300 Mg Capsule) 300 mg PO BID [facility] Last Admin: 10/24/24 08:32 Dose: 300 mg Documented By: VANDA Labs 10/24/24 06:05 10/24/24 06:05 Labs: Laboratory Results - last 24 hr 10/23/24 10/23/24 10/23/24 14:48 18:21 20:00 MCV 90.2 MCH 28.5 MCHC 31.6 RDW 16.4 H Plt Count 220 MPV 11.0 Immature Gran % (Auto) Cancelled Neut % (Auto) Cancelled Lymph % (Auto) Cancelled [place] % (Auto) Cancelled Eos % (Auto) Cancelled Baso % (Auto) Cancelled Lymph # (Auto) Cancelled [place] # (Auto) Cancelled Eos # (Auto) Cancelled Baso # (Auto) Cancelled Abs Immat Gran (auto) Cancelled Absolute Neuts (auto) Cancelled Absolute Nucleated RBC 0.090 H Nucleated RBC % (auto) 1.1 H Neutrophils % (Manual) 84 H Band Neutrophils % 0 L Lymphocytes % (Manual) 8 L Monocytes % (Manual) 8 Abs Neuts (Manual) 7.1 Lymphocytes # (Manual) 0.7 L Monocytes # (Manual) 0.7 Nucleated RBCs 2 H Toxic Vacuolation PRESENT Platelet Estimate NORMAL Plt Morphology Comment NORMAL RBC Morphology NOTED Ovalocytes 1+ (5-14) Smear Path Review SEE NOTE PT 42.2 H INR 3.7 H Anion Gap 17 Estim Creat Clear Calc 27.7 Estimated GFR 44 POC Glucose 126 H Random Glucose 110 Calcium 8.3 L Total Bilirubin 2.1 H Direct Bilirubin 1.2 H AST 270 H ALT 754 H Alkaline Phosphatase 822 H Total Protein 5.5 L Albumin 2.9 L Urine Color Dark Yellow Urine Appearance Cloudy Urine pH 5.5 Ur Specific [place] 1.020 Urine Protein 300 (3+) H Urine Glucose (UA) Negative Urine Ketones Negative Urine Blood Small (1+) H Urine Nitrite Negative Ur Leukocyte Esterase Large (3+) H Urine RBC 6-10 H Urine WBC >50 H Ur Squamous Epith Cells 0-2 Urine Bacteria 4+ Hyaline Casts 0-2 Urine Osmolality 520 Ur Random Sodium < 20.0 10/24/24 06:05 MCV 87.3 MCH 28.4 MCHC 32.5 RDW 16.3 H Plt Count 206 MPV 11.1 Immature Gran % (Auto) Neut % (Auto) Lymph % (Auto) [place] % (Auto) Eos % (Auto) Baso % (Auto) Lymph # (Auto) [place] # (Auto) Eos # (Auto) Baso # (Auto) Abs Immat Gran (auto) Absolute Neuts (auto) Absolute Nucleated RBC 0.080 H Nucleated RBC % (auto) 1.0 H Neutrophils % (Manual) Band Neutrophils % Lymphocytes % (Manual) Monocytes % (Manual) Abs Neuts (Manual) Lymphocytes # (Manual) Monocytes # (Manual) Nucleated RBCs Toxic Vacuolation Platelet Estimate Plt Morphology Comment RBC Morphology Ovalocytes Smear Path Review PT 37.7 H INR 3.3 H Anion Gap 15 Estim Creat Clear Calc 32.1 Estimated GFR 51 POC Glucose Random Glucose 87 Calcium 8.0 L Total Bilirubin 2.0 H Direct Bilirubin 1.1 H AST 224 H ALT 649 H Alkaline Phosphatase 723 H Total Protein 5.0 L Albumin 2.9 L Urine Color Urine Appearance Urine pH Ur Specific [place] Urine Protein Urine Glucose (UA) Urine Ketones Urine Blood Urine Nitrite Ur Leukocyte Esterase Urine RBC Urine WBC Ur Squamous Epith Cells Urine Bacteria Hyaline Casts Urine Osmolality Ur Random Sodium Microbiology Microbiology Results: Microbiology 10/23/24 Unknown Urine Culture - Preliminary Urine clean catch - Clean Catch Midstream Culture in progress. Assessment and Plan (1) Acute hyponatremia: Status: Acute (2) Acute on chronic HFrEF (heart failure with reduced ejection fraction): Status: Acute Plan 79F PMH chronic systolic CHF with AICD EF of 15% and grade 2 diastolic dysfunction, severe COPD with chronic hypoxic respiratory failure on 2 L home O2, hyperlipidemia, paroxysmal AFib on warfarin, hypertension, CAD, congenital UPJ obstruction presented with weakness, found to have hyponatremia 1.Acute hyponatremia -urine sodium undetectable -add sodium 1 g t.i.d. . . . Recheck sodium in rehab -follow renals/divalents 2.Transaminitis/moderate protein calorie malnutrition/FTT -trending downward -continue ursodiol -outpatient follow up with GI 3. Chronic CHF -stable and well compensated -continue Aldactone/hold Lasix 4.Paroxysmal atrial fibrillation -acceptable control on current therapies -Coumadin as ordered 5.Chronic hypoxic respiratory failure due to COPD -stable and well compensated -continue outpatient therapies Warfarin Full Code Requires ongoing hospitalization pending safe placement. High risk of outpatient failure Quality Stroke Does the patient have a stroke diagnosis?: No VTE Prior VTE?: No VTE Risk Level:: Medical - moderate - high VTE Device Contraindication: Treatment Not Indicated VTE Drug Contraindication: N/A - Med Ordered
[2024-10-24 15:18] VITALS: BP 95/64; PULSE 73; RESP 14; O2SAT 96
[2024-10-24 15:52] VITALS: BP 96/66; PULSE 73; RESP 16; TEMP 36.4; O2SAT 96
[2024-10-24] MEDS: Sodium Chloride Tab 1 GM TABLET PO (19:07)
[2024-10-24 19:12] VITALS: BP 94/64; PULSE 80; RESP 20; TEMP 36.3; O2SAT 95
[2024-10-24] MEDS: guaiFEN/Codeine SF 200/20/10ML 10 ML LIQUID 5 ML PO (21:37)
[2024-10-25 03:38] VITALS: BP 96/59; PULSE 67; RESP 18; TEMP 36.8; O2SAT 96
[2024-10-25 05:46] LABS: MANUAL DIFF FLAG NO
[2024-10-25 06:10] LABS: Alanine Aminotransferase 597 U/L (0-31); Albumin Level 2.8 g/dL (3.5-5.0); Alkaline Phosphatase 682 U/L (39-117); Anion Gap 16 (12-20); Aspartate Amino Transferase 208 U/L (5-31); Blood Urea Nitrogen 46 mg/dL (9-16); Calcium 8.0 mg/dL (8.4-10.2); Carbon Dioxide 19 mmol/L (22-29); Chloride 99 mmol/L (96-108); Creatinine Clr Calc Pharmacy 28.8; Estimated Glomerular Filt Rate 45; Potassium 5.1 mmol/L (3.3-5.1); Sodium 129 mmol/L (135-145); Total Protein 5.0 g/dL (6.5-8.0)
[2024-10-25 06:16] LABS: Hematocrit 32.4 % (37.0-47.0); Hemoglobin 10.6 g/dl (12.0-16.0); Imm Gran Abs Auto 0.04 X10*3/uL (0.00-0.03); Imm Gran Pct Auto 0.5 % (0.0-0.4); Lymphocytes Absolute Auto 1.2 X10*3/uL (1.2-4.9); Mean Corpuscular HGB Conc 32.7 g/dl (31.0-35.0); Mean Corpuscular Hemoglobin 28.6 pg (27.0-33.0); Mean Corpuscular Volume 87.3 fL (80.0-98.0); NRBC Abs Auto 0.070 X10*3/uL (0.0-0.012); NRBC Pct Auto 0.9 /100WBC (0.0-0.2); Platelet Count 201 X10*3/uL (160-400); Red Blood Count 3.71 X10*6/uL (4.20-5.50); White Blood Count 8.1 X10*3/uL (4.8-10.8)
[2024-10-25 06:58] VITALS: BP 100/62; PULSE 68; RESP 16; TEMP 37; O2SAT 97
[2024-10-25 07:00] LABS: INTERNATIONAL NORM RATIO 3.0 (0.9-1.1); Prothrombin Time 33.9 SEC (10.9-12.4)
[2024-10-25] MEDS: Sodium Chloride Tab 1 GM TABLET PO ×2 (09:08→19:57)
[2024-10-25] MEDS: 0.9 % Sodium Chloride Flush 3 ML SYRINGE IVFLUSH ×3 (09:08→19:59)
--- NOTE | 2024-10-25 12:33 | HO.PM.IMPN ---
Subjective Subjective Date of Service: 10/25/24 Interval History: No acute issues overnight Review of Systems Denies chest pain Denies shortness of breath Denies nausea vomiting diarrhea Denies fever chills Physical Exam Vital Signs: Vital Signs: Last Vital Signs Temp 98.6 F 10/25/24 06:58 Pulse 68 10/25/24 06:58 Resp 16 10/25/24 06:58 BP 100/62 10/25/24 06:58 Pulse Ox 97 10/25/24 06:58 O2 Del Method Nasal Cannula 10/25/24 06:58 O2 Flow Rate 2.0 10/25/24 06:58 Oxygen Flow Rate 2 10/23/24 14:38 BMI result Body Mass Index 17.0 Const: Other: Awake alert no acute distress Resp: Other: Clear to auscultation bilaterally no rales rhonchi or wheezes Cardio: Other: No S4; positive S1-S2; no S3 murmurs rubs or gallops GI: Other: Soft nontender nondistended normoactive bowel sounds Extrem: Other: No edema bilaterally Objective Data Active Medications Acetaminophen (Acetaminophen 325 Mg Tablet) 650 mg PO Q6H PRN PRN Reason: Pain, Mild 1-3,fever,headache Atorvastatin Calcium (Atorvastatin Calcium 20 Mg Tablet) 20 mg PO BEDTIME [facility] Last Admin: 10/24/24 19:07 Dose: 20 mg Documented By: BURTON Calcium Carbonate (Calcium Carbonate 750 Mg Tab.Chew) 750 mg PO Q4H PRN PRN Reason: Heartburn Furosemide (Furosemide 20 Mg Tablet) 20 mg PO DAILY PRN; Protocol On Hold: 10/23/24 15:38 PRN Reason: Edema Guaifenesin/Codeine Phosphate (Guaifen/Codeine Sf 200/20/10ml 10 Ml Liquid) 5 ml PO Q6H PRN PRN Reason: Cough Last Admin: 10/24/24 21:37 Dose: 5 ml Documented By: BURTON Magnesium Hydroxide (Milk Of Magnesia 30 Ml Oral.Susp) 30 ml PO DAILY PRN PRN Reason: Constipation Melatonin (Melatonin 3 Mg Tablet) 6 mg PO BEDTIME PRN PRN Reason: Insomnia Last Admin: 10/24/24 21:34 Dose: 6 mg Documented By: BURTON Sodium Chloride (0.9 % Sodium Chloride Flush 3 Ml Syringe) 3 ml IVFLUSH QSHIFT [facility] Last Admin: 10/25/24 09:08 Dose: 3 ml Documented By: VANDA Sodium Chloride (Sodium Chloride Tab 1 Gm Tablet) 1 gm PO BID [facility] Last Admin: 10/25/24 09:08 Dose: 1 gm Documented By: VANDA Spironolactone (Spironolactone 25 Mg Tablet) 25 mg PO WEFR [facility]; Protocol Last Admin: 10/24/24 15:22 Dose: Not Given Documented By: VANDA Non-Admin Reason: Decreased Blood Pressure Ursodiol (Ursodiol 300 Mg Capsule) 300 mg PO BID [facility] Last Admin: 10/25/24 09:08 Dose: 300 mg Documented By: VANDA Labs 10/25/24 05:21 10/25/24 05:21 Labs: Laboratory Results - last 24 hr 10/25/24 10/25/24 05:21 05:22 MCV 87.3 MCH 28.6 MCHC 32.7 RDW 16.4 H Plt Count 201 MPV 10.4 Immature Gran % (Auto) 0.5 H Neut % (Auto) 74.4 H Lymph % (Auto) 14.9 L [place] % (Auto) 10.0 Eos % (Auto) 0.1 Baso % (Auto) 0.1 Lymph # (Auto) 1.2 [place] # (Auto) 0.8 Eos # (Auto) 0.0 Baso # (Auto) 0.0 Abs Immat Gran (auto) 0.04 H Absolute Neuts (auto) 6.1 Absolute Nucleated RBC 0.070 H Nucleated RBC % (auto) 0.9 H PT 33.9 H INR 3.0 H Anion Gap 16 Estim Creat Clear Calc 28.8 Estimated GFR 45 Fasting Glucose 89 Calcium 8.0 L Total Bilirubin 2.0 H AST 208 H ALT 597 H Alkaline Phosphatase 682 H Total Protein 5.0 L Albumin 2.8 L Microbiology Microbiology Results: Microbiology 10/23/24 Unknown Urine Culture - Preliminary Urine clean catch - Clean Catch Midstream Enterococcus/Streptococcus sp Assessment and Plan (1) Adult failure to thrive: Status: Acute (2) Acute hyponatremia: Status: Acute Plan 79F PMH chronic systolic CHF with AICD EF of 15% and grade 2 diastolic dysfunction, severe COPD with chronic hypoxic respiratory failure on 2 L home O2, hyperlipidemia, paroxysmal AFib on warfarin, hypertension, CAD, congenital UPJ obstruction presented with weakness, found to have hyponatremia 1.Acute hyponatremia -good response to sodium chloride tablets -sodium at baseline -follow renals/divalents 2.Transaminitis/moderate protein calorie malnutrition/FTT -trending downward -continue ursodiol -outpatient follow up with GI 3. Chronic CHF -stable and well compensated -continue Aldactone/hold Lasix 4.Paroxysmal atrial fibrillation -acceptable control on current therapies -Coumadin as ordered 5.Chronic hypoxic respiratory failure due to COPD -stable and well compensated -continue outpatient therapies Warfarin Full Code Requires ongoing hospitalization pending safe placement. High risk of outpatient failure Quality Stroke Does the patient have a stroke diagnosis?: No VTE Prior VTE?: No VTE Risk Level:: Medical - moderate - high VTE Device Contraindication: Treatment Not Indicated VTE Drug Contraindication: N/A - Med Ordered
[2024-10-25 15:35] VITALS: BP 98/64; PULSE 85; RESP 16; TEMP 36.8; O2SAT 91
--- NOTE | 2024-10-25 16:50 | P.CDIM_ITS ---
PROVIDER RESPONSE TEXT: To clarify, the appropriate diagnosis supported by the clinical indicators: Hyperkalemia: resolved QUERY TEXT: PHYSICIAN'S DOCUMENTATION REQUEST Date of Query: 10/25/2024 07:33 AM EDT Patient Name: Lala Leger Admit Date: 10/23/2024 Dear Tae Wilson DO, A review of the medical record indicates additional documentation may be needed. Please review below and update the documentation accordingly. Clinical Indicators: LABS: potassium 5.4 H Based on the above, is there a diagnosis that correlates with these lab findings? Hyperkalemia resolved, possible, suspected Labs indicate a diagnosis of (please specify) Other (explain) Clinically unable to determine (explain) Thank you, Breanna Hu, CCS, CDIS Use of terms such as suspected, likely, concern for, or probable (associated with a specific diagnosis that is being evaluated, monitored, or treated as if it exists) are acceptable and can be coded in the inpatient setting, when documented at the time of discharge. Please use your independent medical judgment in providing your response. THIS QUERY IS PART OF THE PERMANENT MEDICAL RECORD
[2024-10-25 19:47] VITALS: BP 97/62; PULSE 77; RESP 14; TEMP 36.6; O2SAT 93
[2024-10-25] MEDS: guaiFEN/Codeine SF 200/20/10ML 10 ML LIQUID 5 ML PO (21:08)
[2024-10-26 03:29] VITALS: BP 96/58; PULSE 68; RESP 18; TEMP 36.5; O2SAT 96
[2024-10-26 07:02] LABS: INTERNATIONAL NORM RATIO 3.2 (0.9-1.1); Prothrombin Time 36.9 SEC (10.9-12.4)
[2024-10-26 07:34] VITALS: BP 97/63; PULSE 69; RESP 14; TEMP 36.5; O2SAT 95
[2024-10-26] MEDS: Sodium Chloride Tab 1 GM TABLET PO (08:13)
--- NOTE | 2024-10-26 12:02 | MHC.CLN ---
F/U DIET=REGULAR. ENSURE BID TO PROMOTE NUTRITIONAL INTAKE. SUPPLEMENT PROVIDES 700 KCALS, 40 G PROTEIN. SKIN WITH REDNESS TO COCCYX. PO INTAKE VARIABLE, 25-100%. MONITOR PO INTAKE AND ENCOURAGE SUPPLEMENTS ABLE.
[2024-10-26 13:00] VITALS: BP 98/64; PULSE 78; O2SAT 92
--- NOTE | 2024-10-26 13:05 | MHC.CM.PN ---
Addendum entered by Sejal Sanford 10/26/24 15:31: [facility] AUTH BLS TRANSPORT BOOKED FOR 1700 WITH [facility]ATH[facility] Original Note: PT HAS BEEN MEDICALLY CLEAR AND AWAITING STR HOWEVER INSURANCE AUTH IS STILL PENDING THEY HAVE REQUESTED AN UPDATED PN INDICATING PT IS STABLE FOR DC- SENT PT WILL DC TO [facility] FOR STR PENDING INSURANCE APPROVAL
--- NOTE | 2024-10-26 14:14 | P.PNIM_ITS ---
Subjective Subjective Date of Service: 10/26/24 Interval History: No acute issues overnight. Awaiting bed placement Review of Systems Denies chest pain Denies shortness of breath Denies nausea vomiting diarrhea Denies fever chills Physical Exam 2 Vital Signs: Vital Signs: Last Vital Signs Temp 97.7 F 10/26/24 07:34 Pulse 69 10/26/24 07:34 Resp 14 10/26/24 07:34 BP 97/63 10/26/24 07:34 Pulse Ox 95 10/26/24 07:34 O2 Del Method Nasal Cannula 10/26/24 07:34 O2 Flow Rate 2 10/26/24 07:34 Oxygen Flow Rate 2 10/23/24 14:38 BMI result Body Mass Index 17.0 Const: Other: Awake alert no acute distress Resp: Other: Clear to auscultation bilaterally no rales rhonchi or wheezes Cardio: Other: No S4; positive S1-S2; no S3 murmurs rubs or gallops GI: Other: Soft nontender nondistended normoactive bowel sounds Extrem: Other: No edema bilaterally Objective Data Active Medications Acetaminophen (Acetaminophen 325 Mg Tablet) 650 mg PO Q6H PRN PRN Reason: Pain, Mild 1-3,fever,headache Atorvastatin Calcium (Atorvastatin Calcium 20 Mg Tablet) 20 mg PO BEDTIME [facility] Last Admin: 10/25/24 19:57 Dose: 20 mg Documented By: BURTON Calcium Carbonate (Calcium Carbonate 750 Mg Tab.Chew) 750 mg PO Q4H PRN PRN Reason: Heartburn Furosemide (Furosemide 20 Mg Tablet) 20 mg PO DAILY PRN; Protocol On Hold: 10/23/24 15:38 PRN Reason: Edema Guaifenesin/Codeine Phosphate (Guaifen/Codeine Sf 200/20/10ml 10 Ml Liquid) 5 ml PO Q6H PRN PRN Reason: Cough Last Admin: 10/25/24 21:08 Dose: 5 ml Documented By: BURTON Magnesium Hydroxide (Milk Of Magnesia 30 Ml Oral.Susp) 30 ml PO DAILY PRN PRN Reason: Constipation Melatonin (Melatonin 3 Mg Tablet) 6 mg PO BEDTIME PRN PRN Reason: Insomnia Last Admin: 10/25/24 21:08 Dose: 6 mg Documented By: BURTON Sodium Chloride (0.9 % Sodium Chloride Flush 3 Ml Syringe) 3 ml IVFLUSH QSHIFT [facility] Last Admin: 10/26/24 07:08 Dose: Not Given Documented By: HEBER Non-Admin Reason: Previously Administered Sodium Chloride (Sodium Chloride Tab 1 Gm Tablet) 1 gm PO BID [facility] Last Admin: 10/26/24 08:13 Dose: 1 gm Documented By: HEBER Spironolactone (Spironolactone 25 Mg Tablet) 25 mg PO WEFR [facility]; Protocol Last Admin: 10/24/24 15:22 Dose: Not Given Documented By: VANDA Non-Admin Reason: Decreased Blood Pressure Ursodiol (Ursodiol 300 Mg Capsule) 300 mg PO BID [facility] Last Admin: 10/26/24 08:13 Dose: 300 mg Documented By: HEBER Labs 10/25/24 05:21 10/25/24 05:21 Labs: Laboratory Results - last 24 hr 10/26/24 06:08 PT 36.9 H INR 3.2 H Microbiology Microbiology Results: Microbiology 10/23/24 Unknown Urine Culture - Final Urine clean catch - Clean Catch Midstream Enterococcus faecalis Assessment and Plan (1) Adult failure to thrive: Status: Acute Plan 79F PMH chronic systolic CHF with AICD EF of 15% and grade 2 diastolic dysfunction, severe COPD with chronic hypoxic respiratory failure on 2 L home O2, hyperlipidemia, paroxysmal AFib on warfarin, hypertension, CAD, congenital UPJ obstruction presented with weakness, found to have hyponatremia 1.Acute hyponatremia -good response to sodium chloride tablets -sodium at baseline -follow renals/divalents 2.Transaminitis/moderate protein calorie malnutrition/FTT -trending downward.. Check in a.m. -continue ursodiol -outpatient follow up with GI 3. Chronic CHF -stable and well compensated -continue Aldactone/hold Lasix 4.Paroxysmal atrial fibrillation -acceptable control on current therapies -Coumadin as ordered 5.Chronic hypoxic respiratory failure due to COPD -stable and well compensated -continue outpatient therapies Warfarin Full Code Requires ongoing hospitalization pending safe placement. High risk of outpatient failure Quality Stroke Does the patient have a stroke diagnosis?: No VTE Prior VTE?: No VTE Risk Level:: Medical - moderate - high VTE Device Contraindication: Treatment Not Indicated VTE Drug Contraindication: N/A - Med Ordered
--- NOTE | 2024-10-26 15:07 | PM.DS ---
DS: Providers Provider Date of Service: 10/26/24 Date of admission: 10/23/24 15:56 Date of discharge: 10/26/24 Primary care physician: Dorothy Salas MD Consults: 10/23/24 22:59 Consult to Wound Care Routine Reason for consultation: redness to coccyx DS: Diagnosis Discharge Diagnosis (1) Adult failure to thrive: Status: Acute DS: Summary Hospital Course Hospital Course: 79F PMH chronic systolic CHF with AICD EF of 15% and grade 2 diastolic dysfunction, severe COPD with chronic hypoxic respiratory failure on 2 L home O2, hyperlipidemia, paroxysmal AFib on warfarin, hypertension, CAD, congenital UPJ obstruction presented with weakness. Patient had been admitted to [facility] on 10/16/2024 and discharged on 10/23/2024 after hospitalization for moderate protein calorie malnutrition and feel that thrive due to suspected intermittent biliary obstruction. Given patient's frailty and comorbidities, no overt obstruction on imaging, and that patient is intake improved decision was made to pursue conservative management only with ursodiol. Patient was not interested in discharge to rehab at that time. Patient went home and immediately on getting home felt very weak and was unable to stand. Patient did not fall or hurt herself but called EMS with family to returned to ED. in ED sodium noted to be 126, otherwise LFTs similar to pre discharge. Patient now more open to rehab. Hospital Course Patient readmitted to general medical floor. Seen by Physical therapy and deemed to be appropriate for short-term rehab. Sodium stabilized on sodium chloride tablets. No acute issues during this hospitalization. At this time she is medically acceptable for transfer Time Attestation Discharge Coordination Time (in mins): 35 Quality: Safe Use of Opioids Does Pt have an Active Cancer Diagnosis on the Problem List?: No Quality: Stroke Does the patient have a stroke diagnosis?: No Physical Exam Vital Signs: Vital Signs: Last Vital Signs Temp 97.7 F 10/26/24 07:34 Pulse 69 10/26/24 07:34 Resp 14 10/26/24 07:34 BP 97/63 10/26/24 07:34 Pulse Ox 95 10/26/24 07:34 O2 Del Method Nasal Cannula 10/26/24 07:34 O2 Flow Rate 2 10/26/24 07:34 Oxygen Flow Rate 2 10/23/24 14:38 BMI result Body Mass Index 17.0 Const: Other: Awake alert no acute distress Resp: Other: Clear to auscultation bilaterally no rales rhonchi or wheezes Cardio: Other: No S4; positive S1-S2; no S3 murmurs rubs or gallops GI: Other: Soft nontender nondistended normoactive bowel sounds Extrem: Other: No edema bilaterally DS: Data Data Completed and Pending Completed studies during hospitalization [Text1]: Procedures Assistance with Respiratory Ventilation, Less than 24 Consecutive Hours, Continuous Positive Airway Pressure (09/08/24) Labs on day of discharge: Laboratory Results - last 24 hr 10/26/24 06:08 PT 36.9 H INR 3.2 H Discharge Plan Discharge Anticipated Discharge Date/Time: 10/26/24 15:08 Patient Disposition: Xfer SNF Discharge Diagnosis: Adult failure to thrive Referrals: Dorothy Salas MD [Primary Care Provider, Internal Medicine] - 1 Week Discharge Medications: New sodium chloride 1,000 mg Tablet,Soluble 1,000 mg PO BID Qty: 30 0RF Continued warfarin 2.5 mg tablet 2.5 mg PO WE warfarin 2.5 mg tablet 1.25 mg PO SUMOTUTHFRSA warfarin 2.5 mg tablet 1.25 mg PO SUMOTUTHFRSA Protocol: Dose Management Condition: Tuesday (Week One) Dose/Route: 1.25 mg Instruction: 0.5 x 2.5 mg tablets Condition: Tuesday Dose/Route: 1.25 mg Instruction: 0.5 x 2.5 mg tablets Condition: Tuesday Dose/Route: 1.25 mg Instruction: 0.5 x 2.5 mg tablets Condition: Tuesday Dose/Route: 2.5 mg Instruction: 1 x 2.5 mg tablet Condition: Dose/Route: 1.25 mg Instruction: 0.5 x 2.5 mg tablets Condition: Tuesday Dose/Route: 1.25 mg Instruction: 0.5 x 2.5 mg tablets Condition: Tuesday Dose/Route: 1.25 mg Instruction: 0.5 x 2.5 mg tablets Condition: Tuesday (Week Two) Dose/Route: 1.25 mg Instruction: 0.5 x 2.5 mg tablets Condition: Tuesday Dose/Route: 1.25 mg Instruction: 0.5 x 2.5 mg tablets Condition: Tuesday Dose/Route: 1.25 mg Instruction: 0.5 x 2.5 mg tablets Condition: Tuesday Dose/Route: 2.5 mg Instruction: 1 x 2.5 mg tablet Condition: Dose/Route: 1.25 mg Instruction: 0.5 x 2.5 mg tablets Condition: Tuesday Dose/Route: 1.25 mg Instruction: 0.5 x 2.5 mg tablets Condition: Tuesday Dose/Route: 1.25 mg Instruction: 0.5 x 2.5 mg tablets Protocol Text: Adjustment Start Date: Tuesday10/09/24 INR Value: 1.8 INR Date: 10/09/24 Recheck Date: 10/16/24 spironolactone 25 mg tablet 25 mg PO WEFR Protocol: Hold for SBP< HOLD for SBP < : 90 ursodiol 300 mg Capsule 200 mg PO BID Qty: 180 0RF atorvastatin 20 mg tablet 20 mg PO BEDTIME Discontinued furosemide 20 mg tablet 20 mg PO DAILY PRN (Reason: Edema) Patient Comments: pt states for weight gain 2 lbs or more Discharge Orders: Discharge Order (Routine); Ordered 10/26/24 Ordered By: Tae Wilson Diet: Advance to usual diet Activity on Discharge: As tolerated Stand Alone Forms: Patient Portal Discharge page Print Language: Telugu Care Plan Goals: Continue meds as outlined on transfer sheet Health Concerns: Therapies as per receiving facility Plan of Treatment: As per receiving facility Assessment: See discharge summary
--- NOTE | 2024-10-26 15:20 | PC.NURSE ---
Addendum entered by William Arreola RN 10/26/24 16:03: report given to facility Original Note: informed md of pt's bp. pt is concerned about her low bp's and being on meds that further lower it. md informed.
[2024-10-26 15:22] VITALS: BP 97/63; RESP 19; O2SAT 92
== END 2024-10-26 17:13 | disposition skilled nursing facility (03) | DRG 641 ==
LOC: HO.ED 15:19 → HO.EDOVER 16:01 → HO.S3 19:32
PROVIDERS: Admitting Provider Internal Medicine; Emergency Provider Emergency Medicine; PCP Internal Medicine; Visit Provider Hospitalist
DX: E87.1 Hypo-osmolality and hyponatremia (principal); J96.11 Chronic respiratory failure with hypoxia; E44.0 Moderate protein-calorie malnutrition; Z68.1 Body mass index [BMI] 19.9 or less, adult; I50.22 Chronic systolic (congestive) heart failure; I25.10 Atherosclerotic heart disease of native coronary artery without angina pectoris; R79.1 Abnormal coagulation profile; E87.5 Hyperkalemia; J44.9 Chronic obstructive pulmonary disease, unspecified; Z99.81 Dependence on supplemental oxygen; I48.0 Paroxysmal atrial fibrillation; R62.7 Adult failure to thrive; Z95.810 Presence of automatic (implantable) cardiac defibrillator; Z87.891 Personal history of nicotine dependence; Z79.01 Long term (current) use of anticoagulants; Z79.899 Other long term (current) drug therapy
CPT/HCPCS: 36415; 80048; 80053; 80076; 81001; 81003; 82947; 83935; 84300; 85007; 85025; 85027; 85610; 87086; 87088; 87186; 93005; 97162; 97530; 99285

== ENCOUNTER → 2024-10-23 15:24 | Outpatient (BNV) | payer MEDICARE, SELFPAY | PROVIDERS: Admitting Provider Internal Medicine; Emergency Provider Emergency Medicine; PCP Internal Medicine; Visit Provider Internal Medicine Cardiovascular Disease | DX: I44.0 Atrioventricular block, first degree (principal); I45.4 Nonspecific intraventricular block | CPT/HCPCS: 93010 ==

== ENCOUNTER → 2024-10-23 15:56 | Outpatient (BNV) | payer MEDICARE, MEDICAID, SELFPAY | PROVIDERS: Admitting Provider Internal Medicine; Emergency Provider Emergency Medicine; PCP Internal Medicine; Visit Provider Internal Medicine | DX: I42.9 Cardiomyopathy, unspecified (principal) | CPT/HCPCS: 99223; 99233 ==

== ENCOUNTER 2024-10-30 05:47 | Outpatient (REF) | payer MEDICARE, SELFPAY ==
--- OUTSIDE RECORDS SUMMARY | 2024-10-25 23:59 | XMS_ITS | Continuity of Care Document ---
Author Organization [facility] Address [address] [place] [id number] Care Team Providers Care Ux Developer Name Role Phone Dorothy Salas MD Primary Care Physician Encounter [facility] R [id number] Date(s): 06/27/24 - 10/25/24 [facility] [address] [place] [id number] Attending Physician: Chance Rivera MD Admitting Physician: Chance Rivera MD Referring Physician: Dorothy Salas MD Encounter Type: Pre-OutPatient One Time Allergies, Adverse Reactions, Alerts Substance Criticality Severity [...] 06/06/24 11:09:00 AM EDT, Route toPharmacy Electronically, [facility], 165, cm, 11/29/23 14:44:00 EDT, Height, 42.5, kg, 07/10/23 5:26:00 EDT, Dry Weight Start Date: 06/06/24 Status: Ordered Quantity: 45.0 Unit: tablet Repeat number: 1 atorvastatin 20 mg oral tablet 1 tablet = 20 mg, By Mouth, Daily, # 90 tablet, 3 Refills, Maintenance, 05/12/22 2:37:00 PM EST, Tablet, [facility], Partial fill upon patient request [...] By Mouth, Daily, as instructed; 5 mg //s/s; 2.5 mg //, # 30, Maintenance, 07/23/07 11:53:44 AM EDT Start Date: 07/23/07 Status: Ordered Quantity: 30.0 Unit: Repeat number: 1 Entresto 24 mg-26 mg oral tablet 1 tablet, By Mouth, 2 times a day, # 60 tablet, 5 Refills, Maintenance, 07/31/24 8:23:00 AM EDT, [facility], 30, 1 tablet By Mouth 2 [...] Replace Required Details, Route to Pharmacy Electronically, [facility], Partial fill upon patient request [...] cardioverter/defibril lator, total system (AICD) 1 Confirmed 2009 Active Implantation of automatic cardioverter/defibril lator, total [...] Team Personnel Name: Dorothy Salas MD Position: [facility] Outreach Member Role: PCP Address: [address] [place] [address] [address] Dorothy Salas MD [place], [place] [id number] Telecom: Name: Ness Sotomayor MD Position: [facility] Cardiology MD Member Role: [employer] Consulting Physician Name: Yomaira Lange RN Position: [facility] RN Member Role: Primary Care Nurse Care Team Related Persons Name: WYATT GARCES Name: BOZENA CABAN Insurance Providers Guarantor name: TELLY ACOSTA Health Plan Information #: 1 Payer: [employer]ERSON[employer] ADV Payer Identifier: NA Member Number: [id number] Group Number: [id number] Subscriber Identifier: [id number] Relationship to Subscriber: self Coverage Type: NA Coverage Verification Date: NA Telecom: NA Address: Health Plan Information #: 2 Payer: [employer] Payer Identifier: NA Member Number: [id number] Group Number: Subscriber Identifier: [id number] Relationship to Subscriber: self Coverage Type: MEDICAID Coverage Verification Date: Telecom: Address:
[2024-10-30 05:49] LABS: MANUAL DIFF FLAG NO
--- OUTSIDE RECORDS SUMMARY | 2024-10-30 05:51 | XMS_ITS | Patient Health Record ---
Author Organization [facility] Address [address] [place] [address] Care Team Providers Care Block Breaker Name Role Phone Dorothy Salas Primary Care Provider Unavailab Ryley Carroll Unavailable [phone] Allergies Allergen (clinical drug ingredient) Drug/Non Drug [...] Treatment Pending Test Test Name Order Date [id number] Destruction, 1-14 12/14/2019 Insurance Providers Payer Name Payer Address Payer Phone Subscriber Number Group Number Insured Name Patient Relationship to Insured Coverage Start Date Coverage End Date Medicare National Govt Svcs Inc [address] [place] [address] [id number] Lala Tucker Self - patient is the insured Medical (General) History Medical History History ICD Code CAD CHF [place] - 2007 Surgical History Surgery Date(Month/Year)
[2024-10-30 06:21] LABS: Prothrombin Time 64.5 SEC (10.9-12.4)
[2024-10-30 06:24] LABS: Anion Gap 16 (12-20); Blood Urea Nitrogen 53 mg/dL (9-16); Calcium 7.9 mg/dL (8.4-10.2); Carbon Dioxide 15 mmol/L (22-29); Chloride 104 mmol/L (96-108); Estimated Glomerular Filt Rate 48; Potassium 4.7 mmol/L (3.3-5.1); Sodium 130 mmol/L (135-145)
[2024-10-30 06:37] LABS: INTERNATIONAL NORM RATIO 5.6 (0.9-1.1)
[2024-10-30 06:58] LABS: Hematocrit 33.6 % (37.0-47.0); Hemoglobin 11.0 g/dl (12.0-16.0); Imm Gran Abs Auto 0.06 X10*3/uL (0.00-0.03); Imm Gran Pct Auto 0.6 % (0.0-0.4); Lymphocytes Absolute Auto 0.6 X10*3/uL (1.2-4.9); Mean Corpuscular HGB Conc 32.7 g/dl (31.0-35.0); Mean Corpuscular Hemoglobin 28.0 pg (27.0-33.0); Mean Corpuscular Volume 85.5 fL (80.0-98.0); NRBC Abs Auto 0.290 X10*3/uL (0.0-0.012); Platelet Count 179 X10*3/uL (160-400); Red Blood Count 3.93 X10*6/uL (4.20-5.50); White Blood Count 10.9 X10*3/uL (4.8-10.8)
[2024-10-30 07:04] LABS: NRBC Pct Auto 2.7 /100WBC (0.0-0.2)
== END 2024-10-30 05:48 | disposition home or self-care (01) ==
LOC: HO.MMNH1L 05:47
PROVIDERS: Visit Provider Physician Assistant Medical
DX: N19 Unspecified kidney failure (principal); R41.82 Altered mental status, unspecified
CPT/HCPCS: 36415; 80048; 85025; 85610

== ENCOUNTER 2024-10-31 11:31 | Emergency (ER) | payer MEDICARE, SELFPAY ==
[2024-10-31] VITALS (10 sets, daily range): BP systolic 96–101; BP diastolic 51–58; PULSE 67–88; RESP 18–22; TEMP 36.5; O2SAT 85–98; BMI 19.6
--- NOTE | ~2024-10-31 | XR_ITS ---
EXAMINATION: XR CHEST CLINICAL INFORMATION: SOB COMPARISON: September 16, 2024. TECHNIQUE: 2 views of the chest were obtained. FINDINGS: Meniscal shaped opacities in the lower thoracic spine. Indistinct margins in the perihilar region in the inferior cardiomediastinal silhouette. No pneumothorax. Pulmonary reticular pattern. Cardia mediastinal silhouette size is enlarged. Single elements of T8 and likely in the right ventricle with a left-sided pacemaker. Multilevel thoracolumbar spondylosis with a kyphotic deformity. Osteopenia versus osteoporosis. 40% compression deformity in the lower thoracic spine. XR/XR chest 2V IMPRESSION: Bilateral moderate to large volume pleural effusions, cardiomegaly versus pericardial effusion and likely mild interstitial lung edema. Concerning chronic interstitial lung disease/COPD emphysematous type changes. Osteopenia versus osteoporosis and multilevel spondylosis. Electronically signed by: Kevin Suárez MD 10/31/2024 12:32 PM EDT
--- NOTE | 2024-10-31 11:35 | ECG_ITS ---
Test Reason : SOB Blood Pressure : */* mmHG Vent. Rate : 76 BPM Atrial Rate : 76 BPM P-R Int : 214 ms QRS Dur : 212 ms QT Int : 484 ms P-R-T Axes : 27 -33 71 degrees QTcB Int : 544 ms Sinus rhythm with 1st degree A-V block Possible Left atrial enlargement Left axis deviation Left bundle branch block Abnormal ECG When compared with ECG of 23-Oct-2024 15:44, QRS axis Shifted right Referred By: Shannon Hdz Electronically Signed By: SUZIE CALVO
--- NOTE | 2024-10-31 11:42 | ED.GENADULT ---
HPI - General Adult General Chief complaint: Failure to Thrive Stated complaint: PT STS SOB,85% HOME O2 @2LPN,NO PO INTAKE X3D @SNF Time Seen by Provider: 10/31/24 11:35 History of Present Illness ED Provider: Dr. Hdz HPI narrative: 79 y/o F patient; PMH CKD, HFrE (most recent EF 09/2024 12%), mild pulmonary HTN, atrial fibrillation on Coumadin, HLD, HTN, AICD, CAD, COPD, hx cardiomyopathy; presents from home via EMS with report of shortness of breath and severe diaphoresis. The patient states she woke up this morning sweaty, and requesting ice packs for comfort. The patient herself denies any other complaints. Per PA staff for approx the last 3 days the patient has had increased failure to thrive with decreased PO intake. The patient states she does not think she has been eating less but can only remember eating breakfast yesterday morning. The patient otherwise denies: fever or chills, nausea/vomiting, abdominal pain or chest pain. EMS did provide some fluids during transport. EMS report patient's SpO2 85% on home 2L, increased to 4L with appropriate response. Related Data Home Medications ?Medication ?Instructions ?Recorded ?Confirmed atorvastatin 20 mg tablet 20 mg PO BEDTIME 10/05/23 10/31/24 spironolactone 25 mg tablet 25 mg PO WEFR 10/17/24 10/31/24 warfarin 2.5 mg tablet 1.25 mg PO SUMOTUTHFRSA 10/17/24 10/23/24 warfarin 2.5 mg tablet 1.25 mg PO SUMOTUTHFRSA 10/17/24 10/23/24 warfarin 2.5 mg tablet 2.5 mg PO WE@1800 10/17/24 10/23/24 acetaminophen 325 mg tablet 650 mg PO Q6H PRN Pain 10/31/24 10/31/24 bisacodyl 10 mg rectal suppository 10 mg IA DAILY PRN Constipation 10/31/24 10/31/24 guaifenesin 100 mg/5 mL oral liquid 200 mg PO Q4H PRN Cough 10/31/24 10/31/24 magnesium hydroxide 400 mg/5 mL 30 ml PO DAILY PRN Constipation 10/31/24 10/31/24 oral suspension (Milk of Magnesia) melatonin 3 mg tablet 3 mg PO BEDTIME PRN Sleep 10/31/24 10/31/24 sodium phosphates 19 gram-7 118 ml IA DAILY PRN Constipation 10/31/24 10/31/24 gram/118 mL enema (Fleet Enema) tuberculin PPD 5 tub. unit/0.1 mL 5 tb unit intradermal ONCE Tb 10/31/24 10/31/24 intradermal injection solution Screening (Tubersol) Previous Rx's ?Medication ?Instructions ?Recorded ursodiol 300 mg capsule 200 mg (0.6667 x 300 mg) PO BID 10/23/24 #180 caps sodium chloride 1,000 mg soluble 1,000 mg PO BID #30 tabs 10/26/24 tablet Allergies Allergy/AdvReac Type Severity Reaction Status Date / Time lisinopril AdvReac Intermediate COUHG Verified 10/31/24 12:06 Review of Systems Review of Systems: Yes all other systems are reviewed and are negative PMFSH Past Medical History Attestation statement: The following information was validated with the patient. Source: old records reviewed Medical History Myocardial infarction Congestive heart failure Cardiomyopathy CAD (coronary artery disease) Hyperlipidemia Afib HTN (hypertension) Surgical History H/O: hysterectomy AICD (automatic cardioverter/defibrillator) present Social History Social History Household Members: None Housing: House Housing Other:: 1st floor of house. nephew lives on 2nd floor Do you presently have visiting nurse or other home services: No Alcohol intake: never Comment: pt too light bed alarm not functioning Patient Tobacco Use Status: Former Tobacco user Tobacco use type: Cigarette Second Hand Smoke Exposure: No Advance Directives: Yes Advance Directives on File: Yes Advance Directives Date on File: 09/08/24 Do you have a plan to hurt others: No Plan service: No Physical Exam ED Vital Signs: Vital Signs - 24 hr 10/31/24 12:03 10/31/24 12:09 10/31/24 12:09 Temperature 97.7 F Pulse Rate 76 Respiratory Rate 20 20 Blood Pressure 97/51 L Pulse Oximetry 93 93 Oxygen Delivery Method Nasal Cannula Nasal Cannula Oxygen Flow Rate 10/31/24 12:09 10/31/24 14:17 10/31/24 15:43 Temperature 97.7 F Pulse Rate 76 72 74 Respiratory Rate 20 21 H 22 H Blood Pressure 97/51 L 96/52 L 101/57 L Pulse Oximetry 93 94 93 Oxygen Delivery Method Nasal Cannula Nasal Cannula Nasal Cannula Oxygen Flow Rate 4 4 10/31/24 16:43 10/31/24 18:05 10/31/24 18:21 Temperature 97.7 F Pulse Rate 68 Respiratory Rate 22 H Blood Pressure 96/55 L 96/55 L Pulse Oximetry 95 Oxygen Delivery Method Room Air Oxygen Flow Rate 10/31/24 19:37 Temperature Pulse Rate 67 Respiratory Rate 18 Blood Pressure 98/58 L Pulse Oximetry 98 Oxygen Delivery Method Nasal Cannula Oxygen Flow Rate 4 BMI result Body Mass Index 19.6 Patient is afebrile (rectal), SpO2 92% on 4L NC, low normal BP. Const General: cooperative and comfortable Orientation/consciousness: patient oriented x3 HENMT Head: Yes normal to inspection and Yes atraumatic Eyes General: appearance normal, both eyes and all related structures Pupils: Equal, round and reactive pupils present EOM: EOMs intact bilaterally Neck Neck: Yes normal visual inspection, Yes full ROM, Yes supple and No tender Chest Chest palpation & inspection: normal inspection of the chest and normal palpation of entire chest wall Resp Effort & Inspection: normal respiratory effort, able to speak in complete sentences and no cough Auscultation: clear to auscultation bilaterally, no crackles and no wheezes Cardio Rate: regular rate Rhythm: regular rhythm GI Inspection: Yes normal to inspection, No Abdominal wall edema and No distended Palpation (GI): Soft to palpation, not firm, nontender, no guarding and not rigid Auscultation: normal bowel sounds Back/Spine/Pelvis Back: No back tenderness Neuro General: patient oriented x3 Cranial nerves: Yes Equal, round and reactive pupils present Course Course Course Narrative: Patient is afebrile (rectal), tolerating increased O2 4L NC well. Will obtain EKG, CXR, and laboratory studies including VBG. EKG independently interpreted by myself as NSR 76BPM with + LBBB, + LAD. Compared to prior EKG and unchanged. CXR with bilateral moderate to large volume pleural effusions with cardiomegaly versus pericardial effusion and likely mild interstitial lung edema. Compared to prior CXR from 09/2024 right pleural effusion is new, left pleural effusion is larger. VBG with pH 7.28, bicarb 13, pCO2 27. INR is 9.2, prior INR was 5.6. Patient is not bleeding so I do think we can just plan to have her warfarin held and follow her INR during her admission. WBC 15.2. No significant anemia. Mild hyponatremia 128. Cr 1.42, baseline 1.11. LA 6.9. Transaminitis similar to prior. Troponin 38.5, prior troponin was 54.4 on 10/18. BNP 00094. Similar to baseline. Patient has an EF of approx 12% on ECHO from 09/17. She is difficult to provide IV fluids given significantly diminished EF and signs of CHF on exam/CXR/increased O2 requirements. However I do think on exam she does appear dry with PARVIN, therefore I will provide: Will provide 500cc IVF and lasix 20mg IV. COVID negative. Hospitalist requested to wait for repeat LA and consult cardiology for recommendations. Cardiology states patient HF clinic is at [facility]. Will discuss transfer with their service. Repeat LA improved to 5.1 just with EMS fluids. Discussed with [facility] cardiology. Recommended against additional fluids at this time. Accepted to the CCU under PCU Dr. Ellsworth. Plan: Transitioned to [facility] Condition: Stable Medications Administered Discontinued Medications Generic Name Dose Route Start Last Admin Trade Name Freq PRN Reason Stop Dose Admin Furosemide 20 mg 10/31/24 15:42 10/31/24 18:21 Furosemide 20 Mg/2 Ml Vial IVPUSH 10/31/24 15:43 20 mg ONCE ONE Administration Protocol Sodium Chloride 500 mls @ 500 mls/hr 10/31/24 15:45 10/31/24 19:36 Ns IV 10/31/24 16:44 Infused .Q1H RENETTA Infusion Medical Decision Making Lab Data 10/31/24 13:11 10/31/24 13:11 Labs: Lab Results 10/31/24 10/31/24 10/31/24 Range/Units 13:10 13:11 13:16 WBC 15.2 H (4.8-10.8) X10*3/uL RBC 4.22 (4.20-5.50) X10*6/uL Hgb 11.9 L (12.0-16.0) g/dl Hct 37.9 (37.0-47.0) % MCV 89.8 (80.0-98.0) fL MCH 28.2 (27.0-33.0) pg MCHC 31.4 (31.0-35.0) g/dl RDW 17.2 H (11.0-16.0) % Plt Count 167 (160-400) X10*3/uL MPV 11.2 (9.4-12.3) fL Immature Gran % (Auto) 2.0 H (0.0-0.4) % Neut % (Auto) 85.0 H (45-73) % Lymph % (Auto) 3.8 L (20-40) % Comal % (Auto) 9.1 (2-11) % Eos % (Auto) 0.0 (0-4) % Baso % (Auto) 0.1 (0-2) % Lymph # (Auto) 0.6 L (1.2-4.9) X10*3/uL Comal # (Auto) 1.4 H (0.1-1.2) X10*3/uL Eos # (Auto) 0.0 (0.0-0.4) X10*3/uL Baso # (Auto) 0.0 (0.0-0.2) X10*3/uL Abs Immat Gran (auto) 0.31 H (0.00-0.03) X10*3/uL Absolute Neuts (auto) 12.9 H (2.0-8.3) x10*3/uL Absolute Nucleated RBC 0.370 H (0.0-0.012) X10*3/uL Nucleated RBC % (auto) 2.4 H (0.0-0.2) /100WBC PT 105.7 H D (10.9-12.4) SEC INR 9.2 H* D (0.9-1.1) VBG pH 7.28 L (7.32-7.43) VBG pCO2 27 mmHg VBG pO2 63 mmHg VBG HCO3 13 L (22-26) mmol/L VBG O2 Saturation 83.0 % VBG Base Excess -11.8 mmol/L Sodium 128 L (135-145) mmol/L Potassium 4.9 (3.3-5.1) mmol/L Chloride 100 (96-108) mmol/L Carbon Dioxide 13 L (22-29) mmol/L Anion Gap 20 (12-20) BUN 60 H (9-16) mg/dL Creatinine 1.42 H (0.5-1.4) mg/dL Estim Creat Clear Calc 27.1 Estimated GFR 36 Random Glucose 86 (60-115) mg/dL Lactic Acid 6.9 H* (0.5-2.0) mmol/L Lactic Acid F/U @ 2Hr (0.5-2.0) mmol/L Calcium 8.4 D (8.4-10.2) mg/dL Phosphorus 4.6 H (2.7-4.5) mg/dL Magnesium 2.6 (1.6-2.6) mg/dL Total Bilirubin 2.6 H (0.0-1.0) mg/dL Direct Bilirubin 1.8 H (0.0-0.5) mg/dL AST 281 H (5-31) U/L ALT 410 H (0-31) U/L Alkaline Phosphatase 602 H (39-117) U/L Troponin I High Sens 38.5 H (<3.5-17.0) ng/L B-Natriuretic Peptide 62856 H (<100) pg/mL Total Protein 5.2 L (6.5-8.0) g/dL Albumin 2.9 L (3.5-5.0) g/dL Lipase 56 (8-78) U/L COVID-19 ([facility]) (Negative) COVID-19 Clin Com 10/31/24 10/31/24 10/31/24 Range/Units 14:14 15:45 15:54 WBC (4.8-10.8) X10*3/uL RBC (4.20-5.50) X10*6/uL Hgb (12.0-16.0) g/dl Hct (37.0-47.0) % MCV (80.0-98.0) fL MCH (27.0-33.0) pg MCHC (31.0-35.0) g/dl RDW (11.0-16.0) % Plt Count (160-400) X10*3/uL MPV (9.4-12.3) fL Immature Gran % (Auto) (0.0-0.4) % Neut % (Auto) (45-73) % Lymph % (Auto) (20-40) % Comal % (Auto) (2-11) % Eos % (Auto) (0-4) % Baso % (Auto) (0-2) % Lymph # (Auto) (1.2-4.9) X10*3/uL Comal # (Auto) (0.1-1.2) X10*3/uL Eos # (Auto) (0.0-0.4) X10*3/uL Baso # (Auto) (0.0-0.2) X10*3/uL Abs Immat Gran (auto) (0.00-0.03) X10*3/uL Absolute Neuts (auto) (2.0-8.3) x10*3/uL Absolute Nucleated RBC (0.0-0.012) X10*3/uL Nucleated RBC % (auto) (0.0-0.2) /100WBC PT (10.9-12.4) SEC INR (0.9-1.1) VBG pH (7.32-7.43) VBG pCO2 mmHg VBG pO2 mmHg VBG HCO3 (22-26) mmol/L VBG O2 Saturation % VBG Base Excess mmol/L Sodium (135-145) mmol/L Potassium (3.3-5.1) mmol/L Chloride (96-108) mmol/L Carbon Dioxide (22-29) mmol/L Anion Gap (12-20) BUN (9-16) mg/dL Creatinine (0.5-1.4) mg/dL Estim Creat Clear Calc Estimated GFR Random Glucose (60-115) mg/dL Lactic Acid (0.5-2.0) mmol/L Lactic Acid F/U @ 2Hr 5.1 H* (0.5-2.0) mmol/L Calcium (8.4-10.2) mg/dL Phosphorus (2.7-4.5) mg/dL Magnesium (1.6-2.6) mg/dL Total Bilirubin (0.0-1.0) mg/dL Direct Bilirubin (0.0-0.5) mg/dL AST (5-31) U/L ALT (0-31) U/L Alkaline Phosphatase (39-117) U/L Troponin I High Sens (<3.5-17.0) ng/L B-Natriuretic Peptide (<100) pg/mL Total Protein (6.5-8.0) g/dL Albumin (3.5-5.0) g/dL Lipase (8-78) U/L COVID-19 ([facility]) Invalid Negative (Negative) COVID-19 Clin Com See Note See Note Radiology Impression Discussion of test interpretation with radiology: I have reviewed the radiologist's reading. Radiologist Impression: EXAMINATION: XR CHEST CLINICAL INFORMATION: SOB COMPARISON: September 16, 2024. TECHNIQUE: 2 views of the chest were obtained. FINDINGS: Meniscal shaped opacities in the lower thoracic spine. Indistinct margins in the perihilar region in the inferior cardiomediastinal silhouette. No pneumothorax. Pulmonary reticular pattern. Cardia mediastinal silhouette size is enlarged. Single elements of T8 and likely in the right ventricle with a left-sided pacemaker. Multilevel thoracolumbar spondylosis with a kyphotic deformity. Osteopenia versus osteoporosis. 40% compression deformity in the lower thoracic spine. XR/XR chest 2V IMPRESSION: Bilateral moderate to large volume pleural effusions, cardiomegaly versus pericardial effusion and likely mild interstitial lung edema. Concerning chronic interstitial lung disease/COPD emphysematous type changes. Osteopenia versus osteoporosis and multilevel spondylosis. Electronically signed by: Kevin Suárez MD 10/31/2024 12:32 PM EDT Discharge Plan Discharge Clinical Impression: Supratherapeutic INR, PARVIN (acute kidney injury), CHF exacerbation, Dehydration, Metabolic acidosis, Hyponatremia Patient Disposition: Admitted As Inpatient Print Language: Vietnamese
[2024-10-31 13:20] LABS: VBG HCO3 13 mmol/L (22-26); VBG O2 % Saturation 83.0 %
[2024-10-31 13:20] LABS: Venous Blood Gas Refer to POC result
[2024-10-31 13:21] LABS: Hematocrit 37.9 % (37.0-47.0); Hemoglobin 11.9 g/dl (12.0-16.0); Imm Gran Abs Auto 0.31 X10*3/uL (0.00-0.03); Imm Gran Pct Auto 2.0 % (0.0-0.4); Lymphocytes Absolute Auto 0.6 X10*3/uL (1.2-4.9); Mean Corpuscular HGB Conc 31.4 g/dl (31.0-35.0); Mean Corpuscular Hemoglobin 28.2 pg (27.0-33.0); Mean Corpuscular Volume 89.8 fL (80.0-98.0); NRBC Abs Auto 0.370 X10*3/uL (0.0-0.012); Red Blood Count 4.22 X10*6/uL (4.20-5.50)
[2024-10-31 13:26] LABS: NRBC Pct Auto 2.4 /100WBC (0.0-0.2); Platelet Count 167 X10*3/uL (160-400); White Blood Count 15.2 X10*3/uL (4.8-10.8)
--- OUTSIDE RECORDS SUMMARY | 2024-10-31 13:26 | XMS_ITS | Patient Health Record ---
Author Organization [facility] Address [address] [place] [address] Care Team Providers Care Cooker Syrup Name Role Phone Dorothy Salas Primary Care Provider Unavailab Ryley Carroll Unavailable [phone] Allergies Allergen (clinical drug ingredient) Drug/Non Drug [...] W/U Status Risk Notes Problem Plantar wart (90703683) Plantar wart (B07.0) Active confirmed Plan Of Treatment Pending Test Test Name Order Date [id number]-Jaev Destruction, 1-14 12/14/2019 Insurance Providers Payer Name Payer Address Payer Phone Subscriber Number Group Number Insured Name Patient Relationship to Insured Coverage Start Date Coverage End Date Medicare National Govt Svcs Inc [address] [place] [address] [id number] Lala Tucker Self - patient is the insured Medical (General) History Medical History History ICD Code CAD CHF [place] - 2007 Surgical History Surgery Date(Month/Year)
[2024-10-31 13:37] LABS: Alanine Aminotransferase 410 U/L (0-31); Albumin Level 2.9 g/dL (3.5-5.0); Alkaline Phosphatase 602 U/L (39-117); Anion Gap 20 (12-20); Aspartate Amino Transferase 281 U/L (5-31); Blood Urea Nitrogen 60 mg/dL (9-16); Calcium 8.4 mg/dL (8.4-10.2); Carbon Dioxide 13 mmol/L (22-29); Chloride 100 mmol/L (96-108); Creatinine Clr Calc Pharmacy 27.1; Estimated Glomerular Filt Rate 36; Lipase 56 U/L (8-78); Magnesium 2.6 mg/dL (1.6-2.6); Potassium 4.9 mmol/L (3.3-5.1); Prothrombin Time 105.7 SEC (10.9-12.4); Sodium 128 mmol/L (135-145); Total Protein 5.2 g/dL (6.5-8.0)
[2024-10-31 13:40] LABS: INTERNATIONAL NORM RATIO 9.2 (0.9-1.1)
[2024-10-31 13:42] LABS: Troponin-I High Sensitivity 38.5 ng/L (<3.5-17.0)
[2024-10-31 14:03] LABS: B Type Natriuretic Peptide 11793 pg/mL (<100)
[2024-10-31 14:53] LABS: COVID-19 Test Invalid (Negative); IDNOW Serial# 58CA691E
--- NOTE | 2024-10-31 15:05 | PC.NURSE ---
initial covid test invalid per lab, reordered.
[2024-10-31 15:14] LABS: Reflex Lactate? Lactic Acid Added
[2024-10-31 16:02] LABS: COVID-19 Test Negative (Negative); IDNOW Serial# 58CA691E
[2024-10-31 16:19] LABS: ~Lactic Acid-LAB USE ONLY 5.1 mmol/L (0.5-2.0)
[2024-10-31 17:58] LABS: Reflex Lactate? 2 Y
[2024-10-31] MEDS: Furosemide 20 MG/2 ML VIAL IVPUSH (18:21)
--- NOTE | 2024-10-31 18:23 | PHA.MEDREC ---
Pharmacy Consult ? Medication Reconciliation Pharmacy has completed the medication reconciliation. Utilized list from [facility]. Messaging provider for Warfarin since it is not clear how pt is currently taking from facility.
[2024-10-31 20:25] LABS: ~Lactic Acid-LAB USE ONLY 2.2 mmol/L (0.5-2.0)
--- NOTE | 2024-10-31 20:53 | PC.NURSE ---
Nurse to nurse report given to Estella DENIS at [facility] [place]- [facility].
== END 2024-10-31 20:45 | disposition admitted as inpatient to this hospital (09) ==
PROVIDERS: Emergency Provider Emergency Medicine; PCP Internal Medicine
DX: N17.9 Acute kidney failure, unspecified (principal); I13.0 Hypertensive heart and chronic kidney disease with heart failure and stage 1 through stage 4 chronic kidney disease, or unspecified chronic kidney disease; I50.23 Acute on chronic systolic (congestive) heart failure; N18.9 Chronic kidney disease, unspecified; E87.20 Acidosis, unspecified; E87.1 Hypo-osmolality and hyponatremia; E86.0 Dehydration; R79.83 Abnormal findings of blood amino-acid level; R06.02 Shortness of breath; I48.91 Unspecified atrial fibrillation; J44.9 Chronic obstructive pulmonary disease, unspecified; E78.5 Hyperlipidemia, unspecified; Z79.01 Long term (current) use of anticoagulants
CPT/HCPCS: 36415; 71046; 80048; 80076; 82803; 83605; 83690; 83735; 83880; 84100; 84484; 85025; 85610; 87635; 93005; 96361; 96374; 99285; J1938

== ENCOUNTER → 2024-10-31 11:35 | Outpatient (BNV) | payer MEDICARE, SELFPAY | PROVIDERS: Emergency Provider Emergency Medicine; Visit Provider Radiology Diagnostic Radiology | DX: R06.02 Shortness of breath (principal) | CPT/HCPCS: 71046 ==

== ENCOUNTER → 2024-10-31 11:35 | Outpatient (BNV) | payer MEDICARE, SELFPAY | PROVIDERS: Emergency Provider Emergency Medicine; PCP Internal Medicine; Visit Provider Internal Medicine | DX: I44.0 Atrioventricular block, first degree (principal); I44.7 Left bundle-branch block, unspecified | CPT/HCPCS: 93010 ==